=== PATIENT | female | born 1995 | race Caucasian/White ===

== ENCOUNTER → 2018-04-13 07:39 | Outpatient (CLI) | payer BC, SELFPAY ==
[2018-04-13 08:11] LABS: Basophils % 0.7 % (0.1-2.0); Eosinophils # 0.1 K/mm3 (0.0-0.4); Eosinophils % 2.1 % (0.1-12.0); Hematocrit 30.9 % (37.0-47.0); Hemoglobin 9.4 g/dL (12.2-16.2); Lymphocytes # 1.2 K/mm3 (0.7-4.5); Mean Corpuscular HGB Conc 30.6 g/dL (31.8-35.4); Mean Corpuscular Hemoglobin 21.8 pg (27.0-31.2); Mean Corpuscular Volume 71.4 fl (81-99); Mean Platelet Volume 7.3 fl (7.4-10.4); Monocytes # 0.2 K/mm3 (0.1-1.0); Monocytes % 3.6 % (1.7-9.3); Neutrophils # 5.2 K/mm3 (1.8-7.8); Neutrophils % 75.6 % (37.0-80.0); Platelet Count 441 K/mm3 (142-424); Red Blood Count 4.32 M/mm3 (4.20-5.40); Red Cell Distribution Width 15.6 % (11.5-17.5); White Blood Count 6.8 K/mm3 (4.8-10.8)
[2018-04-13 09:35] LABS: Alanine Aminotransferase 28 U/L (12-78); Albumin Level 4.1 gm/dL (3.4-5.0); Albumin/Globulin Ratio 1.2 (1.1-1.8); Alkaline Phosphatase 72 U/L (46-116); Anion Gap 12.3 mEq/L (5-15); Aspartate Amino Transferase 11 U/L (15-37); Bilirubin,Total 0.4 mg/dL (0.2-1.0); Blood Urea Nitrogen 17 mg/dL (7-18); Calcium 9.2 mg/dL (8.5-10.1); Carbon Dioxide 27 mmol/L (21.0-32.0); Chloride 106 mmol/L (98-107); Chol/HDL Ratio 3.2 (1-3.5); Cholesterol 161 mg/dL (140-200); Creatinine,Serum 0.69 mg/dL (0.55-1.02); Estimated Glomerular Filt Rate 107 ml/min (>60); GFR (African American) 130 ML/MIN (>60); Globulin 3.4 gm/dl (1.3-3.2); Glucose 79 mg/dL (74-106); HDL Cholesterol 51 mg/dL (29-89); LDL Cholesterol 97 mg/dL (0-130); Potassium 4.3 mmoL/L (3.5-5.1); Sodium 141 mmol/L (136-145); Thyroid Stimulating Hormone 3.41 uIU/ml (0.358-3.740); Total Protein,Serum 7.5 gm/dL (6.4-8.2); Triglycerides 64 mg/dL (30-200); VLDL Cholesterol 13 mg/dL (0-40)
[2018-04-13 10:02] LABS: Amphetamine/Metha Screen,Urine Negative ng/mL (<1000); Barbiturates Screen,Urine Negative ng/mL (<200); Benzodiazepines Screen,Urine Negative ng/mL (<200); Cannabinoid Screen,Urine Negative ng/mL (<50); Cocaine Screen,Urine Negative ng/mL (<300); Methadone Screen,Urine Negative ng/mL (<300); Opiate Screen,Urine Negative ng/mL (<300); Phencyclidine Screen,Urine Negative ng/mL (<25)
[2018-04-14 18:28] LABS: Lithium (Eskalith(R)) 0.5 mmol/L (0.6-1.2)
== END ==
PROVIDERS: PCP Internal Medicine; Visit Provider Nurse Practitioner Psychiatric/Mental Health
DX: F31.81 Bipolar II disorder (principal)
CPT/HCPCS: 36415; 80053; 80061; 80178; 80305; 84443; 85025

== ENCOUNTER → 2018-05-07 09:45 | Outpatient (CLI) | payer BC, SELFPAY | PROVIDERS: PCP Internal Medicine; Visit Provider Nurse Practitioner Psychiatric/Mental Health | DX: F31.81 Bipolar II disorder (principal) | CPT/HCPCS: 36415; 80178 ==

== ENCOUNTER → 2018-06-08 08:19 | Outpatient (CLI) | payer BC, SELFPAY ==
[2018-06-08 11:15] LABS: Alanine Aminotransferase 22 U/L (12-78); Albumin Level 3.9 gm/dL (3.4-5.0); Albumin/Globulin Ratio 1.1 (1.1-1.8); Alkaline Phosphatase 72 U/L (46-116); Anion Gap 15.5 mEq/L (5-15); Aspartate Amino Transferase 14 U/L (15-37); Bilirubin,Total 0.3 mg/dL (0.2-1.0); Blood Urea Nitrogen 17 mg/dL (7-18); Calcium 9.5 mg/dL (8.5-10.1); Carbon Dioxide 26 mmol/L (21.0-32.0); Chloride 104 mmol/L (98-107); Creatinine,Serum 0.68 mg/dL (0.55-1.02); Estimated Glomerular Filt Rate 109 ml/min (>60); GFR (African American) 132 ML/MIN (>60); Globulin 3.6 gm/dl (1.3-3.2); Glucose 83 mg/dL (74-106); Potassium 4.5 mmoL/L (3.5-5.1); Sodium 141 mmol/L (136-145); Total Protein,Serum 7.5 gm/dL (6.4-8.2)
[2018-06-09 18:44] LABS: Lithium (Eskalith(R)) 0.9 mmol/L (0.6-1.2)
== END ==
PROVIDERS: PCP Internal Medicine; Visit Provider Nurse Practitioner Psychiatric/Mental Health
DX: F31.81 Bipolar II disorder (principal)
CPT/HCPCS: 36415; 80053; 80178

== ENCOUNTER → 2018-08-28 09:41 | Outpatient (POV) | payer BC, MEDICAID, SELFPAY | PROVIDERS: Visit Provider Dermatology | DX: Z00.00 Encounter for general adult medical examination without abnormal findings (principal) ==

== ENCOUNTER → 2018-08-30 08:16 | Outpatient (CLI) | payer BC, MEDICAID, SELFPAY ==
[2018-08-30 09:54] LABS: Basophils # 0.1 K/mm3 (0-0.2); Basophils % 0.7 % (0.1-2.0); Eosinophils # 0.1 K/mm3 (0.0-0.4); Eosinophils % 2.2 % (0.1-12.0); Hematocrit 36.6 % (37.0-47.0); Hemoglobin 11.5 g/dL (12.2-16.2); Lymphocytes # 1.1 K/mm3 (0.7-4.5); Lymphocytes % 16.9 % (10-50); Mean Corpuscular HGB Conc 31.5 g/dL (31.8-35.4); Mean Corpuscular Hemoglobin 27.9 pg (27.0-31.2); Mean Corpuscular Volume 88.5 fl (81-99); Monocytes # 0.2 K/mm3 (0.1-1.0); Monocytes % 3.2 % (1.7-9.3); Neutrophils # 5.1 K/mm3 (1.8-7.8); Neutrophils % 76.9 % (37.0-80.0); Platelet Count 504 K/mm3 (142-424); Red Blood Count 4.13 M/mm3 (4.20-5.40); Red Cell Distribution Width 14.5 % (11.5-17.5); White Blood Count 6.6 K/mm3 (4.8-10.8)
[2018-08-30 13:37] LABS: Alanine Aminotransferase 25 U/L (12-78); Albumin Level 3.9 gm/dL (3.4-5.0); Albumin/Globulin Ratio 1.1 (1.1-1.8); Alkaline Phosphatase 69 U/L (46-116); Anion Gap 14.1 mEq/L (5-15); Aspartate Amino Transferase 15 U/L (15-37); Bilirubin,Total 0.7 mg/dL (0.2-1.0); Blood Urea Nitrogen 17 mg/dL (7-18); Calcium 9.8 mg/dL (8.5-10.1); Carbon Dioxide 26 mmol/L (21.0-32.0); Chloride 103 mmol/L (98-107); Creatinine,Serum 0.82 mg/dL (0.55-1.02); Estimated Glomerular Filt Rate 88 ml/min (>60); GFR (African American) 106 ML/MIN (>60); Globulin 3.6 gm/dl (1.3-3.2); Glucose 91 mg/dL (74-106); Potassium 4.1 mmoL/L (3.5-5.1); Sodium 139 mmol/L (136-145); Total Protein,Serum 7.5 gm/dL (6.4-8.2)
[2018-08-31 17:14] LABS: Lithium (Eskalith(R)) 1.4 mmol/L (0.6-1.2)
== END ==
PROVIDERS: Visit Provider Nurse Practitioner Psychiatric/Mental Health
DX: F31.81 Bipolar II disorder (principal)
CPT/HCPCS: 36415; 80053; 80178; 85025

== ENCOUNTER 2025-04-06 09:39 | Emergency (ER) | payer OTHER, SELFPAY ==
--- OUTSIDE RECORDS SUMMARY | 2025-02-10 12:40 | XMS_ITS | Encounter Summary ---
Author Organization Healthcare Address [address] [place] [address] Care Team Providers Care Media Reporter Name Role Phone April Piper APRN Primary Care Provider [phone] Reason for Visit * Reason Comments Cyst Encounter Details Date Type Department Care Team ([facility] Contact Info) Description 02/10/2025 12:40 PM EDT Office Visit [facility] [address] [place] [address] April Piper APRN [address] [facility] [address] [place] [address] Pilonidal cyst (Primary Dx) Social History Tobacco Use Types Packs/Day Years Used Date Smoking Tobacco: Never Passive Smoke Exposure: Never Smokeless Tobacco: Never Alcohol Use Standard Drinks/Week Comments Yes 0 (1 standard drink = 0.6 oz pur e alcohol) Social Humiliation, Afraid, Rape, and Kick questionnair e Answer Date Recorded Within the last year, have y ou been afraid of your partner or ex-partner? No 11/19/2024 Within the last year, have y ou been humiliated or emotionally abused in other ways by your partner or ex-partner? No Within the last year, have y ou been kicked, hit, slapped, or otherwise physically hurt by your partner or ex-partner? No 11/19/2024 Within the last year, have y ou been raped or forced to have any kind of sexual activity by your partner or ex-partner? No 11/19/2024 PHQ-2 Answer Date Recorded Patient Health Questionnaire-2 Score 0 02/10/2025 PHQ-9 Answer Date Recorded Patient Health Questionnaire-9 Score 0 02/10/2025 Hunger Vital Sign Answer Date Recorded Within the past 12 months, y ou worried that your food would run out before you got the money to buy more. Patient declined Within the past 12 months, t he food you bought just didn't last and you didn't have money to get more. Patient declined 02/2025 PRAPARE - Transportation Answer Date Re corded In the past 12 months, has l ack of transportation kept you from medical appointments or from getting medications? Patient declined 02/10/2025 In the past 12 months, has l ack of transportation kept you from meetings, work, or from getting things needed for daily living? Patient declined 02/10/2025 Housing Stability Vital Sign Answer William e Recorded In the last 12 months, was t here a time when you were not able to pay the mortgage or rent on time? No 02/10/2025 Number of Times Moved in the Last Year Not on fi le 02/10/2025 At any time in the past 12 m [facility], were you homeless or living in a [place] [facility] (including now)? No 02/10/2025 Utilities Answer Date Recorded In the past 12 months has th e electric, gas, oil, or water company threatened to shut off services in your home? Patient declined 02/10/2025 PHQ-2A Answer Date Recorded Patient Health Questionnaire-2 Score 2 07/03/2023 Comments No Sex and Gender Information Value Date Recorded Sex Assigned at Female 03/05/2021 1:39 PM EDT Legal Sex Female 6:12 PM EDT Gender Identity Female 03/05/2021 1:39 PM EDT Sexual Orientation Straight 03/05/2021 1: 39 PM EDT documented as of this encounter Last Filed Vital Signs Vital Sign Reading Time Taken Comments Blood Pressure 109/77 02/10/2025 12:40 PM EDT Pulse 78 02/10/2025 12:40 PM EDT Temperature 36.8 C (98.3 F) 02/10/2025 12:40 PM EDT Respiratory Rate 16 02/10/2025 12:40 PM EDT Oxygen Saturation 98% 02/10/2025 12:40 PM EDT Inhaled Oxygen Concentration - - Weight 118 kg (259 lb 0.7 oz) 02/10/2025 12:40 P M EDT Height 172.7 cm (5' 8 ) 02/10/2025 12:40 PM EDT Body Mass Index 39.39 02/10/2025 12:40 PM EDT documented in this encounter Functional Status * Over the past 2 weeks, how often have you been bothered by any of the following problems? Question Answer Date of Assessment Author Little interest or pleasure in doing things Not at all 02/10/2025 12:43 PM EDT Divya Wiseman Feeling down, depressed, or hopeless Not at all 02/10/2025 12:43 PM EDT Divya Wiseman Patient Health Questionnaire -2 Score 0 02/10/2025 12:43 PM EDT Divya Wiseman * Question Answer Date of Assessment Author Trouble falling or staying a sleep, or sleeping too much Not at all 02/10/2025 12:43 PM EDT Divya Wiseman Feeling tired or having danish le energy Not at all 02/10/2025 12:43 PM EDT Divya Wiseman Poor appetite or overeating Not at all 02/10/2025 12 :43 PM EDT Divya Wiseman Feeling bad about yourself - or that you are a failure or have let yourself or your family down Not at all 02/10/2025 12:43 PM EDT Carlos Wiseman Trouble concentrating on thi ngs, such as reading the newspaper or watching television Not at all 02/10/2025 12:43 PM EDT Divya Wiseman Moving or speaking so slowly that other people could have noticed? Or the opposite - being so fidgety or restless that you have been moving around a lot more than usual. Not at all 02/10/2025 12:43 PM EDT Divya Wiseman Thoughts that you would be b ayla off or hurting yourself in some way Not at all 02/10/2025 12:43 PM EDT Divya Wiseman Patient Health Questionnaire -9 Score 0 02/10/2025 12:43 PM EDT Divya Wiseman * Calculated C-SSRS Risk Score (Lifetime/Recent) Answer Date of Assessment Author No Risk Indicated 02/10/2025 12:43 PM EDT Divya Wiseman * If you checked off any problems on this questionnaire so far, Question Answer Date of Assessment Author How difficult have these problems made it for you to do your work, take care of things at home, or get along with other people? Not difficult at all 02/10/2025 12:43 PM EDT Divya Wiseman * Question Answer Date of Assessment Author 1. Wish to be (Past 1 Month) No 025 12:43 PM EDT Divya Wiseman 2. Non-Specific Active Suici rad Thoughts (Past 1 Month) No 02/10/2025 12:43 PM EDT Divya Wiseman 6. Suicidal Behavior (Lifetime) No 12:43 PM EDT Divya Wiseman documented as of this encounter Miscellaneous Notes * Progress Notes - April Piper APRN - 02/10/2025 12:40 PM EDT Images from the original note were not included. Subjective Patient ID: Negrita Gilman is a 29 y.o. female. Chief Complaint: Increased drainage from pilonidal cyst HPI Last seen by PCP 01/29/25 for f/u to I&D of pilonidal cyst, was repacked and referred to CRS. Had previously been referred to Gen Surgery, cut appt not until April. Seen 02/06/25 at [facility] ER; notes indicate wound is superficial w/ healthy granulation tissue. Reports she was soaking a 2x2 gauze over the weekend, so is worried. Was also sore again w/ sitting, like it was in the beginning. The following portions of the chart were reviewed this encounter and updated as appropriate: Tobacco Allergies Meds Problems Med Hx Surg Hx Fam Hx Review of Systems Constitutional: Negative. Negative for fever. Respiratory: Negative. Cardiovascular: Negative. Skin: Positive for wound (see HPI). Psychiatric/Behavioral: The patient is nervous/anxious. Objective Physical Exam Vitals and nursing note reviewed. Constitutional: General: She is not in acute distress. Appearance: Normal appearance. She is obese. She is not ill-appearing. HENT: Head: Normocephalic and atraumatic. Cardiovascular: Rate and Rhythm: Normal rate. Pulmonary: Effort: Pulmonary effort is normal. Abdominal: General: There is no distension. Musculoskeletal: Cervical back: Normal range of motion. Skin: General: Skin is warm and dry. Comments: Pilonidal cyst w/ healthy granulation tissue, scant serous drainage. Depth of 1 cm w/ gentle sterile swab probe. No induration or fluctuance. Area loosely packed w/ sterile gauze moistened w/ NS. Neurological: Mental Status: She is alert and oriented to person, place, and time. Psychiatric: Mood and Affect: Mood normal. Behavior: Behavior normal. Assessment/Plan Assessment & Plan Pilonidal cyst Reassured her cyst is healing, and this is the expected course. Can lightly pack for another coupleof days. Moist hot compresses w/ a thermal barrier suggested, and OTC NSAID or Tylenol PRN. Avoid prolonged sitting. No swimming or soaking. RTC prn. Verbalizing understanding and agreement w/ plan. documented in this encounter Plan of Treatment Upcoming Encounters Date Type Department Care Team (Late st Contact Info) Description 05/02/2025 10:00 AM EDT Office Visit [facility] [address] [place] [id number] Lenore De La Cruz PA [address] [place] [address] 06/26/2025 7:20 AM EST Office Visit [facility] [address] [place] [id number] April Piper APRN [address] [place] [address] 08/22/2025 8:00 AM EST Office Visit [facility] [address] [place] [address] Keli Harvey PA [address] [place] [address] 09/17/2025 1:00 PM EST Office Visit [facility] [address] [place] [address] Janice Kramer MD [address] [place] [address] documented as of this encounter Goals Goal Patient Goal Type Associated Problems Recent Progress Patient-Stated? Author HEP Occupational Therapy On track(2020 3:42 PM EDT) No Tanya Ghosh Note: Patient will complete HEP with appropriate form 100% of the time. Environmental Compliance Manager Goal: to be met by 06/08/21 Goal on going as exercises continue to be added. Good form with exercises thus far. Leisure Occupational Therapy On track(2020 3:42 PM EDT) No Tanya hGosh Note: Patient will complete leisure task such as baking or beading x20 minutes without pain 100% of the time. Environmental Compliance Manager Goal: to be met by 07/10/21. documented as of this encounter Visit Diagnoses Diagnosis Pilonidal cyst- Primary documented in this encounter Additional Health Concerns Assessment Noted Time PHQ-9 Depression Total Score: 0 02/11/20 25 12:43 PM EDT A fall risk assessment has been complete d for the patient 02/10/2025 12:44 PM EDT A Body Mass Index follow-up plan has been documented for the patient 02/10/2025 1:15 PM EDT documented as of this encounter Care Teams Media Reporter Relationship Specialty Start Date End Date April Piper APRN [address] [place] [address] [address] [place] [address] PCP - General Family Medicine 02/06/23 documented as of this encounter
--- OUTSIDE RECORDS SUMMARY | 2025-02-21 08:00 | XMS_ITS | Encounter Summary ---
Author Organization Healthcare Address [address] [place] [address] Care Team Providers Care Paint Line Operator Name Role Phone April Piper APRN Primary Care Provider [phone] Encounter Details Date Type Department Care Team (Late st Contact Info) Description 02/21/2025 8:00 AM EDT Office Visit [place] [facility] [address] [place] [address] Keli Harvey PA [address] [place] [address] Occipital neuralgia, unspecified laterality (Primary Dx); Myofascial pain; Idiopathic intracranial hypertension; Chronic tension-type headache, intractable; Migraine without aura and without status migrainosus, not intractable Social History Tobacco Use Types Packs/Day Years [...] any time in the past 12 m [facility], were you homeless or living in a retirement (including now)? No 02/10/2025 Utilities Answer Date Recorded In the past 12 months has e electric, gas, oil, or water company [...] PM EDT documented as of this encounter Miscellaneous Notes * Progress Notes - Keli Harvey PA - 02/21/2025 8:00 AM EDT [facility] Neurology TeleHealth Follow up Note The patient presents to this TeleCare visit. Patient identity has been confirmed using name and date of . Patient confirms they are physically located in [place]. The patient has received and understands the [place] Authorizations and Agreements form and consents to the general terms and conditions of care. The patient has received the Consent for Care Using TeleCare. The risk, benefits, and alternatives of care being provided via telecarewere discussed with the patient who understands and agrees to proceed. The patient was seen via audio and video. Negrita Kerry Gilman presents via Video for a follow up regarding MIGRAINE HEADACHES Patient was last seen by MARIE Velasquez on 11/19/2024. 11/19/2024 - MARIE Velasquez - telehealth 1) Chronic daily head pain / pressure 2) Migraine headache Continue Emgality 120mg injections every 30 days. For headache prevention - may need new prescription. Continue Nurtec 75mg (new RX) taken every other day for headache prevention. Continue Ubrelvy 50mg (new RX) taken as needed for headache rescue. No longer taking Nortriptyline- 3) Myofascial neck pain / Occipital Neuralgia Continue Methocarbamol 750 at bedtime Continue Naproxyn 500mg at bedtime and prn for pain In future - may benefit from trigger Point injection HPI Today, patient presents via video unaccompanied to contribute to the history. Current meds Emgality 120mg monthly Ubrelvy 50mg - prn Topiramate -25mg 1in am and 2 in pm (from endo) Headaches have been doing really well. I really don't have a problem unless I am really sick (like a cold) and have a really bad migraine. The last two months - about 5 days prior to next injections - gets several headaches. Has to take the ubrelvy at least 3 of 5 days (sometimes takes two doses to subside) Currently receiving Emgality 120mg monthly for prevention - the occasional headache during the month is not as severe as previous headaches. Headaches at end of month are more severe (like previous headaches before this treatment) and is accompanied with nausea. Has Zofran at home to use if needed On Topamax from [facility] (for appetite suppressant) - No sign SE. Increase to 50mg in am and 50mg at pm. ( Specialty pharmacy) - to assist with headache prevention Re: Ubrelvy 50mg - often has to take 2 doses, but Medicaid only gives 10 tablets/ month. Takes mostof them at end of month. This prescription comes from specialty pharmacy Has never had BOTOX but is interested in learning more about it. Past Medical History[1] Family History[2] Surgical History[3] Medications Ordered Prior to Encounter[4] Allergies[5] All medications have been reviewed today. Review of Systems As noted in HPI Objective There were no vitals filed for this visit. Physical Exam Exam observed via Zoom TeleHealth GEN: WDWN NAD HENT: ATNC, NECK: Supple, ROM normal RESP: Normal respiratory effort observed. NEURO: MS: Awake, alert, oriented, good fund of knowledge, good mood with appropriate affect. CN: EOMI full and conjugate. No facial droop. Speech and hearing grossly normal. MOTOR: No abnormal movements. GAIT: Not tested Discussion Summary: Very pleasant 29 yo female, presents via video to discuss headaches and current treatment. Patient continues on Emgality 120 injections once a month. Unfortunately she states that they injections seems to wear off in the last week before the next injection. During this time she will have 3 migraineheadaches over about 5 days. During that time she will have to take her Ubrelvy. She currently has 50 mg but often has to take to before headache subsides. Because of this she use a goes through her 10 tablets that are alotted by her insurance. She is currently on Topamax 50 mg tablet 1 in the morning and 2 in the evening. This was originallywritten by her slip cover seamstress in effort to help her to lose some weight. She states that it did not seem to give the intended affect however it did seem to work on decreasing her monthly headaches. We did not discuss the occipital neuralgia, use of naproxen and tizanidine at this time. Patient always has the opportunity to reach out via [facility] at which time we can address any issues that she may have in the future Past medical records, any recent homes or imaging results, in interval history is collected and reviewed. Using shared decision-making, the following treatment plan is recommended 1) migraine headache, without aura, without status migrainosus, not intractable Patient will continue on EMGALITY 120 mg injections every 30 days, for headache prevention. Is not uncommon for patients to have decreased efficacy towards the end of the month. We will monitor this before any changes were made. Patient is very satisfied with how well the EMGALITY is doing in his not want to make any changes at this time. RX: UBRELVY 100 MG WILL BE SENT TO THE SPECIALTY PHARMACY ( Rx: Ubrelvy 100 mg will be sent to the specialty pharmacy ( this is an increased from the 50 mg so patient will have enough of the medication at the end of the month to treat her headaches) Recommend increasingly propranolol 50 mg to 2 tablets in the morning and 2 tablets at night. This may help to increase the prevention of her headaches. She is asked to reach out to her slip cover seamstress and make them aware of this change since they are the original prescriber hours. We are course available to reach out to the slip cover seamstress are cells provide any information that is needed. Course again recommend staying well hydrated. Getting routine sleep. As both of these activities will keep the headache threshold level She is asked to keep a headache diary to have a specific number of how many headaches and how many migraine headache she has monthly. This is an anticipation of looking into Botox injections in the future. We approach this as it may be a way to give headache prevention through the end of the month before the next Emgality injection is due. RTC 6 months we request at this visit be in-person Assessment and Plan Diagnosis Plan 1. Occipital neuralgia, unspecified laterality 2. Myofascial pain 3. Idiopathic intracranial hypertension 4. Chronic tension-type headache, intractable 5. Migraine without aura and without status migrainosus, not intractable Telehealth Statement Patient Verification Patient identity has been confirmed using name and date of ? Yes Authorizations and Agreements/Telemedicine Consent sent and consent confirmed? Yes Patient Location: Home/Other Patient confirms they are physically located in [place]? Yes If the patient is not physically located in [place], the provider has confirmed with [facility] thatthe provider is authorized to provide services in patient's stated location? N/A Provider Location: [facility] facility Audio and video or audio only? Audio and video Total visit time: 31 minutes [1] Past Medical History: Diagnosis Date ADD (attention deficit disorder) Anemia Anxiety Arthritis Asthma as child Bipolar 1 disorder (CMS/HCC) Chronic pain disorder COVID-19 COVID-19 Depression bipolar 1 GERD (gastroesophageal reflux disease) Headache Headache, tension-type Hypertension Joint pain Migraine Obesity (BMI 35.0-39.9 without comorbidity) 12/30/2021 Otitis media PONV (postoperative nausea and vomiting) [2] Family History Problem Relation Name Age of Onset Hypertension Mother Mom Depression Mother Mom Alcohol abuse Mother Mom Heart disease Mother Mom Mental illness Mother Mom Arthritis Mother Mom Drug abuse Mother Mom Rheumatologic disease Mother Mom Hypertension Father Dad Depression Father Dad Heart disease Father Dad Mental illness Father Dad Cervical cancer Maternal Grandmother M gma Cancer Maternal Grandmother M gma Diabetes Maternal Grandfather M gpa Alcohol abuse Maternal Grandfather M gpa Hearing loss Maternal Grandfather M gpa Heart disease Maternal Grandfather M gpa Mental illness Maternal Grandfather M gpa Arthritis Maternal Grandfather M gpa Bipolar disorder Paternal Grandmother D gma Hearing loss Paternal Grandmother D gma Heart disease Paternal Grandmother D gma Mental illness Paternal Grandmother D gma Arthritis Paternal Grandmother D gma Cataracts Paternal Grandmother D gma Other (substance abuse) Other Bipolar disorder Other Hearing loss Paternal Grandfather D gpa Heart disease Paternal Grandfather D gpa Arthritis Paternal Grandfather D gpa Cataracts Paternal Grandfather D gpa Alcohol abuse Mother's Sister Mom sister Depression Mother's Sister M sist Depression Mother's Sister Mom s Mental illness Mother's Sister M sister Mental illness Father's Brother Uncle Bipolar disorder Father's Brother Uncle Intellectual Disability Brother Tiburcio Drug abuse Mother's Sister M sis Mental illness Father's Brother Uncle Bipolar disorder Father's Brother Uncle [3] Past Surgical History: Procedure Laterality Date APPENDECTOMY N/A Appendectomy from [facility] BARIATRIC SURGERY GASTRIC BYPASS N/A Gastric Surgery from [facility] TONSILLECTOMY N/A Tonsillectomy from [facility] WRIST SURGERY Bilateral x9 [4] Current Outpatient Medications on File Prior to Visit Medication Sig Dispense Refill albuterol (2.5 MG/3ML) 0.083% nebulizer solution Take 3 mL (2.5 mg) by nebulization 4 (four) times a day if needed for wheezing or shortness of breath. 360 mL 0 albuterol 108 (90 Base) MCG/ACT inhaler Inhale 2 puffs every 4 hours as needed for wheezing or shortness of breath. 18 g 3 amphetamine-dextroamphetamine (Adderall) 10 MG tablet Take 1 tablet by mouth 2 times a day. 60 tablet 0 budesonide-formoterol (Symbicort) 160-4.5 MCG/ACT inhaler Inhale 2 puffs 2 times a day. Rinse mouthwith water after use to reduce aftertaste and incidence of candidiasis. Do not swallow. 10.2 g 2 cyanocobalamin (cyancobalamin) 500 MCG tablet Take 1 tablet (500 mcg) by mouth 1 (one) time each day. 90 tablet 3 desvenlafaxine (Pristiq) 50 MG 24 hr tablet Take 1 tablet by mouth daily. Do not crush, chew, or split. 30 tablet 0 famotidine (Pepcid) 40 MG tablet Take 1 tablet (40 mg) by mouth 2 (two) times a day. 180 tablet 3 fluticasone (Flonase) 50 MCG/ACT nasal spray Administer 1 spray into each nostril daily. Shake gently. Before first use, prime pump. After use, clean tip and replace cap. 16 g 12 galcanezumab-gnlm (Emgality) 120 MG/ML injection Inject 1 Syringe (120 mg) under the skin every 30 (thirty) days. 1 each 11 lamoTRIgine (LaMICtal) 200 MG tablet Take 1 tablet by mouth daily. 30 tablet 0 lisinopril 10 MG tablet Take 1 tablet by mouth daily. 90 tablet 3 loratadine (Claritin) 10 MG tablet Take 1 tablet by mouth daily. 90 tablet 3 magnesium, as gluconate, (Magonate) 500 (27 Mg) MG tablet Take 1 tablet by mouth nightly. 90 tablet0 methocarbamol (Robaxin) 750 MG tablet Take 1 tablet by mouth at night as needed for muscle spasms (headaches). 90 tablet 3 montelukast (Singulair) 10 MG tablet Take 1 tablet (10 mg) by mouth every night. 90 tablet 3 naproxen (Naprosyn) 500 MG tablet Take 1 tablet by mouth in the morning and 1 tablet in the evening. Take with meals. 180 tablet 3 ondansetron ODT (Zofran-ODT) 8 MG disintegrating tablet Take 1 tablet (8 mg) by mouth every 8 hoursas needed for nausea or vomiting. 20 tablet 3 28-0.8 MG tablet Mruzuxtl-Qfb-Np-FA (/Iron) tablet Take 1 tablet by mouth daily. 90 tablet 1 propranolol (Inderal) 20 MG tablet Take 1 tablet by mouth 3 times a day. For headache prevention 270 tablet 3 QUEtiapine (SEROquel) 25 MG tablet Take 0.5 tablets by mouth at night as needed (Sleep). 15 tablet 0 Rexulti 2 MG tablet tablet Take 1 tablet by mouth nightly. 30 tablet 0 Spacer/Aero-Holding Chambers ([facility] Spacer Adult) [facility] 1 each0 topiramate (Topamax) 25 MG tablet Take 1 po every morning and 2 po in evening until follow up . 180tablet 0 [DISCONTINUED] Ubrelvy 50 MG tablet Take 1 tablet by mouth 1 time as needed. No current facility-administered medications on file prior to visit. [5] Allergies Allergen Reactions Abilify [Aripiprazole] Rash Sulfa Drugs Hives and Unknown - Patient states they do not know rxn details Iodinated Contrast Media Headache Naltrexone Other - please document in the comment field documented in this encounter Plan of Treatment Upcoming Encounters Date Type Department Care Team (Late st Contact Info) Description 05/02/2025 10:00 AM EDT [facility] [address] [place] [phone] Lenore De La Cruz PA [address] [place] [phone] 06/26/2025 7:20 AM EST Office Visit [facility] [address] [place] [address] Piper, April, OPERATIONS AND MAINTENANCE TECHNICIAN [address] [place] [phone] 08/22/2025 8:00 AM EST Office Visit [place] [facility] [address] [place] [address] Keli Harvey PA [address] [place] [address] 09/17/2025 1:00 PM EST Office Visit [facility] [address] [place] [address] Janice Kramer MD [address] [place] [address] documented as of this encounter Goals Goal Patient Goal Type Associated Problems Recent Progress Patient-Stated? Author HEP Occupational Therapy On track(2020 3:42 PM EDT) No Tanya Ghosh Note: Patient will complete HEP with appropriate form 100% of the time. Enrollment Specialist Goal: to be met by 06/08/21 Goal on going as exercises continue to be added. Good form with exercises thus far. Leisure Occupational Therapy On track(2020 3:42 PM EDT) No Tanya Ghosh Note: Patient will complete leisure task such as baking or beading x20 minutes without pain 100% of the time. [facility] Goal: to be met by 07/10/21. documented as of this encounter Visit Diagnoses Diagnosis Occipital neuralgia, unspecified laterality- Primary Myofascial pain Unspecified myalgia and myositis Idiopathic intracranial hypertension Benign intracranial hypertension Chronic tension-type headache, intractable Chronic tension type headache Migraine without aura and without status migrainosus, not intractable documented in this encounter Additional Health Concerns Assessment Noted Time PHQ-9 Depression Total Score: 0 02/11/20 25 12:43 PM EDT A fall risk assessment has been complete d for the patient 02/10/2025 12:44 PM EDT A Body Mass Index follow-up plan has been documented for the patient 02/21/2025 9:14 AM EDT documented as of this encounter Care Teams Paint Line Operator Relationship Specialty Start Date End Date April Piper APRN [address] [place] [phone] PCP - General Family Medicine 02/06/23 documented as of this encounter
--- OUTSIDE RECORDS SUMMARY | 2025-03-03 10:00 | XMS_ITS | Encounter Summary ---
Author Organization Healthcare Address [address] [place] [address] Care Team Providers Care Customer Greeter Name Role Phone April Piper APRN Primary Care Provider [phone] Reason for Referral * Consultation (Routine) - Authorized Specialty Diagnoses / Procedures Referred By Contac t Referred To Contact Diagnoses Class 2 severe obesity due to excess calories with serious comorbidity and body mass index (BMI) of 38.0 to 38.9 in adult ([facility]) Dietary counseling Migraine without status migrainosus, not intractable, unspecified migraine type Lenore De La Cruz PA [address] [place] [address] Phone: tel: fax: Referral ID Status Reason Start Date Expiration Date V isits Requested Visits Authorized [id number] Authorized 03/03/2025 09/02/2026 1 1 Reason for Visit * Reason Comments Obesity * Consultation (Routine) - Closed Specialty Diagnoses / Procedures Referred By Contac t Referred To Contact Diagnoses Morbid obesity ([facility]) Dietary counseling Lenore De La Cruz PA [address] [address] Phone: tel: fax: Referral ID Status Reason Start Date Expiration Date Visits Re quested Visits Authorized [id number] Closed 11/21/2024 05/23/2026 1 1 Encounter Details Date Type Department Care Team (Late st Contact Info) Description 03/03/2025 10:00 AM EDT Office Visit [facility] [address] [place] [address] Lenore De La Cruz PA [address] [address] Class 2 severe obesity due to excess calories with serious comorbidity and body mass index (BMI) of 38.0 to 38.9 in adult ([facility]) (Primary Dx); Dietary counseling; Migraine without status migrainosus, not intractable, unspecified migraine type Social History Tobacco Use Types Packs/Day Years [...] Date Recorded Patient Health Questionnaire-2 Score 0 03/03/2025 PHQ-9 Answer Date Recorded Patient Health Questionnaire-9 [...] in the past 12 m [facility], were you homeless or living in a longterm (including now)? No 02/10/2025 Utilities Answer Date [...] Sign Reading Time Taken Comments Blood Pressure 108/77 03/03/2025 9:47 AM EDT Pulse 70 03/03/2025 9:47 AM EDT Temperature - - Respiratory Rate - - Oxygen Saturation - - Inhaled Oxygen Concentration - - Weight 115 kg (252 lb 6.8 oz) 03/03/2025 9:47 AM EDT Height 172.7 cm (5' 8 ) 03/03/2025 9:47 AM EDT Body Mass Index 38.38 03/03/2025 9:47 AM EDT documented in this encounter Functional Status * Over the past 2 weeks, how often have you been bothered by any of the following problems? Question Answer Date of Assessment Author Little interest or pleasure in doing things Not at all 03/03/2025 9:50 AM EDT Latricia Jauregui Feeling down, depressed, or hopeless Not at all 03/03/2025 9:50 AM EDT Latricia Jauregui Patient Health Questionnaire -2 Score 0 03/03/2025 9:50 AM EDT Latricia Jauregui documented as of this encounter Miscellaneous Notes * Patient Instructions - Lenore De La Cruz PA - 03/03/2025 10:00 AM EDT 1306 kcal/day, Protein 100-115 grams/day, Carbs 139-175 grams/day, Fat 30-45 grams/day, fiber 30g, sugar <35 g - Will aim for about 400 calories per meal and 30-40 g of protein - Will increase water intake to 80 oz a day - Will aim for 5 cups of fruits and vegetables a day - Will concentrate on increasing protein intake - Will stop eating 3 hours prior to bedtime - Will stop sugary drinks * Progress Notes - Lenore De La Cruz PA - 03/03/2025 10:00 AM EDT Images from the original note were not included. SANDRA Negrita Gilman presents to the [facility] for follow up for weight loss. At her initial visit in November we started topiramate. She states that it has really helped with her migraines so her neurologist would like to take over prescriptions. She is currently taking 2 po BID. Initially she felt like it helped with her appetite but once her neurologist increased the dose she doesn't feel like it helps as much. She has noticed that she is not able to eat as much as usual. She states that when she was logging her foods she noticed that she became hyper fixated about her foods so she stopped logging. She plans to see a therapist soon. Currently low physical activity secondary to PMH: obesity, RLS, asthma, HTN, BPD, ADHD, migraines WEIGHT HISTORY - lowest weight as an adult- 198 Heaviest weight- 275 Rate of weight gain/any inciting factors- Weight gain with psych medications. Also increased stressgoing through a terrible divorce. Increased appetite- never feels satisfied Tried any Weight loss programs- phentermine- did not work; wellbutrin/naltrexone; Weight watchers, Gastric sleeve What worked best in your opinion in your prior weight loss journey? When she does things on her own Any Stressors Sleep- 8 hours no snoring FAMILY WEIGHT HISTORY Dad, mom, grandparents with weight issues NUTRITIONAL HISTORY Do you record your food- not currently Do you skip meals- yes- breakfast How often do you eat the following foods- -Whole grains: every day -Fruits: 2-3 times a day -Vegetables: 2-3 times a day -Meat: every day -dairy: 2-3 times a week -Fried food/snacks (chips crackers pop corn): 2-3 times a week -Sweets: 2-3 times a week -sugar sweetened beverages: once a week (improved from daily) -High sodium processed foods (canned soup pasta, frozen/packaged meal, chips) : 1-3 times a day -Alcohol: once a month 1 drink -How often do you Eat out- 1 times a week- How much Water do you drink per day - 32 oz 24 hour dietary recall BK- 2 eggs and whole wheat toast Lunch- turkey cheese sandwich with roasted vegetables, graham kiwi Dinner- 1/2 filet cod with roasted vegetables Snacks- none Nighttime eating PHYSICAL ACTIVITY Current level of physical activity- low activity related to current pilonidal cyst Any medical problems that limit physical activity- wrist and asthma No of flight of stairs/daily walking steps- not tracking Types of physical activities that you enjoy ( walking, running, swimming, hitting the gym, dancing)- walk, swim, treadmill SURGICAL- gastric sleeve 2015 SOCIAL HISTORY - h/o substance/alcohol abuse: No ? Eating disorders - late night eating; binge eating; boredom eating The following portions of the chart were reviewed this encounter and updated as appropriate: Tobacco Allergies Meds Problems Med Hx Surg Hx Fam Hx Review of Systems Constitutional: negative Respiratory: Negative. Cardiovascular: Negative. Gastrointestinal: Negative. Musculoskeletal: chronic wrist pain Neurological: Negative. Psychiatric/Behavioral: Negative. Objective []Expand by Default Physical Exam Vitals reviewed. Constitutional: Appearance: obese. Cardiovascular: Rate and Rhythm: Normal rate Pulmonary: Effort: Pulmonary effort is normal. Neurological: Mental Status: She is alert and oriented to person, place, and time. Psychiatric: Mood and Affect: Mood normal. Behavior: Behavior normal. Assessment/Plan #Obesity A reduction of 5%-10% or more of current body weight will improve health parameters. Weight today- 252 BMI- 38.38 Goal- 190 and to feel better; get appetite under control Weight change since last visit- down 22 lbs ACTION PLAN: Nutrition: 1306 kcal/day, Protein 100-115 grams/day, CHO 139-175 grams/day, Fat 30-45 grams/day, and Other fiber 30g, sugar <35 g based off of [address] Jeor BMR calculation - Will aim for about 400 calories per meal and 30-40 g of protein - Will increase water intake to 80 oz a day - Will aim for 5 cups of fruits and vegetables a day - Will concentrate on increasing protein intake - Will stop eating 3 hours prior to bedtime - Will stop sugary drinks Physical Activity: - Will track steps aiming for 10K a day Medical therapy: - Topiramate 25 mg 2 po BID Discussed medication use and potential side effects. Patient will reach out if any issues prior to follow up appointment. #Migraines - Continue topiramate as above to help with migraine prophylaxis Follow up- 6 weeks I personally spent a total of 28 minutes on this encounter. This time includes face to face with patient, counseling and discussion and/or coordination of care. Note to patient: The Century Cures Act makes medical notes like these available to patients inthe interest of transparency. However, be advised this is a medical document. It is intended as peer to peer communication. It is written in medical language and may contain abbreviations or verbiagethat are unfamiliar. It may appear blunt or direct. Medical documents are intended to carry relevant information, facts as evident, and the clinical opinion of the practitioner. RYLIE Valverde, PAEmmyC, [facility] documented in this encounter Plan of Treatment Upcoming Encounters Date Type Department Care Team (Late st Contact Info) Description 05/02/2025 10:00 AM EDT [facility] [address] [place] [address] Lenore De La Cruz PA [address] [place] [phone] 06/26/2025 7:20 AM EST Office Visit [facility] [address] [place] [address] April Piper APRN [address] [facility] [address] [place] [address] 08/22/2025 8:00 AM EST [facility] Visit [facility] [address] [place] [address] Keli Harvey PA [address] [place] [address] 09/17/2025 1:00 PM EST Office Visit [facility] [address] [place] [address] Janice Kramer MD [address] [place] [address] Scheduled Referrals Name Type Priority Associated Diagnoses Orde r Schedule Follow Up [facility] Outpatient Referral Routine Class 2 severe obesity due to excess calories with serious comorbidity and body mass index (BMI) of 38.0 to 38.9 in adult ([facility]) Dietary counseling Migraine without status migrainosus, not intractable, unspecified migraine type Expected: 05/04/2025, Expires: 09/04/2026 documented as of this encounter Goals Goal Patient Goal Type Associated Problems Recent Progress Patient-Stated? Author HEP Occupational Therapy On track(2020 3:42 PM EDT) No Tanya Ghosh Note: Patient will complete HEP with appropriate form 100% of the time. Snf Goal: to be met by 06/08/21 Goal on going as exercises continue to be added. Good form with exercises thus far. Leisure Occupational Therapy On track(2020 3:42 PM EDT) No Tanya Ghosh Note: Patient will complete leisure task such as baking or beading x20 minutes without pain 100% of the time. Snf Goal: to be met by 07/10/21. documented as of this encounter Visit Diagnoses Diagnosis Class 2 severe obesity due to excess calories with serious comorbidity and body mass index (BMI) of 38.0 to 38.9 in adult ([facility])- Primary Dietary counseling Dietary surveillance and counseling Migraine without status migrainosus, not intractable, unspecified migraine type documented in this encounter Additional Health Concerns Assessment Noted Time PHQ-9 Depression Total Score: 0 02/11/20 25 12:43 PM EDT A fall risk assessment has been complete d for the patient 02/10/2025 12:44 PM EDT A Body Mass Index follow-up plan has been documented for the patient 03/03/2025 11:26 AM EDT documented as of this encounter Care Teams Customer Greeter Relationship Specialty Start Date End Date April Piper APRN [address] [place] [phone] PCP - General Family Medicine 02/06/23 documented as of this encounter
--- OUTSIDE RECORDS SUMMARY | 2025-03-07 07:45 | XMS_ITS | Encounter Summary ---
Author Organization Healthcare Address [address] [place] [address] Care Team Providers Care Records Management Coordinator Name Role Phone April Piper APRN Primary Care Provider [phone] Encounter Details Date Type Department Care Team (Late st Contact Info) Description 03/07/2025 7:45 AM EDT Ancillary Procedure [facility] [address] [place] [address] Social History Tobacco Use Types Packs/Day Years [...] any time in the past 12 m [facility], were you homeless or living in a care home (including now)? No 02/10/2025 Utilities Answer Date Recorded In the past 12 months has th e [employer], gas, oil, or water [employer] threatened to shut off services in your [...] PM EDT documented as of this encounter Plan of Treatment Upcoming Encounters Date Type Department Care Team (Late st Contact Info) Description 05/02/2025 10:00 AM EDT [facility] [address] [place] [address] Lenore De La Cruz, PA [address] [place] [phone] 06/26/2025 7:20 AM EST Office Visit [facility] [address] [place] [phone] April Piper APRN [address] [place] [address] 08/22/2025 8:00 AM EST Office Visit [place] [facility] [address] [place] [address] Keli Harvey PA [address] [place] [address] 09/17/2025 1:00 PM EST Office Visit [facility] [address] [place] [address] Janice Kramer MD [address] [place] [address] documented as of this encounter Goals Goal Patient Goal Type Associated Problems Recent Progress Patient-Stated? Author HEP Occupational Therapy On track(2020 3:42 PM EDT) No Tanya Ghosh Note: Patient will complete HEP with appropriate form 100% of the time. Casting Wheel Operator Helper Goal: to be met by 06/08/21 Goal on going as exercises continue to be added. Good form with exercises thus far. Leisure Occupational Therapy On track(10/29/ 2021 3:42 PM EDT) No Tanya Ghosh Note: Patient will complete leisure task such as baking or beading x20 minutes without pain 100% of the time. Casting Wheel Operator Helper Goal: to be met by 07/10/21. documented as of this encounter Procedures Procedure Name Priority Date/Time Associated Diagnosis Comments AUTOMATED VISUAL FIELD, EXTENDED - OU - BOTH EYES Routine 03/07/2025 7:40 AM EDT Chronic tension-type headache, intractable documented in this encounter Results * Automated Visual Field, Extended - OU - Both Eyes (03/07/2025 7:40 AM EDT) Anatomical Region Laterality Modality Head Visual Field Narrative 03/17/2025 2:14 PM EDT Right Eye Threshold was 24-2. Strategy was JENNIFER. Reliability was good. Progression has been stable. Findings include normal observations. Left Eye Threshold was 24-2. Strategy was JENNIFER. Reliability was good. Progression has been stable. Findings include normal observations. Janice Interiano MD OPHTH VISUAL FIELD Final Result documented in this encounter Visit Diagnoses Not on filedocumented in this encounter Additional Health Concerns Assessment Noted Time PHQ-9 Depression Total Score: 0 02/11/20 25 12:43 PM EDT A fall risk assessment has been complete d for the patient 03/07/2025 12:50 PM EDT A Body Mass Index follow-up plan has been documented for the patient 03/07/2025 8:48 AM EDT documented as of this encounter Care Teams Records Management Coordinator Relationship Specialty Start Date End Date April Piper APRN [address] [place] [address] [address] [place] [address] PCP - General Family Medicine 02/06/23 documented as of this encounter
--- OUTSIDE RECORDS SUMMARY | 2025-03-07 07:45 | XMS_ITS | Encounter Summary ---
Author Organization Healthcare Address [address] [place] [address] Care Team Providers Care Setter Automatic Spinning Lathe Name Role Phone April Piper APRN Primary Care Provider [phone] Encounter Details Date Type Department Care Team (Late st Contact Info) Description 03/07/2025 7:45 AM EDT Ancillary Procedure [facility] [address] [place] [address] Social History Tobacco Use Types [...] any time in the past 12 m [facility], were you homeless or living in a fdc (including now)? No 02/10/2025 Utilities Answer Date Recorded In the past 12 months has th e [employer], gas, oil, or water [employer] threatened to shut off services in your [...] 05/02/2025 10:00 AM EDT [facility] [address] [place] [address] Lenore De La Cruz, PA [address] [place] [phone] 06/26/2025 7:20 AM EST Office [facility] [address] [place] [phone] April Piper APRN [address] [place] [address] 08/22/2025 8:00 AM EST Office Visit [place] [facility] [address] [place] [address] Keli Harvey PA [address] [place] [address] 09/17/2025 1:00 PM EST Office Visit [facility] [address] [place] [address] Janice Kramer MD [address] [place] [address] documented as of this encounter Goals Goal Patient Goal Type Associated Problems Recent Progress Patient-Stated? Author HEP Occupational Therapy On track(2020 3:42 PM EDT) No Tanya Ghosh Note: Patient will complete HEP with appropriate form 100% of the time. Loan Associate Goal: to be met by 06/08/21 Goal on going as exercises continue to be added. Good form with exercises thus far. Leisure Occupational Therapy On track(10/29/ 2021 3:42 PM EDT) No Tanya Ghosh Note: Patient will complete leisure task such as baking or beading x20 minutes without pain 100% of the time. Loan Associate Goal: to be met by 07/10/21. documented as of this encounter Procedures Procedure Name Priority Date/Time Associated Diagnosis Comments OCT, RETINA - OU - BOTH EYES Routine 03/07/2025 7:40 AM EDT Chronic tension-type headache, intractable documented in this encounter Results * OCT, Retina - OU - Both Eyes (03/07/2025 7:40 AM EDT) Anatomical Region Laterality Modality Head Optical Coherenc e Tomography Narrative 03/17/2025 2:02 PM EDT Right Eye Quality was good. Scan locations included subfoveal. Progression has been stable. Findings include normal observations, normal foveal contour. Left Eye Quality was good. Scan locations included subfoveal. Progression has been stable. Findings include normal observations, normal foveal contour. Janice Interiano MD OPHTH TOMOGRAPHY Final Result documented in this encounter Visit [...] documented as of this encounter Care Teams Setter Automatic Spinning Lathe Relationship Specialty Start Date End Date April Piper APRN [address] [place] [address] [address] [place] [address] PCP - General Family Medicine 02/06/23 documented as of this encounter
--- OUTSIDE RECORDS SUMMARY | 2025-03-07 07:50 | XMS_ITS | Encounter Summary ---
Author Organization Healthcare Address [address] [place] [address] Care Team Providers Care Electrical/Instrument Technician Name Role Phone April Piper APRN Primary Care Provider [phone] Encounter Details Date Type Department Care Team (Late st Contact Info) Description 03/07/2025 7:50 AM EDT Ancillary Procedure [facility] [address] [place] [address] Social History Tobacco Use Types [...] any time in the past 12 m [facility], were you homeless or living in a prison (including now)? No 02/10/2025 Utilities Answer Date Recorded In the past 12 months has th e [employer], gas, oil, or water [employer] threatened to shut off services in your [...] 05/02/2025 10:00 AM EDT [facility] [address] [place] [address] Lenore De La Cruz, PA [address] [place] [phone] 06/26/2025 7:20 AM EST Office Visit [facility] [address] [place] [phone] April Piper APRN [address] [place] [address] 08/22/2025 8:00 AM EST Office Visit [place] [facility] [address] [place] [address] Keli Harvey PA [address] [place] [address] 09/17/2025 1:00 PM EST Office Visit [facility] [address] [place] [address] Janice Kramer MD [address] [place] [address] documented as of this encounter Goals Goal Patient Goal Type Associated Problems Recent Progress Patient-Stated? Author HEP Occupational Therapy On track(2020 3:42 PM EDT) No Tanya Ghosh Note: Patient will complete HEP with appropriate form 100% of the time. Magazine Designer Goal: to be met by 06/08/21 Goal on going as exercises continue to be added. Good form with exercises thus far. Leisure Occupational Therapy On track(10/29/ 2021 3:42 PM EDT) No Tanya Ghosh Note: Patient will complete leisure task such as baking or beading x20 minutes without pain 100% of the time. Magazine Designer Goal: to be met by 07/10/21. documented as of this encounter Procedures Procedure Name Priority Date/Time Associated Diagnosis Comments OCT, OPTIC NERVE - OU - BOTH EYES Routine 03/07/2025 7:40 AM EDT Chronic tension-type headache, intractable documented in this encounter Results * OCT, Optic Nerve - OU - Both Eyes (03/07/2025 7:40 AM EDT) Average RNFL Today (OS) 92 OPHTHALMOLOGY Average RNFL Today (OD) 93 OPHTHALMOLOGY Anatomical Region Laterality Modality Head Optical Coherenc e Tomography Narrative 03/17/2025 2:02 PM EDT Right Eye Images reviewed and comparison made to baseline, Images reviewed. To assess optic nerve function and for use in future follow-up. Reliability: good and adequate. 93. Left Eye Images reviewed and comparison made to baseline, Images reviewed. To assess optic nerve function and for use in future follow-up. Reliability: good and adequate. 92. Notes Right eye (OD) - average RNFL measures 93 microns, stable from previous exam Left eye (OS) - average RNFL measures 92 microns, stable from previous exam Both eyes (OU) ganglion cell analysis is intact Janice Interiano MD OPHTH TOMOGRAPHY Final Result [...] documented as of this encounter Care Teams Electrical/Instrument Technician Relationship Specialty Start Date End Date April Piper APRN [address] [place] [address] [address] [place] [address] PCP - General Family Medicine 02/06/23 documented as of this encounter
--- OUTSIDE RECORDS SUMMARY | 2025-03-07 08:20 | XMS_ITS | Encounter Summary ---
Author Organization Healthcare Address [address] [place] [address] Care Team Providers Care Spinner Operator Name Role Phone Feliz April JEANIE Primary Care Provider Reason for Referral * Consultation (Routine) - Authorized Specialty Diagnoses / Procedures Referred By Contac t Referred To Contact Podiatry Diagnoses Ingrown toenail of left foot Steph Flanagan APRN [address] [place] [address] Phone: tel: fax: Referral ID Status Reason Start Date Expiration Date Visits Requested Visits Authorized [id number] Authorized Specialty Services Required 03/07/2025 09/06/2026 1 1 Reason for Visit * Reason Comments Toe Injury L big toe, for 6 day s. Painful to walk. Was an ingrown toenail, got it out and now seems infected. Pt stated she felt pressure and like it bubbled up pretty bad after removin the ingrown, removed pus from the wound and now still does not feel good. Rash Possible ring worm, on L thigh. Pt first noticed the rash last night. Pt has a hx of ringworm. Encounter Details Date Type Department Care Team (Late st Contact Info) Description 03/07/2025 8:20 AM EDT Office Visit [facility] [address] [place] [address] Steph Flanagan, SALES OFFICE ADMINISTRATOR [address] [facility] [address] [place] [address] Ingrown toenail of left foot (Primary Dx); Ringworm Social History Tobacco Use Types Packs/Day Years [...] any time in the past 12 m [facility], were you homeless or living in a chcf (including now)? No 02/10/2025 Utilities Answer Date Recorded In the past 12 months has th e [employer], gas, oil, or water company threatened to [...] Sign Reading Time Taken Comments Blood Pressure 116/82 03/07/2025 8:04 AM EDT Pulse 91 03/07/2025 8:04 AM EDT Temperature 36.4 C (97.6 F) 03/07/2025 8:04 AM EDT Respiratory Rate - - Oxygen Saturation 100% 03/07/2025 8:04 AM EDT Inhaled Oxygen Concentration - - Weight 116 kg (255 lb 1.2 oz) 03/07/2025 8:04 AM EDT Height - - Body Mass Index 38.78 03/03/2025 9:47 AM EDT documented in this encounter Miscellaneous Notes * Progress Notes - Steph Flanagan APRN - 03/07/2025 8:20 AM EDT Images from the original note were not included. Subjective Patient ID: Negrita Gilman is a 29 y.o. female. Chief Complaint Patient presents with Toe Injury L big toe, for 6 days. Painful to walk. Was an ingrown toenail, got it out and now seems infected. Pt stated she felt pressure and like it bubbled up pretty bad after removin the ingrown, removed pusfrom the wound and now still does not feel good. Rash Possible ring worm, on L thigh. Pt first noticed the rash last night. Pt has a hx of ringworm. Toe Pain The incident occurred more than 1 week ago. The incident occurred at home. The pain is present in the left toes. The pain is moderate. The pain has been Fluctuating since onset. She reports no foreign bodies present. The symptoms are aggravated by movement, palpation and weight bearing. Treatments tried: removal of ingrown toenail. The treatment provided no relief. Rash This is a new problem. The current episode started today. The problem is unchanged. The affected locations include the left upper leg. The rash is characterized by dryness and scaling. It is unknown if there was an exposure to a precipitant. Pertinent negatives include no fever. Past treatments include nothing. The following portions of the chart were reviewed this encounter and updated as appropriate: Tobacco Allergies Meds Problems Med Hx Surg Hx Fam Hx Review of Systems Constitutional: Negative for fever. Skin: Positive for rash and wound (left great toe ingrown nail). All other systems reviewed and are negative. Past Medical History[1] Surgical History[2] Visit Vitals BP 116/82 (BP Location: Right arm, Patient Position: Sitting, BP Cuff Size: Adult) Pulse 91 Temp 36.4 ??C (97.6 ??F) (Temporal) Wt 116 kg (255 lb 1.2 oz) SpO2 100% BMI 38.78 kg/m?? OB Status Having periods Smoking Status Never BSA 2.36 m?? Objective Physical Exam Vitals reviewed. Constitutional: Appearance: Normal appearance. HENT: Head: Normocephalic. Cardiovascular: Rate and Rhythm: Normal rate. Pulmonary: Effort: Pulmonary effort is normal. Musculoskeletal: General: Normal range of motion. Feet: Feet: Left foot: Skin integrity: Erythema present. Toenail Condition: Left toenails are ingrown. Skin: General: Skin is warm and dry. Findings: Rash present. Rash is crusting and scaling. Neurological: Mental Status: She is alert and oriented to person, place, and time. Psychiatric: Behavior: Behavior normal. Assessment/Plan Assessment & Plan Ingrown toenail of left foot Orders: cephalexin (Keflex) 500 MG capsule; Take 1 capsule by mouth 2 times a day for 10 days. Ambulatory referral to Podiatry; Future Ringworm Orders: clotrimazole (Lotrimin) 1 % cream; Apply topically 2 times a day for 14 days. Podiatry list given to patient. Recommend doing epsom salt soaks BID. Complete course of Keflex andfollow up with podiatry. FOLLOW UP: Patient needs to follow up with PCP (Primary Care Provider) in 48-72 hours if no improvement or worsening of your condition please go to the ED (Emergency Department). ANY CONDITION CAN CHANGE, despite proper treatment. IF YOUR SYMPTOMS WORSEN, CHANGE, or PERSIST, then get to the nearest Emergency Department (ED), call your PCP, or return to Urgent Care (UC). FOLLOW-UP CARE IS AN IMPORTANT RESPONSIBILITY. Discharge from Urgent Care today does NOT mean that nothing is wrong, but it indicates no emergencyis identified. Urgent Care is not a substitute for your primary care provider/physician (PCP) additional evaluation may be needed. ALWAYS FOLLOW-UP WITH YOUR OWN PHYSICIAN/PRIMARY CARE PROVIDER (PCP) to review this Urgent Care visit, and for review and possible repeat blood or urine tests, x-rays, or other diagnostics. COMPLETE ALL TESTS & SCHEDULE ALL REFERRALS ordered or recommended by Urgent Care. If you need help making an appointment within the recommended time frame, then please call us for assistance. CONTACT URGENT CARE for ALL TESTS, X-RAY, and other RESULTS within 3-5 days. Of note, your results will also be made available immediately in your [facility] My Chart. Please do NOT assume that no news is good news. ALL MEDICATIONS CAN HAVE SIDE EFFECTS & INTERACTIONS. Please review these, and ask your pharmacist or contact your primary care provider for questions orconcerns. Be sure that UC, your pharmacist, and your PCP have a complete list of all medications and supplements you are taking. Note to patient: The Century Cures Act [...] and the clinical opinion of the practitioner. [1] Past Medical History: Diagnosis Date ADD (attention deficit disorder) Anemia Anxiety Arthritis Asthma as child Bipolar 1 disorder (CMS/HCC) Chronic pain disorder COVID-19 COVID-19 Depression bipolar 1 GERD (gastroesophageal reflux disease) Headache Headache, tension-type Hypertension Joint pain Migraine Obesity (BMI 35.0-39.9 without comorbidity) 12/30/2021 Otitis media PONV (postoperative nausea and vomiting) [2] Past Surgical History: Procedure Laterality Date APPENDECTOMY N/A Appendectomy from [facility] BARIATRIC SURGERY GASTRIC BYPASS N/A Gastric Surgery from [facility] TONSILLECTOMY N/A Tonsillectomy from [facility] WRIST SURGERY Bilateral x9 documented in this encounter Plan of Treatment Upcoming Encounters Date Type Department Care Team (Late st Contact Info) Description 05/02/2025 10:00 AM EDT Office Visit [facility] Endocrinology [address] [place] [id number] Lenore De La Cruz PA [address] [facility] [address] [place] [phone] 06/26/2025 7:20 AM EST Office Visit [facility] [address] [place] [id number] April Piper APRN [address] [facility] [address] [place] [phone] 08/22/2025 8:00 AM EST Office Visit [facility] [address] [place] [address] Keli Harvey PA [address] [place] [phone] 09/17/2025 1:00 PM EST Office Visit [facility] [address] [place] [address] Janice Kramer MD [address] [place] [address] Scheduled Referrals Name Type Priority Associated Diagnoses Order Schedule Ambulatory referral to Podiatry Outpatient Referral Routine Ingrown toenail of left foot 1 Occurrences starting 03/07/2025 until 09/08/2026 documented as of this encounter Goals Goal [...] as of this encounter Visit Diagnoses Diagnosis Ingrown toenail of left foot- Primary Ringworm Dermatophytosis of unspecified site documented in this encounter Additional Health Concerns Assessment Noted Time PHQ-9 Depression Total Score: 0 02/11/20 25 12:43 PM EDT A fall risk assessment has been complete d for the patient 03/07/2025 12:50 PM EDT A Body Mass Index follow-up plan has been documented for the patient 03/07/2025 8:48 AM EDT documented as of this encounter Care Teams Spinner Operator Relationship Specialty Start Date End Date April Piper APRN [address] [place] [address] PCP - General Family Medicine 02/06/23 documented as of this encounter
--- OUTSIDE RECORDS SUMMARY | 2025-03-07 13:00 | XMS_ITS | Encounter Summary ---
Author Organization Healthcare Address [address] [place] [address] Care Team Providers Care Concessionist Name Role Phone April Piper APRN Primary Care Provider [phone] Encounter Details Date Type Department Care Team (Late st Contact Info) Description 03/07/2025 1:00 PM EDT Office Visit [facility] [address] [facility] [place] [address] Janice Kramer MD [address] [place] [address] Chronic tension-type headache, intractable (Primary Dx) Social History Tobacco Use Types [...] any time in the past 12 m [facility], were you homeless or living in a fpc (including now)? No 02/10/2025 Utilities Answer Date [...] encounter Miscellaneous Notes * Progress Notes - Janice Kramer MD - 03/07/2025 1:00 PM EDT Chief complaint: Headache History of present illness Patient ID: Negrita Gilman is a 29 y.o. female with PMH of chronic headache and migraine has been referred to Neuro-ophthalmology clinic for evaluation of possible IIH. In the previous visit, examination showed no optic disc edema. She was recommended Emgality for migraine which has been helping her headaches. Headaches occurring just a week before Emgality She is due on Monday. Ubrelvy is also helping On Topiramate 50mg BID - needs refills Prior visit: Patient reports headache for about 1 year. Daily headache for the past few months. Qulipta did not help. No hx of kidney stone. Mild tinnitus + She states that ears feel clogged. Weight gain: ongoing; over the past 1 year rapidly increasing Discussed about referral to weight loss clinic. No hx of snoring Denies taking doxycycline, tetracycline or vitamin A supplements Not on controls No hx of PCOS. Work up: CTV: 10/05/2024: No venous sinus thrombosis or high-grade stenosis. Hypoplastic left transverse venous sinus. 09/06/2024: Lumbar puncture: Technically successful diagnostic lumbar puncture at L4-5 with return of clear and colorless CSF. Opening pressure 23 cm H2O. Cerebrospinal fluid (CSF): Protein 20 Glu 62 cell count 3 ME panel MS panel: sub optimal ; only cerebrospinal fluid (CSF) sample Past Medical History: Diagnosis Date ADD (attention deficit disorder) Anemia Anxiety Arthritis Asthma as child Bipolar 1 disorder (CMS/HCC) Chronic pain disorder COVID-19 COVID-19 Depression bipolar 1 GERD (gastroesophageal reflux disease) Headache Headache, tension-type Hypertension Joint pain Migraine Obesity (BMI 35.0-39.9 without comorbidity) 12/30/2021 Otitis media PONV (postoperative nausea and vomiting) Family medical history family history includes Alcohol abuse in her maternal grandfather, mother, and mother's sister; Arthritis in her maternal grandfather, mother, paternal grandfather, and paternal grandmother; Bipolar disorder in her father's brother, father's brother, paternal grandmother, and another family member;Cancer in her maternal grandmother; Cataracts in her paternal grandfather and paternal grandmother;Cervical cancer in her maternal grandmother; Depression in her father, mother, mother's sister, andmother's sister; Diabetes in her maternal grandfather; Drug abuse in her mother and mother's sister; Hearing loss in her maternal grandfather, paternal grandfather, and paternal grandmother; Heart dis ease in her father, maternal grandfather, mother, paternal grandfather, and paternal grandmother; Hypertension in her father and mother; Intellectual Disability in her brother; Mental illness in her father, father's brother, father's brother, maternal grandfather, mother, mother's sister, and paternal grandmother; Rheumatologic disease in her mother; substance abuse in an other family member. Social history reports that she has never smoked. She has never been exposed to tobacco smoke. She has never used smokeless tobacco. She reports current alcohol use. She reports that she does not use drugs. Review of systems ROS Positive for: Neurological, Eyes Negative for: Constitutional, Gastrointestinal, Skin, Genitourinary, Musculoskeletal, HENT, Endocrine, Cardiovascular, Respiratory, Psychiatric, Allergic/Imm, Heme/Lymph Last edited by Vianney Camejo on 03/07/2025 12:41 PM. Review of systems: 14 point review of systems was negative except as documented above Allergies : Abilify [aripiprazole], Sulfa drugs, Iodinated contrast media, and Naltrexone Medications Current Outpatient Medications (Ophthalmic Drugs) Medication Sig Carboxymethylcellulose Sodium (Eye Drops) 0.5 % solution Administer 2 drops into both eyes 2 times a day for 7 days. No current facility-administered medications for this visit. (Ophthalmic Drugs) Current Outpatient Medications (Other) Medication Sig albuterol (2.5 MG/3ML) 0.083% nebulizer solution Take 3 mL (2.5 mg) by nebulization 4 (four) times a day if needed for wheezing or shortness of breath. albuterol 108 (90 Base) MCG/ACT inhaler Inhale 2 puffs every 4 hours as needed for wheezing or shortness of breath. amphetamine-dextroamphetamine (Adderall) 10 MG tablet Take 1 tablet by mouth 2 times a day. budesonide-formoterol (Symbicort) 160-4.5 MCG/ACT inhaler Inhale 2 puffs 2 times a day. Rinse mouthwith water after use to reduce aftertaste and incidence of candidiasis. Do not swallow. cephalexin (Keflex) 500 MG capsule Take 1 capsule by mouth 2 times a day for 10 days. clotrimazole (Lotrimin) 1 % cream Apply topically 2 times a day for 14 days. desvenlafaxine (Pristiq) 50 MG 24 hr tablet Take 1 tablet by mouth daily. Do not crush, chew, or split. famotidine (Pepcid) 40 MG tablet Take 1 tablet (40 mg) by mouth 2 (two) times a day. fluticasone (Flonase) 50 MCG/ACT nasal spray Administer 1 spray into each nostril daily. Shake gently. Before first use, prime pump. After use, clean tip and replace cap. galcanezumab-gnlm (Emgality) 120 MG/ML injection Inject 1 Syringe (120 mg) under the skin every 30 (thirty) days. lamoTRIgine (LaMICtal) 200 MG tablet Take 1 tablet by mouth daily. lisinopril 10 MG tablet Take 1 tablet by mouth daily. loratadine (Claritin) 10 MG tablet Take 1 tablet by mouth daily. magnesium, as gluconate, (Magonate) 500 (27 Mg) MG tablet Take 1 tablet by mouth nightly. methocarbamol (Robaxin) 750 MG tablet Take 1 tablet by mouth at night as needed for muscle spasms (headaches). montelukast (Singulair) 10 MG tablet Take 1 tablet (10 mg) by mouth every night. naproxen (Naprosyn) 500 MG tablet Take 1 tablet by mouth in the morning and 1 tablet in the evening. Take with meals. ondansetron ODT (Zofran-ODT) 8 MG disintegrating tablet Take 1 tablet (8 mg) by mouth every 8 hoursas needed for nausea or vomiting. 28-0.8 MG tablet Pymgnome-Bii-Ol-FA (/Iron) tablet Take 1 tablet by mouth daily. propranolol (Inderal) 20 MG tablet Take 1 tablet by mouth 3 times a day. For headache prevention QUEtiapine (SEROquel) 25 MG tablet Take 0.5 tablets by mouth at night as needed (Sleep). Rexulti 2 MG tablet tablet Take 1 tablet by mouth nightly. Spacer/Aero-Holding Chambers (BreatheRite Jackson Spacer Adult) [facility] Substitute pharmacy supply ubrogepant (Ubrelvy) 100 MG tablet Take 1 tablet by mouth 1 time as needed for migraine (for headache rescue). After 2 hours, a second dose may be taken if needed. Maximum dose: 200 mg in 24-hour period. amoxicillin-clavulanate (Augmentin) 875-125 MG tablet Take 1 tablet by mouth 2 times a day for 7 days. cyanocobalamin (cyancobalamin) 500 MCG tablet TAKE 1 TABLET BY MOUTH DAILY ergocalciferol (Vitamin D-2) 1.25 MG (06051 UT) capsule Take 1 capsule by mouth 1 time per week. HYDROcodone-acetaminophen ([place]) 5-325 MG tablet 1 tablet by Nasogastric route every 4 hours as needed for moderate pain. Probiotic, Lactobacillus, capsule Take 1 capsule by mouth daily for 7 days. topiramate (Topamax) 50 MG tablet Take 1 tablet by mouth 2 times a day for 60 doses. For headache prevention No current facility-administered medications for this visit. (Other) Alert and oriented X 3, mood and affect normal Objective Base Eye Exam Visual Acuity (Snellen - Linear) Right Left Dist cc 20/20 20/20 Near cc J1+ J1 Correction: Glasses Tonometry (Tonopen, 1:01 PM) Right Left Pressure 22 18 Pupils Pupils Right PERRL Left PERRL Extraocular Movement Right Left Full, Ortho Full, Ortho Neuro/Psych Oriented x3: Yes Mood/Affect: Normal Additional Tests Color Right Left Ishihara Stereo Fly: + Animals: 3/3 Circles: 8/9 Glare Testing Medium Right 1.65 Left 1.65 Slit Lamp and Fundus Exam External Exam Right Left External Normal Normal Slit Lamp Exam Right Left Lids/Lashes Normal Normal Conjunctiva/Sclera White and quiet White and quiet Cornea Clear Clear Anterior Chamber Deep and quiet Deep and quiet Iris Round and reactive Round and reactive Lens Clear Clear Anterior Vitreous Normal Normal Fundus Exam Right Left Disc Normal Normal C/D Ratio 0.4 0.4 Macula Normal Normal Vessels Normal Normal Periphery Normal Normal Refraction Wearing Rx Sphere Cylinder [place] Right -5.00 +0.50 095 Left -5.00 +0.50 080 Age: 3yrs Type: SVL On sensory motor exam extraocular motility was full. Ductions and versions are normal. Patient was orthophoric for distance . Saccades and smooth pursuit were within normal limits. I personally reviewed imaging: MRI Brain w and wo : 10/07/2024: Unremarkable. I personally reviewed labs: 06/22/2024 : ESR 29 CRP 8.9 Automated Visual Field, Extended - OU - Both Eyes Right Eye Threshold was 24-2. Strategy was JENNIFER. Reliability was good. Progression has been stable. Findings include normal observations. Left Eye Threshold was 24-2. Strategy was JENNIFER. Reliability was good. Progression has been stable. Findings include normal observations. OCT, Retina - OU - Both Eyes Right Eye Quality was good. Scan locations included subfoveal. Progression has been stable. Findings include normal observations, normal foveal contour. Left Eye Quality was good. Scan locations included subfoveal. Progression has been stable. Findings include normal observations, normal foveal contour. OCT, Optic Nerve - OU - Both Eyes Component Average RNFL Today (OS) 92 Average RNFL Today (OD) 93 Right Eye Images reviewed and comparison made [...] eyes (OU) ganglion cell analysis is intact === 02/26/21 === MR WRIST RIGHT WO IV CONTRAST - Narrative - Exam/Procedure: MR WRIST RIGHT WO IV CONTRAST ordered by JIMI CASTELLANOS, [id number] CLINICAL INDICATION: Aseptic necrosis TECHNIQUE: Multiplanar multisequence imaging of the right wrist was performed. No contrast was administered. COMPARISON: Radiographs 02/04/2021 FINDINGS: Bones and Joints: Postoperative changes are seen from resection of the distal ulna. Susceptibility artifact is seen about the distal radius and at the expected location of the distal radial ulnar joint which limits evaluation. There is cystic change with minimal associated edema involving the lunate. This is most pronounced involving the palmar aspect. There are some areas of low T1 and low T2 signal along the ulnar aspectof the cystic change within the midportion of the lunate seen on image 10 series 7. Dorsal tilt of the lunate is seen. Remainder of marrow signal intensity is unremarkable. Cartilage: The cartilage is smoothly congruent without focal deficits. Carpal Tunnel: There is no bowing of the flexor retinaculum. The median nerve is of normal signal and caliber. Tendons: The flexor and extensor tendons are intact without tendinopathy or tenosynovitis. Ligaments: The scapholunate and lunotriquetral ligaments are intact. Triangular Fibrocartilage: Susceptibility artifact limits evaluation of the TFCC. Soft Tissues: There is no evidence of muscle strain. There is no joint effusion. There is no ganglion. - Impression - Cystic change and marrow edema involving the radial aspect of the lunate with linear low signal along the ulnar margin. This can be seen in the setting of avascular necrosis. There is no collapse. There is retained fatty marrow signal throughout the lunate, otherwise. CRITICAL RESULT: No. COMMUNICATION: Per this written report. Signed by Antwon Priest on 02/26/2021 4:10 PM Assessment and plan Assessment/Plan Problem List Items Addressed This Visit None Visit Diagnoses Chronic tension-type headache, intractable - Primary Relevant Orders OCT, Retina - OU - Both Eyes (Completed) OCT, Optic Nerve - OU - Both Eyes (Completed) Automated Visual Field, Extended - OU - Both Eyes (Completed) Negrita Gilman is a 29 y.o. female with PMH of chronic headache and migraine has been referred to Neuro-ophthalmology clinic for evaluation of possible IIH. On neuro-ophthalmology exam her best corrected visual acuity is 20/20 in both eyes, color vision isnormal in both eyes, contrast sensitivity is normal in both eyes ,stereopsis is mildly reduced. There was no afferent pupillary defect. Extraocular movements were full. The patient was orthophoric for distance. Anterior segment exam was unremarkable in both eyes . Fundus exam showed normal optic disc in both eyes . Visual goodwin showed full peripheral vision in both eyes . Retinal nerve fiber analysis looked robust and were of normal thickness in both eyes. Ganglion cellanalysis was intact in both eyes . Macular OCT showed no abnormalities in both eyes . Impression: # Chronic daily headache Tried Qulipta and propranolol; but no benefit Hence recommend trial of Emgality which is helping. She can continue Emgality. # Both eyes: No optic disc edema Given the weight gain, discussed about IIH and risk factors. Recommend Topiramate 50 mg BID for both IIH suspect and migraine. # Ocular Hypertension both eyes (OU) No family hx of glaucoma Monitor for now. Plan: Emgality monthly injections Topiramate 50mg BID Endocrinology referral for weight loss The patient will return for a follow-up in 5 months. I spent more than 70 minutes in this patient encounter which includes reviewing both external and internal historical documentation, reviewing the examination and investigations findings with patient, discussing management plan with the patient and documenting all the findings in the note: total time excludes separately reportable procedure and imaging time. documented in this encounter Plan of Treatment Upcoming Encounters Date Type Department Care Team (Late st Contact Info) Description 05/02/2025 10:00 AM EDT Office Visit [facility] [address] [place] [phone] Lenore De La Cruz PA [address] [place] [phone] 06/26/2025 7:20 AM EST Office Visit [facility] [address] [place] [phone] April Piper APRN [address] [facility] [address] [place] [phone] 08/22/2025 8:00 AM EST Office Visit [facility] [address] [place] [phone] Keli Harvey PA [address] [place] [phone] 09/17/2025 1:00 PM EST Office Visit [facility] [address] [place] [address] Janice Kramer MD [address] [place] [address] documented as of this encounter Goals Goal Patient Goal Type Associated Problems Recent Progress Patient-Stated? Author HEP Occupational Therapy On track(2020 3:42 PM EDT) No Tanya Ghosh Note: Patient will complete HEP with appropriate form 100% of the time. Instructional Technology Facilitator Goal: to be met by 06/08/21 Goal on going as exercises continue to be added. Good form with exercises thus far. Leisure Occupational Therapy On track(2020 3:42 PM EDT) No Tanya Ghosh Note: Patient will complete leisure task such as baking or beading x20 minutes without pain 100% of the time. Instructional Technology Facilitator Goal: to be met by 07/10/21. documented as of this encounter Procedures Procedure Name Priority Date/Time Associated Diagnosis Comments OCT, RETINA - OU - BOTH EYES Routine 03/07/2025 7:40 AM EDT Chronic tension-type headache, intractable OCT, OPTIC NERVE - OU - BOTH EYES Routine 03/07/2025 7:40 AM EDT Chronic tension-type headache, intractable AUTOMATED VISUAL FIELD, EXTENDED - OU - [...] has been stable. Findings include normal observations. Result [facility] Janice Interiano MD OPHTH VISUAL FIELD Final Result * OCT, Optic Nerve - OU - Both Eyes (03/07/2025 7:40 AM EDT) Pathologist [facility] Average RNFL Today (OS) 92 OPHTHALMOLOGY Average [...] Janice Interiano MD OPHTH TOMOGRAPHY Final Result * OCT, Retina - OU - Both [...] Findings include normal observations, normal foveal contour. Result [facility] Janice Interiano MD OPHTH TOMOGRAPHY Final Result documented in this encounter Visit Diagnoses Diagnosis Chronic tension-type headache, intractable- Primary Chronic tension type headache documented in this encounter Additional Health Concerns Assessment Noted Time PHQ-9 Depression Total Score: 0 02/11/20 25 12:43 PM EDT A fall risk assessment has been complete d for the patient 03/07/2025 12:50 PM EDT A Body Mass Index follow-up plan has been documented for the patient 03/07/2025 8:48 AM EDT documented as of this encounter Care Teams Concessionist Relationship Specialty Start Date End Date April Piper APRN [address] [place] [phone] PCP - General Family Medicine 02/06/23 documented as of this encounter
--- OUTSIDE RECORDS SUMMARY | 2025-03-14 08:40 | XMS_ITS | Encounter Summary ---
Author Organization Healthcare Address [address] [place] [address] Care Team Providers Care Truck Engine Technician Name Role Phone April Piper APRN Primary Care Provider [phone] Reason for Visit * Reason Comments Headache Pt states she has al ways had aggressive allergies. Has sinus pressure and a headache. Has rescue migraine medication that isnt working. Naproxen isnt helping along with other allergy medications. Dry nose and nose bleeds. Green mucus. Started about a week and a half ago. Ear pain. Encounter Details Date Type Department Care Team (Late st Contact Info) Description 03/14/2025 8:40 AM EDT Office Visit [facility] [address] [place] [address] Susan Blackwell, RAINE [address] [place] [phone] Right maxillary sinusitis (Primary Dx); Dry eyes Social History Tobacco Use Types Packs/Day Years Used Date Smoking Tobacco: Never Passive Smoke Exposure: Never Smokeless Tobacco: Never Tobacco Cessation:Counseling Given: Not Answered Alcohol Use Standard Drinks/Week Comments Yes 0 [...] were you homeless or living in a residential (including now)? No 02/10/2025 Utilities Answer Date Recorded In the past 12 months has th e electric, gas, oil, or water [employer] threatened to shut off services in your [...] Sign Reading Time Taken Comments Blood Pressure 105/76 03/14/2025 8:53 AM EDT Pulse 78 03/14/2025 8:53 AM EDT Temperature 36.6 C (97.9 F) 03/14/2025 8:53 AM EDT Respiratory Rate - - Oxygen Saturation 100% 03/14/2025 8:53 AM EDT Inhaled Oxygen Concentration - - Weight 115 kg (254 lb 3.1 oz) 03/14/2025 8:53 AM EDT Height - - Body Mass Index 38.65 03/03/2025 9:47 AM EDT documented in this encounter Miscellaneous Notes * Progress Notes - Susan Blackwell PA - 03/14/2025 8:40 AM EDT Subjective Patient ID: Negrita Gilman is a 29 y.o. female. Chief Complaint Patient presents with Headache Pt states she has always had aggressive allergies. Has sinus pressure and a headache. Has rescue migraine medication that isnt working. Naproxen isnt helping along with other allergy medications. Drynose and nose bleeds. Green mucus. Started about a week and a half ago. Ear pain. Facial Pain This is a new problem. The current episode started in the past 7 days. The problem occurs constantly. The problem has been gradually worsening. Associated symptoms include congestion and headaches. Associated symptoms comments: Dry eyes, low grade fever, green nasal drainage, recent allergy flare. Nothing aggravates the symptoms. Treatments tried: bret pot, claritin, benadryl, nasal spray. The treatment provided no relief. Currently on day 7 of keflex for toe infection. The following portions of the chart were reviewed this encounter and updated as appropriate: Problem List[1] Past Medical History[2] Surgical History[3] Family History[4] reports that she has never smoked. She has never been exposed to tobacco smoke. She has never used smokeless tobacco. She reports current alcohol use. She reports that she does not use drugs. Medications Ordered Prior to Encounter[5] Allergies[6] Review of Systems HENT: Positive for congestion. Neurological: Positive for headaches. Objective Visit Vitals BP 105/76 (BP Location: Right arm, Patient Position: Sitting, BP Cuff Size: Adult long) Pulse 78 Temp 36.6 ??C (97.9 ??F) (Oral) Wt 115 kg (254 lb 3.1 oz) SpO2 100% BMI 38.65 kg/m?? OB Status Having periods Smoking Status Never BSA 2.35 m?? Physical Exam Constitutional: Appearance: Normal appearance. HENT: Head: Normocephalic. Right Ear: Tympanic membrane and ear canal normal. Left Ear: Tympanic membrane and ear canal normal. Nose: Rhinorrhea (green) present. Right Sinus: Maxillary sinus tenderness present. No frontal sinus tenderness. Left Sinus: No maxillary sinus tenderness or frontal sinus tenderness. Mouth/Throat: Mouth: Mucous membranes are moist. Pharynx: No oropharyngeal exudate or posterior oropharyngeal erythema. Eyes: General: Lids are normal. Vision grossly intact. Right eye: No discharge. Left eye: No discharge. Conjunctiva/sclera: Right eye: Right conjunctiva is injected. Left eye: Left conjunctiva is injected. Cardiovascular: Rate and Rhythm: Normal rate and regular rhythm. Pulmonary: Effort: Pulmonary effort is normal. Breath sounds: Normal breath sounds. Lymphadenopathy: Cervical: No cervical adenopathy. Skin: General: Skin is warm and dry. Findings: No rash. Neurological: General: No focal deficit present. Mental Status: She is alert. Psychiatric: Mood and Affect: Mood normal. Behavior: Behavior normal. Assessment/Plan Assessment & Plan Right maxillary sinusitis Dry eyes Take medications as prescribed. Return to clinic if symptoms worsen. Follow up with PCP for reevaluation. Patient in agreement with care plan. FOLLOW UP: Patient needs to follow up [...] CARE IS AN IMPORTANT RESPONSIBILITY. Discharge from Acute Care Clinic today does NOT mean that nothing is wrong, but it indicates no emergency is identified. Urgent Care is not a substitute [...] then please call us for assistance. CONTACT Acute Care Clinic for ALL TESTS, X-RAY, and other RESULTS within 3-5 days. Of note, your results will also be made available immediately in your [facility] My Chart. Please do NOT assume that no news is good news. ALL MEDICATIONS CAN HAVE SIDE EFFECTS & INTERACTIONS. Please review these, and ask your pharmacist or contact your primary care provider for questions orconcerns. Be sure that Acute Care Clinic, your pharmacist, and your PCP have a complete list of all medications and supplements you are taking. Please note: This record may have been prepared using [employer] voice recognition software. As a result, errors may occur in the text. When identified, these shop estimator errors have been corrected. While every attempt is made to correct errors during dictation, errors may still exist. 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 Hypertensive disorder Asthma Generalized anxiety disorder Borderline personality disorder in adult (CMS/HCC) Irritability Insomnia due to other mental disorder Attention deficit hyperactivity disorder DRUJ (distal radioulnar joint) instability, post-traumatic, right Right wrist pain TFC (triangular fibrocartilage complex) injury Mixed obsessional thoughts and acts At high risk for falls RLS (restless legs syndrome) Iron deficiency Migraine without aura, intractable, with status migrainosus Mild intermittent asthma, uncomplicated Occipital neuralgia [2] Past Medical History: Diagnosis Date ADD (attention deficit disorder) Anemia Anxiety Arthritis Asthma as child Bipolar 1 disorder (CMS/HCC) Chronic pain disorder COVID-19 COVID-19 Depression bipolar 1 GERD (gastroesophageal reflux disease) Headache Headache, tension-type Hypertension Joint pain Migraine Obesity (BMI 35.0-39.9 without comorbidity) 12/30/2021 Otitis media PONV (postoperative nausea and vomiting) [3] Past Surgical History: Procedure Laterality Date APPENDECTOMY N/A Appendectomy from [facility] BARIATRIC SURGERY GASTRIC BYPASS N/A Gastric Surgery from [facility] TONSILLECTOMY N/A Tonsillectomy from [facility] WRIST SURGERY Bilateral x9 [4] Family History Problem Relation Name Age of [...] Brother Uncle Bipolar disorder Father's Brother Uncle [5] Current Outpatient Medications on File Prior to [...] candidiasis. Do not swallow. 10.2 g 2 cephalexin (Keflex) 500 MG capsule Take 1 capsule by mouth 2 times a day for 10 days. 20 capsule 0 clotrimazole (Lotrimin) 1 % cream Apply topically 2 times a day for 14 days. 15 g 0 cyanocobalamin (cyancobalamin) 500 MCG tablet Take 1 tablet (500 mcg) by mouth 1 (one) time each day. 90 tablet 3 desvenlafaxine (Pristiq) 50 MG 24 hr tablet Take 1 tablet by mouth daily. Do not crush, chew, or split. 90 tablet 0 ergocalciferol (Vitamin D-2) 1.25 MG (88254 UT) capsule Take 1 capsule by mouth 1 time per week. 13capsule 3 famotidine (Pepcid) 40 MG tablet Take 1 [...] every 30 (thirty) days. 1 each 11 HYDROcodone-acetaminophen (Abingdon) 5-325 MG tablet 1 tablet by Nasogastric route every 4 hours as needed for moderate pain. lamoTRIgine (LaMICtal) 200 MG tablet Take 1 tablet by mouth daily. 90 tablet 0 lisinopril 10 MG tablet Take [...] vomiting. 20 tablet 3 28-0.8 MG tablet Dexcqezf-Opv-Dx-FA (/Iron) tablet Take 1 tablet by mouth daily. 90 tablet 1 propranolol (Inderal) 20 MG tablet Take 1 tablet by mouth 3 times a day. For headache prevention 270 tablet 3 QUEtiapine (SEROquel) 25 MG tablet Take 0.5 tablets by mouth at night as needed (Sleep). 45 tablet 0 Rexulti 2 MG tablet tablet Take 1 tablet by mouth nightly. 90 tablet 0 Spacer/Aero-Holding Chambers ([facility] Spacer Adult) [facility] 1 each0 topiramate (Topamax) 50 MG tablet Take 1 tablet by mouth 2 times a day for 60 doses. For headache prevention 60 tablet 3 ubrogepant (Ubrelvy) 100 MG tablet Take 1 tablet by mouth 1 time as needed for migraine (for headache rescue). After 2 hours, a second dose may be taken if needed. Maximum dose: 200 mg in 24-hour period. 10 each 5 No current facility-administered medications on file prior to visit. [6] Allergies Allergen Reactions Abilify [Aripiprazole] Rash Sulfa Drugs Hives and Unknown - Patient states they do not know rxn details Iodinated Contrast Media Headache Naltrexone Other - please document in the comment field documented in this encounter Plan of Treatment Upcoming Encounters Date Type Department Care Team (Late st Contact Info) Description 05/02/2025 10:00 AM EDT Office Visit [facility] [address] [place] [phone] Leonre De La Cruz PA [address] [place] [address] 06/26/2025 7:20 AM EST Office Visit [facility] [address] [place] [address] April Piper APRN [address] [place] [address] 08/22/2025 8:00 AM EST Office Visit [facility] [address] [place] [address] Keli Harvey PA [address] [place] [address] 09/17/2025 1:00 PM EST Office Visit [facility] [address] [place] [address] Janice Kramer MD [address] [place] [address] documented as of this encounter Goals Goal Patient Goal Type Associated Problems Recent Progress Patient-Stated? Author HEP Occupational Therapy On track(2020 3:42 PM EDT) No Tanya Ghosh Note: Patient will complete HEP with appropriate form 100% of the time. Residential Goal: to be met by 06/08/21 Goal on going as exercises continue to be added. Good form with exercises thus far. Leisure Occupational Therapy On track(2020 3:42 PM EDT) No Tanya Ghosh Note: Patient will complete leisure task such as baking or beading x20 minutes without pain 100% of the time. Residential Goal: to be met by 07/10/21. documented as of this encounter Visit Diagnoses Diagnosis Right maxillary sinusitis- Primary Dry eyes Unspecified tear film insufficiency documented in this encounter Additional Health Concerns Assessment Noted Time PHQ-9 Depression Total Score: 0 02/11/20 25 12:43 PM EDT A fall risk assessment has been complete d for the patient 03/07/2025 12:50 PM EDT A Body Mass Index follow-up plan has been documented for the patient 03/14/2025 9:31 AM EDT documented as of this encounter Care Teams Truck Engine Technician Relationship Specialty Start Date End Date April Piper APRN [address] [place] [phone] PCP - General Family Medicine 02/06/23 documented as of this encounter
--- OUTSIDE RECORDS SUMMARY | 2025-03-28 08:00 | XMS_ITS | Encounter Summary ---
Author Organization Healthcare Address [address] [place] [address] Care Team Providers Care Dog Track Kennel Manager Name Role Phone April Piper APRN Primary Care Provider [phone] Reason for Referral * Consultation (Routine) - Authorized Specialty Diagnoses / Procedures Referred By Contdeepika t Referred To Contact Allergy and Immunology / Allergy Diagnoses Chronic maxillary sinusitis Environmental allergies April Piper APRN [address] [facility] [address] [place] [address] Phone: tel: fax: [facility] [address], [address] [place] [address] Phone: tel: fax: Referral ID Status Reason Start Date Expiration Date Visits Requested Visits Authorized [id number] Authorized Specialty Services Required 03/28/2025 09/27/2026 1 1 Reason for Visit * Reason Comments Follow-up Encounter Details Date Type Department Care Team (Late st Contact Info) Description 03/28/2025 8:00 AM EDT Office Visit [facility] [address] [place] [phone] April Piper APRN [address] [place] [address] Bacterial sinusitis (Primary Dx); Paronychia of great toe; Moderate persistent asthma without complication; Acute intractable headache, unspecified headache type; RLS (restless legs syndrome); Chronic maxillary sinusitis; Environmental allergies; MTHFR mutation Social History Tobacco Use Types Packs/Day Years [...] Date Recorded Patient Health Questionnaire-2 Score 0 03/28/2025 PHQ-9 Answer Date Recorded Patient Health Questionnaire-9 Score 0 03/28/2025 Hunger Vital Sign Answer Date Recorded Within the past 12 months, y ou worried that your food would run out before you got the money to buy more. Never true 03/21/20 25 Within the past 12 months, t he food you bought just didn't last and you didn't have money to get more. Never true 03/21/2025 PRAPARE - Transportation Answer Date Re corded In the past 12 months, has l ack of transportation kept you from medical appointments or from getting medications? No 03/07 In the past 12 months, has l ack of transportation kept you from meetings, work, or from getting things needed for daily living? No 03/21/2025 Housing Stability Vital Sign Answer William e Recorded In the last 12 months, was t here a time when you were not able to pay the mortgage or rent on time? No 03/21/2025 Number of Times Moved in the Last Year Not on fi le 03/21/2025 At any time in the past 12 m [facility], were you homeless or living in a senior care (including now)? No 03/21/2025 Utilities Answer Date Recorded In the past 12 months has th e electric, gas, oil, or water company threatened to shut off services in your home? No 03/21/2025 PHQ-2A Answer Date Recorded Patient Health Questionnaire-2 [...] Sign Reading Time Taken Comments Blood Pressure 101/68 03/28/2025 8:03 AM EDT Pulse 83 03/28/2025 8:03 AM EDT Temperature 37.3 C (99.2 F) 03/28/2025 8:03 AM EDT Respiratory Rate 16 03/28/2025 8:03 AM EDT Oxygen Saturation 99% 03/28/2025 8:03 AM EDT Inhaled Oxygen Concentration - - Weight 115 kg (254 lb 6.6 oz) 03/28/2025 8:03 AM EDT Height 172.7 cm (5' 8 ) 03/28/2025 8:03 AM EDT Body Mass Index 38.68 03/28/2025 8:03 AM EDT documented in this encounter Functional Status * Over the past 2 weeks, how often have you been bothered by any of the following problems? Question Answer Date of Assessment Author Little interest or pleasure in doing things Not at all 03/28/2025 8:06 AM Divya Clark Feeling down, depressed, or hopeless Not at all 03/08 8:06 AM Divya Clark Patient Health Questionnaire-2 Score 0 03/08 8:06 AM Divya Clark * Question Answer Date of Assessment Author Trouble falling or staying a sleep, or sleeping too much Not at all 03/28/2025 8:06 AM Divya Clark Feeling tired or having danish le energy Not at all 03/28/2025 8:06 AM Divya Clark Poor appetite or overeating Not at all 03/28/2025 8: 06 AM Divya Clark Feeling bad about yourself - or that you are a failure or have let yourself or your family down Not at all 03/28/2025 8:06 AM Ra dionte Clark Trouble concentrating on thi ngs, such as reading the newspaper or watching television Not at all 03/28/2025 8:06 AM Divya Clark Moving or speaking so slowly that other people could have noticed? Or the opposite - being so fidgety or restless that you have been moving around a lot more than usual. Not at all 03/28/2025 8:06 AM Carlos Clark Thoughts that you would be b ayla off or hurting yourself in some way Not at all 03/28/2025 8:06 AM Divya Clark Patient Health Questionnaire-9 Score 0 03/08 8:06 AM Divya Clark * Calculated C-SSRS Risk Score (Lifetime/Recent) Answer Date of Assessment Author No Risk Indicated 03/28/2025 8:06 AM Carlos Clark * If you checked off any problems on this questionnaire so far, Question Answer Date of Assessment Author How difficult have these problems made it for you to do your work, take care of things at home, or get along with other people? Not difficult at all 03/28/2025 8:06 AM Divya Clark * Question Answer Date of Assessment Author 1. Wish to be (Past 1 Month) No 025 8:06 AM EDT Divya Wiseman 2. Non-Specific Active Suici rad Thoughts (Past 1 Month) No 03/28/2025 8:06 AM EDT Divya Wiseman 6. Suicidal Behavior (Lifetime) No 8:06 AM EDT Divya Wiseman documented as of this encounter Miscellaneous Notes * Clinician Note - Charlotte Castillo RN - 03/28/2025 8:00 AM EDT Pre-Visit Review Note The following information was reviewed with patient via phone prior to appointment with April Piper APRN on 03/26/25. Allergies Reviewed and up-to-date Immunizations Pended immunizations discussed with patient: N/a Additional immunizations discussed with patient: Prevnar 20 - eligible due to asthma - wished to discuss Varicella- lab positive 09/30/2019, had chicken pox Flu - eligible in the fall Covid - eligible to obtain at the pharmacy Medications Medications requiring provider review: Amoxicillin-clavulanate - no longer taking Carboxymethylcellulose - not taking Fluticasone - taking as needed Lamotragine - taking one tablet in the AM and 0.5 tablet in the PM Probiotic - no longer taking -medications and not on initial med list in RN encounter - metronidazole, clindamycin, keflex - all appear completed Pended medications needing to be refilled: Magnesium gluconate Clinical Intervention: Immunization recommendations Immunizations: wished to discuss Prevnar at time of clinic visit Preferred Pharmacy: specialty - short term [facility] Additional Notes: N/A Patient verbalized understanding of Pre-Visit Review. Patient to follow up with provider at upcoming clinic visit. Charlotte Castillo RN, Pharmacy Patient Support Services * Assessment & Plan Note - April Piper APRN - 03/28/2025 8:00 AM EDT Associated Problem(s): Asthma Orders: budesonide-formoterol (Symbicort) 160-4.5 MCG/ACT inhaler; Inhale 2 puffs 2 times a day. RINSE MOUTH WITH WATER AFTER USE TO REDUCE AFTERTASTE AND INCIDENCE OF CANDIDIASIS DO NOT SWALLOW * Assessment & Plan Note - April Piper APRN - 03/28/2025 8:00 AM EDT Associated Problem(s): RLS (restless legs syndrome) Orders: cyanocobalamin (cyancobalamin) 500 MCG tablet; Take 2 tablets by mouth daily. * Progress Notes - April Piper APRN - 03/28/2025 8:00 AM EDT methlySubjective Patient ID: Negrita Gilman is a 29 y.o. female. Chief Complaint: F/U iron, Asthma HPI Trial of MVI w/ iron to see if better tolerated, started in December 2024. Also noted in December to be over-relying on her RYAN for asthma management, to retry ICS/LABA, add nasal steroid and antihistamine. Repeat iron panel 3 weeks ago shows normal but trending down. H/H slowly trending down, still essentially WNL. Sleep medicine previously recommended daily B12 1000 mcg, Iron supplement, Vit D for RLS. ? Results of sleep study- PHQ-9/JEFFERSON-7 screens negative Started school this week at [employer] The following portions of the chart were reviewed this encounter and updated as appropriate: Tobacco Allergies Meds Problems Med Hx Surg Hx Fam Hx Review of Systems Constitutional: Positive for fatigue (has not slept for the past 3 days, working through a manic episode). HENT: Positive for congestion (still feels very full and ears hurt after taking the Amox/Clav. Feltgreat for a couple days, then worse again), ear pain and rhinorrhea (sometimes bloody, somethings thick green). Respiratory: Feels Symbicort helping, rare use/need of her Albuterol Cardiovascular: Negative. Gastrointestinal: Negative. Genitourinary: Negative. Skin: Left big toe still has drainage and redness despite prior antibiotics for this. Waiting for Podiatry to rebook her. Neurological: Positive for headaches (sinus pain). Psychiatric/Behavioral: Working through a manic episode. Psychiatry started an SSRI which has helped a lot w/ her anxiety, but triggered this episode. Now taking an extra dose of Lamictal at bedtime to help balance this out. Will call Psychiatry to see if she can take a higher dose of Seroquel temporarily to help her sleep. Reports DNA testing shows she does not absorb folic acid well. Objective Physical Exam Vitals and nursing note reviewed. Constitutional: General: She is not in acute distress. Appearance: Normal appearance. She is obese. She is not ill-appearing. HENT: Head: Normocephalic and atraumatic. Right Ear: Tympanic membrane, ear canal and external ear normal. Left Ear: Ear canal and external ear normal. Ears: Comments: Mild left middle ear effusion Nose: Right Sinus: Maxillary sinus tenderness (moderately severe) present. No frontal sinus tenderness. Left Sinus: Maxillary sinus tenderness (moderately severe) present. No frontal sinus tenderness. Mouth/Throat: Mouth: Mucous membranes are moist. Pharynx: No oropharyngeal exudate or posterior oropharyngeal erythema. Comments: Green tinged PND noted Eyes: General: Right eye: No discharge. Left eye: No discharge. Conjunctiva/sclera: Conjunctivae normal. Cardiovascular: Rate and Rhythm: Normal rate and regular rhythm. Heart sounds: Normal heart sounds. Pulmonary: Effort: Pulmonary effort is normal. Breath sounds: Normal breath sounds. Comments: I=E, CTA, good effort Abdominal: General: There is no distension. Musculoskeletal: Cervical back: Normal range of motion. Lymphadenopathy: Cervical: No cervical adenopathy. Skin: General: Skin is warm and dry. Comments: Left great toe w/ lateral cuticle paronychia, actively draining thick yellow. Cuticle edge and lateral toe edge w/ erythema, no sig edema. Neurological: Mental Status: She is alert and oriented to person, place, and time. Psychiatric: Mood and Affect: Mood is anxious. Speech: Speech normal. Behavior: Behavior is hyperactive (mild/moderate psychomotor agitation (persistent rt leg tapping)). Thought Content: Thought content normal. Assessment/Plan Assessment & Plan Bacterial sinusitis Orders: doxycycline (Vibramycin) 100 MG capsule; Take 1 capsule by mouth 2 times a day for 7 days. Take with at least 8 ounces (large glass) of water, do not lie down for 30 minutes after Paronychia of great toe Moderate persistent asthma without complication Orders: budesonide-formoterol (Symbicort) 160-4.5 MCG/ACT inhaler; Inhale 2 puffs 2 times a day. RINSE MOUTH WITH WATER AFTER USE TO REDUCE AFTERTASTE AND INCIDENCE OF CANDIDIASIS DO NOT SWALLOW Acute intractable headache, unspecified headache type Orders: magnesium, as gluconate, (Magonate) 500 (27 Mg) MG tablet; Take 1 tablet by mouth nightly. RLS (restless legs syndrome) Orders: cyanocobalamin (cyancobalamin) 500 MCG tablet; Take 2 tablets by mouth daily. Chronic maxillary sinusitis Orders: Ambulatory referral to Allergy; Future Environmental allergies Orders: Ambulatory referral to Allergy; Future MTHFR mutation Orders: Levomefolate Glucosamine (Methyl-Folate) 1700 MCG capsule; Take 1 capsule by mouth daily. Asthma currently well controlled w/ her ICS/LABA use, no changes to treatment at this time. Currently w/ bacterial sinusitis, treat w/ Doxy, warm moist compresses across cheeks, nasal saline.Continue with antihistamine and nasal steroid. I will look to avoid oral steroids given her manic state right now, and she is in agreement with this. She will reach out to Psychiatry regarding a temporary increase in her Seroquel to help her sleep while working through her manic state. Refer to Allergy at her request for more persistent allergy sx since she relocated. Increase B12 to 1000 mcg previously recommended by Sleep Medicine. Continue Vitamin D. Continue with iron (this is for the easier to tolerate iron component). Start a Methyl-folate supplement given her report of MTHFR mutation. See Podiatry for persistent paronychia on left gr toe; hot soaks w/ epsom salts several times day, Doxy as noted. If worsening, needs to be seen again. F/U in 3 months for recheck on asthma, anemia labs. RTC sooner PRN. Verbalizing understanding and agreement w/ plan. April Piper APRN documented in this encounter Plan of Treatment Upcoming Encounters Date Type Department Care Team (Late st Contact Info) Description 05/02/2025 10:00 AM EDT Office Visit [facility] [address] [place] [phone] Lenore De La Cruz PA [address] [place] [address] 06/26/2025 7:20 AM EST Office Visit [facility] [address] [place] [phone] April Piper APRN [address] [place] [address] 08/22/2025 8:00 AM EST Office Visit [place] [facility] [address] [place] [address] Keli Harvey PA [address] [place] [address] 09/17/2025 1:00 PM EST Office Visit [facility] [address] [place] [address] Janice Kramer MD [address] [place] [address] Scheduled Referrals Name Type Priority Associated Diagnoses Order Schedule Ambulatory referral to Allergy Outpatient Referral Routine Chronic maxillary sinusitis Environmental allergies Expected: 03/28/2025, Expires: 09/29/2026 documented as of this encounter Goals Goal Patient Goal Type Associated Problems Recent Progress Patient-Stated? Author HEP Occupational Therapy On track(2020 3:42 PM EDT) No Tanya Ghosh Note: Patient will complete HEP with appropriate form 100% of the time. 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
--- OUTSIDE RECORDS SUMMARY | 2025-04-06 09:51 | XMS_ITS | Encounter Summary ---
Author Organization Healthcare Address [address] [place] [address] Care Team Providers Care Diamond Cutter Name Role Phone April Piper APRN Primary Care Provider [phone] Encounter Details Date Type Department Care Team (Latest Contact Info) Description 03/28/2025 Travel Social History Tobacco Use Types Packs/Day Years [...] any time in the past 12 m [facility], were you homeless or living in a alf (including now)? No 03/21/2025 Utilities Answer Date [...] PM EDT documented as of this encounter Functional Status * Over the [...] (Past 1 Month) No 025 8:06 AM Divya Clark 2. Non-Specific Active Suici rad Thoughts (Past 1 Month) No 03/28/2025 8:06 AM EDT Divya Wiseman 6. Suicidal Behavior (Lifetime) No 8:06 AM EDT Divya Wiseman documented as of this encounter Plan of Treatment Upcoming Encounters Date Type Department Care Team (Late st Contact Info) Description 05/02/2025 10:00 AM EDT Office Visit [facility] [address] [place] [phone] Lenore De La Cruz PA [address] [place] [address] 06/26/2025 7:20 AM EST Office [facility] [address] [place] [phone] April Piper APRN [address] [facility] [address] [place] [address] 08/22/2025 8:00 AM EST Office Visit [place] [facility] [address] [place] [address] Keli Harvey PA [address] [place] [address] 09/17/2025 1:00 PM EST Office Visit [facility] [address] [place] [address] Janice Kramer MD [address] [place] [address] documented as of this encounter Goals Goal Patient Goal Type Associated Problems Recent Progress Patient-Stated? Author HEP Occupational Therapy On track(2020 3:42 PM EDT) No Tanya Ghosh Note: Patient will complete HEP with appropriate form 100% of the time. Field Inspector Goal: to be met by 06/08/21 Goal on going as exercises continue to be added. Good form with exercises thus far. Leisure Occupational Therapy On track(2020 3:42 PM EDT) No Tanya Ghosh Note: Patient will complete leisure task such as baking or beading x20 minutes without pain 100% of the time. Long-Term Goal: to be met by 07/10/21. documented as of this encounter Visit Diagnoses Not on filedocumented [...] documented as of this encounter Care Teams Diamond Cutter Relationship Specialty Start Date End Date April Piper APRN [address] [place] [address] PCP - General Family Medicine 02/06/23 documented as of this encounter
--- OUTSIDE RECORDS SUMMARY | 2025-04-06 09:51 | XMS_ITS | Encounter Summary ---
Author Organization Healthcare Address [address] [place] [address] Care Team Providers Care Product Safety Manager Name Role Phone April Piper APRN Primary Care Provider [phone] Encounter Details Date Type Department Care Team (Late st Contact Info) Description 03/13/2025 Results Follow-Up [facility] [address] [place] [address] April Piper APRN [address] [facility] [address] [place] [address] Social History Tobacco Use Types Packs/Day Years [...] any time in the past 12 m [facility], were you homeless or living in a jail (including now)? No 02/10/2025 Utilities Answer Date [...] 05/02/2025 10:00 AM EDT [facility] [address] [place] [phone] Lenore De La Cruz PA [address] [place] [phone] 06/26/2025 7:20 AM EST Office Visit [facility] [address] [place] [phone] April Piper APRN [address] [place] [phone] 08/22/2025 8:00 AM EST Office Visit [place] [facility] [address] [place] [address] Keli Harvey PA [address] [place] [address] 09/17/2025 1:00 PM EST Office Visit [facility] [address] [place] [phone] Janice Kramer MD [address] [place] [address] documented as of this encounter Goals Goal Patient Goal Type Associated Problems Recent Progress Patient-Stated? Author HEP Occupational Therapy On track(2020 3:42 PM EDT) No Tanya Ghosh Note: Patient will complete HEP with appropriate form 100% of the time. Shank Taper Goal: to be met by 06/08/21 Goal on going as exercises continue to be added. Good form with exercises thus far. Leisure Occupational Therapy On track(2020 3:42 PM EDT) Tanya Bacon Note: Patient will complete leisure task such as baking or beading x20 minutes without pain 100% of the time. Senior Living Goal: to be met by 07/10/21. documented [...] documented as of this encounter Care Teams Product Safety Manager Relationship Specialty Start Date End Date April Piper APRN [address] [place] [phone] PCP - General Family Medicine 02/06/23 documented as of this encounter
--- OUTSIDE RECORDS SUMMARY | 2025-04-06 09:51 | XMS_ITS | Encounter Summary ---
Author Organization Healthcare Address [address] [place] [address] Care Team Providers Care Research Associate Name Role Phone April Piper APRN Primary Care Provider [phone] Reason for Visit * Reason Onset Date Comments HCN - Patient Message 03/28/2025 Encounter Details Date Type Department Care Team (Late st Contact Info) Description 03/28/2025 Telephone [facility] [address], [address] [place] [address] Sterling Gonzales, DPM [address] [place] [address] HCN - Patient Message Social History Tobacco Use Types Packs/Day Years [...] money to buy more. Never true 03/21/20 Within the past 12 months, t he [...] time in the past 12 m [facility], were you homeless or living in a usp (including now)? No 03/21/2025 Utilities Answer Date [...] things Not at all 03/28/2025 8:06 AM EDT Divya Wiseman Feeling down, depressed, or hopeless Not at all 03/08 8:06 AM EDT Divya Wiseman Patient Health Questionnaire-2 Score 0 03/08 8:06 AM WILDERT Divya Wiseman * Question Answer Date of Assessment Author Trouble falling or staying a sleep, or sleeping too much Not at all 03/28/2025 8:06 AM WILDERT Divya Wiseman Feeling tired or having danish le energy Not at all 03/28/2025 8:06 AM Divya Clark Poor appetite or overeating Not at all 03/28/2025 8: 06 AM WILDERT Divya Wiseman Feeling bad about yourself - or that you are a failure or have let yourself or your family down Not at all 03/28/2025 8:06 AM EDT Ra dionte Wiseman Trouble concentrating on thi ngs, such as reading the newspaper or watching television Not at all 03/28/2025 8:06 AM Divya Clark Moving or speaking so slowly that other people could have noticed? Or the opposite - being so fidgety or restless that you have been moving around a lot more than usual. Not at all 03/28/2025 8:06 AM WILDERT Carlos Wiseman achekhang Velasquez Thoughts that you would be b ayla off or hurting yourself in some way Not at all 03/28/2025 8:06 AM Divya Clark Patient Health Questionnaire-9 Score 0 03/08 8:06 AM Divya Clark * Calculated C-SSRS Risk Score (Lifetime/Recent) Answer Date of Assessment Author No Risk Indicated 03/28/2025 8:06 AM EDT Carlos Wiseman * If you checked off any problems on this questionnaire so far, Question Answer Date of Assessment Author How difficult have these problems made it for you to do your work, take care of things at home, or get along with other people? Not difficult at all 03/28/2025 8:06 AM EDT Divya Wiseman * Question Answer Date of Assessment Author 1. Wish to be (Past 1 Month) No 025 8:06 AM EDT Divya Wiseman 2. Non-Specific Active Suici rad Thoughts (Past 1 Month) No 03/28/2025 8:06 AM EDT Divya Wiseman 6. Suicidal Behavior (Lifetime) No 8:06 AM EDT Divya Wiseman documented as of this encounter Miscellaneous Notes * Telephone Encounter - Can Baer - 03/31/2025 2:06 PM EDT Patient Canceled appointment Through Mychart * Telephone Encounter - Allison Jesus - 03/28/2025 11:20 AM EDT Clinical Concern/Question Reason for Call: Dr Gonzales patient is calling. She states she was at her family doctor today. She suspects patient has a staph infection in the left foot ingrown nail. Patient is wanting to rescheduleher appointment that was on 04/17/25. She is requesting a call back. Best contact number: [phone] (mobile) Optimal time of day to reach caller: ANYTIME Additional comments/information from caller: None Note: Please do not reply to this message. Follow-up communication and further actions as a result of this message need to be communicated with the patient directly, if the patient is not active onMyChart. If the patient is active on MyChart, they will receive notification of the communication/outcome via [employer]. documented in this encounter Plan of Treatment Upcoming Encounters Date Type Department Care Team (Late st Contact Info) Description 05/02/2025 10:00 AM EDT [facility] [address] [place] [address] Lenore De La Cruz, PA [address] [place] [phone] 06/26/2025 7:20 AM EST Office Visit [facility] [address] [place] [phone] April Piper APRN [address] [place] [address] 08/22/2025 8:00 AM EST Office Visit [place] [facility] [address] 1[address] [place] [address] Keli Harvey PA [address] [place] [address] 09/17/2025 1:00 PM EST Office Visit [facility] [address] [place] [address] Janice Kramer MD [address] [place] [address] documented as of this encounter Goals Goal Patient Goal Type Associated Problems Recent Progress Patient-Stated? Author HEP Occupational Therapy On track(2020 3:42 PM EDT) No Tanya Ghosh Note: Patient will complete HEP with appropriate form 100% of the time. Tailing Hand Goal: to be met by 06/08/21 Goal on going as exercises continue to be added. Good form with exercises thus far. Leisure Occupational Therapy On track(10/29/ 2021 3:42 PM EDT) No Tanya Ghosh Note: Patient will complete leisure task such as baking or beading x20 minutes without pain 100% of the time. Tailing Hand Goal: to be met by 07/10/21. documented [...] documented as of this encounter Care Teams Research Associate Relationship Specialty Start Date End Date April Piper APRN [address] [place] [phone] PCP - General Family Medicine 02/06/23 documented as of this encounter
--- OUTSIDE RECORDS SUMMARY | 2025-04-06 09:51 | XMS_ITS | Encounter Summary ---
Author Organization Healthcare Address [address] [place] [address] Care Team Providers Care Nursery Teacher Name Role Phone April Piper APRN Primary Care Provider [phone] Reason for Visit * Reason Onset Date Comments Med Refill 05/09/2024 Encounter Details Date Type Department Care Team (Late st Contact Info) Description 05/09/2024 Refill [facility] [address] [place] [address] Allan Tipton PA [address] [place] [address] Fever, unspecified; COVID; Tachycardia Social History Tobacco Use Types Packs/Day Years Used Date Smoking Tobacco: Never Passive Smoke Exposure: Never Smokeless Tobacco: Never Alcohol Use Standard Drinks/Week Comments Yes 0 (1 standard drink = 0.6 oz pur e alcohol) occasional Humiliation, Afraid, Rape, and Kick questionnair e Answer Date Recorded Within the last year, have y ou been afraid of your partner or ex-partner? No 02/08/2024 Within the last year, have y ou been humiliated or emotionally abused in other ways by your partner or ex-partner? No Within the last year, have y ou been kicked, hit, slapped, or otherwise physically hurt by your partner or ex-partner? No 02/08/2024 Within the last year, have y ou been raped or forced to have any kind of sexual activity by your partner or ex-partner? No 02/08/2024 PHQ-2 Answer Date Recorded Patient Health Questionnaire-2 Score 0 04/04/2024 Hunger Vital Sign Answer Date Recorded Within the past 12 months, y ou worried that your food would run out before you got the money to buy more. Patient declined Within the past 12 months, t he food you bought just didn't last and you didn't have money to get more. Patient declined 11/2023 PRAPARE - Transportation Answer Date Re corded In the past 12 months, has l ack of transportation kept you from medical appointments or from getting medications? No 11/2023 In the past 12 months, has l ack of transportation kept you from meetings, work, or from getting things needed for daily living? No 02/08/2024 Housing Stability Vital Sign Answer William e Recorded In the last 12 months, was t here a time when you were not able to pay the mortgage or rent on time? No 02/08/2024 Number of Places Lived in the Last Year Not on f ile 02/08/2024 In the last 12 months, was t here a time when you did not have a steady place to sleep or slept in a senior care (including now)? No 02/08/2024 PHQ-9 Answer Date Recorded Patient Health Questionnaire-9 Score 22 03/22/2024 Housing Stability Vital Sign Answer William e Recorded In the last 12 months, was t here a time when you were not able to pay the mortgage or rent on time? No 02/08/2024 In the past 12 months, how m any times have you moved where you were living? 1 02/08/2024 At any time in the past 12 m onths, were you homeless or living in a senior care (including now)? No 02/08/2024 Utilities Answer Date Recorded In the past 12 months has th e electric, gas, oil, or water company threatened to shut off services in your home? Patient declined 02/08/2024 PHQ-2A Answer Date Recorded Patient Health Questionnaire-2 [...] Description 05/02/2025 10:00 AM EDT [facility] [address] [place] [phone] Lenore De La Cruz PA [address] [facility] [address] [place] [phone] 06/26/2025 7:20 AM EST Office Visit [facility] [address] [place] [phone] April Piper APRN [address] [facility] [address] [place] [phone] 08/22/2025 8:00 AM EST Office Visit [place] [facility] [address] 1[address] [place] [address] Keli Harvey PA [address] [place] [address] 09/17/2025 1:00 PM EST Office Visit [facility] [address] [facility] [place] [phone] ThandamJanice Oh MD [address] [place] [address] documented as of this encounter Goals Goal Patient Goal Type Associated Problems Recent Progress Patient-Stated? Author HEP Occupational Therapy On track(2020 3:42 PM EDT) No Tanya Ghosh Note: Patient will complete HEP with appropriate form 100% of the time. Design Engineering Technician Goal: to be met by 06/08/21 Goal on going as exercises continue to be added. Good form with exercises thus far. Leisure Occupational Therapy On track(2020 3:42 PM EDT) No Tanya Ghosh Note: Patient will complete leisure task such as baking or beading x20 minutes without pain 100% of the time. Design Engineering Technician Goal: to be met by 07/10/21. documented as of this encounter Visit Diagnoses Diagnosis Fever, unspecified COVID Tachycardia Unspecified tachycardia documented in this encounter Additional Health Concerns Infection Onset Date Last Indicated Resolved Time Meningitis Rule-Out 09/06/2024 09/06/2024 09/06/19 25 12:35 PM EST COVID-19 Rule-Out 09/28/2024 09/28/2024 09/28/2024 10:37 AM EST COVID-19 Rule-Out 2024 2024 2024 7:30 PM EDT Assessment Noted Time PHQ-9 Depression Total Score: 22 024 9:36 AM EDT A fall risk assessment has been complete d for the patient 01/23/2024 3:06 PM EDT A Body Mass Index follow-up plan has been documented for the patient 04/09/2024 7:45 AM EDT documented as of this encounter Care Teams Nursery Teacher Relationship Specialty Start Date End Date April Piper APRN [address] [place] [address] PCP - General Family Medicine 02/06/23 documented as of this encounter
--- OUTSIDE RECORDS SUMMARY | 2025-04-06 09:51 | XMS_ITS | Encounter Summary ---
Author Organization Healthcare Address [address] [place] [address] Care Team Providers Care Saw Straightener Name Role Phone April Piper APRN Primary Care Provider [phone] Encounter Details Date Type Department Care Team (Late st Contact Info) Description 03/07/2025 Orders Only [place] [facility] [address], 1[address] [place] [address] Keli Harvey PA [address] [place] [address] Social History Tobacco Use Types Packs/Day Years [...] any time in the past 12 m [facility], were you homeless or living in [...] 05/02/2025 10:00 AM EDT [facility] [address] [place] [phone] Lenore De La Cruz PA [address] [place] [phone] 06/26/2025 7:20 AM EST Office Visit [facility] [address] [place] [phone] April Piper APRN [address] [place] [phone] 08/22/2025 8:00 AM EST Office Visit [place] [facility] [address] [place] [address] Keli Harvey PA [address] [place] [address] 09/17/2025 1:00 PM EST Office Visit [facility] [address] [facility] [place] [address] Janice Kramer MD [address] [place] [address] documented as of this encounter Goals Goal Patient Goal Type Associated Problems Recent Progress Patient-Stated? Author HEP Occupational Therapy On track(2020 3:42 PM EDT) No Tanya Ghosh Note: Patient will complete HEP with appropriate form 100% of the time. Football Coach Goal: to be met by 06/08/21 Goal on going as exercises continue to be added. Good form with exercises thus far. Leisure Occupational Therapy On track(2020 3:42 PM EDT) No Tanya Ghosh Note: Patient will complete leisure task such as baking or beading x20 minutes without pain 100% of the time. Football Coach Goal: to be met by 07/10/21. documented [...] documented as of this encounter Care Teams Saw Straightener Relationship Specialty Start Date End Date April Piper APRN [address] [place] [phone] PCP - General Family Medicine 02/06/23 documented as of this encounter
--- OUTSIDE RECORDS SUMMARY | 2025-04-06 09:51 | XMS_ITS | Encounter Summary ---
Author Organization [facility] Address [address] [place] [address] Care Team Providers Care Auxiliary Equipment Tender Name Role Phone April Piper APRN Primary Care Provider [phone] Encounter Details Date Type Department Care Team (Late st Contact Info) Description 03/07/2025 Orders Only [facility] [address] [place] [address] [place] [address] Social History Tobacco Use Types Packs/Day Years [...] any time in the past 12 m [facility], were you homeless or living in a [facility] (including now)? No 02/10/2025 Utilities Answer Date Recorded In the past 12 months has th e Mechanology, gas, oil, or water [employer] threatened to shut off services in your [...] 05/02/2025 10:00 AM EDT Office Visit [facility] [address] [place] [phone] Lenore De La Cruz PA [address] [place] [address] 06/26/2025 7:20 AM EST Office Visit [facility] [address] [place] [phone] April Piper APRN [address] [place] [phone] 08/22/2025 8:00 AM EST Office Visit [place] [facility] [address] 1[address] [place] [address] Keli Harevy PA [address] [place] [address] 09/17/2025 1:00 PM EST Office Visit [facility] [address] [place] [phone] Janice Kramer MD [address] [place] [address] documented as of this encounter Goals Goal Patient Goal Type Associated Problems Recent Progress Patient-Stated? Author HEP Occupational Therapy On track(2020 3:42 PM EDT) No Tanya Ghosh Note: Patient will complete HEP with appropriate form 100% of the time. Headliner Installer Goal: to be met by 06/08/21 Goal on going as exercises continue to be added. Good form with exercises thus far. Leisure Occupational Therapy On track(2020 3:42 PM EDT) No Tanya Ghosh Note: Patient will complete leisure task such as baking or beading x20 minutes without pain 100% of the time. Halfway Goal: to be met by 07/10/21. documented [...] documented as of this encounter Care Teams Auxiliary Equipment Tender Relationship Specialty Start Date End Date April Piper APRN [address] [place] [address] PCP - General Family Medicine 02/06/23 documented as of this encounter
--- OUTSIDE RECORDS SUMMARY | 2025-04-06 09:51 | XMS_ITS | Clinical Summary ---
Author Organization Healthcare Address [address] [place] [address] Care Team Providers Care Vegetable Harvest Worker Name Role Phone April Piper APRN Primary Care Provider [phone] Allergies Active Allergy Reactions Criticality Noted Date Comments Aripiprazole Rash Medium 08/27/2021 Iodinated Contrast Media Headache Low 2024 Naltrexone Other - please docum ent in the comment field Low 03/14/2023 Sulfa Drugs Hives,Unknown - Edyta ent states they do not know rxn details Medium 12/03/2012 Medications * This document contains information received from the source organization and may not represent a complete record from that organization. Spacer/Aero-Holdi ng Chambers ([employer] Spacer Adult) miscIndications:M ild intermittent asthma without complication Substitute pharmacy supply 1 each 022 Active albuterol (2.5 MG/3ML) 0.083% nebulizer solutionIndicatio ns:Moderate persistent asthma with (acute) exacerbation Take 3 mL (2.5 mg) by nebulization 4 (four) times a day if needed for wheezing or shortness of breath. 360 mL 023 Active montelukast (Singulair) 10 MG tabletIndications :Mild persistent asthma without complication Take 1 tablet (10 mg) by mouth every night. 90 tablet 3 025 Active famotidine (Pepcid) 40 MG tabletIndications :GERD without esophagitis Take 1 tablet (40 mg) by mouth 2 (two) times a day. 180 tablet 025 Active galcanezumab-gnlm (Emgality) 120 MG/ML injection Inject 1 Syringe (120 mg) under the skin every 30 (thirty) days. 1 each 025 2025 Active ondansetron ODT (Zofran-ODT) 8 MG disintegrating tabletIndications :Acute intractable headache, unspecified headache type,Nausea Take 1 tablet (8 mg) by mouth every 8 hours as needed for nausea or vomiting. 20 tablet 3 025 Active naproxen (Naprosyn) 500 MG tablet Take 1 tablet by mouth in the morning and 1 tablet in the evening. Take with meals. 180 tablet 025 Active methocarbamol (Robaxin) 750 MG tabletIndications :Acute intractable headache, unspecified headache type Take 1 tablet by mouth at night as needed for muscle spasms (headaches). 90 tablet 3 025 Active lisinopril 10 MG tabletIndications :Primary hypertension Take 1 tablet by mouth daily. 90 tablet 025 Active loratadine (Claritin) 10 MG tabletIndications :Mild intermittent reactive airway disease without complication,Mild persistent reactive airway disease without complication Take 1 tablet by mouth daily. 90 tablet 3 025 Active fluticasone (Flonase) 50 MCG/ACT nasal sprayIndications: Mild intermittent reactive airway disease without complication,Mild persistent reactive airway disease without complication Administer 1 spray into each nostril daily. Shake gently. Before first use, prime pump. After use, clean tip and replace cap. 16 g 12 025 Active Additional Information Patient taking differently:1 spray Each NostrilAs needed, Shake gently. Before first use, prime pump. After use, clean tip and replace cap., Reported on 03/26/2025 Hjfmxnkb-Oon-Lw-F A (/Iron) tabletIndications :Iron deficiency Take 1 tablet by mouth daily. 90 tablet 1 Active albuterol 108 (90 Base) MCG/ACT inhalerIndication s:Moderate persistent asthma without complication Inhale 2 puffs every 4 hours as needed for wheezing or shortness of breath. 18 g 3 Active propranolol (Inderal) 20 MG tablet Take 1 tablet by mouth 3 times a day. For headache prevention 270 tablet 3 Active magnesium, as gluconate, (Magonate) 500 (27 Mg) MG tabletIndications :Acute intractable headache, unspecified headache type Take 1 tablet by mouth nightly. 90 tablet 3 Active desvenlafaxine (Pristiq) 50 MG 24 hr tabletIndications :Generalized anxiety disorder,Irritabi lity,Mixed obsessional thoughts and acts Take 1 tablet by mouth daily. Do not crush, chew, or split. 90 tablet 2024 Active lamoTRIgine (LaMICtal) 200 MG tabletIndications :Severe manic bipolar 1 disorder with psychotic behavior (CMS/HCC) Take 1 tablet by mouth daily. 90 tablet 2024 Active Additional Information Patient taking differently:200 mg Oral Daily,1 tablet in the morning and 0.5 tablet in the evening, Reported on 03/26/2025 QUEtiapine (SEROquel) 25 MG tabletIndications :Severe manic bipolar 1 disorder with psychotic behavior (CMS/HCC),Insomni a due to other mental disorder Take 0.5 tablets by mouth at night as needed (Sleep). 45 tablet 2024 Active Rexulti 2 MG tablet tabletIndications :Generalized anxiety disorder,Severe manic bipolar 1 disorder with psychotic behavior (CMS/HCC),Mixed obsessional thoughts and acts Take 1 tablet by mouth nightly. 90 tablet 2024 Active ergocalciferol (Vitamin D-2) 1.25 MG (87589 UT) capsule Take 1 capsule by mouth 1 time per week. 13 capsule 3 08/05/2 025 Active topiramate (Topamax) 50 MG tablet Take 1 tablet by mouth 2 times a day for 60 doses. For headache prevention 60 tablet 3 025 Active amphetamine-dextr oamphetamine (Adderall) 10 MG tabletIndications :Attention deficit hyperactivity disorder (ADHD), unspecified ADHD type Take 1 tablet by mouth 2 times a day. 60 tablet 025 2024 Active budesonide-formot nelly (Symbicort) 160-4.5 MCG/ACT inhalerIndication s:Moderate persistent asthma without complication Inhale 2 puffs 2 times a day. RINSE MOUTH WITH WATER AFTER USE TO REDUCE AFTERTASTE AND INCIDENCE OF CANDIDIASIS DO NOT SWALLOW 30.6 g 11 025 Active cyanocobalamin (cyancobalamin) 500 MCG tabletIndications :RLS (restless legs syndrome) Take 2 tablets by mouth daily. 60 tablet 11 025 Active L-Methylfolate 7.5 MG tabletIndications :MTHFR mutation Take 1 tablet by mouth daily. 90 tablet 3 025 Active ergocalciferol 1.25 MG (77812 UT) capsuleIndication s:RLS (restless legs syndrome),Vitamin D deficiency Take 1 capsule (50,000 Units) by mouth 1 (one) time per week. 13 capsule 3 024 2024 Discontinued(P er Patient Report) cyanocobalamin (cyancobalamin) 500 MCG tabletIndications :RLS (restless legs syndrome) Take 1 tablet (500 mcg) by mouth 1 (one) time each day. 90 tablet 3 024 2024 Discontinued budesonide-formot nelly (Symbicort) 160-4.5 MCG/ACT inhalerIndication s:Moderate persistent asthma without complication Inhale 2 puffs 2 times a day. Rinse mouth with water after use to reduce aftertaste and incidence of candidiasis. Do not swallow. 10.2 g 2 025 2024 Discontinued 28-0.8 MG tablet 025 2024 Discontinued(D uplicate order) clindamycin (Cleocin) 300 MG capsuleIndication s:Pilonidal cyst Take 1 capsule by mouth 3 times a day for 7 days. Take with food three times a day. 21 capsule 025 2024 Discontinued(P er Patient Report) metroNIDAZOLE (Flagyl) 500 MG tabletIndications :Pilonidal cyst Take 1 tablet by mouth 2 times a day for 7 days. 14 tablet 025 2024 Discontinued(P er Patient Report) cephalexin (Keflex) 500 MG capsule Take 1 capsule by mouth 4 times a day. 025 2024 Discontinued(P er Patient Report) ubrogepant (Ubrelvy) 100 MG tablet Take 1 tablet by mouth 1 time as needed for migraine (for headache rescue). After 2 hours, a second dose may be taken if needed. Maximum dose: 200 mg in 24-hour period. 10 each 5 2024 amphetamine-dextr oamphetamine (Adderall) 10 MG tabletIndications :Attention deficit hyperactivity disorder (ADHD), unspecified ADHD type Take 1 tablet by mouth 2 times a day. 60 tablet 025 2024 Discontinued(R eorder) cephalexin (Keflex) 500 MG capsuleIndication s:Ingrown toenail of left foot Take 1 capsule by mouth 2 times a day for 10 days. 20 capsule 2024 clotrimazole (Lotrimin) 1 % creamIndications: Ringworm Apply topically 2 times a day for 14 days. 15 g 2024 cyanocobalamin (cyancobalamin) 500 MCG tabletIndications :RLS (restless legs syndrome) TAKE 1 TABLET BY MOUTH DAILY 30 tablet 11 2024 Discontinued(R eorder) HYDROcodone-aceta minophen ([place]) 5-325 MG tablet 1 tablet by Nasogastric route every 4 hours as needed for moderate pain. 025 2024 Discontinued(P er Patient Report) amoxicillin-clavu lanate (Augmentin) 875-125 MG tabletIndications :Right maxillary sinusitis Take 1 tablet by mouth 2 times a day for 7 days. 14 tablet 025 2024 Discontinued(P er Patient Report) Probiotic, Lactobacillus, capsuleIndication s:Right maxillary sinusitis Take 1 capsule by mouth daily for 7 days. 7 capsule 025 2024 Discontinued(P er Patient Report) Carboxymethylcell ulose Sodium (Eye Drops) 0.5 % solutionIndicatio ns:Dry eyes Administer 2 drops into both eyes 2 times a day for 7 days. 2 mL 025 2024 Discontinued(P er Patient Report) budesonide-formot nelly (Symbicort) 160-4.5 MCG/ACT inhalerIndication s:Moderate persistent asthma without complication Inhale 2 puffs 2 times a day. RINSE MOUTH WITH WATER AFTER USE TO REDUCE AFTERTASTE AND INCIDENCE OF CANDIDIASIS DO NOT SWALLOW 10.2 g 025 2024 Discontinued(R eorder) doxycycline (Vibramycin) 100 MG capsuleIndication s:Bacterial sinusitis Take 1 capsule by mouth 2 times a day for 7 days. Take with at least 8 ounces (large glass) of water, do not lie down for 30 minutes after 14 capsule 025 2024 Levomefolate Glucosamine (Methyl-Folate) 1700 MCG capsuleIndication s:MTHFR mutation Take 1 capsule by mouth daily. 90 capsule 3 025 2024 Discontinued Active Problems Problem Noted Date Diagnosed Date Iron deficiency 12/26/2024 Mild intermittent asthma, uncomplicated 12/27/19 Migraine without aura, intractable, with status migrainosus 11/19/2024 Occipital neuralgia 11/19/2024 RLS (restless legs syndrome) 02/07/2024 Assessment & Plan (03/28/2025 8:48 AM EDT): Orders: cyanocobalamin (cyancobalamin) 500 MCG tablet; Take 2 tablets by mouth daily. 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 RINSE MOUTH WITH WATER AFTER USE TO REDUCE AFTERTASTE AND INCIDENCE OF CANDIDIASIS DO NOT SWALLOW DRUJ (distal radioulnar join t) instability, post-traumatic, right 01/31/2019 05/12/2023 Overview (05/12/2023): Added automatically from request for surgery [id number] Right wrist pain 05/01/2018 05/12/2023 Overview (05/12/2023): Added automatically from request for surgery [id number] Added automatically from request for surgery [id number] TFC (triangular fibrocartilage complex) injury 0 11/14/2017 05/12/2023 Overview (05/12/2023): Added automatically from request for surgery [id number] Resolved Problems Problem Noted Date Diagnosed Date Resolved Date Viral gastroenteritis 10/22/20222023 Epigastric pain 10/22/2022 02/12/2024 Obesity (BMI 35.0-39.9 without comorbidity) 12/30/2021 11/25/2024 PONV (postoperative nausea and vomiting) 09/17/2021 10/20/2023 Myalgia 09/01/2020 05/12/2023 02/12/2024 Finger pain 04/16/2020 05/12/2023 02/12/2024 Encounters * This document contains information received from the source organization and may not represent a complete record from that organization. Date Type Department Care Team Description 04/01/2025 Orders Only [facility] [address] [place] [phone] April Piper APRN MTHFR mutation 03/31/2025 Telephone [facility] [address] [place] [phone] April Piper APRN 03/28/2025 8:00 AM EDT Office Visit [facility] [address] [place] [phone] April Piper APRN Bacterial sinusitis (Primary Dx); Paronychia of great toe; Moderate persistent asthma without complication; Acute intractable headache, unspecified headache type; RLS (restless legs syndrome); Chronic maxillary sinusitis; Environmental allergies; MTHFR mutation 03/28/2025 Telephone [facility] [address] [place] [address] Sterling Gonzales, LINDSEY HCN - Patient Message 03/28/2025 Travel 03/26/2025 Refill [facility] [address] [place] [phone] April Piper APRN Moderate persistent asthma without complication 03/21/2025 Travel 03/14/2025 8:40 AM EDT Office Visit [facility] [address] [place] [phone] Susan Blackwell PA Right maxillary sinusitis (Primary Dx); Dry eyes 03/14/2025 Travel 03/13/2025 Results Follow-Up [facility] [address] [place] [phone] April Piper APRN 03/10/2025 Refill [facility] [address] [place] [address] April Piper APRN RLS (restless legs syndrome) 03/07/2025 1:00 PM EDT Office Visit [facility] [address] [place] [address] Janice Kramer MD Chronic tension-type headache, intractable (Primary Dx) 03/07/2025 8:20 AM EDT Office Visit [facility] [address] [place] [address] Steph Flanagan, JEANIE Ingrown toenail of left foot (Primary Dx); Ringworm 03/07/2025 7:50 AM EDT Ancillary Procedure [facility] [address] [place] [address] 03/07/2025 7:45 AM EDT Ancillary Procedure [facility] [address] [place] [address] 03/07/2025 7:45 AM EDT Ancillary Procedure [facility] [address] [place] [address] 03/07/2025 Refill [facility] [address] [place] [address] April Piper APRN 03/07/2025 Orders Only [facility] [address] [place] [address] Keli Harvey PA 03/07/2025 Orders Only [facility] [address] [place] [phone] Kate Pearson, RN 03/07/2025 Orders Only [facility] [address] [place] [address] April Piper APRN Healthcare maintenance (Primary Dx); Health care maintenance; Other fatigue 03/07/2025 Travel 03/03/2025 10:00 AM EDT Office Visit [facility] [address] [place] [address] Lenore De La Cruz PA Class 2 severe obesity due to excess calories with serious comorbidity and body mass index (BMI) of 38.0 to 38.9 in adult (CMS/[facility]) (Primary Dx); Dietary counseling; Migraine without status migrainosus, not intractable, unspecified migraine type 03/03/2025 Travel 02/28/2025 Refill [facility] [address] [place] [address] April Piper APRN 02/26/2025 Travel 02/24/2025 Travel 02/21/2025 8:00 AM EDT Office Visit [facility] [address] [place] [address] Keli Harvey PA Occipital neuralgia, unspecified laterality (Primary Dx); Myofascial pain; Idiopathic intracranial hypertension; Chronic tension-type headache, intractable; Migraine without aura and without status migrainosus, not intractable 02/18/2025 Travel 02/10/2025 12:40 PM EDT Office Visit [facility] [address] [place] [address] April Piper APRN Pilonidal cyst (Primary Dx) 02/10/2025 Travel 01/30/2025 Orders Only [facility] [address] [place] [address] April Piper APRN Pilonidal cyst (Primary Dx) 01/29/2025 11:20 AM EDT Office Visit [facility] [address] [place] [address] Piper, April, MANAGER CCU Pilonidal cyst (Primary Dx) 01/29/2025 Refill [facility] [address] [place] [address] April Piper APRN Acute intractable headache, unspecified headache type 01/29/2025 Travel 01/28/2025 Travel 01/27/2025 Travel 01/21/2025 12:00 PM EDT Office Visit [facility] [address] [place] [address] Lucila Walton APRN Pilonidal cyst (Primary Dx) 01/21/2025 Travel 01/20/2025 Travel 01/09/2025 Telephone [facility] [address] [place] [address] Nancie Weber, gas plumbing inspector 01/08/2025 Orders Only [facility] [address] [place] [phone] Keli Harvey PA 01/08/2025 Orders Only [facility] [address] [place] [phone] Lenore De La Cruz PA from Last 3 Months Immunizations Immunization Administration Dates Next Due DTaP, Unspecified 02/06/2001, 8,11/21/1997,1997,1996 HPV 9-Valent 11/25/2024,08/09/2024,12/30/2021 Hep A / Hep B 11/25/2024,08/09/2024 Hep A, Unspecified 09/30/2019 Hep B, Adolescent or Pediatric 11/21/1997,1996 HiB, unspecified 05/25/1998, 8,08/15/1997,1996 IPV 02/06/2001,08/15/1997,1996 Influenza, Unspecified 04/24/2020,09/30/2019 Influenza, injectable, quadr ivalent, preservative free 05/15/2023,05/18/2022,07/15/2021,2020 Influenza, seasonal, injecta ble, preservative free 07/08/2024 MMR 02/06/2001,05/25/1998 OPV 11/21/1997 PPD Skin Test (TB Skin Test) 11/02/2022 Pfizer-BioNTech COVID-19 Vac cine (Terry Cap) 12+ years (venita-sucrose) 09/03/2021 Pfizer-BioNTech COVID-19 Vac cine (Purple Cap) 12+ 08/13/2020,07/23/2020 Tdap 09/30/2019,03/05/2008 Family History Medical History Relation Name Comments Intellectual Disability Brother Tiburcio Depression Father Dad Heart disease Father Dad Hypertension Father Dad Mental illness Father Dad Bipolar disorder Father's Brother 1 Uncle Mental illness Father's Brother 1 Uncle Bipolar disorder Father's Brother 2 Uncle Mental illness Father's Brother 2 Uncle Alcohol abuse Maternal Grandfather M gpa Arthritis Maternal Grandfather M gpa Diabetes Maternal Grandfather M gpa Hearing loss Maternal Grandfather M gpa Heart disease Maternal Grandfather M gpa Mental illness Maternal Grandfather M gpa Cancer Maternal Grandmother M gma Cervical cancer Maternal Grandmother M gma Alcohol abuse Mother Mom Arthritis Mother Mom Depression Mother Mom Drug abuse Mother Mom Heart disease Mother Mom Hypertension Mother Mom Mental illness Mother Mom Rheumatologic disease Mother Mom Alcohol abuse Mother's Sister 1 Mom sister Depression Mother's Sister 2 M sist Depression Mother's Sister 3 Mom s Mental illness Mother's Sister 4 M sister Drug abuse Mother's Sister 5 M sis Bipolar disorder Other substance abuse Other Arthritis Paternal Grandfather D gpa Cataracts Paternal Grandfather D gpa Hearing loss Paternal Grandfather D gpa Heart disease Paternal Grandfather D gpa Arthritis Paternal Grandmother D gma Bipolar disorder Paternal Grandmother D gma Cataracts Paternal Grandmother D gma Hearing loss Paternal Grandmother D gma Heart disease Paternal Grandmother D gma Mental illness Paternal Grandmother D gma Relation Name Status Comments Brother Tiburcio Father Dad Father's Brother 1 Uncle Father's Brother 2 Uncle Maternal Grandfather M gpa Maternal Grandmother M gma Mother Mom Mother's Sister 1 Mom sister Mother's Sister 2 M sist Mother's Sister 3 Mom s Mother's Sister 4 M sister Mother's Sister 5 M sis Other Paternal Grandfather D gpa Paternal Grandmother D gma Social History Tobacco Use Types Packs/Day Years [...] any time in the past 12 m [facility], were you homeless or living in a nursing home (including now)? No 03/21/2025 Utilities Answer Date Recorded In the past 12 months has th [employer] electric, gas, oil, or water company threatened [...] Orientation Straight 03/05/2021 1: 39 PM EDT Last Filed Vital Signs Vital Sign Reading [...] Mass Index 38.68 03/28/2025 8:03 AM EDT Plan of Treatment Upcoming Encounters Date Type Department Care Team (Late st Contact Info) Description 05/02/2025 10:00 AM EDT Office Visit [facility] [address] [place] [phone] Lenore De La Cruz, PA [address] [place] [phone] 06/26/2025 7:20 AM EST Office Visit [facility] [address] [place] [phone] April Piper APRN [address] [facility] [address] [place] [phone] 08/22/2025 8:00 AM EST Office Visit [facility] [address] [place] [address] Keli Harvey PA [address] [place] [address] 09/17/2025 1:00 PM EST Office Visit [facility] [address] [place] [address] Janice Kramer MD [address] [place] [address] Health Maintenance Due Date Last Done Comments [facility]-/Child/Adol SDOH Screenings 1996 [facility]-Pneumococcal Vaccine: Pediatrics (0 to 5 Years) and At-Risk Patients (6 to 49 Years) (1 of 2 - PCV) 10/16/2015 [id number] Vaccine ( - season) 2024 09/03/2021, 08/13/2020, 07/23/2020 [facility]-Pap Smear 12/30/2024 12/30/2021 [facility]-Influenza Vaccine (#1) 04/07/202507/08, 05/15/2023, 05/18/2022, Additional history exists [facility]- SDOH Screenings 05/21/2025 [facility]-Adult SDOH Screenings 05/21/2025 11/19/2024 [facility]-Depression Screening 03/28/2026 03/28/2025, 03/08 [facility]-DTaP,Tdap,and Td Vaccines (8 - Td or Tdap) 09/30/2029 09/30/2019, 03/05/2008, 02/06/2001, Additional history exists [facility]-Zoster Vaccines (1 of 2) 2046 [facility]-HIB Vaccines Completed 05/25/1998, , 08/15/1997, Additional history exists [facility]-IPV Vaccines Completed 02/06/2001, , 08/15/1997, Additional history exists [facility]-HIV Screening Completed 02/08/2023 [facility]-Hepatitis C Screening Completed 2022, 10/18/2022, 12/09/2019 HPV Vaccines Completed 11/25/2024, 10/2024, 12/30/2021 [facility]-Hepatitis A Vaccines Aged Out 025, 08/09/2024, 09/30/2019 No longer eligible based on patient's age to complete this topic [facility]-Hepatitis B Vaccines Completed 025, 08/09/2024, 11/21/1997, Additional history exists [facility]-Obesity Intervention Completed , 03/14/2025, 03/07/2025, Additional history exists [facility]-Rotavirus Vaccines Aged Out No lo nger eligible based on patient's age to complete this topic [facility]-Varicella Vaccines Discontinued Goals Goal Patient Goal Type Associated Problems Recent Progress Patient-Stated? Author HEP Occupational Therapy On track(2020 3:42 PM EDT) No Tanya Ghosh Note: Patient will complete HEP with appropriate form 100% of the time. Mcfp Goal: to be met by 06/08/21 Goal on going as exercises continue to be added. Good form with exercises thus far. Leisure Occupational Therapy On track(2020 3:42 PM EDT) No Tanya Ghosh Note: Patient will complete leisure task such as baking or beading x20 minutes without pain 100% of the time. Mcfp Goal: to be met by 07/10/21. Medical Devices Implanted Type Area Television Schedule Coordinator Device Identifier Shelf Expiration Date Model / Serial / Lot Chip Bone 10cc - [id number] - [id number] Implanted:Qty: 1 on 03/24/2021 by Joyce King MD at [facility] Right: [id number] 05/06/2025 [id number] / [id number] / [id number] Procedures Procedure Name Priority Date/Time Associated Diagnosis Comments CBC WITH AUTO DIFFERENTIAL Routine 03/07/2025 10:01 AM EDT Other fatigue IRON & TOTAL IRON BINDING CAPACITY, PLASMA (INCLUDES TRANSFERRIN) Routine 03/07/2025 10:01 AM EDT Other fatigue TSH REFLEX FT4 Routine 03/07/2025 10:01 AM EDT Other fatigue COMPREHENSIVE METABOLIC PANEL, PLASMA Routine 03/07/2025 10:01 AM EDT Other fatigue PAIN MANAGEMENT, QUANTITATIVE URINE DRUG TESTING Routine 03/07/2025 8:47 AM EDT Therapeutic drug monitoring PAIN MANAGEMENT, QUANTITATIVE URINE DRUG TESTING Routine 03/07/2025 8:47 AM EDT Therapeutic drug monitoring AUTOMATED VISUAL FIELD, EXTENDED - OU - BOTH EYES Routine 03/07/2025 7:40 AM EDT Chronic tension-type headache, intractable OCT, OPTIC NERVE - OU - BOTH EYES Routine 03/07/2025 7:40 AM EDT Chronic tension-type headache, intractable OCT, RETINA - OU - BOTH EYES Routine 03/07/2025 7:40 AM EDT Chronic tension-type headache, intractable HEPATITIS C ANTIBODY W/REFLEX TO HCV QUANT PCR Routine 02/08/2023 8:37 AM EDT Health care maintenance Obesity (BMI 30-39.9) HIV 1/2 ANTIBODY/ANTIGEN SCREEN WITH REFLEX TO HIV I/II DIFFERENTIATION Routine 02/08/2023 8:37 AM EDT Screening for human immunodeficiency virus PAP TEST - CYTOLOGY Routine 12/30/2021 1 :49 PM EDT Well woman exam from Last 3 Months or Most Recently Relevant to Health Maintenance Results * TSH Reflex FT4 (03/07/2025 10:01 AM EDT) Thyroid Stimulating Hormone, Plasma 1.96 0.40 - 4.20 uIU/mL 03/07/2025 4:32 PM EDT [facility] Blood Venous blood specimen / Unknown Venipuncture / Unknown 03/07/2025 10:01 AM EDT 03/07/2025 1:38 PM EDT Narrative [facility] - 03/07/2025 4:32 PM EDT Trimester Specific Ranges TSH ( IU/mL) 1st Trimester 0.1 - 3.0 2nd Trimester 0.19 - 4.06 3rd Trimester 0.3 - [facility] Final Re sult [facility] [address] [place] [address] * Iron & Total Iron Binding Capacity, Plasma (Includes Transferrin) (03/07/2025 10:01 AM EDT) Iron, Plasma 78 30 - 160 ug/dL 03/07/2025 4:32 PM EDT [facility] Transferrin, Plasma 315 200 - 360 mg/dL 03/07/2025 4:32 PM EDT [facility] Total Iron Binding Capacity, Plasma 394 240 - 450 ug/mL 03/07/2025 4:32 PM EDT [facility] Transferrin Saturation 20 14 - 50 % 03/07/2025 4:32 PM EDT [facility] Blood Venous blood specimen / Unknown Venipuncture / Unknown 03/07/2025 10:01 AM EDT 03/07/2025 1:[address] [facility] Final Re sult [facility] [address] [place] [address] * (ABNORMAL) CBC and Differential (03/07/2025 10:01 AM EDT) WBC Count 9.84 3.70 - 10.30 10*3/uL LAB HEMATOLOGY METHOD 03/07/2025 2:10 PM EDT [facility] RBC Count 3.90 3.90 - 5.20 10*6/uL LAB HEMATOLOGY METHOD 03/07/2025 2:10 PM EDT [facility] HGB 10.9(L) 11.2 - 15.7 g/dL LAB HEMATOLOGY METHOD 03/07/2025 2:10 PM EDT [facility] HCT 34.9 34.0 - 45.0 % LAB HEMATOLOGY METHOD 03/07/2025 2:10 PM EDT [facility] Platelet Count 567(H) 155 - 369 10*3/uL LAB HEMATOLOGY METHOD 03/07/2025 2:10 PM EDT [facility] MCV 90 79 - 98 fL LAB HEMATOLOGY METHOD 03/07/2025 2:10 PM EDT [facility] MCH 27.9 26.0 - 32.0 pg LAB HEMATOLOGY METHOD 03/07/2025 2:10 PM EDT [facility] MCHC 31.2 30.7 - 35.5 g/dL LAB HEMATOLOGY METHOD 03/07/2025 2:10 PM EDT [facility] RDW 14.8(H) 11.5 - 14.5 % LAB HEMATOLOGY METHOD 03/07/2025 2:10 PM EDT [facility] MPV 10.5 8.8 - 12.5 fL LAB HEMATOLOGY METHOD 03/07/2025 2:10 PM EDT [facility] nRBC 0.0 <=0.0 per 100 WBCs LAB HEMATOLOGY METHOD 03/07/2025 2:10 PM EDT [facility] Differential Type Automated LAB HEMATOLOGY METHOD 03/07/2025 2:10 PM EDT [facility] Neutrophils % 74 % LAB HEMATOLOGY METHOD 03/07/2025 2:10 PM EDT [facility] Lymphocytes % 18 % LAB HEMATOLOGY METHOD 03/07/2025 2:10 PM EDT [facility] Monocytes % 6 % LAB HEMATOLOGY METHOD 03/07/2025 2:10 PM EDT [facility] Eosinophils % 1 % LAB HEMATOLOGY METHOD 03/07/2025 2:10 PM EDT [facility] Basophils % 0 % LAB HEMATOLOGY METHOD 03/07/2025 2:10 PM EDT [facility] Immature Granulocytes % 1 % LAB HEMATOLOGY METHOD 03/07/2025 2:10 PM EDT [facility] Neutrophils Absolute 7.24(H) 1.60 - 6.10 10*3/uL LAB HEMATOLOGY METHOD 03/07/2025 2:10 PM EDT [facility] Lymphocytes Absolute 1.81 1.20 - 3.90 10*3/uL LAB HEMATOLOGY METHOD 03/07/2025 2:10 PM EDT [facility] Monocytes Absolute 0.55 0.30 - 0.90 10*3/uL LAB HEMATOLOGY METHOD 03/07/2025 2:10 PM EDT [facility] Eosinophils Absolute 0.13 0.00 - 0.50 10*3/uL LAB HEMATOLOGY METHOD 03/07/2025 2:10 PM EDT [facility] Basophils Absolute 0.04 0.00 - 0.10 10*3/uL LAB HEMATOLOGY METHOD 03/07/2025 2:10 PM EDT [facility] Immature Granulocytes Absolute 0.07(H) 0.00 - 0.06 10*3/uL LAB HEMATOLOGY METHOD 03/07/2025 2:10 PM EDT [facility] Blood Venous blood specimen / Unknown Venipuncture / Unknown 03/07/2025 10:01 AM EDT 03/07/2025 1:40 PM EDT Narrative [facility] - 03/07/2025 2:10 PM EDT Therapeutic decision making should be based on absolute values, rather than percentages. us April Piper MANAGER CCU LAB BLOOD ORDERABLES Final Re sult [facility] [address] [place] [address] * (ABNORMAL) Comprehensive Metabolic Panel, Plasma (03/07/2025 10:01 AM EDT) Glucose, Plasma 79 74 - 99 mg/dL 03/07/2025 4:32 PM EDT [facility] BUN, Plasma 22(H) 7 - 21 mg/dL 03/07/2025 4:32 PM EDT [facility] Creatinine, Plasma 0.84 0.60 - 1.10 mg/dL 03/07/2025 4:32 PM EDT [facility] BUN/Creatinine Ratio 26 03/07/2025 4:32 PM EDT [facility] Sodium, Plasma 134(L) 136 - 145 mmol/L 03/07/2025 4:32 PM EDT [facility] Potassium, Plasma 4.5 3.6 - 4.9 mmol/L 03/07/2025 4:32 PM EDT [facility] Chloride, Plasma 103 97 - 107 mmol/L 03/07/2025 4:32 PM EDT [facility] CO2, Plasma 19(L) 22 - 29 mmol/L 03/07/2025 4:32 PM EDT [facility] Anion Gap 12 6 - 16 mmol/L 03/07/2025 4:32 PM EDT [facility] Total Calcium, Plasma 9.4 8.9 - 10.2 mg/dL 03/07/2025 4:32 PM EDT [facility] Total Protein 6.1(L) 6.3 - 7.9 g/dL 03/07/2025 4:32 PM EDT [facility] Albumin, Plasma 4.5 3.5 - 5.2 g/dL 03/07/2025 4:32 PM EDT [facility] AST, Plasma 34 10 - 35 U/L 03/07/2025 4:32 PM EDT [facility] ALT, Plasma 29 10 - 35 U/L 03/07/2025 4:32 PM EDT [facility] Alkaline Phosphatase, Plasma 86 35 - 104 U/L 03/07/2025 4:32 PM EDT [facility] Total Bilirubin, Plasma 0.3 0.2 - 1.1 mg/dL 03/07/2025 4:32 PM EDT [facility] eGFRcr 97.2 mL/min/1.7 3m*2 03/07/2025 4:32 PM EDT [facility] Comment:Reported eGFRcr in m L/min/1.73m2 is based the CKD-EPI 2020 equation that does not use a race coefficient. Blood Venous blood specimen / Unknown Venipuncture / Unknown 03/07/2025 10:01 AM EDT 03/07/2025 1:38 PM EDT April Piper MANAGER CCU LAB BLOOD ORDERABLES Final Re sult [facility] [address] [place] [address] * (ABNORMAL) Pain Management, Quantitative Urine Drug Testing (03/07/2025 8:47 AM EDT) Alpha [place] Alprazolam <20 <20 ng/mL 03/10 4:13 AM EDT [facility] [place] Midazolam <20 <20 ng/mL 2024 4:13 AM EDT [facility] [place] Triazolam <20 <20 ng/mL 2024 4:13 AM EDT [facility] Alprazolam <10 <10 ng/mL 03/10/2025 4:13 AM EDT [facility] Aminoclonazepam <20 <20 ng/mL 4:13 AM EDT [facility] Amphetamine >1,000(H) <50 ng/mL 03/10/2025 4:13 AM EDT [facility] Benzoylecgonine <50 <50 ng/mL 4:13 AM EDT [facility] Buprenorphine <10 <10 ng/mL 03/10/2025 4:13 AM EDT [facility] Buprenorphine Glucuronide <50 <50 ng/mL 03/10/2025 4:13 AM EDT [facility] Butalbital <50 <50 ng/mL 03/10/2025 4:13 AM EDT [facility] 9 Carboxy THC <10 <10 ng/mL 03/10/2025 4:13 AM EDT [facility] 9 Carboxy THC Glucuronide <25 <25 ng/mL 03/10/2025 4:13 AM EDT [facility] Clonazepam <10 <10 ng/mL 03/10/2025 4:13 AM EDT [facility] Codeine <50 <50 ng/mL 03/10/2025 4:13 AM EDT [facility] Codeine Glucuronide <50 <50 ng/mL 03/10 4:13 AM EDT [facility] Cyclobenzaprine <50 <50 ng/mL 4:13 AM EDT [facility] Desmethyl Tramadol <50 <50 ng/mL 2024 4:13 AM EDT [facility] Diazepam <10 <10 ng/mL 03/10/2025 4:13 AM EDT [facility] EDDP - Methadone Metabolite <50 <50 ng/mL 03/10/2025 4:13 AM EDT [facility] Fentanyl <1 <1 ng/mL 03/10/2025 4:13 AM EDT [facility] Hydrocodone <50 <50 ng/mL 03/10/2025 4:13 AM EDT [facility] Hydromorphone <50 <50 ng/mL 03/10/2025 4:13 AM EDT [facility] Hydromorphone Glucuronide <50 <50 ng/mL 03/10/2025 4:13 AM EDT [facility] Lorazepam <20 <20 ng/mL 03/10/2025 4:13 AM EDT [facility] Lorazepam Glucuronide <50 <50 ng/mL 03/10/2025 4:13 AM EDT [facility] MDA <50 <50 ng/mL 03/10/2025 4:13 AM EDT [facility] MDMA <50 <50 ng/mL 03/10/2025 4:13 AM EDT [facility] Meperidine <50 <50 ng/mL 03/10/2025 4:13 AM EDT [facility] Methadone <50 <50 ng/mL 03/10/2025 4:13 AM EDT [facility] Methamphetamine <50 <50 ng/mL 4:13 AM EDT [facility] Methylphenidate <50 <50 ng/mL 4:13 AM EDT [facility] 6 Monoacetyl morphine <10 <10 ng/mL 03/10/2025 4:13 AM EDT [facility] Morphine <50 <50 ng/mL 03/10/2025 4:13 AM EDT [facility] Morphine Glucuronide <50 <50 ng/mL 11/2024 4:13 AM EDT [facility] Naloxone <50 <50 ng/mL 03/10/2025 4:13 AM EDT [facility] Naloxone Glucuronide <50 <50 ng/mL 11/2024 4:13 AM EDT [facility] Norbuprenorphine <10 <10 ng/mL 03/10/20 4:13 AM EDT [facility] Norbuprenorphine Glucuronide <50 <50 ng/mL 03/10/2025 4:13 AM EDT [facility] Nordiazepam <20 <20 ng/mL 03/10/2025 4:13 AM EDT [facility] Norfentanyl <2 <2 ng/mL 03/10/2025 4:13 AM EDT [facility] Normeperidine <50 <50 ng/mL 03/10/2025 4:13 AM EDT [facility] PCP Quant, Ur <50 <50 ng/mL 03/10/2025 4:13 AM EDT [facility] Phenobarbital <50 <50 ng/mL 03/10/2025 4:13 AM EDT [facility] Oxazepam <20 <20 ng/mL 03/10/2025 4:13 AM EDT [facility] Oxazepam Glucuronide <50 <50 ng/mL 11/2024 4:13 AM EDT [facility] Oxycodone <50 <50 ng/mL 03/10/2025 4:13 AM EDT [facility] Oxymorphone <50 <50 ng/mL 03/10/2025 4:13 AM EDT [facility] Oxymorphone Glucuronide <50 <50 ng/mL 03/10/2025 4:13 AM EDT [facility] Secobarbital <50 <50 ng/mL 03/10/2025 4:13 AM EDT [facility] Tramadol <50 <50 ng/mL 03/10/2025 4:13 AM EDT [facility] Temazepam <20 <20 ng/mL 03/10/2025 4:13 AM EDT [facility] Temazepam Glucuronide <50 <50 ng/mL 03/10/2025 4:13 AM EDT [facility] Urine Urine specimen obtained by clean catch procedure / Unknown Non-blood Collection / Unknown 03/07/2025 8:47 AM EDT 03/07/2025 6:54 PM EDT Narrative [facility] - 03/10/2025 4:13 AM EDT This report is intended for use in clinical monitoring or management of patients. It is NOT intended for use in employment-related drug testing. For pain management, the absence of expected drug(s) and/or drug metabolite(s) may indicate non-compliance, inappropriate timing of specimen collection relative to drug administration, poor drug absorption, or limitations of testing. Interpretive questions should be directed to the laboratory. Test performed by LC-MS/MS at the [facility]. This test was developed and its performance characteristics determined by [facility]. It has not been cleared or approved by the FDA. The laboratory is regulated under CLIA as qualified to perform high-complexity testing. This test is used for clinical purposes. Sunday Lin APRN LAB URINE ORDERABLES Final R esult [facility] [address] [place] [address] * OCT, Retina - OU - Both [...] Findings include normal observations, normal foveal contour. us Janice Interiano MD OPHTH TOMOGRAPHY Final Result * OCT, Optic Nerve - [...] cell analysis is intact Janice Interiano MD OPH TOMOGRAPHY Final Result * Automated Visual Field, Extended - OU [...] Findings include normal observations. Janice Interiano MD OPH VISUAL FIELD Final Result * HIV 1 & 2 Antibody/Antigen Screen (02/08/2023 8:37 AM EDT) Pathologist [facility] HIV 1 & 2 Antibody/Antigen Screen Non Reactive Non Reactive 02/08/2023 7:03 PM EDT [facility] Comment:Screening for HIV 1 & 2 antibodies, and P24 antigen is NONREACTIVE. No confirmatory testing is required. Blood Venous blood specimen / Unknown Venipuncture / Unknown 02/08/2023 8:37 AM EDT 02/08/2023 6:32 PM EDT April Piper MANAGER CCU LAB BLOOD ORDERABLES Final Re sult [facility] [address] [place] [address] * Hepatitis C Antibody (02/08/2023 8:37 AM EDT) Hepatitis C Antibody Negative Negative 02/08/2023 7:03 PM EDT [facility] Blood Venous blood specimen / Unknown Venipuncture / Unknown 02/08/2023 8:37 AM EDT 02/08/2023 6:32 PM EDT April Piper MANAGER CCU LAB BLOOD ORDERABLES Final Re sult [facility] [address] [place] [id number] * Pap Smear (12/30/2021 1:49 PM EDT) Case Report Cytology Case: [id number] Authorizing Provider: Fallon Buchanan APRN Collected: 12/30/2021 1349 Ordering Location: Medical Office Building Received: 12/30/2021 1608 Obstetrics and Gynecology First Screen: Kristine [place], [place] Specimen: ThinPrep Pap Test, Liquid-Based Cervical/Vaginal, CERVICAL/VAGINAL 01/07/2022 3:05 PM EDT [facility] Interpretation NEGATIVE FOR INTRAEPITHELIAL LESION OR MALIGNANCY 01/07/2022 3:05 PM EDT [facility] at 1505 EDT Specimen Adequacy Satisfactory for evaluation; endocervical/rod sformation zone component absent/insufficie nt. Slide scanned and imaged by ThinPrep Imaging System with manual review of all selected goodwin. 01/07/2022 3:05 PM EDT [facility] Cervical cytology is a screening test primarily for squamous cancers and precursors and has associated false negative and positive results. New technologies such as liquid based sampling may decrease but will not eliminate all false negative results. Regular screening and follow-up of unexplained clinical signs and symptoms are recommended to minimize false negative results. Please see the ASCCP website (www.asccp.org)fo r followup recommendations. If HPV testing was requested, correlation with the results is suggested (please call Microbiology at [phone] for results). 01/07/2022 3:05 PM EDT [facility] Menstrual Status Not Applicable 10/2021 3:05 PM EDT [facility] History of Hysterectomy Not Applicable 01/07/2022 3:05 PM EDT [facility] Contraceptive History Not Applicable 01/07/2022 3:05 PM EDT [facility] Screening Type Routine Screen 2021 3:05 PM EDT [facility] High Risk? No 01/07/2022 3:05 PM EDT [facility] HPV Testing Requested? Request HPV Testing if ASCUS (Women 25 Years or Older) 01/07/2022 3:05 PM EDT [facility] Previous Cancer History No 01/07/2022 3:05 PM EDT [facility] Clinical Information Z01.419 - Well woman exam [ICD-10-CM] 01/07/2022 3:05 PM EDT [facility] Last Menstrual Period 12/08/2021 01/07/2022 3:05 PM EDT [facility] Swab Vaginal and cervical cytologic material / Unknown Non-blood Collection / Unknown 12/30/2021 1:49 PM EDT 12/30/2021 4:08 PM EDT Fallon Buchanan MANAGER CCU LAB CYTOLOGY ORDERABLES Fi nal Result [facility] [address] [place] [address] from Last 3 Months or Most Recently Relevant to Health Maintenance Insurance [facility] MEDICAID Care Teams Vegetable Harvest Worker Relationship Specialty Start Date End Date April Piper APRN [address] [place] [address] PCP - General Family Medicine 02/06/23
--- OUTSIDE RECORDS SUMMARY | 2025-04-06 09:51 | XMS_ITS | Encounter Summary ---
Author Organization Healthcare Address [address] [place] [address] Care Team Providers Care Oxygen Plant Operator Name Role Phone April Piper APRN Primary Care Provider [phone] Encounter Details Date Type Department Care Team (Late st Contact Info) Description 04/01/[address] [facility] [address] [place] [address] April Piper APRN [address] [facility] [address] [place] [address] MTHFR mutation Social History Tobacco Use Types [...] any time in the past 12 m [facility], were you homeless or living in a custodial (including now)? No 03/21/2025 Utilities Answer Date [...] 10:00 AM EDT Office Visit [facility] Endocrinology [address] [place] [phone] Lenore De La Cruz PA [address] [place] [phone] 06/26/2025 7:20 AM EST Office Visit [facility] [address] [place] [address] April Piper APRN [address] [place] [phone] 08/22/2025 8:00 AM EST Office Visit [place] [facility] [address] [place] [address] Keli Harvey PA [address] [place] [address] 09/17/2025 1:00 PM EST Office Visit [facility] [address] [place] [address] Janice Kramer MD [address] [place] [address] documented as of this encounter Goals Goal Patient Goal Type Associated Problems Recent Progress Patient-Stated? Author HEP Occupational Therapy On track(2020 3:42 PM EDT) No Tanya Ghosh Note: Patient will complete HEP with appropriate form 100% of the time. Half-Way Goal: to be met by 06/08/21 Goal on going as exercises continue to be added. Good form with exercises thus far. Leisure Occupational Therapy On track(2020 3:42 PM EDT) Tanya Bacon Note: Patient will complete leisure task such as baking or beading x20 minutes without pain 100% of the time. Half-Way Goal: to be met by 07/10/21. 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
--- OUTSIDE RECORDS SUMMARY | 2025-04-06 09:51 | XMS_ITS | Encounter Summary ---
Author Organization Healthcare Address [address] [place] [address] Care Team Providers Care Taxi Proprietor Name Role Phone April Piper APRN Primary Care Provider [phone] Encounter Details Date Type Department Care Team (Latest Contact Info) Description 02/24/2025 Travel Social History Tobacco Use Types Packs/Day [...] any time in the past 12 m [facility], were you homeless or living in a half-way (including now)? No 02/10/2025 Utilities Answer Date [...] Description 05/02/2025 10:00 AM EDT Office Visit [facility] Endocrinology [facility] [place] [phone] Lenore De La Cruz, RAINE [address] [place] [address] 06/26/2025 7:20 AM EST Office [facility] [address] [place] [address] April Piper APRN [address] [place] [address] 08/22/2025 8:00 AM EST Office Visit [place] [facility] [address] [place] [address] Keli Harvey PA [address] [place] [address] 09/17/2025 1:00 PM EST Office Visit [facility] [address] [place] [address] Janice Kramer MD [address] [place] [address] documented as of this encounter Goals Goal Patient Goal Type Associated Problems Recent Progress Patient-Stated? Author HEP Occupational Therapy On track(2020 3:42 PM EDT) No Tanya Ghosh Note: Patient will complete HEP with appropriate form 100% of the time. Retirement Goal: to be met by 06/08/21 Goal on going as exercises continue to be added. Good form with exercises thus far. Leisure Occupational Therapy On track(2020 3:42 PM EDT) No Tanya Ghosh Note: Patient will complete leisure task such as baking or beading x20 minutes without pain 100% of the time. Crop Insurance Claims Adjuster Goal: to be met by 07/10/21. documented [...] documented as of this encounter Care Teams Taxi Proprietor Relationship Specialty Start Date End Date April Piper APRN [address] [place] [phone] PCP - General Family Medicine 02/06/23 documented as of this encounter
--- OUTSIDE RECORDS SUMMARY | 2025-04-06 09:51 | XMS_ITS | Encounter Summary ---
Author Organization Healthcare Address [address] [place] [address] Care Team Providers Care Bar Host Name Role Phone April Piper APRN Primary Care Provider [phone] Reason for Visit * Reason Comments Med Refill Encounter Details Date Type Department Care Team (Late st Contact Info) Description 03/26/2025 Refill [place] [facility] [address] [place] [address] April Piper APRN [address] [facility] [address] [place] [address] Moderate persistent asthma without complication Social History Tobacco Use Types Packs/Day Years [...] were you homeless or living in a long-term (including now)? No 03/21/2025 Utilities Answer Date [...] encounter Miscellaneous Notes * Telephone Encounter - Dinorah Vazquez, DerekD - 03/27/2025 4:15 PM EDT 1 medication(s) has been approved per protocol. Please keep upcoming appointment for additional refills. Medications have been pended for refill atupcoming appointment. documented in this encounter Plan of Treatment Upcoming Encounters Date Type Department Care Team (Late st Contact Info) Description 05/02/2025 10:00 AM EDT Office Visit [facility] Endocrinology [address] [place] [address] Lenore De La Cruz PA [address] [facility] [address] [place] [address] 06/26/2025 7:20 AM EST Office Visit [facility] Primary [facility] Urgent Care [address] [place] [phone] April Piper APRN [address] [facility] [address] [place] [phone] 08/22/2025 8:00 AM EST Office Visit [place] [facility] [address] [place] [phone] Keli Harvey PA [address] [place] [phone] 09/17/2025 1:00 PM EST Office Visit [facility] [address] [place] [phone] Janice Kramer MD [address] [place] [address] documented as of this encounter Goals Goal Patient Goal Type Associated Problems Recent Progress Patient-Stated? Author HEP Occupational Therapy On track(2020 3:42 PM EDT) No Tanya Ghosh Note: Patient will complete HEP with appropriate form 100% of the time. High School Sports Coach Goal: to be met by 06/08/21 Goal on going as exercises continue to be added. Good form with exercises thus far. Leisure Occupational Therapy On track(2020 3:42 PM EDT) No Tanya Ghosh Note: Patient will complete leisure task such as baking or beading x20 minutes without pain 100% of the time. High School Sports Coach Goal: to be met by 07/10/21. documented as of this encounter Visit Diagnoses Diagnosis Moderate persistent asthma without complication documented in this encounter Additional Health Concerns Assessment Noted Time PHQ-9 Depression Total Score: 0 02/11/20 25 12:43 PM EDT A fall risk assessment has been complete d for the patient 03/07/2025 12:50 PM EDT A Body Mass Index follow-up plan has been documented for the patient 03/14/2025 9:31 AM EDT documented as of this encounter Care Teams Bar Host Relationship Specialty Start Date End Date April Piper APRN [address] [place] [address] [address] [place] [phone] PCP - General Family Medicine 02/06/23 documented as of this encounter
--- OUTSIDE RECORDS SUMMARY | 2025-04-06 09:51 | XMS_ITS | Encounter Summary ---
Author Organization Healthcare Address [address] [place] [address] Care Team Providers Care Carton Machine Operator Name Role Phone April Piper APRN Primary Care Provider [phone] Encounter Details Date Type Department Care Team (Latest Contact Info) Description 02/26/2025 Travel Social History Tobacco Use Types Packs/Day [...] Date Recorded Patient Health Questionnaire-2 Score 0 02/26/2025 PHQ-9 Answer Date Recorded Patient Health Questionnaire-9 [...] any time in the past 12 m [facility], were you homeless or living in a usp (including now)? No 02/10/2025 Utilities Answer Date [...] pleasure in doing things Not at all 02/26/2025 12:53 PM EDT Sunday Lin APRN Feeling down, depressed, or hopeless Not at all 02/26/2025 12:53 PM EDT Sunday Lin APRN Patient Health Questionnaire-2 Score 0 02/26/2025 12:53 PM EDT Sunday Lin APRN documented as of this encounter Plan of Treatment Upcoming Encounters Date Type Department Care Team (Late st Contact Info) Description 05/02/2025 10:00 AM EDT Office Visit [facility] Endocrinology [address] [place] [phone] Lenore De La Cruz PA [address] [place] [address] 06/26/2025 7:20 AM EST Office Visit [facility] Care [address] [place] [phone] April Piper APRN [address] [place] [address] 08/22/2025 8:00 AM EST Office Visit [place] [facility] [address], [address] [place] [address] Keli Harvey PA [address] [facility] [address] [place] [address] 09/17/2025 1:00 PM EST Office Visit [facility] [address] [place] [address] Janice Kramer MD [address] [place] [address] documented as of this encounter Goals Goal Patient Goal Type Associated Problems Recent Progress Patient-Stated? Author HEP Occupational Therapy On track(2020 3:42 PM EDT) No Tanya Ghosh Note: Patient will complete HEP with appropriate form 100% of the time. Prison Goal: to be met by 06/08/21 Goal on going as exercises continue to be added. Good form with exercises thus far. Leisure Occupational Therapy On track(2020 3:42 PM EDT) No Tanya Ghosh Note: Patient will complete leisure task such as baking or beading x20 minutes without pain 100% of the time. Prison Goal: to be met by 07/10/21. documented as of this encounter Visit Diagnoses Not on filedocumented in this encounter Additional Health Concerns Assessment Noted Time PHQ-9 Depression Total Score: 0 02/11/20 25 12:43 PM EDT A fall risk assessment has been complete d for the patient 02/10/2025 12:44 PM EDT A Body Mass Index follow-up plan has been documented for the patient 02/26/2025 12:59 PM EDT documented as of this encounter Care Teams Carton Machine Operator Relationship Specialty Start Date End Date April Piper APRN [address] [place] [phone] PCP - General Family Medicine 02/06/23 documented as of this encounter
--- OUTSIDE RECORDS SUMMARY | 2025-04-06 09:51 | XMS_ITS | Encounter Summary ---
Author Organization Healthcare Address [address] [place] [address] Care Team Providers Care Manager Social Services Name Role Phone April Piper APRN Primary Care Provider [phone] Encounter Details Date Type Department Care Team (Latest Contact Info) Description 03/07/2025 Travel Social History Tobacco Use Types Packs/Day [...] any time in the past [address] [facility], were you homeless or living in [...] Description 05/02/2025 10:00 AM EDT Office Visit [facility] Endocrinology [facility] [place] [phone] Lenore De La Cruz, RAINE [address] [place] [address] 06/26/2025 7:20 AM EST Office Visit [facility] [address] [place] [address] April Piper APRN [address] [place] [address] 08/22/2025 8:00 AM EST Office Visit [place] [facility] [address] 1st [place] [address] Keli Harvey PA [address] [place] [address] 09/17/2025 1:00 PM EST Office Visit [facility] [address] [place] [address] Janice Kramer MD [address] [place] [address] documented as of this encounter Goals Goal Patient Goal Type Associated Problems Recent Progress Patient-Stated? Author HEP Occupational Therapy On track(2020 3:42 PM EDT) No Tanya Ghosh Note: Patient will complete HEP with appropriate form 100% of the time. Detention Goal: to be met by 06/08/21 Goal on going as exercises continue to be added. Good form with exercises thus far. Leisure Occupational Therapy On track(2020 3:42 PM EDT) No Tanya Ghosh Note: Patient will complete leisure task such as baking or beading x20 minutes without pain 100% of the time. Gear Lapping Machine Operator Goal: to be met by 07/10/21. documented [...] documented as of this encounter Care Teams Manager Social Services Relationship Specialty Start Date End Date April Piper APRN [address] [place] [phone] PCP - General Family Medicine 02/06/23 documented as of this encounter
--- OUTSIDE RECORDS SUMMARY | 2025-04-06 09:51 | XMS_ITS | Encounter Summary ---
Author Organization Healthcare Address [address] [place] [address] Care Team Providers Care Car Varnisher Name Role Phone April Piper APRN Primary Care Provider [phone] Encounter Details Date Type Department Care Team (Late st Contact Info) Description 03/31/[address] [facility] Primary and Urgent Care [address] [place] [address] April Piper APRN [address] [facility] [address] [place] [address] Social History Tobacco Use Types [...] any time in the past 12 m [facility], were you homeless or living in a long term (including now)? No 03/21/2025 Utilities Answer Date [...] EDT Office Visit [facility] [address] [place] [phone] Lenore De La Cruz PA [address] [place] [address] 06/26/2025 7:20 AM EST Office Visit [facility] Primary [facility] Urgent Care [address] [place] [address] April Piper APRN [address] [place] [address] 08/22/2025 8:00 AM EST Office Visit [place] [facility] [address] 1[address] [place] [address] Keli Harvey PA [address] [place] [address] 09/17/2025 1:00 PM EST Office Visit [facility] [address] [place] [address] Janice Kramer MD [address] [place] [address] documented as of this encounter Goals Goal Patient Goal Type Associated Problems Recent Progress Patient-Stated? Author HEP Occupational Therapy On track(2020 3:42 PM EDT) No Tanya Ghosh Note: Patient will complete HEP with appropriate form 100% of the time. Senior Care Goal: to be met by 06/08/21 Goal on going as exercises continue to be added. Good form with exercises thus far. Leisure Occupational Therapy On track(2020 3:42 PM EDT) No Tanya Ghosh Note: Patient will complete leisure task such as baking or beading x20 minutes without pain 100% of the time. Senior Care Goal: to be met by 07/10/21. documented [...] documented as of this encounter Care Teams Car Varnisher Relationship Specialty Start Date End Date April Piper APRN [address] [place] [phone] PCP - General Family Medicine 02/06/23 documented as of this encounter
--- OUTSIDE RECORDS SUMMARY | 2025-04-06 09:51 | XMS_ITS | Encounter Summary ---
Author Organization Healthcare Address [address] [place] [address] Care Team Providers Care Fluid Dynamicist Name Role Phone April Piper APRN Primary Care Provider [phone] Reason for Visit * Reason Comments Med Refill Encounter Details Date Type Department Care Team (Late st Contact Info) Description 03/10/[address] [facility] [address] [place] [address] April Piper APRN [address] [facility] [address] [place] [address] RLS (restless legs syndrome) Social History Tobacco Use Types Packs/Day Years [...] any time in the past 12 m [facility], were you homeless or living in a residential (including now)? No 02/10/2025 Utilities Answer Date Recorded In the past 12 months has e [employer], gas, oil, or water company threatened to [...] Description 05/02/2025 10:00 AM EDT [facility] [address] [place] [phone] Lenore De La Cruz PA [address] [place] [address] 06/26/2025 7:20 AM EST Office Visit [facility] Primary and Urgent Care [address] [place] [address] April Piper APRN [address] [facility] [address] [place] [address] 08/22/2025 8:00 AM EST Office Visit [place] [facility] [address] 1[address] [place] [address] Keli Harvey PA [address] [place] [address] 09/17/2025 1:00 PM EST Office Visit [facility] [address] [place] [address] Janice Kramer MD [address] [place] [address] documented as of this encounter Goals Goal Patient Goal Type Associated Problems Recent Progress Patient-Stated? Author HEP Occupational Therapy On track(2020 3:42 PM EDT) No Tanya Ghosh Note: Patient will complete HEP with appropriate form 100% of the time. Disk Operator Goal: to be met by 06/08/21 Goal on going as exercises continue to be added. Good form with exercises thus far. Leisure Occupational Therapy On track(2020 3:42 PM EDT) Tanya Bacon Note: Patient will complete leisure task such as baking or beading x20 minutes without pain 100% of the time. Disk Operator Goal: to be met by 07/10/21. documented as of this encounter Visit Diagnoses Diagnosis RLS (restless legs syndrome) Restless legs syndrome (RLS) documented in this encounter Additional Health Concerns Assessment Noted Time PHQ-9 Depression Total Score: 0 02/11/20 25 12:43 PM EDT A fall risk assessment has been complete d for the patient 03/07/2025 12:50 PM EDT A Body Mass Index follow-up plan has been documented for the patient 03/07/2025 8:48 AM EDT documented as of this encounter Care Teams Fluid Dynamicist Relationship Specialty Start Date End Date April Piper APRN [address] [place] [phone] PCP - General Family Medicine 02/06/23 documented as of this encounter
--- OUTSIDE RECORDS SUMMARY | 2025-04-06 09:51 | XMS_ITS | Encounter Summary ---
Author Organization Healthcare Address [address] [place] [address] Care Team Providers Care Stock Patch Sawyer Name Role Phone April Piper APRN Primary Care Provider [phone] Encounter Details Date Type Department Care Team (Latest Contact Info) Description 02/18/2025 Travel Social History Tobacco Use Types Packs/Day [...] any time in the past 12 m [facility], were you homeless or living in a senior living (including now)? No 02/10/2025 Utilities Answer Date [...] Description 05/02/2025 10:00 AM EDT Office Visit [facility] Endocrinology [facility] [place] [phone] Lenore De La Cruz, RAINE [address] [place] [address] 06/26/2025 7:20 AM EST Office Visit [facility] [address] [place] [address] April Piper APRN [address] [place] [address] 08/22/2025 8:00 AM EST Office Visit [place] [facility] [address] 1st [place] [address] Keli Harvey PA [address] [place] [address] 09/17/2025 1:00 PM EST Office Visit [facility] [address] [place] [address] Janice Kramer MD [address] [place] [address] documented as of this encounter Goals Goal Patient Goal Type Associated Problems Recent Progress Patient-Stated? Author HEP Occupational Therapy On track(2020 3:42 PM EDT) No Tanya Ghosh Note: Patient will complete HEP with appropriate form 100% of the time. Long-Term Goal: to be met by 06/08/21 Goal on going as exercises continue to be added. Good form with exercises thus far. Leisure Occupational Therapy On track(2020 3:42 PM EDT) No Tanya Ghosh Note: Patient will complete leisure task such as baking or beading x20 minutes without pain 100% of the time. Student Financial Aid Manager Goal: to be met by 07/10/21. [...] documented as of this encounter Care Teams Stock Patch Sawyer Relationship Specialty Start Date End Date April Piper APRN [address] [place] [phone] PCP - General Family Medicine 02/06/23 documented as of this encounter
--- OUTSIDE RECORDS SUMMARY | 2025-04-06 09:51 | XMS_ITS | Encounter Summary ---
Author Organization Healthcare Address [address] [place] [address] Care Team Providers Care Truck Washer Name Role Phone April Piper APRN Primary Care Provider [phone] Encounter Details Date Type Department Care Team (Late st Contact Info) Description 03/07/[address] [facility] [address] [place] [address] April Piper APRN [address] [place] [address] Healthcare maintenance (Primary Dx); Health care maintenance; Other fatigue Social History Tobacco Use Types Packs/Day Years [...] any time in the past 12 m [facility], were you homeless or living [...] 10:00 AM EDT Office Visit [facility] Endocrinology [address] [place] [address] Lenore De La Cruz PA [address] [place] [address] 06/26/2025 7:20 AM EST Office Visit [facility] Primary and Ur[facility] Care [address] [place] [address] April Piper APRN [address] [facility] [address] [place] [address] 08/22/2025 8:00 AM EST Office Visit [place] [facility] [address] 1[address] [place] [address] Keli Harvey PA [address] [place] [address] 09/17/2025 1:00 PM EST Office Visit [facility] [address] [place] [address] Janice Kramer MD [address] [place] [address] documented as of this encounter Goals Goal Patient Goal Type Associated Problems Recent Progress Patient-Stated? Author HEP Occupational Therapy On track(2020 3:42 PM EDT) No Tanya Ghosh Note: Patient will complete HEP with appropriate form 100% of the time. Direct Sales Consultant Goal: to be met by 06/08/21 Goal on going as exercises continue to be added. Good form with exercises thus far. Leisure Occupational Therapy On track(2020 3:42 PM EDT) Tanya Bacon Note: Patient will complete leisure task such as baking or beading x20 minutes without pain 100% of the time. Assisted Goal: to be met by 07/10/21. documented as of this encounter Results * (ABNORMAL) Comprehensive Metabolic Panel, Plasma (03/07/2025 10:01 AM EDT) Glucose, Plasma 79 74 - 99 mg/dL 03/07/2025 4:32 PM EDT [facility] BUN, Plasma 22(H) 7 - 21 mg/dL 03/07/2025 4:32 PM EDT [facility] Creatinine, Plasma 0.84 0.60 - 1.10 mg/dL 03/07/2025 4:32 PM EDT [facility] BUN/Creatinine Ratio 26 03/07/2025 4:32 PM EDT [facility] Sodium, Plasma 134(L) 136 - 145 mmol/L 03/07/2025 4:32 PM EDT [facility] Potassium, Plasma 4.5 3.6 - 4.9 mmol/L 03/07/2025 4:32 PM EDT [facility] Chloride, Plasma 103 97 - 107 mmol/L 03/07/2025 4:32 PM EDT [facility] CO2, Plasma 19(L) 22 - 29 mmol/L 03/07/2025 4:32 PM EDT [facility] Anion Gap 12 6 - 16 mmol/L 03/07/2025 4:32 PM EDT [facility] Total Calcium, Plasma 9.4 8.9 - 10.2 mg/dL 03/07/2025 4:32 PM EDT [facility] Total Protein 6.1(L) 6.3 - 7.9 g/dL 03/07/2025 4:32 PM EDT [facility] Albumin, Plasma 4.5 3.5 - 5.2 g/dL 03/07/2025 4:32 PM EDT [facility] AST, Plasma 34 10 - 35 U/L 03/07/2025 4:32 PM EDT [facility] ALT, Plasma 29 10 - 35 U/L 03/07/2025 4:32 PM EDT [facility] Alkaline Phosphatase, Plasma 86 35 - 104 U/L 03/07/2025 4:32 PM EDT [facility] Total Bilirubin, Plasma 0.3 0.2 - 1.1 mg/dL 03/07/2025 4:32 PM EDT [facility] eGFRcr 97.2 mL/min/1.7 3m*2 03/07/2025 4:32 PM EDT [facility] Comment:Reported eGFRcr in m L/min/1.73m2 is based the CKD-EPI 2020 equation that does not use a race coefficient. Blood Venous blood specimen / Unknown Venipuncture / Unknown 03/07/2025 10:01 AM EDT 03/07/2025 1:38 PM EDT [facility] BLOOD ORDERABLES Final Re sult [facility] [address] [place] [address] * TSH Reflex FT4 (03/07/2025 10:01 AM EDT) Thyroid Stimulating Hormone, Plasma 1.96 0.40 - 4.20 uIU/mL 03/07/2025 4:32 PM EDT [facility] Blood Venous blood specimen / Unknown Venipuncture / Unknown 03/07/2025 10:01 AM EDT 03/07/2025 1:38 PM EDT Narrative [facility] - 03/07/2025 4:32 PM EDT Trimester Specific Ranges TSH ( IU/mL) 1st Trimester 0.1 - 3.0 2nd Trimester 0.19 - 4.06 3rd Trimester 0.3 - 3.7 April Hall URGENT CARE PHYSICIAN LAB BLOOD ORDERABLES Final Re sult [facility] [address] [place] [address] * Iron & Total Iron Binding Capacity, Plasma (Includes Transferrin) (03/07/2025 10:01 AM EDT) [facility] Iron, Plasma 78 30 - 160 ug/dL 03/07/2025 4:32 PM EDT [facility] Transferrin, Plasma 315 200 - 360 mg/dL 03/07/2025 4:32 PM EDT [facility] Total Iron Binding Capacity, Plasma 394 240 - 450 ug/mL 03/07/2025 4:32 PM EDT [facility] Transferrin Saturation 20 14 - 50 % 03/07/2025 4:32 PM EDT [facility] Blood Venous blood specimen / Unknown Venipuncture / Unknown 03/07/2025 10:01 AM EDT 03/07/2025 1:38 PM EDT April Piper URGENT CARE PHYSICIAN LAB BLOOD ORDERABLES Final Re sult Performing Organization Address [facility]/ZIP Co de Phone Number [facility] [address] [place] [address] * (ABNORMAL) CBC and Differential (03/07/2025 10:01 AM EDT) [facility] WBC Count 9.84 3.70 - 10.30 10*3/uL LAB HEMATOLOGY METHOD 03/07/2025 2:10 PM EDT [facility] RBC Count 3.90 3.90 - 5.20 10*6/uL LAB HEMATOLOGY METHOD 03/07/2025 2:10 PM EDT [facility] HGB 10.9(L) 11.2 - 15.7 g/dL LAB HEMATOLOGY METHOD 03/07/2025 2:10 PM EDT [facility] HCT 34.9 34.0 - 45.0 % LAB HEMATOLOGY METHOD 03/07/2025 2:10 PM EDT [facility] Platelet Count 567(H) 155 - 369 10*3/uL LAB HEMATOLOGY METHOD 03/07/2025 2:10 PM EDT [facility] MCV 90 79 - 98 fL LAB HEMATOLOGY METHOD 03/07/2025 2:10 PM EDT [facility] MCH 27.9 26.0 - 32.0 pg LAB HEMATOLOGY METHOD 03/07/2025 2:10 PM EDT [facility] MCHC 31.2 30.7 - 35.5 g/dL LAB HEMATOLOGY METHOD 03/07/2025 2:10 PM EDT [facility] RDW 14.8(H) 11.5 - 14.5 % LAB HEMATOLOGY METHOD 03/07/2025 2:10 PM EDT [facility] MPV 10.5 8.8 - 12.5 fL LAB HEMATOLOGY METHOD 03/07/2025 2:10 PM EDT [facility] nRBC 0.0 <=0.0 per 100 WBCs LAB HEMATOLOGY METHOD 03/07/2025 2:10 PM EDT [facility] Differential Type Automated LAB HEMATOLOGY METHOD 03/07/2025 2:10 PM EDT [facility] Neutrophils % 74 % LAB HEMATOLOGY METHOD 03/07/2025 2:10 PM EDT [facility] Lymphocytes % 18 % LAB HEMATOLOGY METHOD 03/07/2025 2:10 PM EDT [facility] Monocytes % 6 % LAB HEMATOLOGY METHOD 03/07/2025 2:10 PM EDT [facility] Eosinophils % 1 % LAB HEMATOLOGY METHOD 03/07/2025 2:10 PM EDT [facility] Basophils % 0 % LAB HEMATOLOGY METHOD 03/07/2025 2:10 PM EDT [facility] Immature Granulocytes % 1 % LAB HEMATOLOGY METHOD 03/07/2025 2:10 PM EDT [facility] Neutrophils Absolute 7.24(H) 1.60 - 6.10 10*3/uL LAB HEMATOLOGY METHOD 03/07/2025 2:10 PM EDT [facility] Lymphocytes Absolute 1.81 1.20 - 3.90 10*3/uL LAB HEMATOLOGY METHOD 03/07/2025 2:10 PM EDT [facility] Monocytes Absolute 0.55 0.30 - 0.90 10*3/uL LAB HEMATOLOGY METHOD 03/07/2025 2:10 PM EDT [facility] Eosinophils Absolute 0.13 0.00 - 0.50 10*3/uL LAB HEMATOLOGY METHOD 03/07/2025 2:10 PM EDT [facility] Basophils Absolute 0.04 0.00 - 0.10 10*3/uL LAB HEMATOLOGY METHOD 03/07/2025 2:10 PM EDT [facility] Immature Granulocytes Absolute 0.07(H) 0.00 - 0.06 10*3/uL LAB HEMATOLOGY METHOD 03/07/2025 2:10 PM EDT [facility] Blood Venous blood specimen / Unknown Venipuncture / Unknown 03/07/2025 10:01 AM EDT 03/07/2025 1:40 PM EDT Narrative [facility] - 03/07/2025 2:10 PM EDT Therapeutic decision making should be based on absolute values, rather than percentages. April Piper APRN LAB BLOOD ORDERABLES Final Re sult [facility] [address] [place] [address] documented in this encounter Visit Diagnoses Diagnosis Healthcare maintenance- Primary Health care maintenance Other fatigue documented in this encounter Additional Health Concerns Assessment Noted Time PHQ-9 Depression Total Score: 0 02/11/20 25 12:43 PM EDT A fall risk assessment has been complete d for the patient 03/07/2025 12:50 PM EDT A Body Mass Index follow-up plan has been documented for the patient 03/07/2025 8:48 AM EDT documented as of this encounter Care Teams Truck Washer Relationship Specialty Start Date End Date April Piper APRN [address] [place] [address] [address] [place] [phone] PCP - General Family Medicine 02/06/23 documented as of this encounter
--- OUTSIDE RECORDS SUMMARY | 2025-04-06 09:51 | XMS_ITS | Clinical Summary ---
Author Organization [facility] Address [address] [place] [address] Care Team Providers Care Retirement Manager Name Role Phone Provider, No Known Primary Care Provider [phone] Allergies Active Allergy Reactions Criticality Noted Date Comments Amoxicillin Hives 04/05/2019 Erythromycin Hives 04/05/2019 Sulfa Antibiotics Hives 04/05/2019 Medications lithium 300 MG tablet Take 300 mg by mouth 2 (Two) Times a Day. Active lisdexamfetamin e (VYVANSE) 50 MG capsule Take 50 mg by mouth Every Morning Active lamoTRIgine (LaMICtal) 100 MG tablet Take 100 mg by mouth Daily. Active HYDROcodone-aria taminophen (NORCO) 5-325 MG per tabletIndicatio ns:Pilonidal abscess Take 1 tablet by mouth Every 6 (Six) Hours As Needed for Moderate Pain. 6 tablet 01/21/2025 Active Encounters Date Type Department Care Team Description 01/21/2025 3:24 PM EDT - 01/21/2025 5:28 PM EDT Emergency [facility] [address] [address] Salvador Hendrix MD Pilonidal abscess (Primary Dx) Discharge Disposition: Home or Self Care 01/21/2025 Travel from Last 3 Months Social History Tobacco Use Types Packs/Day Years Used Date Smoking Tobacco: Never Assessed Abuse Screen Answer Date Recorded Feels Unsafe at Home or Work/School no 01/21/2025 Feels Threatened by Someone no 01/05 Does Anyone Try to Keep You From Having Contact with Others or Doing Things Outside Your Home? no 01/21/2025 Physical Signs of Abuse Present no 01/21/2025 Housing Stability Answer Date Recorded Current Living Arrangements Not on file 04/2023 Potentially Unsafe Housing Conditions Not on kaitlyn e 05/15/2023 Family and Community Support Answer William e Recorded Help with Day-to-Day Activities Not on file 05/15/2023 Lonely or Isolated Not on file 05/15/2023 Employment Answer Date Recorded Do you want help finding or keeping work or a kerry b? Not on file 05/15/2023 Disabilities Answer Date Recorded Concentrating, Remembering, or Making Decisions Difficulty Not on file 05/15/2023 Doing Errands Independently Difficulty Not on fi le 05/15/2023 Education Answer Date Recorded Help with school or training? Not on file Preferred Language Not on file 05/15/2023 Comments No Sex and Gender Information Value Date Recorded Sex Assigned at Not on file Legal Sex Female 7:03 PM EDT Gender Identity Not on file Sexual Orientation Not on file Last Filed Vital Signs Vital Sign Reading Time Taken Comments Blood Pressure 126/89 01/21/2025 5:00 PM EDT Pulse 77 01/21/2025 5:00 PM EDT Temperature 36.7 C (98.1 F) 01/21/2025 2:40 PM EDT Respiratory Rate 18 01/21/2025 2:41 PM EDT Oxygen Saturation 97% 01/21/2025 5:00 PM EDT Inhaled Oxygen Concentration - - Weight 119 kg (261 lb 9.6 oz) 01/21/2025 2:39 PM EDT Height 172.7 cm (5' 8 ) 01/21/2025 2:39 PM EDT Body Mass Index 39.78 01/21/2025 2:39 PM EDT Plan of Treatment Health Maintenance Due Date Last Done Comments ANNUAL PHYSICAL 1996 Annual Gynecologic Pelvic an d Breast Exam 1996 Pneumococcal Vaccine 0-49 (1 of 2 - PCV) 10/16/2015 COVID-19 Vaccine (2023-2 5 season) 2024 09/03/2021, 08/13/2020, 07/23/2020 INFLUENZA VACCINE 05/07/2025 07/08/2024, , 05/18/2022, Additional history exists TDAP/TD VACCINES (3 - Td or Tdap) 09/30/2029 020, 03/05/2008 HEPATITIS C SCREENING Completed 02/08/2023 , 02/08/2023, 10/18/2022 CHLAMYDIA SCREENING Discontinued 07/03/2023 Procedures Procedure Name Priority Date/Time Associated Diagnosis Comments AZ INCISION & DRAINAGE PILONIDAL CYST SIMPLE Routine 01/21/2025 5:18 PM EDT LIGHT BLUE TOP STAT 01/21/2025 3:55 PM EDT LOCKETT TOP STAT 01/21/2025 3:55 PM EDT GOLD TOP - SST STAT 01/21/2025 3:55 PM EDT CBC AND DIFFERENTIAL STAT 01/21/2025 3:55 PM EDT RAINBOW DRAW STAT 01/21/2025 3:55 PM EDT CBC WITH AUTO DIFFERENTIAL STAT 01/21/2025 3:55 PM EDT COMPREHENSIVE METABOLIC PANEL STAT 01/21/2025 3:55 PM EDT from Last 3 Months Results * AZ INCISION & DRAINAGE PILONIDAL CYST SIMPLE (01/21/2025 5:18 PM EDT) Narrative Salvador Hendrix MD - 01/21/2025 5:18 PM EDT Salvador Hendrix MD 01/21/2025 5:34 PM Incision & Drainage Date/Time: 01/21/2025 5:18 PM Performed by: Kimmy Carney PA-C Authorized by: Salvador Hendrix MD Consent: Consent obtained: Verbal Consent given by: Patient Risks discussed: Bleeding, incomplete drainage, pain, damage to other organs and infection Alternatives discussed: No treatment, delayed treatment, alternative treatment, observation and referral [place] protocol: Procedure explained and questions answered to patient or proxy's satisfaction: yes Test results available : yes Patient identity confirmed: Verbally with patient and arm band Location: Type: Pilonidal cyst Size: Moderate Pre-procedure details: Skin preparation: Chlorhexidine Sedation: Sedation type: None Anesthesia: Anesthesia method: Local infiltration Local anesthetic: Lidocaine 1% WITH epi (10mL) Procedure type: Complexity: Simple Procedure details: Incision types: Elliptical Incision depth: Dermal Wound management: Probed and deloculated, irrigated with saline and extensive cleaning Drainage: Bloody and purulent Drainage amount: Moderate Wound treatment: Wound left open Packing materials: 1/2 in iodoform gauze Post-procedure details: Procedure completion: Tolerated well, no immediate complications us Salvador Hendrix MD PROCEDURE/MINOR SURGICAL OR DERABLES Final Result * [place] Top (01/21/2025 3:55 PM EDT) Extra Tube Hold for add-ons. 01/21/2025 4:15 PM EDT [facility] Comment:Auto resulted. Blood Line / Unknown 01/21/2025 3: 55 PM EDT 01/21/2025 4:02 PM EDT Salvador Hendrix MD LAB BLOOD ORDER ONLY Final Result [facility]
[address] [place] [address], [place] * [facility] (01/21/2025 3:55 PM EDT) Extra Tube Hold for add-ons. 01/21/2025 4:15 PM EDT [facility] Comment:Auto resulted. Blood Line / Unknown 01/21/2025 3: 55 PM EDT 01/21/2025 4:02 PM EDT us Salvador Hendrix MD LAB BLOOD ORDER ONLY Final Result [facility]
[address] [facility] [address] [place] [address], [place] * (ABNORMAL) CBC Auto Differential (01/21/2025 3:55 PM EDT) WBC 9.68 3.40 - 10.80 10*3/mm3 01/21/2025 4:06 PM EDT [facility] RBC 4.35 3.77 - 5.28 10*6/mm3 01/21/2025 4:06 PM EDT [facility] Hemoglobin 11.9(L) 12.0 - 15.9 g/dL 01/21/2025 4:06 PM EDT [facility] Hematocrit 36.3 34.0 - 46.6 % 01/21/2025 4:06 PM EDT [facility] MCV 83.4 79.0 - 97.0 fL 01/21/2025 4:06 PM EDT [facility] MCH 27.4 26.6 - 33.0 pg 01/21/2025 4:06 PM EDT [facility] MCHC 32.8 31.5 - 35.7 g/dL 01/21/2025 4:06 PM EDT [facility] RDW 15.3 12.3 - 15.4 % 01/21/2025 4:06 PM EDT [facility] RDW-SD 47.4 37.0 - 54.0 fl 01/21/2025 4:06 PM EDT [facility] MPV 10.9 6.0 - 12.0 fL 01/21/2025 4:06 PM EDT [facility] Platelets 464(H) 140 - 450 10*3/mm3 01/21/2025 4:06 PM EDT [facility] Neutrophil % 74.3 42.7 - 76.0 % 01/21/2025 4:06 PM EDT [facility] Lymphocyte % 17.7(L) 19.6 - 45.3 % 01/21/2025 4:06 PM EDT [facility] Monocyte % 6.3 5.0 - 12.0 % 01/21/2025 4:06 PM EDT [facility] Eosinophil % 1.2 0.3 - 6.2 % 01/21/2025 4:06 PM EDT [facility] Basophil % 0.4 0.0 - 1.5 % 01/21/2025 4:06 PM EDT [facility] Immature Grans % 0.1 0.0 - 0.5 % 01/21/2025 4:06 PM EDT [facility] Neutrophils, Absolute 7.19(H) 1.70 - 7.00 10*3/mm3 01/21/2025 4:06 PM EDT [facility] Lymphocytes, Absolute 1.71 0.70 - 3.10 10*3/mm3 01/21/2025 4:06 PM EDT [facility] Monocytes, Absolute 0.61 0.10 - 0.90 10*3/mm3 01/21/2025 4:06 PM EDT [facility] Eosinophils, Absolute 0.12 0.00 - 0.40 10*3/mm3 01/21/2025 4:06 PM EDT [facility] Basophils, Absolute 0.04 0.00 - 0.20 10*3/mm3 01/21/2025 4:06 PM EDT [facility] Immature Grans, Absolute 0.01 0.00 - 0.05 10*3/mm3 01/21/2025 4:06 PM EDT [facility] Blood Line / Unknown 01/21/2025 3: 55 PM EDT 01/21/2025 4:02 PM EDT us Kimmy Y Breeding PA-C LAB BLOOD ORDERABLES Fin al Result [facility]
[address] [facility] [address] [place] [address], [place] * Light Blue Top (01/21/2025 3:55 PM EDT) Extra Tube Hold for add-ons. 01/21/2025 4:15 PM EDT [facility] Comment:Auto resulted Blood Line / Unknown 01/21/2025 3: 55 PM EDT 01/21/2025 4:02 PM EDT us Salvador Hendrix MD LAB BLOOD ORDER ONLY Final Result [facility]
[address] [place] [address], [place] * (ABNORMAL) Comprehensive Metabolic Panel (01/21/2025 3:55 PM EDT) Glucose 94 65 - 99 mg/dL 01/21/2025 4:22 PM EDT [facility] BUN 22.5(H) 6.0 - 20.0 mg/dL 01/21/2025 4:22 PM EDT [facility] Creatinine 0.84 0.57 - 1.00 mg/dL 01/21/2025 4:22 PM EDT [facility] Sodium 141 136 - 145 mmol/L 01/21/2025 4:22 PM EDT [facility] Potassium 3.9 3.5 - 5.2 mmol/L 01/21/2025 4:22 PM EDT [facility] Chloride 107 98 - 107 mmol/L 01/21/2025 4:22 PM EDT [facility] CO2 21.1(L) 22.0 - 29.0 mmol/L 01/21/2025 4:22 PM EDT [facility] Calcium 9.9 8.6 - 10.5 mg/dL 01/21/2025 4:22 PM EDT [facility] Total Protein 7.4 6.0 - 8.5 g/dL 01/21/2025 4:22 PM EDT [facility] Albumin 4.8 3.5 - 5.2 g/dL 01/21/2025 4:22 PM EDT [facility] ALT (SGPT) 37(H) 1 - 33 U/L 01/21/2025 4:22 PM EDT [facility] AST (SGOT) 24 1 - 32 U/L 01/21/2025 4:22 PM EDT [facility] Alkaline Phosphatase 90 39 - 117 U/L 01/21/2025 4:22 PM EDT [facility] Total Bilirubin 0.2 0.0 - 1.2 mg/dL 01/21/2025 4:22 PM EDT [facility] Globulin 2.6 gm/dL 01/21/2025 4:22 PM EDT [facility] A/G Ratio 1.8 g/dL 01/21/2025 4:22 PM EDT [facility] BUN/Creatinine Ratio 26.8(H) 7.0 - 25.0 01/21/2025 4:22 PM EDT [facility] Anion Gap 12.9 5.0 - 15.0 mmol/L 01/21/2025 4:22 PM EDT [facility] eGFR 97.2 >60.0 mL/min/1.7 3 01/21/2025 4:22 PM EDT [facility] Blood Line / Unknown 01/21/2025 3: 55 PM EDT 01/21/2025 4:02 PM EDT [facility] - 01/21/2025 4:22 PM EDT GFR Categories in Chronic Kidney Disease (CKD) GFR Category GFR (mL/min/1.73) Interpretation G1 90 or greater Normal or high (1) G2 60-89 Mild decrease (1) G3a 45-59 Mild to moderate decrease G3b 30-44 Moderate to severe decrease G4 15-29 Severe decrease G5 14 or less Kidney failure (1)In the absence of evidence of kidney disease, neither GFR category G1 or G2 fulfill the criteria for CKD. eGFR calculation 2020 CKD-EPI creatinine equation, which does not include race as a factor us Kimmy Carney PA-C LAB BLOOD ORDERABLES Fin al Result [facility]
[address] [facility] [address] [place] [address], from Last 3 Months Insurance [facility] Care Teams Retirement Manager Relationship Specialty Start Date End Date Provider, [place] [address] PCP - General 04/05/19
--- OUTSIDE RECORDS SUMMARY | 2025-04-06 09:51 | XMS_ITS | Encounter Summary ---
Author Organization Healthcare Address [address] [place] [address] Care Team Providers Care Purchasing Coordinator Name Role Phone April Piper APRN Primary Care Provider [phone] Encounter Details Date Type Department Care Team (Latest Contact Info) Description 02/10/2025 Travel Social History Tobacco Use Types Packs/Day [...] time in the past [address] [facility], were you homeless or living [...] hopeless Not at all 02/10/2025 12:43 PM WILDERT Divya Wiseman Patient Health Questionnaire -2 Score 0 02/10/2025 12:43 PM Divya Clark * Question Answer Date of Assessment Author Trouble falling or staying a sleep, or sleeping too much Not at all 02/10/2025 12:43 PM WILDERT Divya Wiseman Feeling tired or having danish le energy Not at all 02/10/2025 12:43 PM EDT Divya Wiseman Poor appetite or overeating Not at all 02/10/2025 12 :43 PM WILDERT Divya Wiseman Feeling bad about yourself - or that you are a failure or have let yourself or your family down Not at all 02/10/2025 12:43 PM WILDERT Carlos Wiseman Trouble concentrating on thi ngs, such as reading the newspaper or watching television Not at all 02/10/2025 12:43 PM Divya Clark Moving or speaking so slowly that other people could have noticed? Or the opposite - being so fidgety or restless that you have been moving around a lot more than usual. Not at all 02/10/2025 12:43 PM Divya Clark Thoughts that you would be b ayla off or hurting yourself in some way Not at all 02/10/2025 12:43 PM Divya Clark Patient Health Questionnaire -9 Score 0 02/10/2025 12:43 PM Divya Clark * Calculated C-SSRS Risk Score (Lifetime/Recent) Answer Date of Assessment Author No Risk Indicated 02/10/2025 12:43 PM Divya Clark * If you checked off any problems on this questionnaire so far, Question Answer Date of Assessment Author How difficult have these problems made it for you to do your work, take care of things at home, or get along with other people? Not difficult at all 02/10/2025 12:43 PM Divya Clark * Question Answer Date of Assessment Author 1. Wish to be (Past 1 Month) No 025 12:43 PM Divya Clark 2. Non-Specific Active Suici rad Thoughts (Past 1 Month) No 02/10/2025 12:43 PM EDT Divya Wiseman 6. Suicidal Behavior (Lifetime) No 12:43 PM EDT Divya Wiseman documented as of this encounter Plan of Treatment Upcoming Encounters Date Type Department Care Team (Late st Contact Info) Description 05/02/2025 10:00 AM EDT Office Visit [facility] Endocrinology [address] [place] [phone] Lenore De La Cruz PA [address] [place] [address] 06/26/2025 7:20 AM EST Office Visit [facility] Primary [facility] Urgent Care [address] [place] [phone] April Piper APRN [address] [facility] [address] [place] [address] 08/22/2025 8:00 AM EST Office Visit [place] [facility] [address] [place] [address] Keli Harvey PA [address] [place] [address] 09/17/2025 1:00 PM EST Office Visit [facility] [address] [place] [address] Janice Kramer MD [address] [place] [address] documented as of this encounter Goals Goal Patient Goal Type Associated Problems Recent Progress Patient-Stated? Author HEP Occupational Therapy On track(2020 3:42 PM EDT) No Tanya Ghosh Note: Patient will complete HEP with appropriate form 100% of the time. Residential Insurance Inspector Goal: to be met by 06/08/21 Goal on going as exercises continue to be added. Good form with exercises thus far. Leisure Occupational Therapy On track(2020 3:42 PM EDT) No Tanya Ghosh Note: Patient will complete leisure task such as baking or beading x20 minutes without pain 100% of the time. Residential Insurance Inspector Goal: to be met by 07/10/21. documented [...] documented as of this encounter Care Teams Purchasing Coordinator Relationship Specialty Start Date End Date April Piper APRN [address] [place] [phone] PCP - General Family Medicine 02/06/23 documented as of this encounter
--- OUTSIDE RECORDS SUMMARY | 2025-04-06 09:51 | XMS_ITS | Encounter Summary ---
Author Organization Healthcare Address [address] [place] [address] Care Team Providers Care Stoker Erector Name Role Phone April Piper APRN Primary Care Provider [phone] Encounter Details Date Type Department Care Team (Latest Contact Info) Description 03/21/2025 Travel Social History Tobacco Use Types Packs/Day [...] were you homeless or living in a group home (including now)? No 03/21/2025 Utilities Answer [...] Description 05/02/2025 10:00 AM EDT Office Visit [facility] Endocrinology Pending sale to [facility] [place] [phone] Lenore De La Cruz, PA [address] [place] [address] 06/26/2025 7:20 AM EST Office [facility] [address] [place] [address] April Piper APRN [address] [place] [phone] 08/22/2025 8:00 AM EST Office Visit [place] [facility] [address] [place] [address] Keli Harvey PA [address] [place] [address] 09/17/2025 1:00 PM EST Office Visit [facility] [address] [place] [address] Janice Kramer MD [address] [place] [address] documented as of this encounter [...] minutes without pain 100% of the time. Project Surveyor Goal: to be met by 07/10/21. documented [...] documented as of this encounter Care Teams Stoker Erector Relationship Specialty Start Date End Date April Piper APRN [address] [place] [phone] PCP - General Family Medicine 02/06/23 documented as of this encounter
--- OUTSIDE RECORDS SUMMARY | 2025-04-06 09:51 | XMS_ITS | Encounter Summary ---
Author Organization Healthcare Address [address] [place] [address] Care Team Providers Care Press Room Supervisor Name Role Phone April Piper APRN Primary Care Provider [phone] Encounter Details Date Type Department Care Team (Latest Contact Info) Description 03/14/2025 Travel Social History Tobacco Use Types Packs/Day [...] any time in the past 12 m [facility], were you homeless or living in a nursing home (including now)? No 02/10/2025 Utilities Answer [...] Description 05/02/2025 10:00 AM EDT Office Visit [facility] Endocrinology [facility] [place] [phone] Lenore De La Cruz, RAINE [address] [place] [address] 06/26/2025 7:20 AM EST Office Visit [facility] [address] [place] [address] April Piper APRN [address] [place] [address] 08/22/2025 8:00 AM EST Office Visit [facility] [address] [place] [address] Keli Harvey PA [address] [place] [address] 09/17/2025 1:00 PM EST Office Visit [facility] [address] [place] [address] Janice Kramer MD [address] [place] [address] documented as of this encounter Goals Goal Patient Goal Type Associated Problems Recent Progress Patient-Stated? Author HEP Occupational Therapy On track(2020 3:42 PM EDT) No Tanya Ghosh Note: Patient will complete HEP with appropriate form 100% of the time. Penitentiary Goal: to be met by 06/08/21 Goal on going as exercises continue to be added. Good form with exercises thus far. Leisure Occupational Therapy On track(2020 3:42 PM EDT) No Tanya Ghosh Note: Patient will complete leisure task such as baking or beading x20 minutes without pain 100% of the time. Rim Turning Finisher Goal: to be met by 07/10/21. documented [...] documented as of this encounter Care Teams Press Room Supervisor Relationship Specialty Start Date End Date April Piper APRN [address] [place] [phone] PCP - General Family Medicine 02/06/23 documented as of this encounter
--- OUTSIDE RECORDS SUMMARY | 2025-04-06 09:51 | XMS_ITS | Encounter Summary ---
Author Organization Healthcare Address [address] [place] [address] Care Team Providers Care It Desktop Support Specialist Name Role Phone April Piper APRN Primary Care Provider [phone] Reason for Visit * Reason Onset Date Comments Med Refill 03/14/2024 Encounter Details Date Type Department Care Team (Late st Contact Info) Description 03/14/2024 Refill [facility] [address] [place] [address] Allan Tipton PA [address] [place] [address] Fever, unspecified; COVID; Tachycardia Social [...] Answer Date Recorded Patient Health Questionnaire-2 Score 6 02/16/2024 Hunger Vital Sign Answer Date Recorded Within [...] place to sleep or slept in a detention (including now)? No 02/08/2024 PHQ-9 Answer Date Recorded Patient Health Questionnaire-9 Score 17 02/16/2024 Housing Stability Vital Sign Answer William e [...] were you homeless or living in a detention (including now)? No 02/08/2024 Utilities Answer Date [...] encounter Miscellaneous Notes * Telephone Encounter - Kalina Torrez MD - 03/14/2024 7:56 AM EDT This was a one time Rx provided by urgent care. We do not have labs in the last year to meet NSAIDsprotocol and pt is on lisinopril concurrently. Recommend standard OTC dosing. * Telephone Encounter - Bridgett Greenfield - 03/14/2024 7:41 AM EDT Requested Prescriptions Pending Prescriptions Disp Refills ibuprofen 600 MG tablet 90 tablet 0 Sig: Take 1 tablet (600 mg) by mouth 4 (four) times a day if needed for mild pain (pain). TREY: 02/09/2024 NOV: 05/31/2024 documented in this encounter Plan of Treatment Upcoming Encounters Date Type Department Care Team (Late st Contact Info) Description 05/02/2025 10:00 AM EDT [facility] Endocrinology [address] [place] [address] Lenore De La Cruz PA [address] [place] [address] 06/26/2025 7:20 AM EST Office Visit [facility] [address] [place] [address] April Piper APRN [address] [place] [address] 08/22/2025 8:00 AM EST Office Visit [place] [facility] [address] [place] [address] Keli Harvey PA [address] [place] [address] 09/17/2025 1:00 PM EST Office Visit [facility] [address] [place] [address] Janice Kramer MD [address] [place] [address] documented as of this encounter Goals Goal Patient Goal Type Associated Problems Recent Progress Patient-Stated? Author HEP Occupational Therapy On track(2020 3:42 PM EDT) No Tanya Ghosh Note: Patient will complete HEP with appropriate form 100% of the time. Routeman Goal: to be met by 06/08/21 Goal on going as exercises continue to be added. Good form with exercises thus far. Leisure Occupational Therapy On track(2020 3:42 PM EDT) No Tanya Ghosh Note: Patient will complete leisure task such as baking or beading x20 minutes without pain 100% of the time. Routeman Goal: to be met by 07/10/21. documented [...] Assessment Noted Time PHQ-9 Depression Total Score: 17 024 2:41 PM EDT A fall risk assessment has been complete d for the patient 01/23/2024 3:06 PM EDT A Body Mass Index follow-up plan has been documented for the patient 02/16/2024 2:56 PM EDT documented as of this encounter Care Teams It Desktop Support Specialist Relationship Specialty Start Date End Date April Piper APRN [address] [place] [phone] PCP - General Family Medicine 02/06/23 documented as of this encounter
--- OUTSIDE RECORDS SUMMARY | 2025-04-06 09:51 | XMS_ITS | Encounter Summary ---
Author Organization Healthcare Address [address] [place] [address] Care Team Providers Care Tire Regrooving Machine Operator Name Role Phone April Piper APRN Primary Care Provider [phone] Reason for Visit * Reason Onset Date Comments Med Refill 03/07/2025 Encounter Details Date Type Department Care Team (Late st Contact Info) Description 03/07/2025 [facility] [address] [place] [address] April Piper APRN 245 [facility] [address] [place] [address] Social History Tobacco Use Types [...] any time in the past [address] [facility], were you homeless or living in a jail (including now)? No 02/10/2025 Utilities Answer Date Recorded In the past 12 months has e [facility], gas, oil, or water company threatened to [...] encounter Miscellaneous Notes * Telephone Encounter - April Piper APRN - 03/11/2025 5:26 PM EDT duplicate documented in this encounter Plan of Treatment Upcoming Encounters Date Type Department Care Team (Late st Contact Info) Description 05/02/2025 10:00 AM EDT Office Visit [facility] [address] [place] [address] Lenore De La Cruz PA [address] [place] [address] 06/26/2025 7:20 AM EST Office Visit [facility] Care [address] [place] [phone] April Piper APRN [address] [place] [address] 08/22/2025 8:00 AM EST Office Visit [place] [facility] [address], [address] [place] [address] Keli Harvey PA [address] [place] [address] 09/17/2025 1:00 PM EST Office Visit [facility] [address] [facility] [place] [phone] Janice Kramer MD [address] [place] [address] documented as of this encounter Goals Goal Patient Goal Type Associated Problems Recent Progress Patient-Stated? Author HEP Occupational Therapy On track(2020 3:42 PM EDT) No Tanya Ghosh Note: Patient will complete HEP with appropriate form 100% of the time. Heavy Equipment Operator/Paver Goal: to be met by 06/08/21 Goal [...] documented as of this encounter Care Teams Tire Regrooving Machine Operator Relationship Specialty Start Date End Date April Piper APRN [address] [place] [phone] PCP - General Family Medicine 02/06/23 documented as of this encounter
--- OUTSIDE RECORDS SUMMARY | 2025-04-06 09:52 | XMS_ITS | Encounter Summary ---
Author Organization Healthcare Address [address] [place] [address] Care Team Providers Care Wrap Knitting Machine Operator Name Role Phone April Piper APRN Primary Care Provider [phone] Encounter Details Date Type Department Care Team (Late st Contact Info) Description 02/28/20[facility] [address] [place] [address] April Piper APRN 245 [facility] [address] [place] [address] Social History Tobacco Use Types [...] time in the past 12 m [facility], were you homeless or living in a [...] Latricia Jauregui documented as of this encounter Plan of Treatment Upcoming Encounters Date Type Department Care Team (Late st Contact Info) Description 05/02/2025 10:00 AM EDT [facility] [address] [place] [address] Lenore De La Cruz PA [address] [facility] [address] [place] [address] 06/26/2025 7:20 AM EST Office Visit [facility] Care [address] [place] [address] April Piper APRN 245 [facility] [address] [place] [address] 08/22/2025 8:00 AM EST Office Visit [facility] [address] [place] [address] Keli Harvey PA [address] [place] [address] 09/17/2025 1:00 PM EST Office Visit [facility] [address] [place] [phone] Janice Kramer MD [address] [place] [address] documented as of this encounter Goals Goal Patient Goal Type Associated Problems Recent Progress Patient-Stated? Author HEP Occupational Therapy On track(2020 3:42 PM EDT) No Tanya Ghosh Note: Patient will complete HEP with appropriate form 100% of the time. Slip Filler Goal: to be met by 06/08/21 Goal on going as exercises continue to be added. Good form with exercises thus far. Leisure Occupational Therapy On track(2020 3:42 PM EDT) No Tanya hGosh Note: Patient will complete leisure task such as baking or beading x20 minutes without pain 100% of the time. Slip Filler Goal: to be met by 07/10/21. documented [...] documented as of this encounter Care Teams Wrap Knitting Machine Operator Relationship Specialty Start Date End Date April Piper APRN [address] [place] [phone] PCP - General Family Medicine 02/06/23 documented as of this encounter
--- OUTSIDE RECORDS SUMMARY | 2025-04-06 09:52 | XMS_ITS | Encounter Summary ---
Author Organization Healthcare Address [address] [place] [address] Care Team Providers Care Publication Director Name Role Phone April Piper APRN Primary Care Provider [phone] Encounter Details Date Type Department Care Team (Latest Contact Info) Description 03/03/2025 Travel Social History Tobacco Use Types Packs/Day [...] any time in the past 12 m [facility], were you homeless or living in a [...] 05/02/2025 10:00 AM EDT [facility] [address] [place] [phone] Lenore De La Cruz PA [address] [place] [address] 06/26/2025 7:20 AM EST Office Visit [facility] Primary and Urgent Care [address] [place] [address] April Piper APRN 245 [facility] [address] [place] [address] 08/22/2025 8:00 AM EST Office Visit [place] [facility] [address] [place] [address] Keli Harvey PA [address] [place] [address] 09/17/2025 1:00 PM EST Office Visit [facility] [address] [place] [address] Janice Kramer MD [address] [place] [address] documented as of this encounter Goals Goal Patient Goal Type Associated Problems Recent Progress Patient-Stated? Author HEP Occupational Therapy On track(2020 3:42 PM EDT) No Tanya Ghosh Note: Patient will complete HEP with appropriate form 100% of the time. Sandfill Operator Surface Goal: to be met by 06/08/21 Goal on going as exercises continue to be added. Good form with exercises thus far. Leisure Occupational Therapy On track(2020 3:42 PM EDT) No Tanya Ghosh Note: Patient will complete leisure task such as baking or beading x20 minutes without pain 100% of the time. Sandfill Operator Surface Goal: to be met by 07/10/21. documented [...] documented as of this encounter Care Teams Publication Director Relationship Specialty Start Date End Date April Piper APRN [address] [place] [phone] PCP - General Family Medicine 02/06/23 documented as of this encounter
--- OUTSIDE RECORDS SUMMARY | 2025-04-06 09:52 | XMS_ITS | Encounter Summary ---
Author Organization [facility] Address [address] [place] [address] Care Team Providers Care Senior Enlisted Advisor Name Role Phone April Piper APRN Primary Care Provider [phone] Reason for Visit * Reason Onset Date Comments Med Refill 02/20/2023 Encounter Details Date Type Department Care Team (Late st Contact Info) Description 02/20/2023 Refill [facility] Primary [facility] Ur[facility] Care [address] [place] [address] April Piper APRN 245 [facility] [address] [place] [address] Social History Tobacco Use Types Packs/Day Years Used Date Smoking Tobacco: Never Smokeless Tobacco: Never Alcohol Use Standard Drinks/Week Comments Yes 0 (1 standard drink = 0.6 oz pur e alcohol) Ocasionally PHQ-2 Answer Date Recorded Patient Health Questionnaire-2 Score 2 02/06/2023 Comments No Sex and Gender Information Value [...] Description 05/02/2025 10:00 AM EDT Office Visit [facility] Endocrinology [address] [place] [address] Lenore De La Cruz PA [address] [place] [address] 06/26/2025 7:20 AM EST Office Visit [facility] [address] [place] [phone] April Piper APRN [address] [place] [address] 08/22/2025 8:00 AM EST Office Visit [place] [facility] [address] [place] [address] Keli Harvey PA [address] [place] [address] 09/17/2025 1:00 PM EST Office Visit [facility] [address] [place] [address] Janice Kramer MD [address] [place] [address] documented as of this encounter Goals Goal Patient Goal Type Associated Problems Recent Progress Patient-Stated? Author HEP Occupational Therapy On track(2020 3:42 PM EDT) No Tanya Ghosh Note: Patient will complete HEP with appropriate form 100% of the time. Vp Informatics Goal: to be met by 06/08/21 Goal on going as exercises continue to be added. Good form with exercises thus far. Leisure Occupational Therapy On track(2020 3:42 PM EDT) No Tanya Ghosh Note: Patient will complete leisure task such as baking or beading x20 minutes without pain 100% of the time. Skilled Nursing Goal: to be met by 07/10/21. documented as of this encounter Visit Diagnoses Not on filedocumented in this encounter Additional Health Concerns Infection Onset Date Last Indicated Resolved Time COVID-19 Rule-Out 05/30/2023 05/30/2023 05/30/2023 8:04 PM EDT COVID 19 (Confirmed) 07/03/2023 07/03/2023 023 5:23 AM EST Meningitis Rule-Out 09/06/2024 09/06/2024 09/06/19 25 12:35 PM EST COVID-19 Rule-Out 09/28/2024 09/28/2024 09/28/2024 10:37 AM EST COVID-19 Rule-Out 2024 2024 2024 7:30 PM EDT Assessment Noted Time PHQ-9 Depression Total Score: 9 12/09/19 23 10:24 AM EDT A fall risk assessment has been complete d for the patient 08/17/2022 8:54 AM EST A Body Mass Index follow-up plan has been documented for the patient 02/06/2023 9:13 AM EDT documented as of this encounter Care Teams Senior Enlisted Advisor Relationship Specialty Start Date End Date April Piper APRN [address] [place] [phone] PCP - General Family Medicine 02/06/23 documented as of this encounter
--- OUTSIDE RECORDS SUMMARY | 2025-04-06 09:52 | XMS_ITS | Encounter Summary ---
Author Organization Healthcare Address [address] [place] [address] Care Team Providers Care County Judge Name Role Phone April Piper APRN Primary Care Provider [phone] Reason for Visit * Reason Comments Med Refill Encounter Details Date Type Department Care Team (Late st Contact Info) Description 09/21/2024 Refill [place] [facility] [address] [place] [address] Keli Harvey PA [address] [place] [address] Social History Tobacco Use Types Packs/Day Years Used Date Smoking Tobacco: Never Passive Smoke Exposure: Never Smokeless Tobacco: Never Alcohol Use Standard Drinks/Week Comments Not Currently 0 (1 standard drink = 0.6 oz [...] Date Recorded Patient Health Questionnaire-2 Score 2 08/09/2024 Hunger Vital Sign Answer Date Recorded Within [...] place to sleep or slept in a [facility] (including now)? No 02/08/2024 PHQ-9 Answer Date Recorded Patient Health Questionnaire-9 Score 14 08/09/2024 Housing Stability Vital Sign Answer William e Recorded In the last 12 months, was t here a time when you were not able to pay the mortgage or rent on time? No 02/08/2024 In the past 12 months, how m any times have you moved where you were living? 1 02/08/2024 At any time in the past 12 m [facility], were you homeless or living in a [facility] (including now)? No 02/08/2024 Utilities Answer Date [...] encounter Miscellaneous Notes * Telephone Encounter - Yulisa Palencia PharmD - 09/23/2024 7:55 PM EST 1 medication(s) has been denied per protocol due to: Refill requested too soon documented in this encounter Plan of Treatment Upcoming Encounters Date Type Department Care Team (Late st Contact Info) Description 05/02/2025 10:00 AM EDT Office Visit [facility] [address] [place] [address] Lenore De La Cruz PA [address] [facility] [address] [place] [address] 06/26/2025 7:20 AM EST Office Visit [facility] [address] [place] [phone] April Piper APRN 245 [facility] [address] [place] [address] 08/22/2025 8:00 AM EST Office Visit [place] [facility] [address] [place] [phone] Keli Harvey PA [address] [place] [address] 09/17/2025 1:00 PM EST Office Visit [facility] [address] [place] [address] Janice Kramer MD [address] [place] [address] documented as of this encounter Goals Goal Patient Goal Type Associated Problems Recent Progress Patient-Stated? Author HEP Occupational Therapy On track(2020 3:42 PM EDT) No Tanya Ghosh Note: Patient will complete HEP with appropriate form 100% of the time. Staying Machine Operator Goal: to be met by 06/08/21 Goal on going as exercises continue to be added. Good form with exercises thus far. Leisure Occupational Therapy On track(2020 3:42 PM EDT) No Tanya Ghosh Note: Patient will complete leisure task such as baking or beading x20 minutes without pain 100% of the time. Staying Machine Operator Goal: to be met by 07/10/21. documented as of this encounter Visit Diagnoses Not on filedocumented in this encounter Additional Health Concerns Infection Onset Date Last Indicated Resolved Time COVID-19 Rule-Out 09/28/2024 09/28/2024 09/28/2024 10:37 AM EST COVID-19 Rule-Out 2024 2024 2024 7:30 PM EDT Assessment Noted Time PHQ-9 Depression Total Score: 14 025 7:15 AM EST A fall risk assessment has been complete d for the patient 08/08/2024 1:10 PM EST A Body Mass Index follow-up plan has been documented for the patient 09/06/2024 12:00 PM EST documented as of this encounter Care Teams County Judge Relationship Specialty Start Date End Date April Piper APRN [address] [place] [phone] PCP - General Family Medicine 02/06/23 documented as of this encounter
--- NOTE | 2025-04-06 09:56 | [facility].EDGENADL ---
Discharge Plan Disposition Patient Disposition: Home, Self-Care Condition: Good Prescriptions Prescriptions: New pseudoephedrine HCl [Sudafed] 30 mg tablet 60 mg PO Q6H PRN (Reason: nasal congestion) Qty: 30 0RF Rx Instructions: Be cautious that this medication can increase your blood pressure, avoid with concurrent use of your Adderall olopatadine [Pataday Twice Daily Relief] 0.1 % drops 1 drp ophthalmic (eye) BID Qty: 5 0RF Rx Instructions: separate doses by at least 6-8 hours artificial tears(hypromellose) 0.3 % drops 1 drp ophthalmic (eye) BID PRN (Reason: dry eyes) Qty: 15 0RF fluticasone propionate [Flonase Allergy Relief] 50 mcg/actuation spray,suspension 1 spray intranasal BID Qty: 16 0RF Rx Instructions: administer into each nostril Afrin (oxymetazoline) 0.05 % mist 2 spray intranasal BID 3 Days Qty: 15 0RF Allergy Relief (loratadine) 10 mg capsule 10 mg PO DAILY Qty: 30 0RF No Action methocarbamol 750 mg tablet 750 mg PO cyanocobalamin (vitamin B-12) 500 mcg tablet 500 mcg PO magnesium gluconate 27 mg magnesium (500 mg) tablet 27 mg PO Ubrelvy 50 mg tablet 50 mg PO famotidine 40 mg tablet 40 mg PO propranolol 20 mg tablet 20 mg PO PNV no.95-ferrous fumarate-FA [] 28 mg iron- 800 mcg tablet 1 tab PO lamotrigine 200 mg tablet 200 mg PO loratadine 10 mg tablet 10 mg PO budesonide-formoterol [Symbicort] 160-4.5 mcg/actuation HFA aerosol inhaler inhalation desvenlafaxine succinate 50 mg tablet extended release 24 hr 50 mg PO Rexulti 2 mg tablet 2 mg PO Emgality Pen 120 mg/mL pen injector SQ quetiapine 25 mg tablet 25 mg PO DAILY famotidine 40 mg tablet 40 mg PO DAILY dextroamphetamine-amphetamine 10 mg tablet 10 mg PO DAILY Patient Comments: TAKE 1 TABLET BY MOUTH TWICE DAILY ondansetron 8 mg tablet,disintegrating 8 mg PO DAILY lisinopril 10 mg tablet 10 mg PO DAILY montelukast 10 mg tablet 10 mg PO DAILY ergocalciferol (vitamin D2) [Vitamin D2] 1,250 mcg (50,000 unit) capsule 1,250 mcg PO DAILY albuterol sulfate [Ventolin HFA] 90 mcg/actuation HFA aerosol inhaler inhalation naproxen 500 mg tablet 500 mg PO DAILY topiramate [Topamax] 50 mg tablet 50 mg PO BID Referrals Follow up/Referrals: April Piper APRN [Primary Care Provider, Medical] - See instructions Activity Restrictions/Add. Instructions Additional Instructions/Restrictions: Your symptoms are most consistent with either allergic or viral sinusitis. Follow-up with your primary care physician about your nasopharyngeal respiratory swab. You can also seek out a referral for allergy and immunology to evaluate for allergen triggers likely causing your sinusitis. Be cautious using Sudafed as it can make your blood pressure higher. Nasal irrigation can also be beneficial for your sinusitis. Return to the emergency department for new or worsening symptoms Clinical Impressions Clinical Impression: Sinusitis Print Language Print Language: Yoruba Discharge ED Provider: Aliyah Miner General Adult HPI General Chief complaint: Upper Respiratory Infection Stated complaint: sinus galina., red eyes. discomfort rt side of neck Time Seen by Provider: 04/06/25 09:56 History of Present Illness HPI narrative: Patient is a 29-year-old with past medical history significant for bipolar disorder presents to the emergency department with nasal congestion red eyes sore throat and right face and right neck pain. 1 month ago patient was diagnosed with bilateral otitis media and bacterial sinusitis after she developed nasal congestion and sinus pain ear pain was given a 7-day prescription of doxycycline without improvement of symptoms. Patient also reports that she trialed 2 weeks of taking a fluconazole nasal spray daily and loratadine that did not improve her symptoms. Patient was then prescribed reportedly a 7-day course of Augmentin without improvement of symptoms. Patient then was prescribed a 7-day course of doxycycline additionally for symptoms without improvement of congestion and bilateral ear pain. Patient woke up this morning with a sore throat right lateral neck pain with worsening congestion and bilateral red eyes so went to urgent care. Due to concern that patient has been on multiple antibiotics and patient had neck pain she was referred to the emergency department for further treatment. Patient is tolerating p.o. denies cough or fever. Denies nausea vomiting or diarrhea. Related Data Home Medications ?Medication ?Instructions ?Recorded ?Confirmed brexpiprazole 2 mg tablet (Rexulti) 2 mg PO 02/06/25 04/06/25 budesonide-formoterol HFA 160 inhalation 02/06/25 04/06/25 mcg-4.5 mcg/actuation aerosol inhaler (Symbicort) desvenlafaxine succinate 50 mg 50 mg PO 02/06/25 04/06/25 tablet,extended release 24 hr galcanezumab-gnlm 120 mg/mL mg SQ 02/06/25 04/06/25 subcutaneous pen injector (Emgality Pen) lamotrigine 200 mg tablet 200 mg PO 02/06/25 04/06/25 loratadine 10 mg tablet 10 mg PO 02/06/25 04/06/25 cyanocobalamin (vitamin B-12) 500 500 mcg PO 02/27/25 04/06/25 mcg tablet magnesium gluconate 27 mg 27 mg PO 02/27/25 04/06/25 magnesium (500 mg) tablet methocarbamol 750 mg tablet 750 mg PO 02/27/25 04/06/25 ubrogepant 50 mg tablet (Ubrelvy) 50 mg PO 02/27/25 04/06/25 famotidine 40 mg tablet 40 mg PO 04/03/25 04/06/25 vit no.95-ferrous 1 tab PO 04/03/25 04/06/25 fumarate 28 mg-folic acid 800 mcg tablet () propranolol 20 mg tablet 20 mg PO 04/03/25 04/06/25 albuterol sulfate 90 mcg/actuation inhalation 04/06/25 04/06/25 aerosol inhaler (Ventolin HFA) dextroamphetamine-amphetamine 10 10 mg PO DAILY 04/06/25 04/06/25 mg tablet ergocalciferol (vitamin D2) 1,250 1,250 mcg PO DAILY 04/06/25 04/06/25 mcg (50,000 unit) capsule (Vitamin D2) famotidine 40 mg tablet 40 mg PO DAILY 04/06/25 04/06/25 lisinopril 10 mg tablet 10 mg PO DAILY 04/06/25 04/06/25 montelukast 10 mg tablet 10 mg PO DAILY 04/06/25 04/06/25 naproxen 500 mg tablet 500 mg PO DAILY 04/06/25 04/06/25 ondansetron 8 mg disintegrating 8 mg PO DAILY 04/06/25 04/06/25 tablet quetiapine 25 mg tablet 25 mg PO DAILY 04/06/25 04/06/25 topiramate 50 mg tablet (Topamax) 50 mg PO BID 04/06/25 04/06/25 Previous Rx's ?Medication ?Instructions ?Recorded artificial tears(hypromellose) 0.3 1 drp ophthalmic (eye) BID PRN dry 04/06/25 % eye drops eyes #15 mL fluticasone propionate 50 1 spray intranasal BID nasal 04/06/25 mcg/actuation nasal congestion #16 grams spray,suspension (Flonase Allergy Relief) loratadine 10 mg capsule (Allergy 10 mg PO DAILY #30 caps 04/06/25 Relief (loratadine)) olopatadine 0.1 % eye drops 1 drp ophthalmic (eye) BID #5 mL 04/06/25 (Pataday Twice Daily Relief) oxymetazoline 0.05 % nasal mist 2 spray intranasal BID 3 days #15 04/06/25 (Afrin (oxymetazoline)) mL pseudoephedrine HCl 30 mg tablet 60 mg (2 x 30 mg) PO Q6H PRN nasal 04/06/25 (Sudafed) congestion #30 tabs Allergies Allergy/AdvReac Type Severity Reaction Status Date / Time hydromorphone (From DILAUDID) Allergy Intermediate Verified 04/06/25 09:15 amoxicillin (AMOXICILLIN) Allergy Mild I-RASH Verified 04/06/25 09:15 azithromycin (AZITHROMYCIN) Allergy Mild I-RASH Verified 04/06/25 09:15 Sulfa (Sulfonamide Allergy Unknown Verified 04/06/25 09:15 Antibiotics) (SULFA (SULFONAMIDE ANTIBIOTICS)) [facility] Disclaimer: The information contained in this section may have been updated after the patient was seen, as this information can be updated by other users. Medical History (Updated 04/06/25 @ 12:17 by Aliyah Miner MD) Stiff neck Social History Smoking Status: Never smoker alcohol intake: never substance use type: denies use current occupational status: unemployed Travel in the last 8 weeks?: None household members: family housing: house caffeine: Yes Have you lived/traveled outside [place] in past 30 days?: No Contact w/someone who lives/traveled outside [place] past 30 days?: No Exposure to someone with infectious disease in past 14 days?: No Do you have a fever (greater than 100.4 F or 38 C)?: No Have you tested positive for COVID-19?: No Exposed to someone with COVID-19 in past 14 days?: No Do you have a sore throat?: Yes Do you have a cough?: Yes Do you have any weakness?: No Do you have any diarrhea?: No Are you experiencing any unusual bleeding?: No Do you have any muscle aches/pain?: No Do you have any abdominal pain?: No Are you experiencing loss of taste or smell?: No Other Medical History Have you received the Flu Vaccine for this season: Yes Have you received the Pneumonia Vaccine: No ROS Obtained: Yes All systems reviewed & no additional complaints except as documented Physical Exam General General appearance: alert and in no apparent distress Eye Eye exam: Present PERRL, EOMI and conjunctival injection; Absent discharge ENT ENT exam: Present normal oropharynx, mucous membranes moist, TM's normal bilaterally (effusion bilaterally without erythema) and other (cobblestoning bilateral nares, congestion, tenderness to maxillary and frontal sinus, uvula midline, no tonsilar swelling or exudate) Neck Neck exam: Present full ROM, trachea midline and lymphadenopathy (tenderness to anterior cervical lymph nodes, no submental swelling ); Absent meningismus Respiratory Respiratory exam: Absent respiratory distress Cardiovascular Cardiovascular exam: Present tachycardia Abdominal Exam Abdominal exam: Present soft; Absent tenderness Neurological Exam Neurological exam: Present alert and oriented X3; Absent normal gait or motor sensory deficit Medical Decision Making Medical Records Screening: Per USPSTF and CDC recommendations, given the prevalence of disease in our region, it is our hospital?s policy to screen for HIV and viral Hepatitis for all patients aged 18 and over and those with ongoing risk factors. Chucky Inquiry Pt receiving controlled substance: No Vital Signs: 04/06/25 10:00 04/06/25 10:03 04/06/25 10:30 Temperature 98.3 F Temperature Source Oral Pulse Rate 92 H 82 Pulse Rate [Right Radial] 116 H Respiratory Rate 15 Blood Pressure 118/84 124/80 Blood Pressure [Right Arm] 136/94 H Blood Pressure Mean [Right Arm] 108 Blood Pressure Source [Right Arm] Automatic Cuff Blood Pressure Position [Right Arm] Supine 02 Sat by Pulse Oximetry 98 98 96 Oxygen Delivery Method Room Air 04/06/25 11:30 Temperature Temperature Source Pulse Rate 69 Pulse Rate [Right Radial] Respiratory Rate Blood Pressure 129/84 Blood Pressure [Right Arm] Blood Pressure Mean [Right Arm] Blood Pressure Source [Right Arm] Blood Pressure Position [Right Arm] 02 Sat by Pulse Oximetry 99 Oxygen Delivery Method Lab Data Lab Results 04/06/25 10:00: WBC 5.7, RBC 4.07 L, Hgb 11.7 L, Hct 35.4 L, MCV 87.0, MCH 28.7, MCHC 33.1, RDW 14.1, Plt Count 500 H, MPV 10.1, Neut % (Auto) 66.2, Lymph % (Auto) 23.9, [place] % (Auto) 6.8, Eos % (Auto) 1.9, Baso % (Auto) 0.3, Neut # (Auto) 3.8, Lymph # (Auto) 1.4, [place] # (Auto) 0.4, Eos # (Auto) 0.1, Baso # (Auto) 0.0, Serum HCG, Qual Negative, HCV Ab ROCKY w/Rflx PCR Qn Negative, HIV Ag/Ab Combo Qual Negative 04/06/25 10:24: Chlamy pneumoniae PCR Not detected, Adenovirus (PCR) Not detected, B. pertussis DNA (PCR) Not detected, Coronavirus OC43 (PCR) Not detected, Coronavirus HKU1 (PCR) Not detected, Coronavirus 229E (PCR) Not detected, SARS-CoV-2 (PCR) Not detected, Coronavirus NL63 (PCR) Not detected, Human Metapneumovir PCR Not detected, Influenza A (H1) PCR Not detected, Influ A (H1N1/09) PCR Not detected, Influenza A (H3) PCR Not detected, Influenza Type A (PCR) Not detected, Influenza Type B (PCR) Not detected, M. pneumoniae (PCR) Not detected, Parainfluenza 1 (PCR) Not detected, Parainfluenza 2 (PCR) Not detected, Parainfluenza 3 (PCR) Not detected, Parainfluenza 4 (PCR) Not detected, RSV (PCR) Not detected, Entero/Rhino (PCR) Not detected 04/06/25 10:00 Orders (Tests/Meds): ED MEDICATIONS Generic Name Dose Route Start Last Admin Trade Name Freq PRN Reason Stop Dose Admin Ondansetron HCl 8 mg 04/06/25 12:05 04/06/25 12:08 Ondansetron 4mg/2ml Vial IV 04/06/25 12:06 8 mg ONCE ONE Administration Discontinued Medications Generic Name Dose Route Start Last Admin Trade Name Shauna PRN Reason Stop Dose Admin Lactated Ringer's 1,000 mls @ 999 mls/hr 04/06/25 10:14 04/06/25 12:08 Lactated Ringer's 1000 Ml Bag IV 04/06/25 11:14 Infused .Q1H1M ONE Infusion Iopamidol 200 ml 04/06/25 11:05 04/06/25 11:06 Iopamidol-370 (76%);100ml Bottle IV 04/06/25 11:06 200 ml ONCE ONE Administration Ketorolac Tromethamine 15 mg 04/06/25 10:14 04/06/25 10:25 Ketorolac 15mg/Ml Vial IV 04/06/25 10:15 15 mg ONCE ONE Administration Oxymetazoline HCl 2 ml 04/06/25 10:07 04/06/25 10:24 Oxymetazoline Nasal [place] 0.05% 15ml NS 04/06/25 10:08 2 ml ONCE ONE Administration Pseudoephedrine HCl 60 mg 04/06/25 10:12 04/06/25 10:26 Pseudoephedrine 30mg Tablet PO 04/06/25 10:13 60 mg ONCE ONE Administration Sodium Chloride 10 ml 04/06/25 11:05 04/06/25 11:06 Sodium Chloride 0.9% 10ml Syr (Rad Only) IV 04/06/25 11:06 10 ml ONCE ONE Administration ORDERS Category Date Time Status CT Venogram head Stat Cat Scan 04/06/25 10:[address] head/brain wo con Stat Cat Scan 04/06/25 10:[address] sinus w con Stat Cat Scan 04/06/25 10:[address] soft tissue neck w con Stat Cat Scan 04/06/25 10:07 Completed C-Reactive Protein Stat Lab 04/06/25 10:00 Received CMP [Comprehensive Metabolic Panel] Stat Lab 04/06/25 10:00 Received Complete Blood Count Auto Diff Stat Lab 04/06/25 10:00 Completed Full Resp Panel w/COVID ([facility]) Routine Lab 08/31/25 10:24 Completed HCG Qualitative, Serum Stat Lab 04/06/25 10:00 Completed HIV Combo Stat Lab 04/06/25 10:00 Completed Hepatitis C Ab Qual. W/ RFX Stat Lab 04/06/25 10:00 Completed Medical Decision Narrative: In summary, this 29-year-old female presents to the emergency department today with sinus congestion conjunctival injection. On initial evaluation patient is tachycardic normotensive afebrile saturating appropriately on room air. Differential diagnosis includes but is not limited to allergic rhinitis, allergic sinusitis, serous otitis media, acute otitis media, viral sinusitis, bacterial sinusitis, cavernous sinus thrombosis, mucormycosis, retropharyngeal abscess or deep space soft tissue infection. Low concern of meningitis based off of history and physical exam with full range of motion of neck, no headache, no meningismus. Highest concern for allergic or viral rhinitis based off of history and physical exam. Based on these concerns, I ordered CBC CRP CMP beta hCG, nasopharyngeal respiratory panel, CT sinuses soft tissue neck and CT head venogram Patient received Sudafed, Toradol, Afrin nasal spray, 1 L of lactated Ringer's for treatment. Labs personally reviewed demonstrate no leukocytosis, anemia hb 11.7, increased platelet count, negative nasopharyngeal respiratory swab. CT imaging personally interpreted demonstrate no cerebral venous sinus thrombosis, no air-fluid levels within the sinus cavities concerning for an abscess. On reevaluation patient has improvement of symptoms with Afrin and Sudafed. Based off of patient's history and physical exam and overall benign workup patient symptoms are most likely consistent with allergic sinusitis. Recommended multi modal treatment regimen including antihistamine daily, Sudafed as needed, Flonase daily, artificial tears and antihistamine eyedrops. Patient agreeable with discharge with outpatient follow-up with primary care provider. Critical Care Critical Care Time Critical Care Time: No
[2025-04-06 10:00] VITALS: BP 118/84; PULSE 92; O2SAT 98
[2025-04-06 10:03] VITALS: BP 136/94; PULSE 116; RESP 15; TEMP 36.8; O2SAT 98; BMI 37.8
--- NOTE | 2025-04-06 10:07 | CT_ITS ---
PROCEDURE INFORMATION: Exam: CT Neck With Contrast Exam date and time: 04/06/2025 11:13 AM Age: 29 years old Clinical indication: Pain; Other: Headache & sinus infection; Additional info: Acute headache in setting of chronic sinusitis TECHNIQUE: Imaging protocol: Computed tomography of the neck with contrast. Total images: 216 Radiation optimization: All CT scans at this facility use at least one of these dose optimization techniques: automated exposure control; mA and/or kV adjustment per patient size (includes targeted exams where dose is matched to clinical indication); or iterative reconstruction. Contrast material: ISOVUE; Contrast volume: 50 ml; Contrast route: IV; COMPARISON: CT SINUS W CON 04/06/2025 11:09 AM FINDINGS: Mastoid air cells: Visualized portions within normal limits Auditory system: Visualized portions within normal limits Nasal cavity: Normal Salivary glands: Normal. Glands are normal in size. Oral cavity: Visualized portions within normal limits Pharynx: Unremarkable. No significant tonsillar enlargement. Larynx: Unremarkable. Epiglottis is normal. Thyroid: Normal. No enlarged or calcified nodules. Trachea: Visualized trachea is unremarkable. Lungs: Unremarkable as visualized. Esophagus: Normal Lymph nodes: Unremarkable. No lymphadenopathy. Vasculature: No acute findings. Bones/joints: Unremarkable. No acute fracture. Soft tissues: Unremarkable. No significant soft tissue swelling. IMPRESSION: No acute findings.
--- NOTE | 2025-04-06 10:07 | CT_ITS ---
PROCEDURE INFORMATION: Exam: CTA Head With Contrast, Venography Exam date and time: 04/06/2025 11:04 AM Age: 29 years old Clinical indication: Pain; Headache; Additional info: Acute headache in setting of chronic sinusitis TECHNIQUE: Imaging protocol: Computed tomography angiography of the head with contrast. Exam focused on the veins. 3D rendering (Not supervised by radiologist): MIP and/or 3D reconstructed images were created by the technologist. Radiation optimization: All CT scans at this facility use at least one of these dose optimization techniques: automated exposure control; mA and/or kV adjustment per patient size (includes targeted exams where dose is matched to clinical indication); or iterative reconstruction. Contrast material: ISOVUE 370; Contrast volume: 80 ml; Contrast route: INTRAVENOUS (IV); COMPARISON: CT HEAD/BRAIN WO CON 04/06/2025 10:59 AM FINDINGS: Superior sagittal sinus: Patent. Straight sinus: Patent. Transverse sinuses: Patent, with the right larger than left. Sigmoid sinuses: Patent. Internal jugular veins: Limited visualized internal jugular veins are patent. Brain: No definite mass, mass effect, or midline shift. Cerebral ventricles: No ventriculomegaly. Soft tissues: Unremarkable. IMPRESSION: No acute central venous thrombosis.
--- NOTE | 2025-04-06 10:07 | CT_ITS ---
PROCEDURE INFORMATION: Exam: CT Maxillofacial With Contrast, Sinus Exam date and time: 04/06/2025 11:09 AM Age: 29 years old Clinical indication: Pain; Headache; Additional info: Acute headache in setting of chronic sinusitis TECHNIQUE: Imaging protocol: CT Maxillofacial with intravenous contrast. Focus on the sinuses. Total images: 395 Radiation optimization: All CT scans at this facility use at least one of these dose optimization techniques: automated exposure control; mA and/or kV adjustment per patient size (includes targeted exams where dose is matched to clinical indication); or iterative reconstruction. Contrast material: ISOVUE; Contrast volume: 70 ml; Contrast route: IV; COMPARISON: CT VENOGRAM HEAD 04/06/2025 11:04 AM FINDINGS: Frontal sinuses: No air-fluid levels. Ethmoid sinuses: No air-fluid levels. Sphenoid sinuses: No air-fluid levels. Maxillary sinuses: No air-fluid levels. Ostiomeatal units are patent. Nasal cavity: Unremarkable. Orbital cavities: Orbits are normal. Globes are unremarkable. Bones: Unremarkable. Soft tissues: Unremarkable. IMPRESSION: No acute changes.
--- NOTE | 2025-04-06 10:07 | CT_ITS ---
PROCEDURE INFORMATION: Exam: CT Head Without Contrast Exam date and time: 04/06/2025 10:59 AM Age: 29 years old Clinical indication: Pain; Headache; Additional info: Acute headache in setting of chronic sinusitis TECHNIQUE: Imaging protocol: Computed tomography of the head without contrast. Total images: 610 Radiation optimization: All CT scans at this facility use at least one of these dose optimization techniques: automated exposure control; mA and/or kV adjustment per patient size (includes targeted exams where dose is matched to clinical indication); or iterative reconstruction. COMPARISON: No relevant prior studies available. FINDINGS: Brain: No hemorrhage, mass effect or midline shift. Cerebral ventricles: No ventriculomegaly. Paranasal sinuses: Visualized sinuses are unremarkable. No fluid levels. Mastoid air cells: Visualized mastoid air cells are well aerated. Bones: Unremarkable. No acute fracture. Soft tissues: No acute changes Other findings: Images degraded by motion artifact. IMPRESSION: No hemorrhage, mass effect or midline shift.
[2025-04-06] MEDS: OXYMETAZOLINE NASAL SPRAY 0.05% 15ML 2 ML NS (10:24)
[2025-04-06] MEDS: KETOROLAC 15MG/ML VIAL 15 MG IV (10:25)
[2025-04-06] MEDS: LACTATED RINGERS 1000ML 1,000 ML 999 ML IV (10:26)
[2025-04-06 10:28] LABS: Adenovirus,PCR Not Detected (NotDetected); Chlamydophila Pneumoniae, PCR Not Detected (NotDetected); Coronavirus 19, PCR Not Detected (NotDetected); Coronovirus HKU1,PCR Not Detected (NotDetected); Influenza A, PCR Not Detected (NotDetected); Influenza AH1, 2009 Not Detected (NotDetected); Influenza AH1, PCR Not Detected (NotDetected); Influenza AH3,PCR Not Detected (NotDetected); Influenza B, PCR Not Detected (NotDetected); Mycoplasma Pneumoniae, PCR Not Detected (NotDetected); Parainfluenza 1, PCR Not Detected (NotDetected); Parainfluenza 2, PCR Not Detected (NotDetected); Parainfluenza 3, PCR Not Detected (NotDetected); Parainfluenza 4, PCR Not Detected (NotDetected)
[2025-04-06 10:30] VITALS: BP 124/80; PULSE 82; O2SAT 96
[2025-04-06 10:39] LABS: Hematocrit 35.4 % (37.0-47.0); Hemoglobin 11.7 g/dL (12.2-16.2); Immature Granulocytes % 0.9 %; Mean Corpuscular HGB Conc 33.1 g/dL (31.8-35.4); Mean Corpuscular Hemoglobin 28.7 pg (27.0-31.2); Mean Corpuscular Volume 87.0 fl (81-99); Nucleated Red Blood Cells % 0 %; Platelet Count 500 K/mm3 (142-424); Red Blood Count 4.07 M/mm3 (4.20-5.40); Red Cell Distribution Width-SD 45.0 fL; White Blood Count 5.7 K/mm3 (4.8-10.8)
[2025-04-06 10:48] LABS: HCG Qualitative, Serum Negative (Negative)
[2025-04-06] MEDS: SODIUM CHLORIDE 0.9% 10ML SYR (RAD ONLY) 10 ML IV (11:06)
[2025-04-06] MEDS: IOPAMIDOL-370 (76%);100ML BOTTLE 200 ML IV (11:06)
[2025-04-06 11:30] VITALS: BP 129/84; PULSE 69; O2SAT 99
[2025-04-06 11:37] LABS: Hepatitis C Ab Qual. W/ RFX NEGATIVE (Negative)
[2025-04-06 12:00] VITALS: BP 139/96; PULSE 61; O2SAT 99
[2025-04-06] MEDS: ONDANSETRON 4MG/2ML VIAL 8 MG IV (12:08)
[2025-04-06 12:30] VITALS: BP 139/96; PULSE 61; RESP 16; TEMP 36.8; O2SAT 99
[2025-04-06 12:40] LABS: Alanine Aminotransferase 30 U/L (12-78); Albumin Level 4.6 g/dl (3.5-5.0); Albumin/Globulin Ratio 1.6 (1.1-1.8); Alkaline Phosphatase 88 U/L (38-126); Anion Gap 15.2 mEq/L (5-15); Aspartate Amino Transferase 27 U/L (14-36); Bilirubin,Total 0.4 mg/dl (0.2-1.3); Blood Urea Nitrogen 16 mg/dl (7-17); Calcium 9.3 mg/dl (8.4-10.2); Carbon Dioxide 22 mmol/L (22.0-30.0); Chloride 107 mmol/L (98-107); Creatinine Clearance Estimated 187 mL/min (50-200); Creatinine,Serum 0.80 mg/dl (0.52-1.04); Estimated Glomerular Filt Rate 85 ml/min (>60); GFR (African American) 103 ML/MIN (>60); Globulin 2.8 g/dL (1.3-3.2); Glucose 86 mg/dl (74-100); Potassium 4.2 mmoL/L (3.5-5.1); Sodium 140 mmol/L (136-145); Total Protein,Serum 7.4 g/dl (6.3-8.2)
[2025-04-06 15:41] LABS: C-Reactive Protein 6.0 mg/L (0-4)
== END 2025-04-06 12:32 | disposition home or self-care (01) ==
PROVIDERS: Emergency Provider Student in an Organized Health Care Education/Training Program; PCP Nurse Practitioner Family
DX: J01.90 Acute sinusitis, unspecified (principal); M54.2 Cervicalgia; R07.0 Pain in throat
CPT/HCPCS: 0223U; 70450; 70487; 70491; 70496; 80053; 84703; 85025; 86140; 86803; 87389; 96361; 96374; 96375; 99284; 99285; J1885; J2405; J7120; Q9967

== ENCOUNTER 2025-07-10 11:32 | Outpatient (CLI) | payer OTHER, SELFPAY ==
--- OUTSIDE RECORDS SUMMARY | 2025-05-29 05:53 | XMS_ITS | Encounter Summary ---
Author Organization Healthcare Address [address] [place] [address] Care Team Providers Care Plumber'S Assistant Name Role Phone April Piper APRN Primary Care Provider [phone] Reason for Visit * Imaging - Closed Specialty Diagnoses / Procedures Referred By Contdeepika t Referred To Contact Radiology Diagnoses Oral mucosal lesion Procedures US Head Neck Soft Tissue April Piper APRN [address] [place] [address] Phone: tel: fax: Referral ID Status Reason Start Date Expiration Date Visits Re quested Visits Authorized [id number] Closed 05/29/2025 11/28/2026 1 1 Encounter Details Date Type Department Care Team (Latest Contact Info) Description 05/29/2025 6:53 AM EDT - 05/29/2025 11:59 PM EDT Hospital Encounter [facility] [address] [place] [address] Oral mucosal lesion Discharge Disposition: Home or Self Care Social History Tobacco Use Types Packs/Day Years [...] Date Recorded Patient Health Questionnaire-2 Score 0 05/30/2025 PHQ-9 Answer Date Recorded Patient Health Questionnaire-9 Score 0 04/22/2025 Hunger Vital Sign Answer Date Recorded Within the past 12 months, y ou worried that your food would run out before you got the money to buy more. Patient declined Within the past 12 months, t he food you bought just didn't last and you didn't have money to get more. Patient declined PRAPARE - Transportation Answer Date Re corded In the past 12 months, has l ack of transportation kept you from medical appointments or from getting medications? Patient declined 04/22/2025 In the past 12 months, has l ack of transportation kept you from meetings, work, or from getting things needed for daily living? Patient declined 04/22/2025 Housing Stability Vital Sign Answer William e Recorded In the last 12 months, was t here a time when you were not able to pay the mortgage or rent on time? No 04/22/2025 Number of Times Moved in the Last Year Not on fi le 04/22/2025 At any time in the past [address] [facility], were you homeless or living in a half-way (including now)? No 04/22/2025 [facility] Utilities Answer Date Recorded In the past 12 months has th e electric, gas, oil, or water [employer] threatened to shut off services in your home? Patient declined 04/22/2025 PHQ-2A Answer Date Recorded Patient Health Questionnaire-2 [...] pleasure in doing things Not at all 05/30/2025 11:05 AM EDT Sunday Lin APRN Feeling down, depressed, or hopeless Not at all 05/30/2025 11:05 AM EDT Sunday Lin APRN Patient Health Questionnaire-2 Score 0 05/30/2025 11:05 AM EDT Sunday Lin APRN documented as of this encounter Medications at Time of Discharge Afrin Original 0.05 % nasal spray USE 2 SPRAY(S) IN EACH NOSTRIL TWICE DAILY FOR 3 DAYS 5 albuterol (2.5 MG/3ML) 0.083% nebulizer solutionIndications :Moderate persistent asthma with (acute) exacerbation Take 3 mL (2.5 mg) by nebulization 4 (four) times a day if needed for wheezing or shortness of breath. 360 mL 3 albuterol 108 (90 Base) MCG/ACT inhalerIndications: Moderate persistent asthma without complication Inhale 2 puffs every 4 hours as needed for wheezing or shortness of breath. 18 g 3 5 cyanocobalamin (cyancobalamin) 500 MCG tabletIndications:R LS (restless legs syndrome) Take 2 tablets by mouth daily. 60 tablet 11 5 ergocalciferol (Vitamin D-2) 1.25 MG (45749 UT) capsule Take 1 capsule by mouth 1 time per week. 13 capsule 3 5 famotidine (Pepcid) 40 MG tabletIndications:G ERD without esophagitis Take 1 tablet (40 mg) by mouth 2 (two) times a day. 180 tablet 3 5 fluticasone (Flonase) 50 MCG/ACT nasal sprayIndications:Mi ld intermittent reactive airway disease without complication,Mild persistent reactive airway disease without complication Administer 1 spray into each nostril daily. Shake gently. Before first use, prime pump. After use, clean tip and replace cap. 16 g 12 5 galcanezumab-gnlm (Emgality) 120 MG/ML injection Inject 1 Syringe (120 mg) under the skin every 30 (thirty) days. 1 each 11 5 10/15/19 26 L-Methylfolate 7.5 MG tabletIndications:M THFR mutation Take 1 tablet by mouth daily. 90 tablet 3 5 lidocaine (Xylocaine) 2 % solutionIndications :Oral mucosal lesion,Pharyngitis, unspecified etiology Take 5 mL by mouth every 2 hours as needed for mild pain. 120 mL 1 5 lisinopril 10 MG tabletIndications:P rimary hypertension Take 1 tablet by mouth daily. 90 tablet 3 5 loratadine (Claritin) 10 MG tabletIndications:M ild intermittent reactive airway disease without complication,Mild persistent reactive airway disease without complication Take 1 tablet by mouth daily. 90 tablet 3 5 magnesium gluconate (Magonate) 500 MG tablet 5 magnesium, as gluconate, (Magonate) 500 (27 Mg) MG tabletIndications:A cute intractable headache, unspecified headache type Take 1 tablet by mouth nightly. 90 tablet 3 5 montelukast (Singulair) 10 MG tabletIndications:M ild persistent asthma without complication Take 1 tablet (10 mg) by mouth every night. 90 tablet 3 5 naproxen (Naprosyn) 500 MG tablet Take 1 tablet by mouth in the morning and 1 tablet in the evening. Take with meals. 180 tablet 3 5 ondansetron ODT (Zofran-ODT) 8 MG disintegrating tabletIndications:A cute intractable headache, unspecified headache type,Nausea DISSOLVE 1 TABLET IN MOUTH EVERY 8 HOURS NEEDED FOR NAUSEA AND VOMITING 20 tablet 3 5 28-0.8 MG tablet 5 Koyreiha-Hui-Gc-FA (/Iron) tabletIndications:I main deficiency Take 1 tablet by mouth daily. 90 tablet 1 5 propranolol (Inderal) 20 MG tablet Take 1 tablet by mouth 3 times a day. For headache prevention 270 tablet 3 5 Spacer/Aero-Holding Chambers (BreatheRite Jackson Spacer Adult) miscIndications:Mil d intermittent asthma without complication Substitute pharmacy supply 1 each 2 SudoGest 30 MG tablet TAKE 2 TABLETS BY MOUTH EVERY 6 HOURS NEEDED FOR NASAL CONGESTION, BE CAUTIOUS THAT THIS MEDICATION CAN INCREASE YOUR BLOOD PRESSURE, AVOID WITH CONCURRENT USE OF YOUR ADDERALL 5 Ubrelvy 100 MG tablet 5 amphetamine-dextroa mphetamine (Adderall) 20 MG tabletIndications:A ttention deficit hyperactivity disorder (ADHD), unspecified ADHD type Take 1 tablet by mouth 2 times a day as needed (ADHD symptoms.). 60 tablet 5 05/30/20 25 desvenlafaxine (Pristiq) 50 MG 24 hr tabletIndications:G eneralized anxiety disorder,Irritabili ty,Mixed obsessional thoughts and acts Take 1 tablet by mouth daily. Do not crush, chew, or split. 90 tablet 5 05/30/20 25 fluticasone (Flovent) 220 MCG/ACT inhalerIndications: Oral mucosal lesion Inhale 2 puffs 2 times a day. Rinse mouth with water after use to reduce aftertaste and incidence of candidiasis. Do not swallow. 12 g 5 07/01/20 25 lamoTRIgine (LaMICtal) 200 MG tabletIndications:S evere manic bipolar 1 disorder with psychotic behavior (CMS/HCC) Take 1 tablet by mouth daily. 10 tablet 5 05/30/20 25 methocarbamol (Robaxin) 750 MG tabletIndications:A cute intractable headache, unspecified headache type Take 1 tablet by mouth at night as needed for muscle spasms (headaches). 90 tablet 3 5 10/29/20 25 QUEtiapine (SEROquel) 25 MG tabletIndications:S evere manic bipolar 1 disorder with psychotic behavior (CMS/HCC),Insomnia due to other mental disorder Take 1 tablet by mouth at night as needed (insomnia). 10 tablet 5 05/30/20 25 Rexulti 2 MG tablet tabletIndications:G eneralized anxiety disorder,Severe manic bipolar 1 disorder with psychotic behavior (CMS/HCC),Mixed obsessional thoughts and acts Take 1 tablet by mouth nightly. 10 tablet 5 05/30/20 25 topiramate (Topamax) 50 MG tablet Take 1 tablet by mouth 2 times a day for 60 doses. For headache prevention 60 tablet 3 5 06/04/20 25 topiramate (Topamax) 50 MG tablet Take 2 tablets by mouth 2 times a day. Start with 1 tablet in am and 2 tablets at HS for 14 days. Then increase to 2 tablets bid if tolerated 360 tablet 3 5 06/04/20 25 documented as of this encounter Plan of Treatment Upcoming Encounters Date Type Department Care Team (Late st Contact Info) Description 07/17/2025 10:30 AM EST Consult [facility] [address], [address] [place] [address] Gill Maloney MD [address] [place] [address] 08/22/2025 8:00 AM EST Office Visit [place] [facility] [address] [place] [address] Keli Harvey PA [address] [place] [address] 10/01/2025 1:00 PM EST Office Visit [facility] [address] [place] [address] Janice Kramer MD [address] [facility] [address] [place] [phone] 11/28/2025 7:20 AM EDT Office Visit [facility] [address] [place] [address] April Piper APRN [address] [place] [address] documented as of this encounter Goals Goal Patient Goal Type Associated Problems Recent Progress Patient-Stated? Author HEP Occupational Therapy On track(2020 3:42 PM EDT) No Tanya Ghosh Note: Patient will complete HEP with appropriate form 100% of the time. Group Home Goal: to be met by 06/08/21 Goal on going as exercises continue to be added. Good form with exercises thus far. Leisure Occupational Therapy On track(2020 3:42 PM EDT) No Tanya Ghosh Note: Patient will complete leisure task such as baking or beading x20 minutes without pain 100% of the time. Group Home Goal: to be met by 07/10/21. documented as of this encounter Procedures Procedure Name Priority Date/Time Associated Diagnosis Comments US HEAD NECK SOFT TISSUE Routine 05/29/2025 8:27 AM EDT Oral mucosal lesion documented in this encounter Results * US Head Neck Soft Tissue (05/29/2025 8:27 AM EDT) Anatomical Region Laterality Modality Head, Neck Ultrasound Impressions 05/30/2025 6:01 PM EDT No suspicious adenopathy. CRITICAL RESULT: No. COMMUNICATION: Per this written report. Drafted by Rowena Bailey MD on 05/30/2025 5:58 PM Final report signed by Rowena Bailey MD on 05/30/2025 6:01 PM Narrative 05/30/2025 6:01 PM EDT CLINICAL INDICATION: oral mucosal lesion and neck adenopathy TECHNIQUE: Ultrasound of the neck with ultrasound.. COMPARISON: 04/24/2025 CT neck FINDINGS: A thorough evaluation of neck lymph node levels I through was also undertaken bilaterally. This revealed no suspicious lymphadenopathy. These findings were discussed with the patient and a biopsy was not performed. Oral mucosal lesion evaluation and biopsy was not performed. The reason was also discussed with the patient. She understood and was agreeable with the plan. Procedure Note Rowena Bailey MD - 05/30/2025 CLINICAL INDICATION: oral mucosal lesion and neck adenopathy TECHNIQUE: Ultrasound of the neck with ultrasound.. COMPARISON: 04/24/2025 CT neck FINDINGS: A thorough evaluation of neck lymph node levels I through wasalso undertaken bilaterally. This revealed no suspiciouslymphadenopathy. These findings were discussed with the patient and a biopsy was notperformed. Oral mucosal lesion evaluation and biopsy was not performed. The reasonwas also discussed with the patient. She understood and was agreeable withthe plan. IMPRESSION: No suspicious adenopathy. CRITICAL RESULT: No. COMMUNICATION: Per this written report. Drafted by Rowena Bailey MD on 05/30/2025 5:58 PM Final report signed by Rowena Bailey MD on 05/30/2025 6:01 PM April Piper APRN IM US PROCEDURES Final Resul t documented in this encounter Visit Diagnoses Diagnosis Oral mucosal lesion documented in this encounter Additional Health Concerns Assessment Noted Time PHQ-9 Depression Total Score: 0 04/22/20 25 11:22 AM EDT A fall risk assessment has been complete d for the patient 04/22/2025 11:23 AM EDT A Body Mass Index follow-up plan has been documented for the patient 04/22/2025 12:56 PM EDT documented as of this encounter Care Teams Plumber'S Assistant Relationship Specialty Start Date End Date April Piper APRN [address] [place] [phone] PCP - General Family Medicine 02/06/23 documented as of this encounter
--- OUTSIDE RECORDS SUMMARY | 2025-06-26 07:20 | XMS_ITS | Encounter Summary ---
Author Organization Healthcare Address [address] [place] [address] Care Team Providers Care Youth Agent Name Role Phone April Piper APRN Primary Care Provider [phone] Reason for Visit * Reason Comments Anemia Follow-up Encounter Details Date Type Department Care Team (Late st Contact Info) Description 06/26/2025 7:20 AM EST Office Visit [facility] [address] [place] [address] April Piper APRN [address] [facility] [address] [place] [address] Pharyngitis, unspecified etiology (Primary Dx); Jaw pain; Mild intermittent reactive airway disease without complication; Iron deficiency; Healthcare maintenance; Health care maintenance; Flu vaccine need Social History Tobacco Use Types Packs/Day Years Used Date Smoking Tobacco: Never Passive Smoke Exposure: Never Smokeless Tobacco: Never Tobacco Cessation:Counseling Given: Yes Alcohol Use Standard Drinks/Week Comments Not Currently [...] Date Recorded Patient Health Questionnaire-2 Score 0 06/10/2025 PHQ-9 Answer Date Recorded Patient Health Questionnaire-9 Score 6 06/10/2025 Hunger Vital Sign Answer Date Recorded Within the past 12 months, y ou worried that your food would run out before you got the money to buy more. Never true 06/26/20 Within the past 12 months, t he food you bought just didn't last and you didn't have money to get more. Never true 06/26/2025 PRAPARE - Transportation Answer Date Re corded In the past 12 months, has l ack of transportation kept you from medical appointments or from getting medications? No 06/08 In the past 12 months, has l ack of transportation kept you from meetings, work, or from getting things needed for daily living? No 06/26/2025 Housing Stability Vital Sign Answer William e Recorded In the last 12 months, was t here a time when you were not able to pay the mortgage or rent on time? No 06/26/2025 Number of Times Moved in the Last Year Not on fi le 06/26/2025 At any time in the past 12 m [facility], were you homeless or living in a alf (including now)? No 06/26/2025 [facility] Utilities Answer Date Recorded In the past 12 months has th e electric, gas, oil, or water company threatened to shut off services in your home? No 06/26/2025 PHQ-2A Answer Date Recorded Patient Health Questionnaire-2 [...] Sign Reading Time Taken Comments Blood Pressure 106/75 06/26/2025 7:27 AM EST Pulse 77 06/26/2025 7:27 AM EST Temperature 36.7 C (98 F) 06/26/2025 7:27 AM EST Respiratory Rate - - Oxygen Saturation 97% 06/26/2025 7:27 AM EST Inhaled Oxygen Concentration - - Weight 112 kg (246 lb 14.6 oz) 06/26/2025 7:27 A M EST Height 172.7 cm (5' 7.99 ) 06/26/2025 7:27 AM ES T Body Mass Index 37.55 06/26/2025 7:27 AM EST documented in this encounter Functional Status * Calculated C-SSRS Risk Score (Lifetime/Recent) Answer Date of Assessment Author No Risk Indicated 06/26/2025 7:30 AM EST Kristin Naranjo * Question Answer Date of Assessment Author 1. Wish to be (Past 1 Month) No 025 7:30 AM EST Kristin Naranjo 2. Non-Specific Active Suici rad Thoughts (Past 1 Month) No 06/26/2025 7:30 AM EST Krsitin Naranjo 6. Suicidal Behavior (Lifetime) No 7:30 AM EST Kristin Naranjo documented as of this encounter Miscellaneous Notes * Progress Notes - April Piper APRN - 06/26/2025 7:20 AM EST Images from the original note were not included. Subjective Negrita Payne Kalina 29 y.o. female Preferred pronouns she/her Arrives alone to appt today History of Present Illness Negrita is here today for f/u to her asthma, anemia, labs. Last seen by PCP 04/22/25 for sore throat,plan note: 1. Sore throat: - The sore throat has been present for about a month, with pain extending from the lump down to thecollarbone and ear on the right side. - Physical examination revealed a soft tissue mass anterior to rt tonsillar area w/ a small ulceration on the top surface. The lump is firm, does not move, and has bled slightly upon squeezing per the patient; this mass was not manipulated in office due to lack of resources to manage her airway should the need arise w/ significant bleeding or drainage. - A CT scan of the neck will be ordered to investigate the cause of the symptoms. A referral to an Ear, Nose, and Throat specialist will be made for additional evaluation. Interventional radiology will be consulted tfor a needle aspiration. - An inhaled steroid will be prescribed to help reduce inflammation. Oral steroids typically avoided for Negrita due to this will trigger a manic episode. Viscous lidocaine can be used for gargling every couple of hours to numb the area, but it should not be swallowed. If the condition worsens or ifthere is significant bleeding, immediate medical attention should be sought at an emergency room. Avoid manipulating the lesion. She has been experiencing right temporomandibular joint (TMJ) pain, particularly at night. She was contacted by the orofacial pain clinic, but due to insurance coverage issues, she was unable to proceed with the appointment. Her mother is currently attempting to secure an appointment with a former provider from her previous place of employment, a pain clinic. This provider had previously administered Botox injections for her condition, but it is uncertain whether they accept Medicaid. She has been using a mouth guard, but it frequently dislodges during use. She also reports difficulty biting down due to missing teeth in the back of her mouth. Despite these challenges, she found the mouth guard beneficial and noticed an increase in issues when she discontinued its use. She was prescribed baclofen, which she inadvertently combined with Robaxin for a week, resulting in significant relief. However, when she attempted to take baclofen alone the following week, she did not experience the same level of improvement. She then resumed the combination of baclofen and Robaxin, which provided relief without causing excessive sedation. She also reports increased clenching. Her asthma is currently well-managed, with only minor changes noted. She is considering discontinuing Pristiq due to perceived side effects outweighing the benefits. She has initiated therapy sessions twice a week and has an upcoming appointment today. Her migraines are well-controlled with [employer], but she expresses concern about potential insurance coverage issues next year. She reports fatigue and is unsure if her current iron supplementation is sufficient. She is attempting to increase her fluid intake due to decreased urination frequency, which she attributes to a reduced eating schedule of 2 to 3 times per week. She also reports dark urine. She has been busy recently and her sleep schedule is disrupted. Education Level: Full-time student Diet: Reduced eating schedule of 2 to 3 times per week Sleep: Disrupted sleep schedule Extensive look at her tonsillar lesion since last seen, determined to be regrowth of tonsillar tissue, sent to ENT who felt this was more TMJ pain w/o connection to the regrowth. Referred to PM. Message in chart 06/23 indicates Negrita declined to schedule for financial reasons. Previous labs with sl trend down in H/H and iron levels, daily oral iron supplement suggested. Asthma-no new issues Flu-today The following portions of the chart were reviewed this encounter and updated as appropriate: Tobacco Allergies Meds Problems Med Hx Surg Hx Fam Hx Review of Systems Constitutional: Negative. HENT: Positive for dental problem. Negative for sore throat and trouble swallowing. Respiratory: Negative. Cardiovascular: Negative. Psychiatric/Behavioral: Stable, in weekly counseling and follows routinely with Psych Objective Physical Exam Vitals and nursing note reviewed. Constitutional: General: She is not in acute distress. Appearance: Normal appearance. She is obese. She is not ill-appearing. HENT: Head: Normocephalic and atraumatic. Mouth/Throat: Mouth: Mucous membranes are moist. Pharynx: Oropharynx is clear. Comments: Rt tonsillar soft tissue growth, appears smaller than on previous visualization. No erythema/edema/exudate. No airway interference. Mildly TTP rt TMJ w/ opening and left lateral movement of jaw. Cardiovascular: Rate and Rhythm: Normal rate and regular rhythm. Heart sounds: Normal heart sounds. Pulmonary: Effort: Pulmonary effort is normal. Breath sounds: Normal breath sounds. Abdominal: General: There is no distension. Musculoskeletal: Cervical back: Normal range of motion. Skin: General: Skin is warm and dry. Neurological: Mental Status: She is alert and oriented to person, place, and time. Psychiatric: Mood and Affect: Mood normal. Behavior: Behavior normal. Thought Content: Thought content normal. Assessment & Plan 1. Temporomandibular joint (TMJ) disorder: - Pain persists, especially at night, and worsens when not using a neck guard. - Baclofen and methocarbamol combination is effective. - Will seek PM provider who accepts her insurance. 2. Asthma: - Asthma is currently stable. -Counseled to be seen if any sx of exacerbation arise. 3. Anxiety: - Pristiq is causing more problems than benefits per her report. - She will discuss discontinuing Pristiq with her therapist and provider. 4. Migraines: - Migraines are well-controlled with Emg[employer]. - Concerns about insurance coverage for next year. - She will continue with [employer] and monitor her insurance situation. 5. Fatigue: - Iron levels will be reassessed today. - Increase water intake; iron infusions will be considered if necessary. 6. Health Maintenance: - Influenza vaccine will be administered today; application for [employer] financial assistance will be provided. Follow-up: Next annual exam scheduled for 11/2025. RTC sooner PRN. Verbalizing understanding and agreement w/ plan. Verbal consent was obtained to use ambient listening technology to assist in the documentation of the encounter: yes April Piper APRN documented in this encounter Plan of Treatment Upcoming Encounters Date Type Department Care Team (Late st Contact Info) Description 07/17/2025 10:30 AM EST Consult [facility] [address], [address] [place] [address] Gill Maloney MD [address] [place] [address] 08/22/2025 8:00 AM EST Office Visit [place] [facility] [address] [place] [address] Keli Harvey PA [address] [place] [address] 10/01/2025 1:00 PM EST Office Visit [facility] [address] [place] [address] Janice Kramer MD [address] [place] [address] 11/28/2025 7:20 AM EDT Office Visit [facility] [address] [place] [address] April Piper APRN [address] [place] [address] documented as of this encounter Goals Goal Patient Goal Type Associated Problems Recent Progress Patient-Stated? Author HEP Occupational Therapy On track(2020 3:42 PM EDT) No Tanya Ghosh Note: Patient will complete HEP with appropriate form 100% of the time. It Technical Support Specialist Goal: to be met by 06/08/21 Goal on going as exercises continue to be added. Good form with exercises thus far. Leisure Occupational Therapy On track(2020 3:42 PM EDT) No Tanya Ghosh Note: Patient will complete leisure task such as baking or beading x20 minutes without pain 100% of the time. [facility] Goal: to be met by 07/10/21. documented as of this encounter Procedures Procedure Name Priority Date/Time Associated Diagnosis Comments MORPHOLOGY Routine 06/26/2025 8:24 AM EST Healthcare maintenance IRON & TOTAL IRON BINDING CAPACITY, PLASMA (INCLUDES TRANSFERRIN) Routine 06/26/2025 8:24 AM EST Health care maintenance CBC WITH AUTO DIFFERENTIAL Routine 06/26/2025 8:24 AM EST Healthcare maintenance documented in this encounter Results * Morphology (06/26/2025 8:24 AM EST) RBC Morphology Slide Reviewed LAB HEMATOLOGY METHOD 06/26/2025 6:19 PM EST [facility] Clumped Platelets Present LAB HEMATOLOGY METHOD 06/26/2025 6:19 PM EST [facility] Blood Venous blood specimen / Unknown Venipuncture / Unknown 06/26/2025 8:24 AM EST 06/26/2025 2:10 PM EST [facility] LAB BLOOD ORDERABLES Final Re sult Performing Organization Address City/[facility]/ZIP Co de Phone Number [facility] [address] [place] [address] * Iron & Total Iron Binding Capacity, Plasma (Includes Transferrin) (06/26/2025 8:24 AM EST) Pathologist [facility] Iron, Plasma 67 30 - 160 ug/dL 06/26/2025 2:40 PM EST [facility] Transferrin, Plasma 304 200 - 360 mg/dL 06/26/2025 2:40 PM EST [facility] Total Iron Binding Capacity, Plasma 380 240 - 450 ug/mL 06/26/2025 2:40 PM EST [facility] Transferrin Saturation 18 14 - 50 % 06/26/2025 2:40 PM EST [facility] Blood Venous blood specimen / Unknown Venipuncture / Unknown 06/26/2025 8:24 AM EST 06/26/2025 2:10 PM EST [facility] LAB BLOOD ORDERABLES Final Re sult [facility] [address] [place] [address] * (ABNORMAL) CBC and Differential (06/26/2025 8:24 AM EST) WBC Count 8.50 3.70 - 10.30 10*3/uL LAB HEMATOLOGY METHOD 06/26/2025 6:19 PM EST [facility] RBC Count 4.40 3.90 - 5.20 10*6/uL LAB HEMATOLOGY METHOD 06/26/2025 6:19 PM EST [facility] HGB 12.2 11.2 - 15.7 g/dL LAB HEMATOLOGY METHOD 06/26/2025 6:19 PM EST [facility] HCT 38.4 34.0 - 45.0 % LAB HEMATOLOGY METHOD 06/26/2025 6:19 PM [facility] Platelet Count 530(H) 155 - 369 10*3/uL LAB HEMATOLOGY METHOD 06/26/2025 6:19 PM [facility] MCV 87 79 - 98 fL LAB HEMATOLOGY METHOD 06/26/2025 6:19 PM [facility] MCH 27.7 26.0 - 32.0 pg LAB HEMATOLOGY METHOD 06/26/2025 6:19 PM [facility] MCHC 31.8 30.7 - 35.5 g/dL LAB HEMATOLOGY METHOD 06/26/2025 6:19 PM [facility] RDW 14.2 11.5 - 14.5 % LAB HEMATOLOGY METHOD 06/26/2025 6:19 PM [facility] MPV LAB HEMATOLOGY METHOD 06/26/2025 6:19 PM [facility] Comment:Not Measured nRBC 0.0 <=0.0 per 100 WBCs LAB HEMATOLOGY METHOD 06/26/2025 6:19 PM [facility] Differential Type Automated LAB HEMATOLOGY METHOD 06/26/2025 6:19 PM [facility] Neutrophils % 71 % LAB HEMATOLOGY METHOD 06/26/2025 6:19 PM [facility] Lymphocytes % 19 % LAB HEMATOLOGY METHOD 06/26/2025 6:19 PM [facility] Monocytes % 8 % LAB HEMATOLOGY METHOD 06/26/2025 6:19 PM [facility] Eosinophils % 1 % LAB HEMATOLOGY METHOD 06/26/2025 6:19 PM [facility] Basophils % 1 % LAB HEMATOLOGY METHOD 06/26/2025 6:19 PM [facility] Immature Granulocytes % 0 % LAB HEMATOLOGY METHOD 06/26/2025 6:19 PM [facility] Neutrophils Absolute 6.05 1.60 - 6.10 10*3/uL LAB HEMATOLOGY METHOD 06/26/2025 6:19 PM [facility] Lymphocytes Absolute 1.60 1.20 - 3.90 10*3/uL LAB HEMATOLOGY METHOD 06/26/2025 6:19 PM EST [facility] Monocytes Absolute 0.68 0.30 - 0.90 10*3/uL LAB HEMATOLOGY METHOD 06/26/2025 6:19 PM EST [facility] Eosinophils Absolute 0.11 0.00 - 0.50 10*3/uL LAB HEMATOLOGY METHOD 06/26/2025 6:19 PM EST [facility] Basophils Absolute 0.04 0.00 - 0.10 10*3/uL LAB HEMATOLOGY METHOD 06/26/2025 6:19 PM EST [facility] Immature Granulocytes Absolute 0.02 0.00 - 0.06 10*3/uL LAB HEMATOLOGY METHOD 06/26/2025 6:19 PM EST [facility] Blood Venous blood specimen / Unknown Venipuncture / Unknown 06/26/2025 8:24 AM EST 06/26/2025 2:10 PM EST Narrative [facility] - 06/26/2025 6:19 PM EST Therapeutic decision making should be based on absolute values, rather than percentages. April Piper APRN LAB BLOOD ORDERABLES Final Re sult [facility] [address] [place] [address] documented in this encounter Visit Diagnoses Diagnosis Pharyngitis, unspecified etiology- Primary Jaw pain Mild intermittent reactive airway disease without complication Iron deficiency Disorders of iron metabolism Healthcare maintenance Health care maintenance Flu vaccine need documented in this encounter Additional Health Concerns Assessment Noted Time PHQ-9 Depression Total Score: 6 06/10/20 11:18 AM EST A fall risk assessment has been complete d for the patient 04/22/2025 11:23 AM EDT A Body Mass Index follow-up plan has been documented for the patient 06/26/2025 11:55 AM EST documented as of this encounter Care Teams Youth Agent Relationship Specialty Start Date End Date April Piper APRN [address] [place] [address] [address] [place] [address] PCP - General Family Medicine 02/06/23 documented as of this encounter
--- OUTSIDE RECORDS SUMMARY | 2025-07-10 11:55 | XMS_ITS | Encounter Summary ---
Author Organization Healthcare Address [address] [place] [address] Care Team Providers Care Physician Assistant Certified Name Role Phone April Piper APRN Primary Care Provider [phone] Reason for Visit * Reason Comments Med Refill Encounter Details Date Type Department Care Team (Late st Contact Info) Description 06/04/2025 Refill [place] [facility] [address], [address] [place] [address] Keli Harvey PA [address] [place] [address] Social History Tobacco Use Types [...] any time in the past 12 m [facility], were you homeless or living in a longterm (including now)? No 04/22/2025 [facility] Utilities Answer Date Recorded In the past 12 months has e [employer], gas, oil, or water company threatened to [...] encounter Miscellaneous Notes * Telephone Encounter - Enma Alvarez, DerekD - 06/04/2025 8:53 AM EDT Refill request does not meet protocol. Sending to clinic for review. Additional info: Clarification required: Dose clarification. Per patient message, I am taking 100 mg twice daily. Per addendum to 02/21/25 OV note, Topiramate should be 50mg 2 tablets bid for prevention of headache. However, rx is written for 1 tab BID . Please review and approve or deny as appropriate. Thank you! documented in this encounter Plan of Treatment Upcoming Encounters Date Type Department Care Team (Late st Contact Info) Description 07/17/2025 10:30 AM EST Consult [facility] [address], [address] [place] [address] Gill Maloney MD [address] [place] [address] 08/22/2025 8:00 AM EST Office Visit [place] [facility] [address] [place] [address] Keli Harvey PA [address] [place] [address] 10/01/2025 1:00 PM EST Office Visit [facility] [address] [place] [phone] Janice Kramer MD [address] [place] [address] 11/28/2025 7:20 AM EDT Office Visit [facility] [address] [place] [address] April Piper APRN [address] [place] [address] documented as of this encounter Goals Goal Patient Goal Type Associated Problems Recent Progress Patient-Stated? Author HEP Occupational Therapy On track(2020 3:42 PM EDT) No Tanya Ghosh Note: Patient will complete HEP with appropriate form 100% of the time. Shelter Goal: to be met by 06/08/21 Goal on going as exercises continue to be added. Good form with exercises thus far. Leisure Occupational Therapy On track(2020 3:42 PM EDT) No Tanya Ghosh Note: Patient will complete leisure task such as baking or beading x20 minutes without pain 100% of the time. Shelter Goal: to be met by 07/10/21. documented as of this encounter Visit Diagnoses Not on filedocumented in this encounter Additional Health Concerns Assessment Noted Time PHQ-9 Depression Total Score: 0 04/22/20 25 11:22 AM EDT A fall risk assessment has been complete d for the patient 04/22/2025 11:23 AM EDT A Body Mass Index follow-up plan has been documented for the patient 05/30/2025 11:11 AM EDT documented as of this encounter Care Teams Physician Assistant Certified Relationship Specialty Start Date End Date April Piper APRN [address] [place] [address] PCP - General Family Medicine 02/06/23 documented as of this encounter
--- OUTSIDE RECORDS SUMMARY | 2025-07-10 11:55 | XMS_ITS | Encounter Summary ---
Author Organization Healthcare Address [address] [place] [address] Care Team Providers Care J2Ee Consultant Name Role Phone April Piper APRN Primary Care Provider [phone] Encounter Details Date Type Department Care Team (Latest Contact Info) Description 07/10/2025 Travel Social History Tobacco Use Types Packs/Day [...] money to buy more. Never true 06/26/20 25 Within the past 12 months, t [...] in the past 12 m [facility], were you homeless or living in a senior living (including now)? No 06/26/2025 [facility] Utilities Answer Date Recorded In the past [...] as of this encounter Functional Status * Calculated C-SSRS Risk Score (Lifetime/Recent) Answer Date of Assessment Author No Risk Indicated 07/10/2025 8:06 AM Beverly Savage * Question Answer Date of Assessment Author 1. Wish to be (Past 1 Month) No 025 8:06 AM EST Beverly Sanford 2. Non-Specific Active Suici rad Thoughts (Past 1 Month) No 07/10/2025 8:06 AM EST Brenda Sanford 6. Suicidal Behavior (Lifetime) No 8:06 AM EST Beverly Sanford documented as of this encounter Plan of Treatment Upcoming Encounters Date Type Department Care Team ([facility] st Contact Info) Description 07/17/2025 10:30 AM EST Consult [facility] [address], [address] [place] [address] Gill Maloney MD [address] [place] [address] 08/22/2025 8:00 AM EST Office Visit [place] [facility] [address], [address] [place] [address] Keli Harvey PA [address] [place] [address] 10/01/2025 1:00 PM EST Office Visit [facility] [address] [place] [address] Janice Kramer MD [address] [place] [address] 11/28/2025 7:20 AM EDT Office Visit [facility] [address] [place] [address] April Piper APRN [address] [place] [address] documented as of this encounter Goals Goal [...] plan has been documented for the patient 07/10/2025 9:03 AM EST documented as of this encounter Care Teams J2Ee Consultant Relationship Specialty Start Date End Date April Piper APRN [address] [place] [phone] PCP - General Family Medicine 02/06/23 documented as of this encounter
--- OUTSIDE RECORDS SUMMARY | 2025-07-10 11:55 | XMS_ITS | Encounter Summary ---
Author Organization Healthcare Address [address] [place] [address] Care Team Providers Care Tibco Developer Name Role Phone April Piper APRN Primary Care Provider [phone] Reason for Visit * Reason Comments Med Refill Encounter Details Date Type Department Care Team (Late st Contact Info) Description 06/27/2025 Refill [facility] [address] [place] [address] April Piper APRN [address] [place] [address] Arthralgia of right temporomandibular joint; Moderate persistent asthma without complication Social History [...] time in the past [address] [facility], were you homeless or living in a nursing home (including now)? No 06/26/2025 [facility] Utilities Answer Date Recorded In the [...] [facility] [address], [address] [place] [address] Gill Maloney MD [address] [place] [address] 08/22/2025 8:00 AM EST Office Visit [place] [facility] [address], 1[address] [place] [address] Keli Harvey PA [address] [place] [address] 10/01/2025 1:00 PM EST Office [facility] [address] [facility] [place] [address] Janice Kramer MD [address] [place] [address] 11/28/2025 7:20 AM EDT Office Visit [facility] Ur[facility] Care [address] [place] [id number] April Piper APRN [address] [place] [address] documented as of this encounter Goals Goal Patient Goal Type Associated Problems Recent Progress Patient-Stated? Author HEP Occupational Therapy On track(2020 3:42 PM EDT) No Tanya Ghosh Note: Patient will complete HEP with appropriate form 100% of the time. Ice Skater Goal: to be met by 06/08/21 Goal on going as exercises continue to be added. Good form with exercises thus far. Leisure Occupational Therapy On track(2020 3:42 PM EDT) Tanya Bacon Note: Patient will complete leisure task such as baking or beading x20 minutes without pain 100% of the time. Longterm Goal: to be met by 07/10/21. documented as of this encounter Visit Diagnoses Diagnosis Arthralgia of right temporomandibular joint Moderate persistent asthma without complication documented in this encounter Additional Health Concerns Assessment Noted Time PHQ-9 Depression Total Score: 6 06/10/20 25 11:18 AM EST A fall risk assessment has been complete d for the patient 04/22/2025 11:23 AM EDT A Body Mass Index follow-up plan has been documented for the patient 06/26/2025 11:55 AM EST documented as of this encounter Care Teams Tibco Developer Relationship Specialty Start Date End Date April Piper APRN [address] [place] [address] PCP - General Family Medicine 02/06/23 documented as of this encounter
--- OUTSIDE RECORDS SUMMARY | 2025-07-10 11:55 | XMS_ITS | Encounter Summary ---
Author Organization Healthcare Address [address] [place] [address] Care Team Providers Care Supervisor Self Service Store Name Role Phone April Piper APRN Primary Care Provider [phone] Encounter Details Date Type Department Care Team (Late Contact Info) Description 06/11/2025 Telephone [place] [facility] Room E214 [address] [place] [address] Keily Fofana [id number] Social History Tobacco Use Types Packs/Day Years [...] any time in the past 12 m [facility], were you homeless or living in a chcf (including now)? No 04/22/2025 [facility] Utilities Answer Date Recorded In the past 12 months has th e [employer], gas, oil, or water [employer] threatened to shut off services in your [...] encounter Miscellaneous Notes * Telephone Encounter - Keily Fofana - 06/11/2025 8:54 AM EST Phone call complete documented in this encounter Plan of Treatment Upcoming Encounters Date Type Department Care Team (Late st Contact Info) Description 07/17/2025 10:30 AM EST Consult [facility] [address], [address] [place] [address] Gill Maloney MD [address] [place] [address] 08/22/2025 8:00 AM EST Office Visit [place] [facility] [address], 1st [place] [address] Keli Harvey PA [address] [place] [address] 10/01/2025 1:00 PM EST Office Visit [facility] [address] [place] [address] Janice Kramer MD [address] [place] [address] 11/28/2025 7:20 AM EDT Office Visit [facility] Primary and Urgent Care [address] [place] [address] April Piper APRN [address] [place] [address] documented as of this encounter Goals Goal Patient Goal Type Associated Problems Recent Progress Patient-Stated? Author HEP Occupational Therapy On track(2020 3:42 PM EDT) No Tanya Ghosh Note: Patient will complete HEP with appropriate form 100% of the time. Vehicle Washer Goal: to be met by 06/08/21 Goal [...] plan has been documented for the patient 06/10/2025 11:58 AM EST documented as of this encounter Care Teams Supervisor Self Service Store Relationship Specialty Start Date End Date April Piper APRN [address] [place] [address] PCP - General Family Medicine 02/06/23 documented as of this encounter
--- OUTSIDE RECORDS SUMMARY | 2025-07-10 11:55 | XMS_ITS | Encounter Summary ---
Author Organization Healthcare Address [address] [place] [address] Care Team Providers Care Police Radio Dispatcher Name Role Phone April Piper APRN Primary Care Provider [phone] Reason for Referral * Consultation (Routine) - Authorized Specialty Diagnoses / Procedures Referred By Contdeepika t Referred To Contact Pain Medicine Diagnoses Facial pain April Piper APRN [address] [place] [address] Phone: tel: fax: [place] [facility] Room E214 [address] [place] [address] Phone: tel: fax: Referral ID Status Reason Start Date Expiration Date V isits Requested Visits Authorized [id number] Authorized 06/05/2025 12/05/2026 1 1 Encounter Details Date Type Department Care Team (Late st Contact Info) Description 06/05/[address] Primary [facility] [address] [place] [address] FelizMarianaAprilJEANIE [address] [place] [address] Facial pain (Primary Dx) Social History Tobacco Use Types [...] were you homeless or living in a correction (including now)? No 04/22/2025 [facility] Utilities Answer Date Recorded In the [...] Description 07/17/2025 10:30 AM EST Consult [facility] [address] [facility], [address] [place] [address] Gill Maloney MD [address] [place] [address] 08/22/2025 8:00 AM EST Office Visit [place] [facility] [address], 1st [place] [address] Keli Harvey PA [address] [place] [address] 10/01/2025 1:00 PM EST Office Visit [facility] [address] [place] [address] Janice Kramer MD [address] [place] [address] 11/28/2025 7:20 AM EDT Office Visit [facility] Primary [facility] Urgent Care [address] [place] [address] April Piper APRN [address] [place] [address] Scheduled Referrals Name Type Priority Associated Diagnoses Order Schedule Ambulatory Referral to Orofacial Pain Outpatient Referral Routine Facial pain Expected: 06/05/2025, Expires: 12/07/2026 documented as of this encounter Goals Goal [...] minutes without pain 100% of the time. Digital Solution Architect Goal: to be met by 07/10/21. documented as of this encounter Visit Diagnoses Diagnosis Facial pain- Primary Headache documented in this encounter Additional Health Concerns Assessment Noted Time PHQ-9 Depression Total Score: 0 04/22/20 25 11:22 AM EDT A fall risk assessment has been complete d for the patient 04/22/2025 11:23 AM EDT A Body Mass Index follow-up plan has been documented for the patient 05/30/2025 11:11 AM EDT documented as of this encounter Care Teams Police Radio Dispatcher Relationship Specialty Start Date End Date April Piper APRN [address] [place] [address] PCP - General Family Medicine 02/06/23 documented as of this encounter
--- OUTSIDE RECORDS SUMMARY | 2025-07-10 11:55 | XMS_ITS | Encounter Summary ---
Author Organization Healthcare Address [address] [place] [address] Care Team Providers Care Outside Event Sales Specialist Name Role Phone April Piper APRN Primary Care Provider [phone] Encounter Details Date Type Department Care Team (Latest Contact Info) Description 06/09/2025 Travel Social History Tobacco Use Types Packs/Day [...] any time in the past 12 m [facility], were you homeless or living in a nursing home (including now)? No 04/22/2025 [facility] Utilities Answer Date Recorded In the [...] Asthma, Allergy & [facility]us Clinic [address] [facility], [address] [place] [address] Gill Maloney MD [address] [facility] [address] [place] [address] 08/22/2025 8:00 AM EST Office Visit [place] [facility] [address], 1st [place] [address] Keli Harvey PA [address] [place] [address] 10/01/2025 1:00 PM EST Office Visit [facility] [address] [place] [address] Janice Kramer MD [address] [place] [address] 11/28/2025 7:20 AM EDT Office Visit [facility] Primary [facility] Urgent Care [address] [place] [address] April Piper APRN [address] [place] [address] documented as of this encounter Goals Goal Patient Goal Type Associated Problems Recent Progress Patient-Stated? Author HEP Occupational Therapy On track(2020 3:42 PM EDT) No Tanya Ghosh Note: Patient will complete HEP with appropriate form 100% of the time. Custodial Goal: to be met by 06/08/21 Goal on going as exercises continue to be added. Good form with exercises thus far. Leisure Occupational Therapy On track(2020 3:42 PM EDT) No Tanya Ghosh Note: Patient will complete leisure task such as baking or beading x20 minutes without pain 100% of the time. Dancer Or Choreographer Goal: to be met by 07/10/21. documented [...] documented as of this encounter Care Teams Outside Event Sales Specialist Relationship Specialty Start Date End Date April Piper APRN [address] [place] [address] PCP - General Family Medicine 02/06/23 documented as of this encounter
--- OUTSIDE RECORDS SUMMARY | 2025-07-10 11:55 | XMS_ITS | Encounter Summary ---
Author Organization Healthcare Address [address] [place] [address] Care Team Providers Care Therapeutic Dietitian Name Role Phone April Piper APRN Primary Care Provider [phone] Encounter Details Date Type Department Care Team (Latest Contact Info) Description 06/13/2025 Travel Social History Tobacco Use Types Packs/Day [...] any time in the past 12 m [facility], were you homeless or living in a usp (including now)? No 04/22/2025 [facility] Utilities Answer Date Recorded In the past [...] Ast[facility], Allergy & Sinus Clinic [address] [facility], [address] [place] [address] Gill Maloney MD [address] [facility] [address] [place] [address] 08/22/2025 8:00 AM EST Office Visit [place] [facility] [address], 1st [place] [address] Keli Harvey PA [address] [place] [address] 10/01/2025 1:00 PM EST Office Visit [facility] Eye Care [address] [place] [address] Janice Kramer MD [address] [place] [address] 11/28/2025 7:20 AM EDT Office Visit [facility] Primary and Urgent Care [address] [place] [address] April Piper APRN [address] [place] [address] documented as of this encounter [...] minutes without pain 100% of the time. Weed Burner Goal: to be met by 07/10/21. documented [...] documented as of this encounter Care Teams Therapeutic Dietitian Relationship Specialty Start Date End Date April Piper APRN [address] [place] [address] PCP - General Family Medicine 02/06/23 documented as of this encounter
--- OUTSIDE RECORDS SUMMARY | 2025-07-10 11:55 | XMS_ITS | Encounter Summary ---
Author Organization Healthcare Address [address] [place] [address] Care Team Providers Care Telegraph Office Telephone Clerk Name Role Phone April Piper APRN Primary Care Provider Encounter Details Date Type Department Care Team (Latest Contact Info) Description 06/26/2025 Travel Social History Tobacco Use Types Packs/Day [...] any time in the past 12 m [facility], were you homeless or living in a retirement (including now)? No 06/26/2025 [facility] Utilities Answer Date Recorded In the [...] of Assessment Author No Risk Indicated 06/26/2025 11:53 AM Beverly Goncalves * Question Answer Date of Assessment Author 1. Wish to be (Past 1 Month) No 025 11:53 AM EST Beverly Sanford 2. Non-Specific Active Suici rad Thoughts (Past 1 Month) No 06/26/2025 11:53 AM EST Von Sanford 6. Suicidal Behavior (Lifetime) No 11:53 AM EST Beverly Sanford documented as of this encounter Plan of Treatment Upcoming Encounters Date Type Department Care Team ([facility] st Contact Info) Description 07/17/2025 10:30 AM EST Consult [facility] Ast[facility]us Clinic [address] [facility], [address] [place] [address] Gill Maloney MD [address] [facility] [address] [place] [address] 08/22/2025 8:00 AM EST Office Visit [place] [facility] [address], 1st [place] [address] Keli Harvey PA [address] [place] [address] 10/01/2025 1:00 PM EST Office Visit [facility] Advanced Eye Care [address] [place] [address] Janice Kramer MD [address] [place] [address] 11/28/2025 7:20 AM EDT Office Visit [facility] [facility] Primary [facility]gent Care [address] [place] [address] April Piper APRN [address] [place] [phone] documented as of this encounter Goals Goal Patient Goal Type Associated Problems Recent Progress Patient-Stated? Author HEP Occupational Therapy On track(2020 3:42 PM EDT) No Tanya Ghosh Note: Patient will complete HEP with appropriate form 100% of the time. Chief Mechanical Engineer Goal: to be met by 06/08/21 Goal [...] documented as of this encounter Care Teams Telegraph Office Telephone Clerk Relationship Specialty Start Date End Date April Piper APRN [address] [place] [phone] PCP - General Family Medicine 02/06/23 documented as of this encounter
--- OUTSIDE RECORDS SUMMARY | 2025-07-10 11:55 | XMS_ITS | Encounter Summary ---
Author Organization Healthcare Address [address] [place] [address] Care Team Providers Care Manufacturing Supervisor Name Role Phone April Piper APRN Primary Care Provider [phone] Encounter Details Date Type Department Care Team (Late Contact Info) Description 06/23/2025 Telephone [place] [facility] Room E214 [address] [place] [address] Keily Fofana [id number] Social History Tobacco Use Types Packs/Day Years [...] any time in the past 12 m [facility], were you homeless or living in a penitentiary (including now)? No 04/22/2025 [facility] Utilities Answer Date Recorded In the past 12 months has th e [employer], gas, oil, or water [employer] threatened to shut off services in your [...] * Telephone Encounter - Keily Fofana - 06/23/2025 11:18 AM EST Phone call complete documented in this encounter Plan of Treatment Upcoming Encounters Date Type Department Care Team (Late st Contact Info) Description 07/17/2025 10:30 AM EST Consult [facility] All[facility] Clinic [address], [address] [place] [address] Gill Maloney MD [address] [place] [address] 08/22/2025 8:00 AM EST Office Visit [place] [facility] [address] 1[address] [place] [address] Keli Harvey PA [address] [place] [address] 10/01/2025 1:00 PM EST Office Visit [facility] [address] [place] [address] Janice Kramer MD [address] [place] [address] 11/28/2025 7:20 AM EDT Office Visit [facility] Primary [facility] Urgent Care [address] [place] [address] April Piper APRN [address] [place] [address] documented as of this encounter Goals Goal Patient Goal Type Associated Problems Recent Progress Patient-Stated? Author HEP Occupational Therapy On track(2020 3:42 PM EDT) No Tanya Ghosh Note: Patient will complete HEP with appropriate form 100% of the time. Web Feeder Goal: to be met by 06/08/21 Goal on going as exercises continue to be added. Good form with exercises thus far. Leisure Occupational Therapy On track(2020 3:42 PM EDT) No Tanya Ghosh Note: Patient will complete leisure task such as baking or beading x20 minutes without pain 100% of the time. Web Feeder Goal: to be met by 07/10/21. documented as of this encounter Visit Diagnoses Not on filedocumented in this encounter Additional Health Concerns Assessment Noted Time PHQ-9 Depression Total Score: 6 06/10/20 25 11:18 AM EST A fall risk assessment has been complete d for the patient 04/22/2025 11:23 AM EDT A Body Mass Index follow-up plan has been documented for the patient 06/17/2025 10:01 AM EST documented as of this encounter Care Teams Manufacturing Supervisor Relationship Specialty Start Date End Date April Piper APRN [address] [place] [address] PCP - General Family Medicine 02/06/23 documented as of this encounter
--- OUTSIDE RECORDS SUMMARY | 2025-07-10 11:55 | XMS_ITS | Encounter Summary ---
Author Organization Healthcare Address [address] [place] [address] Care Team Providers Care Plumber And Tinner Name Role Phone April Piper APRN Primary Care Provider [phone] Encounter Details Date Type Department Care Team (Late st Contact Info) Description 06/04/[address] Primary [facility] Urgent Care [address] [place] [address] April Piper APRN [address] [place] [address] Arthralgia of right temporomandibular joint (Primary Dx) Social History Tobacco Use Types [...] in a longterm (including now)? No 04/22/2025 [facility] Utilities Answer Date Recorded In the past 12 months has e [employer], gas, oil, or water company threatened to [...] Info) Description 07/17/2025 10:30 AM EST Consult [facility] Asthma, Allergy & [facility]us Clinic [address] [facility], [address] [place] [address] Gill Maloney MD [address] [place] [address] 08/22/2025 8:00 AM EST Office Visit [place] [facility] [address], 1st [place] [address] Keli Harvey PA [address] [place] [address] 10/01/2025 1:00 PM EST Office Visit [facility] Care [address] [place] [address] Janice Kramer MD [address] [place] [address] 11/28/2025 7:20 AM EDT Office Visit [facility] Primary and Urgent Care [address] [place] [address] April Piper APRN [address] [facility] [address] [place] [address] documented as of this encounter Goals Goal Patient Goal Type Associated Problems Recent Progress Patient-Stated? Author HEP Occupational Therapy On track(2020 3:42 PM EDT) No Tanya Ghosh Note: Patient will complete HEP with appropriate form 100% of the time. Industrial Relations Specialist Goal: to be met by 06/08/21 [...] Visit Diagnoses Diagnosis Arthralgia of right temporomandibular joint- Primary documented in this encounter Additional Health Concerns Assessment Noted Time PHQ-9 Depression Total Score: 0 04/22/20 25 11:22 AM EDT A fall risk assessment has been complete d for the patient 04/22/2025 11:23 AM EDT A Body Mass Index follow-up plan has been documented for the patient 05/30/2025 11:11 AM EDT documented as of this encounter Care Teams Plumber And Tinner Relationship Specialty Start Date End Date April Piper APRN [address] [place] [phone] PCP - General Family Medicine 02/06/23 documented as of this encounter
--- OUTSIDE RECORDS SUMMARY | 2025-07-10 11:55 | XMS_ITS | Encounter Summary ---
Author Organization Healthcare Address [address] [place] [address] Care Team Providers Care Ekg Technician Name Role Phone April Piper APRN Primary Care Provider [phone] Reason for Visit * Reason Comments Med Refill Encounter Details Date Type Department Care Team (Late st Contact Info) Description 06/27/2025 Refill [place] [facility] [address], 1st [place] [address] Keli Harvey PA [address] [place] [address] Social History Tobacco Use Types [...] in the past 12 m [facility], were you homeless or living in a group home (including now)? No 06/26/2025 [facility] Utilities Answer Date Recorded In the past [...] Notes * Telephone Encounter - Enma Alvarez, PharmD - 06/27/2025 12:37 PM EST Refill request does not meet protocol. Sending to clinic for review. Additional info: Clarification required: Prescription discontinued on 06/04/25 by PCP and patient was instructed to hold Robaxin as baclofen was prescribed for TMJ. documented in this encounter Plan of Treatment Upcoming Encounters Date Type Department Care Team (Late st Contact Info) Description 07/17/2025 10:30 AM EST Consult [facility] Asthma, Allergy & Sinus Clinic [address] [facility], [address] [place] [address] Gill Maloney MD [address] [place] [address] 08/22/2025 8:00 AM EST Office Visit [place] [facility] [address], 1[address] [place] [address] Keli Harvey, RAINE [id number] [place] [address] 10/01/2025 1:00 PM EST Office Visit [facility] Care [address] [place] [address] Janice Kramer MD [address] [facility] [address] [place] [address] 11/28/2025 7:20 AM EDT Office Visit [facility] Primary and Urgent Care [address] [place] [address] April Piper APRN [address] [place] [address] documented as of this encounter [...] minutes without pain 100% of the time. Clerk Cashier Goal: to be met by 07/10/21. documented [...] documented as of this encounter Care Teams Ekg Technician Relationship Specialty Start Date End Date April Piper APRN [address] [place] [address] PCP - General Family Medicine 02/06/23 documented as of this encounter
--- OUTSIDE RECORDS SUMMARY | 2025-07-10 11:55 | XMS_ITS | Encounter Summary ---
Author Organization Healthcare Address [address] [place] [address] Care Team Providers Care Improvement Intern Name Role Phone April Piper APRN Primary Care Provider [phone] Encounter Details Date Type Department Care Team (Late st Contact Info) Description 06/27/[address] [facility] [facility] [address] [place] [address] April Piper APRN [address] [facility] [address] [place] [address] Thrombocytosis (Primary Dx) Social History Tobacco Use Types [...] any time in the past 12 m [facility], were you homeless or living in a chcf (including now)? No 06/26/2025 [facility] Utilities Answer Date Recorded In the [...] Description 07/17/2025 10:30 AM EST Consult Professional [facility] [address] [facility], [address] [place] [address] Gill Maloney MD [address] [place] [address] 08/22/2025 8:00 AM EST Office Visit [place] [facility] [address], 1st [place] [address] Keli Harvey PA [address] [facility] [address] [place] [address] 10/01/2025 1:00 PM EST Office Visit [facility] [address] [place] [address] Janice Kramer MD [address] [place] [address] 11/28/2025 7:20 AM EDT Office Visit [facility] Care [address] [place] [phone] April Piper APRN 245 [facility] [address] [place] [address] Scheduled Orders Name Type Priority Associated Diagnoses Orde r Schedule CBC and Differential Lab Routine Thrombocytosis Expected: 09/27/2025 (Approximate), Expires: 12/29/2026 Ferritin Lab Routine Thrombocytosis Expected: 09/27/2025 (Approximate), Expires: 12/29/2026 documented as of this encounter Goals Goal Patient Goal Type Associated Problems Recent Progress Patient-Stated? Author HEP Occupational Therapy On track(2020 3:42 PM EDT) No Tanya Ghosh Note: Patient will complete HEP with appropriate form 100% of the time. Strategic Sourcing Consultant Goal: to be met by 06/08/21 Goal on going as exercises continue to be added. Good form with exercises thus far. Leisure Occupational Therapy On track(2020 3:42 PM EDT) No Tanya Ghosh Note: Patient will complete leisure task such as baking or beading x20 minutes without pain 100% of the time. Strategic Sourcing Consultant Goal: to be met by 07/10/21. documented as of this encounter Visit Diagnoses Diagnosis Thrombocytosis- Primary Essential thrombocythemia documented in this encounter Additional Health Concerns Assessment Noted Time PHQ-9 Depression Total Score: 6 06/10/20 25 11:18 AM EST A fall risk assessment has been complete d for the patient 04/22/2025 11:23 AM EDT A Body Mass Index follow-up plan has been documented for the patient 06/26/2025 11:55 AM EST documented as of this encounter Care Teams Improvement Intern Relationship Specialty Start Date End Date April Piper APRN [address] [place] [phone] PCP - General Family Medicine 02/06/23 documented as of this encounter
--- OUTSIDE RECORDS SUMMARY | 2025-07-10 11:55 | XMS_ITS | Encounter Summary ---
Author Organization Healthcare Address [address] [place] [address] Care Team Providers Care Pecan Cleaner Name Role Phone April Piper APRN Primary Care Provider [phone] Encounter Details Date Type Department Care Team (Latest Contact Info) Description 06/28/2025 Travel Social History Tobacco Use Types Packs/Day [...] time in the past 12 m [facility], were you homeless or living in a fci (including now)? No 06/26/2025 [facility] Utilities Answer Date Recorded In the [...] [facility] [address] [facility], [address] [place] [address] Gill Maloney MD [address] [facility] [address] [place] [address] 08/22/2025 8:00 AM EST Office Visit [place] [facility] [address], 1st [place] [address] Keli Harvey PA [address] [place] [address] 10/01/2025 1:00 PM EST Office Visit [facility] [address] [place] [address] Janice Kramer MD [address] [facility] [address] [place] [address] 11/28/2025 7:20 AM EDT Office Visit [facility] [address] [place] [address] April Piper APRN [address] [place] [address] documented as of this encounter Goals Goal Patient Goal Type Associated Problems Recent Progress Patient-Stated? Author HEP Occupational Therapy On track(2020 3:42 PM EDT) No Tanya Gohsh Note: Patient will complete HEP with appropriate form 100% of the time. Usp Goal: to be met by 06/08/21 Goal on going as exercises continue to be added. Good form with exercises thus far. Leisure Occupational Therapy On track(2020 3:42 PM EDT) No Tanya Ghosh Note: Patient will complete leisure task such as baking or beading x20 minutes without pain 100% of the time. Textile Cutting Machine Operator Goal: to be met by [...] documented as of this encounter Care Teams Pecan Cleaner Relationship Specialty Start Date End Date April Piper APRN [address] [place] [address] PCP - General Family Medicine 02/06/23 documented as of this encounter
--- OUTSIDE RECORDS SUMMARY | 2025-07-10 11:55 | XMS_ITS | Encounter Summary ---
Author Organization Healthcare Address [address] [place] [address] Care Team Providers Care Manager Servicing Name Role Phone April Piper APRN Primary Care Provider [phone] Encounter Details Date Type Department Care Team (Late st Contact Info) Description 06/27/2025 Results Follow-Up [facility] [address] [place] [address] April Piper APRN 245 [facility] [address] [place] [address] Social History Tobacco Use Types [...] time in the past 12 m [facility], were you homeless or living in a senior living (including now)? No 06/26/2025 [facility] Utilities Answer Date Recorded In the [...] Ast[facility] [address] [facility], [address] [place] [address] Gill Maloney MD [address] [place] [address] 08/22/2025 8:00 AM EST Office Visit [place] [facility] [address], 1st [place] [address] Keli Harvey PA [address] [place] [address] 10/01/2025 1:00 PM EST Office Visit [facility] [address] [place] [address] Janice Kramer MD [address] [place] [address] 11/28/2025 7:20 AM EDT Office Visit [facility] [address] [place] [address] April Piper APRN 245 [facility] [address] [place] [address] documented as of this encounter Goals Goal Patient Goal Type Associated Problems Recent Progress Patient-Stated? Author HEP Occupational Therapy On track(2020 3:42 PM EDT) No Tanya Ghosh Note: Patient will complete HEP with appropriate form 100% of the time. Senior Living Goal: to be met by 06/08/21 Goal on going as exercises continue to be added. Good form with exercises thus far. Leisure Occupational Therapy On track(2020 3:42 PM EDT) Tanya Bacon Note: Patient will complete leisure task such as baking or beading x20 minutes without pain 100% of the time. Policy Change Clerks Supervisor Goal: to be met by 07/10/21. documented [...] as of this encounter Care Teams Manager Servicing Relationship Specialty Start Date End Date April Piper APRN [address] [place] [phone] PCP - General Family Medicine 02/06/23 documented as of this encounter
--- OUTSIDE RECORDS SUMMARY | 2025-07-10 11:55 | XMS_ITS | Encounter Summary ---
Author Organization Healthcare Address [address] [place] [address] Care Team Providers Care Spool Hauler Name Role Phone April Piper APRN Primary Care Provider [phone] Encounter Details Date Type Department Care Team (Late st Contact Info) Description 06/04/2025 Orders Only [place] [facility] [address], 1st [place] [address] Keli Harvey PA [address] [place] [address] Social History Tobacco Use Types [...] in the past [address] [facility], were you homeless or living in a custodial (including now)? No 04/22/2025 [facility] Utilities Answer Date Recorded In [...] 07/17/2025 10:30 AM EST Consult Professional [facility] [address] [facility], [address] [place] [address] Gill Maloney MD [address] [place] [address] 08/22/2025 8:00 AM EST Office Visit [place] [facility] [address], 1[address] [place] [address] Keli Harvey PA [address] [place] [address] 10/01/2025 1:00 PM EST Office Visit [facility] [address] [place] [address] Janice Kramer MD [address] [place] [address] 11/28/2025 7:20 AM EDT Office Visit [facility] Care [address] [place] [address] April Piper APRN 245 [facility] [address] [place] [phone] documented as of this encounter Goals Goal Patient Goal Type Associated Problems Recent Progress Patient-Stated? Author HEP Occupational Therapy On track(2020 3:42 PM EDT) No Tanya Ghosh Note: Patient will complete HEP with appropriate form 100% of the time. Client Development Manager Goal: to be met by 06/08/21 Goal on going as exercises continue to be added. Good form with exercises thus far. Leisure Occupational Therapy On track(2020 3:42 PM EDT) Tanya Bacon Note: Patient will complete leisure task such as baking or beading x20 minutes without pain 100% of the time. Client Development Manager Goal: to be met by 07/10/21. [...] documented as of this encounter Care Teams Spool Hauler Relationship Specialty Start Date End Date April Piper APRN [address] [place] [phone] PCP - General Family Medicine 02/06/23 documented as of this encounter
--- OUTSIDE RECORDS SUMMARY | 2025-07-10 11:56 | XMS_ITS | Encounter Summary ---
Author Organization Healthcare Address [address] [place] [address] Care Team Providers Care Screen Printing Inspector Name Role Phone April Piper APRN Primary Care Provider [phone] Encounter Details Date Type Department Care Team (Latest Contact Info) Description 05/24/2025 Travel Social History Tobacco Use Types Packs/Day [...] Date Recorded Patient Health Questionnaire-2 Score 0 04/22/2025 PHQ-9 Answer Date Recorded Patient Health Questionnaire-9 [...] any time in the past 12 m [facility], were you homeless or living in a detention (including now)? No 04/22/2025 [facility] Utilities Answer Date Recorded In [...] & Sinus Clinic [address] [facility], [address] [place] [address] Gill Maloney MD [address] [facility] [address] [place] [address] 08/22/2025 8:00 AM EST Office Visit [place] [facility] [address], 1st [place] [address] Keli Harvey PA [address] [place] [address] 10/01/2025 1:00 PM EST Office Visit [facility] [address] [place] [address] Janice Kramer MD [address] [place] [address] 11/28/2025 7:20 AM EDT Office Visit [facility] Care [address] [place] [address] April Piper APRN [address] [place] [address] documented as of this encounter [...] minutes without pain 100% of the time. Mail Processor Goal: to be met by 07/10/21. documented [...] documented as of this encounter Care Teams Screen Printing Inspector Relationship Specialty Start Date End Date April Piper APRN [address] [place] [phone] PCP - General Family Medicine 02/06/23 documented as of this encounter
--- OUTSIDE RECORDS SUMMARY | 2025-07-10 11:56 | XMS_ITS | Encounter Summary ---
Author Organization Healthcare Address [address] [place] [address] Care Team Providers Care Feeder Worker Power Unit Operator Name Role Phone April Piper APRN Primary Care Provider [phone] Reason for Visit * Reason Onset Date Comments HCN Clinical Concern/Question 05/07/2025 Ul trasound order and PA Encounter Details Date Type Department Care Team (Late st Contact Info) Description 05/07/2025 Telephone [facility] Care [address] [place] [address] April Piper APRN 245 [facility] [address] [place] [address] HCN Clinical Concern/Question (Ultrasound order and PA) Social History Tobacco Use Types Packs/Day Years [...] time in the past 12 m [facility], were you homeless or living in a penitentiary (including now)? No 04/22/2025 [facility] Utilities Answer Date Recorded In the [...] Lin APRN documented as of this encounter Miscellaneous Notes * Telephone Encounter - Ibis Mustafa - 05/07/2025 4:06 PM EDT Spoke to patient and she request we fax order for us guided needle biopsy to [facility] where she can be seen sooner than what is scheduled w/ . I advised her to * Telephone Encounter - Rolan Figueroa - 05/07/2025 3:03 PM EDT Patient Phone Message Reason for Call:request order for ultrasound fine needle biopsy be faxed to [facility] at [phone] and include prior authorization. Please call when sent She's able to have done locally Best contact number and optimal time of day to reach caller:[phone] Note: Please do not reply to this message. Follow-up communication and further actions as a result of this message need to be communicated with the patient directly, if the patient is not active onMyChart. If the patient is active on MyChart, they will receive notification of the communication/outcome via [employer]. documented in this encounter Plan of Treatment Upcoming Encounters Date Type Department Care Team (Late st Contact Info) Description 07/17/2025 10:30 AM EST Consult Professional [facility] [address] [facility], [address] [place] [address] Gill Maloney MD [address] [facility] [address] [place] [address] 08/22/2025 8:00 AM EST Office Visit [place] [facility] [address], 1st [place] [address] Keli Harvey PA [address] [place] [address] 10/01/2025 1:00 PM EST Office Visit [facility] [address] [place] [address] Janice Kramer MD [address] [place] [address] 11/28/2025 7:20 AM EDT Office Visit [facility] [address] [place] [address] April Piper APRN 245 [facility] [address] [place] [address] documented as of this encounter Goals Goal Patient Goal Type Associated Problems Recent Progress Patient-Stated? Author HEP Occupational Therapy On track(2020 3:42 PM EDT) No Tanya Ghosh Note: Patient will complete HEP with appropriate form 100% of the time. Lime Hide Inspector Goal: to be met by 06/08/21 [...] documented as of this encounter Care Teams Feeder Worker Power Unit Operator Relationship Specialty Start Date End Date April Piper APRN [address] [place] [phone] PCP - General Family Medicine 02/06/23 documented as of this encounter
--- OUTSIDE RECORDS SUMMARY | 2025-07-10 11:56 | XMS_ITS | Encounter Summary ---
Author Organization Healthcare Address [address] [place] [address] Care Team Providers Care Letter Of Credit Clerk Name Role Phone April Piper APRN Primary Care Provider [phone] Encounter Details Date Type Department Care Team (Latest Contact Info) Description 05/29/2025 Travel Social History Tobacco Use Types Packs/Day [...] any time in the past 12 m [facility], were you homeless or living in a m[facility] (including now)? No 04/22/2025 [facility] Utilities Answer Date Recorded In the [...] Ast[facility] [address] [facility], [address] [place] [address] Gill Maloney MD [address] [facility] [address] [place] [address] 08/22/2025 8:00 AM EST Office Visit [place] [facility] [address], 1st [place] [address] Keli Harvey PA [address] [place] [address] 10/01/2025 1:00 PM EST Office Visit [facility] [address] [place] [address] Janice Kramer MD [address] [place] [address] 11/28/2025 7:20 AM EDT Office Visit [facility] Primary [facility] Care [address] [place] [address] April Piper APRN [address] [place] [address] documented as of this encounter Goals Goal Patient Goal Type Associated Problems Recent Progress Patient-Stated? Author HEP Occupational Therapy On track(2020 3:42 PM EDT) No Tanya Ghosh Note: Patient will complete HEP with appropriate form 100% of the time. Care Home Goal: to be met by 06/08/21 Goal on going as exercises continue to be added. Good form with exercises thus far. Leisure Occupational Therapy On track(2020 3:42 PM EDT) No Tanya Ghosh Note: Patient will complete leisure task such as baking or beading x20 minutes without pain 100% of the time. Site Safety Representative Goal: to be met by 07/10/21. documented [...] documented as of this encounter Care Teams Letter Of Credit Clerk Relationship Specialty Start Date End Date April Piper APRN [address] [place] [phone] PCP - General Family Medicine 02/06/23 documented as of this encounter
--- OUTSIDE RECORDS SUMMARY | 2025-07-10 11:56 | XMS_ITS | Encounter Summary ---
Author Organization Healthcare Address [address] [place] [address] Care Team Providers Care Batch Plant Operator Name Role Phone April Piper APRN Primary Care Provider [phone] Reason for Visit * Reason Onset Date Comments Med Refill 03/07/2025 Encounter Details Date Type Department Care Team (Late st Contact Info) Description 03/07/20[facility] [address] [place] [address] April Piper APRN [address] [facility] [address] [place] [address] Social History Tobacco Use Types [...] time in the past 12 m [facility], were you homeless or living in a chcf (including now)? No 02/10/2025 Utilities Answer Date Recorded In the past 12 months has e Rounds, gas, oil, or water company threatened to [...] AM EST Consult Professional [facility] [address] [facility], [address] [place] [address] Gill Maloney MD [address] [facility] [address] [place] [address] 08/22/2025 8:00 AM EST Office Visit [place] [facility] [address], 1[address] [place] [phone] Keli Harvey PA [address] [place] [address] 10/01/2025 1:00 PM EST Office Visit [facility] [address] [place] [phone] Janice Kramer MD [address] [place] [address] 11/28/2025 7:20 AM EDT Office Visit [facility] Primary [facility] Urgent Care [address] [place] [phone] April Piper APRN [address] [place] [phone] documented as of this encounter Goals Goal Patient Goal Type Associated Problems Recent Progress Patient-Stated? Author HEP Occupational Therapy On track(2020 3:42 PM EDT) No Tanya Ghosh Note: Patient will complete HEP with appropriate form 100% of the time. Alf Goal: to be met by 06/08/21 Goal on going as exercises continue to be added. Good form with exercises thus far. Leisure Occupational Therapy On track(2020 3:42 PM EDT) No Tanya Ghosh Note: Patient will complete leisure task such as baking or beading x20 minutes without pain 100% of the time. Alf Goal: to be met by 07/10/21. documented [...] documented as of this encounter Care Teams Batch Plant Operator Relationship Specialty Start Date End Date April Piper APRN [address] [place] [phone] PCP - General Family Medicine 02/06/23 documented as of this encounter
--- OUTSIDE RECORDS SUMMARY | 2025-07-10 11:56 | XMS_ITS | Encounter Summary ---
Author Organization Healthcare Address [address] [place] [address] Care Team Providers Care Enrollment Representative Name Role Phone April Piper APRN Primary Care Provider Reason for Visit * Reason Onset Date Comments Med Refill 03/14/2024 Encounter Details Date Type Department Care Team (Late st Contact Info) Description 03/14/2024 [facility] [address] [place] [address] Allan Tipton PA [address] [place] [address] Fever, unspecified; COVID; Tachycardia Social [...] Description 07/17/2025 10:30 AM EST Consult Professional [facility] [address] [facility], [address] [place] [address] Gill Maloney MD [address] [place] [address] 08/22/2025 8:00 AM EST Office Visit [place] [facility] [address], 1[address] [place] [address] Keli Harvey PA [address] [place] [address] 10/01/2025 1:00 PM EST Office Visit [facility] [address] [place] [address] Janice Kramer MD [address] [place] [address] 11/28/2025 7:20 AM EDT Office Visit [facility] Primary and Urgent Care [address] [place] [address] April Piper APRN [address] [place] [address] documented as of this encounter [...] minutes without pain 100% of the time. Supervisor Cap And Hat Production Goal: to be met by 07/10/21. documented as of this encounter Visit Diagnoses Diagnosis Fever, unspecified COVID Tachycardia Unspecified tachycardia documented in this encounter Additional Health Concerns Infection Onset Date Last Indicated Resolved Time Meningitis Rule-Out 09/06/2024 09/06/2024 09/06/19 12:35 PM EST COVID-19 Rule-Out 09/28/2024 09/28/2024 [...] documented as of this encounter Care Teams Enrollment Representative Relationship Specialty Start Date End Date April Piper APRN [address] [place] [phone] PCP - General Family Medicine 02/06/23 documented as of this encounter
--- OUTSIDE RECORDS SUMMARY | 2025-07-10 11:56 | XMS_ITS | Encounter Summary ---
Author Organization [facility] Address [address] [place] [address] Care Team Providers Care Celery Tier Name Role Phone April Piper APRN Primary Care Provider [phone] Reason for Visit * Reason Onset Date Comments Med Refill 02/20/2023 Encounter Details Date Type Department Care Team (Late st Contact Info) Description 02/20/2023 Refill [facility] [address] [place] [address] April Piper APRN [address] [facility] [address] [place] [address] Social History Tobacco Use Types [...] Description 07/17/2025 10:30 AM EST Consult [facility] [address], [address] [place] [address] Gill Maloney MD [address] [place] [address] 08/22/2025 8:00 AM EST Office Visit [place] [facility] [address] [place] [address] Keli Harvey PA [address] [place] [address] 10/01/2025 1:00 PM EST Office Visit [facility] [address] [place] [address] Janice Kramer MD [address] [place] [address] 11/28/2025 7:20 AM EDT Office Visit [facility] [address] [place] [address] April Piper APRN [address] [place] [address] documented as of this encounter Goals Goal Patient Goal Type Associated Problems Recent Progress Patient-Stated? Author HEP Occupational Therapy On track(2020 3:42 PM EDT) No Tanya Ghosh Note: Patient will complete HEP with appropriate form 100% of the time. Assisted Goal: to be met by 06/08/21 Goal on going as exercises continue to be added. Good form with exercises thus far. Leisure Occupational Therapy On track(2020 3:42 PM EDT) No Tanya Ghosh Note: Patient will complete leisure task such as baking or beading x20 minutes without pain 100% of the time. Compensation Agent Goal: to be met by 07/10/21. documented [...] documented as of this encounter Care Teams Celery Tier Relationship Specialty Start Date End Date April Piper APRN [address] [place] [phone] PCP - General Family Medicine 02/06/23 documented as of this encounter
--- OUTSIDE RECORDS SUMMARY | 2025-07-10 11:56 | XMS_ITS | Encounter Summary ---
Author Organization [facility] Address [address] [place] [address] Care Team Providers Care Circuit Manager Name Role Phone April Piper APRN Primary Care Provider Reason for Visit * Reason Onset Date Comments [facility] Clinical Concern/Question 05/19/2025 Encounter Details Date Type Department Care Team (Late st Contact Info) Description 05/19/2025 Telephone [facility] [address] [place] [address] April Piper APRN [address] [facility] [address] [place] [address] [facility] Clinical Concern/Question Social History Tobacco Use Types Packs/Day Years [...] in a correction (including now)? No 04/22/2025 [facility] Utilities Answer Date Recorded In the [...] pleasure in doing things Not at all 06/10/2025 11:18 AM Breonna Grande Feeling down, depressed, or hopeless Not at all 06/10/2025 11:18 AM Breonna Grande Patient Health Questionnaire -2 Score 0 06/10/2025 11:18 AM Breonna Grande * Question Answer Date of Assessment Author Trouble falling or staying asleep, or sleeping too much Not at all 06/10/2025 11:18 AM Beverly Grande Feeling tired or having little energy Not at all 06/10/2025 11:18 AM Beverly Grande Poor appetite or overeating Nearly every day 06/10/2025 11:18 AM Beverly Grande Feeling bad about yourself - or that you are a failure or have let yourself or your family down Several days 06/10/2025 11:18 AM Beverly Grande Trouble concentrating on things, such as reading the newspaper or watching television More than half the days 06/10/2025 11:18 AM Beverly Grande Moving or speaking so slowly that other people could have noticed? Or the opposite - being so fidgety or restless that you have been moving around a lot more than usual. Not at all 06/10/2025 11:18 AM Beverly Grande Thoughts that you would be better off or hurting yourself in some way Not at all 06/10/2025 11:18 AM Beverly Grande Patient Health Questionnaire-9 Score 6 06/10/2025 11:18 AM Beverly Grande * Calculated C-SSRS Risk Score (Lifetime/Recent) Answer Date of Assessment Author No Risk Indicated 06/17/2025 9:03 AM EST Beverly Robison * How difficult have these problems made it for you to do your work, take care of things at home, or get along with other people? Answer Date of Assessment Author Not difficult at all 06/10/2025 11:18 AM EST Beverly Fernandez * Question Answer Date of Assessment Author 1. Wish to be (Past 1 Month) No 025 9:03 AM Beverly Grande 2. Non-Specific Active Suici rad Thoughts (Past 1 Month) No 06/17/2025 9:03 AM Brenda Garnde 6. Suicidal Behavior (Lifetime) No 9:03 AM Beverly Grande documented as of this encounter Miscellaneous Notes * Telephone Encounter - Eulalio Pulliam - 05/19/2025 3:02 PM EDT Clinical Concern/Question Reason for Call: Pt returning missed call from clinic. Best contact number: [phone] (mobile) Optimal time of day to reach caller: ANYTIME Additional comments/information from caller: None Note: Please do not reply to this message. Follow-up communication and further actions as a result of this message need to be communicated with the patient directly, if the patient is not active onMyChart. If the patient is active on MyChart, they will receive notification of the communication/outcome via MyChart. documented in this encounter Plan of Treatment Upcoming Encounters Date Type Department Care Team (Late st Contact Info) Description 07/17/2025 10:30 AM EST Consult [facility] [address], [address] [place] [address] Gill Maloney MD [address] [facility] [address] [place] [address] 08/22/2025 8:00 AM EST Office Visit [place] [facility] [address] [place] [address] Keli Harvey PA [address] [place] [address] 10/01/2025 1:00 PM EST Office Visit [facility] [address] [place] [address] Janice Kramer MD [address] [place] [address] 11/28/2025 7:20 AM EDT Office Visit [facility] [address] [place] [address] April Piper APRN [address] [place] [address] documented as of this encounter Goals Goal Patient Goal Type Associated Problems Recent Progress Patient-Stated? Author HEP Occupational Therapy On track(2020 3:42 PM EDT) No Tanya Ghosh Note: Patient will complete HEP with appropriate form 100% of the time. Motion Picture Narrator Goal: to be met by 06/08/21 Goal on going as exercises continue to be added. Good form with exercises thus far. Leisure Occupational Therapy On track(2020 3:42 PM EDT) No Tanya Ghosh Note: Patient will complete leisure task such as baking or beading x20 minutes without pain 100% of the time. Motion Picture Narrator Goal: to be met by 07/10/21. documented [...] documented as of this encounter Care Teams Circuit Manager Relationship Specialty Start Date End Date April Piper APRN [address] [place] [phone] PCP - General Family Medicine 02/06/23 documented as of this encounter
--- OUTSIDE RECORDS SUMMARY | 2025-07-10 11:56 | XMS_ITS | Clinical Summary ---
Author Organization [facility] Address [address] [place] [address] Care Team Providers Care Strategic Planner Name Role Phone Provider, No Known Primary Care Provider [phone] Allergies Active Allergy Reactions Criticality Noted Date [...] for Moderate Pain. 6 tablet 01/21/2025 Active Social History Tobacco Use Types Packs/Day Years [...] 0-49 (1 of 2 - PCV) 10/16/2015 INFLUENZA VACCINE 03/07/2025 07/08/2024, , 05/18/2022, Additional history exists TDAP/TD VACCINES (3 - Td or Tdap) 09/30/2029 020, 03/05/2008 HEPATITIS C SCREENING Completed 02/08/2023 , 02/08/2023, 10/18/2022 CHLAMYDIA SCREENING Discontinued 07/03/2023 Insurance [employer] [id number] [facility] Care Teams Strategic Planner Relationship Specialty Start Date End Date Provider, No Known [facility] [place] [address] PCP - General 04/05/19
--- OUTSIDE RECORDS SUMMARY | 2025-07-10 11:56 | XMS_ITS | Clinical Summary ---
Author Organization Healthcare Address [address] [place] [address] Care Team Providers Care Security And Compliance Analyst Name Role Phone April Piper APRN Primary Care Provider [phone] Allergies Active Allergy Reactions Criticality Noted Date Comments Aripiprazole Rash Medium 08/27/2021 Hydromorphone Unknown - Patient st ates they do not know rxn details Medium 04/12/2019 Iodinated Contrast Media Headache Low 2024 Naltrexone Other - please docum ent in the comment field Low 03/14/2023 Sulfa Drugs Hives,Unknown - Edyta ent states they do not know rxn details Medium 12/03/2012 Medications * This document contains information received from the source organization and may not represent a complete record from that organization. Spacer/Aero-Holding Chambers (Breathe[employer] Spacer Adult) miscIndications:Mil d intermittent asthma without complication Substitute pharmacy supply 1 each 022 Active albuterol (2.5 MG/3ML) 0.083% nebulizer solutionIndications :Moderate persistent asthma with (acute) exacerbation Take 3 mL (2.5 mg) by nebulization 4 (four) times a day if needed for wheezing or shortness of breath. 360 mL 023 Active montelukast (Singulair) 10 MG tabletIndications:M ild persistent asthma without complication Take 1 tablet (10 mg) by mouth every night. 90 tablet 3 025 Active famotidine (Pepcid) 40 MG tabletIndications:G ERD without esophagitis Take 1 tablet (40 mg) by mouth 2 (two) times a day. 180 tablet 3 025 Active galcanezumab-gnlm (Emgality) 120 MG/ML injection Inject 1 Syringe (120 mg) under the skin every 30 (thirty) days. 1 each 025 2025 Active naproxen (Naprosyn) 500 MG tablet Take 1 tablet by mouth in the morning and 1 tablet in the evening. Take with meals. 180 tablet 3 025 Active lisinopril 10 MG tabletIndications:P rimary hypertension Take 1 tablet by mouth daily. 90 tablet 3 025 Active loratadine (Claritin) 10 MG tabletIndications:M ild intermittent reactive airway disease without complication,Mild persistent reactive airway disease without complication Take 1 tablet by mouth daily. 90 tablet 3 025 Active fluticasone (Flonase) 50 MCG/ACT nasal sprayIndications:Mi ld [...] clean tip and replace cap., Reported on 06/26/2025 Dsyhjeox-Loe-Hq-FA (/Iron) tabletIndications:I main deficiency Take 1 tablet by mouth daily. 90 tablet 1 025 Active albuterol 108 (90 Base) MCG/ACT inhalerIndications: Moderate persistent asthma without complication Inhale 2 puffs every 4 hours as needed for wheezing or shortness of breath. 18 g 3 025 Active propranolol (Inderal) 20 MG tablet Take 1 tablet by mouth 3 times a day. For headache prevention 270 tablet 3 025 Active magnesium, as gluconate, (Magonate) 500 (27 Mg) MG tabletIndications:A cute intractable headache, unspecified headache type Take 1 tablet by mouth nightly. 90 tablet 3 025 Active ergocalciferol (Vitamin D-2) 1.25 MG (95293 UT) capsule Take 1 capsule by mouth 1 time per week. 13 capsule 3 025 Active cyanocobalamin (cyancobalamin) 500 MCG tabletIndications:R LS (restless legs syndrome) Take 2 tablets by mouth daily. 60 tablet 11 Active L-Methylfolate 7.5 MG tabletIndications:M THFR mutation Take 1 tablet by mouth daily. 90 tablet 3 025 Active lidocaine (Xylocaine) 2 % solutionIndications :Oral mucosal lesion,Pharyngitis, unspecified etiology Take 5 mL by mouth every 2 hours as needed for mild pain. 120 mL 1 025 Active ondansetron ODT (Zofran-ODT) 8 MG disintegrating tabletIndications:A cute intractable headache, unspecified headache type,Nausea DISSOLVE 1 TABLET IN MOUTH EVERY 8 HOURS NEEDED FOR NAUSEA AND VOMITING 20 tablet 3 025 Active desvenlafaxine (Pristiq) 50 MG 24 hr tabletIndications:M ixed obsessional thoughts and acts,Generalized anxiety disorder,Irritabili ty Take 1 tablet by mouth daily. Do not crush, chew, or split. 90 tablet 025 2025 Active lamoTRIgine (LaMICtal) 200 MG tabletIndications:S evere manic bipolar 1 disorder with psychotic behavior (CMS/HCC) Take 1 tablet by mouth daily AND 0.5 tablets nightly. 135 tablet 025 2025 Active QUEtiapine (SEROquel) 25 MG tabletIndications:S evere manic bipolar 1 disorder with psychotic behavior (CMS/HCC),Insomnia due to other mental disorder Take 1 tablet by mouth at night as needed (insomnia). 90 tablet 025 2025 Active Rexulti 2 MG tablet tabletIndications:S evere manic bipolar 1 disorder with psychotic behavior (CMS/HCC),Mixed obsessional thoughts and acts,Generalized anxiety disorder Take 1 tablet by mouth nightly. 90 tablet 025 2025 Active topiramate (Topamax) 100 MG tablet Take 1 tablet by mouth 2 times a day. For headache prevention 60 tablet 3 Active magnesium gluconate (Magonate) 500 MG tablet Active Ubrelvy 100 MG tablet Active SudoGest 30 MG tablet TAKE 2 TABLETS BY MOUTH EVERY 6 HOURS NEEDED FOR NASAL CONGESTION, BE CAUTIOUS THAT THIS MEDICATION CAN INCREASE YOUR BLOOD PRESSURE, AVOID WITH CONCURRENT USE OF YOUR ADDERALL Active 28-0.8 MG tablet Active Afrin Original 0.05 % nasal spray USE 2 SPRAY(S) IN EACH NOSTRIL TWICE DAILY FOR 3 DAYS Active mupirocin (Bactroban) 2 % ointment Active methocarbamol (Robaxin) 750 MG tablet TAKE 1 TABLET BY MOUTH EVERY NIGHT NEEDED FOR MUSCLE SPASMS (HEADACHES) 30 tablet 1 Active baclofen (Lioresal) 10 MG tabletIndications:A rthralgia of right temporomandibular joint Take 1 tablet by mouth at night as needed for muscle spasms. 30 tablet Active Symbicort 160-4.5 MCG/ACT inhalerIndications: Moderate persistent asthma without complication INHALE 2 PUFFS 2 TIMES A DAY. RINSE MOUTH WITH WATER AFTER USE TO REDUCE AFTERTASTE AND INCIDENCE OF CANDIDIASIS DO NOT SWALLOW 10.2 g Active amphetamine-dextroa mphetamine (Adderall) 20 MG tabletIndications:A ttention deficit hyperactivity disorder (ADHD), unspecified ADHD type Take 1 tablet by mouth 3 times a day as needed (ADHD symptoms.). 90 tablet 025 2025 Active fluticasone (Flovent) 220 MCG/ACT inhalerIndications: Oral mucosal lesion Inhale 2 puffs 2 times a day. Rinse mouth with water after use to reduce aftertaste and incidence of candidiasis. Do not swallow. 12 g 025 2024 Discontinued amphetamine-dextroa mphetamine (Adderall) 20 MG tabletIndications:A ttention deficit hyperactivity disorder (ADHD), unspecified ADHD type Take 1 tablet by mouth 3 times a day as needed (ADHD symptoms.). 90 tablet 025 2024 Discontinued( Reorder) baclofen (Lioresal) 10 MG tabletIndications:A rthralgia of right temporomandibular joint Take 1 tablet by mouth at night as needed for muscle spasms. 30 tablet 025 2024 Discontinued methocarbamol (Robaxin) 750 MG tablet Take 1 tablet by mouth 4 times a day. 2024 Discontinued Active Problems Problem Noted Date [...] (05/12/2023): Added automatically from request for surgery [id number] Severe manic bipolar 1 disorder with psychotic b ehavior 07/23/2021 Kienbock's dislocation, right, subsequent encoun ter 04/08/2021 Osteochondrosis of lunate of right wrist 021 Overview (03/18/2021): Added automatically from request for surgery [id number] Attention deficit hyperactivity disorder 021 Hypertensive disorder [...] (05/12/2023): Added automatically from request for surgery [id number] Right wrist pain 05/01/2018 05/12/2023 Overview (05/12/2023): Added automatically from request for surgery [id number] Added automatically from request for surgery [id number] TFC (triangular fibrocartilage complex) injury 0 11/14/2017 05/12/2023 Overview (05/12/2023): Added automatically from request for surgery [id number] Resolved Problems Problem Noted Date Diagnosed Date [...] organization. Date Type Department Care Team Description 07/10/2025 Travel 06/28/2025 Travel 06/27/[address] [facility] [address] [place] [address] April Piper APRN Thrombocytosis (Primary Dx) 06/27/2025 Results Follow-Up [facility] [address] [place] [phone] April Piper APRN 06/27/2025 Refill [facility] [address] [place] [address] April Piper APRN Arthralgia of right temporomandibular joint; Moderate persistent asthma without complication 06/27/2025 Refill [facility] [address] [place] [address] Keli Harvey PA 06/26/2025 7:20 AM EST Office Visit [facility] [address] [place] [phone] April Piper APRN Pharyngitis, unspecified etiology (Primary Dx); Jaw pain; Mild intermittent reactive airway disease without complication; Iron deficiency; Healthcare maintenance; Health care maintenance; Flu vaccine need 06/26/2025 Travel 06/23/2025 Telephone [facility] [address] [place] [address] Brigido Keily 06/13/2025 Travel 06/11/2025 Telephone [facility] [address] [place] [address] Brigido, Keily 06/09/2025 Travel 06/05/2025 Orders Only [facility] [address] [place] [address] April Piper APRN Facial pain (Primary Dx) 06/04/2025 Orders Only [facility] [address] [place] [address] April Piper APRN Arthralgia of right temporomandibular joint (Primary Dx) 06/04/2025 Orders Only [facility] [address] [place] [address] Keli Harvey PA 06/04/2025 Refill [facility] [address] [place] [address] Keli Harvey PA 06/02/2025 Results Follow-Up [facility] [address] [place] [address] April Piper APRN 05/29/2025 6:53 AM EDT - 05/29/2025 11:59 PM EDT Hospital Encounter [facility] [address] [place] [address] Oral mucosal lesion Discharge Disposition: Home or Self Care 05/29/2025 Travel 05/24/2025 Travel 05/23/2025 Refill [facility] [address] [place] [address] April Piper APRN Acute intractable headache, unspecified headache type; Nausea 05/19/2025 Telephone [facility] [address] [place] [phone] April Piper APRN HCVon Clinical Concern/Question 05/16/2025 Orders Only [facility] [address] [place] [address] April Piper APRN Lesion of tonsil (Primary Dx); Right ear pain 05/08/2025 Telephone [facility] [address] [place] [address] April Piper APRN HCVon Paperwork/Documentation Request 05/07/2025 Telephone [facility] [address] [place] [address] April Piper APRN HCN Clinical Concern/Question (Ultrasound order and PA) 05/02/2025 Results Follow-Up [facility] [address] [place] [address] April Piper APRN 05/01/2025 Orders Only [facility] [address] [place] [address] April Piper APRN Oral mucosal lesion (Primary Dx); Throat mass 04/24/2025 7:35 AM EDT - 04/24/2025 11:59 PM EDT Hospital Encounter [facility] [address] [place] [address] Oral mucosal lesion Discharge Disposition: Home or Self Care 04/24/2025 Travel 04/22/2025 11:20 AM EDT Office Visit [facility] [address] [place] [address] April Piper APRN Oral mucosal lesion (Primary Dx); Pharyngitis, unspecified etiology 04/22/2025 Travel from Last 3 Months Immunizations Immunization Administration Dates Next Due DTaP, Unspecified 02/06/2001, 8,11/21/1997,1997,1996 HPV 9-Valent 11/25/2024,08/09/2024,12/30/2021 Hep A / Hep B 11/25/2024,08/09/2024 Hep A, Unspecified 09/30/2019 Hep B, Adolescent or Pediatric 11/21/1997,1996 HiB, unspecified 05/25/1998, 8,08/15/1997,1996 IPV 02/06/2001,08/15/1997,1996 Influenza, Unspecified 04/24/2020,09/30/2019 Influenza, injectable, quadr ivalent, preservative free 05/15/2023,05/18/2022,07/15/2021,2020 Influenza, seasonal, injecta ble, preservative free 06/26/2025,07/08/2024 MMR 02/06/2001,05/25/1998 OPV 11/21/1997 PPD Skin Test [...] a nursing home (including now)? No 06/26/2025 [facility] Utilities Answer Date Recorded In the [...] F) 06/26/2025 7:27 AM EST Respiratory Rate 14 04/22/2025 11:17 AM EDT Oxygen Saturation 97% 06/26/2025 7:27 AM EST Inhaled Oxygen Concentration - - Weight 112 kg (246 lb 14.6 oz) 06/26/2025 7:27 A M EST Height 172.7 cm (5' 7.99 ) 06/26/2025 7:27 AM ES T Body Mass Index 37.55 06/26/2025 7:27 AM EST Plan of Treatment Upcoming Encounters Date Type Department Care Team (Late st Contact Info) Description 07/17/2025 10:30 AM EST Consult [facility] [address], [address] [place] [address] Gill Maloney MD [address] [place] [address] 08/22/2025 8:00 AM EST Office Visit [facility] [address] [place] [address] Keli Harvey, RAINE [address] [place] [address] 10/01/2025 1:00 PM EST Office Visit [facility] [address] [place] [address] ThandampallaJanice Romo MD [address] [place] [address] 11/28/2025 7:20 AM EDT Office Visit [facility] [address] [place] [address] April Piper APRN [address] [place] [address] Health Maintenance Due Date Last Done Comments [facility]-/Child/Adol SDOH Screenings 1996 [facility]-Pneumococcal Vaccine: Pediatrics (0 to 5 Years) and At-Risk Patients (6 to 49 Years) (1 of 2 - PCV) 10/16/2015 [facility]-Pap Smear 12/30/2024 12/30/2021 IFS-GWCWI-30 Vaccine ( season) 2025 09/03/2021, 08/13/2020, 07/23/2020 [facility]- SDOH Screenings 05/21/2025 [facility]-Adult SDOH Screenings 05/21/2025 11/19/2024 [facility]-Depression Screening 06/10/2026 06/10/2025, 11/2024 [facility]-DTaP,Tdap,and Td Vaccines (8 - Td or Tdap) 09/30/2029 09/30/2019, 03/05/2008, 02/06/2001, Additional history exists [facility]-Zoster Vaccines (1 of 2) 2046 [facility]-HIB Vaccines Completed 05/25/1998, , 08/15/1997, Additional history exists [facility]-IPV Vaccines Completed 02/06/2001, , 08/15/1997, Additional history exists [facility]-HIV Screening Completed 02/08/2023 [facility]-Hepatitis C Screening Completed 2022, 10/18/2022, 12/09/2019 HPV Vaccines Completed 11/25/2024, 10/2024, 12/30/2021 [facility]-Hepatitis A Vaccines Aged Out , 08/09/2024, 09/30/2019 No longer eligible based on patient's age to complete this topic [facility]-Hepatitis B Vaccines Completed , 08/09/2024, 11/21/1997, Additional history exists [facility]-Influenza Vaccine Completed 06/26/2025 , 07/08/2024, 05/15/2023, Additional history exists [facility]-Obesity Intervention Completed , 06/26/2025, 06/26/2025, Additional history exists [facility]-Rotavirus Vaccines Aged Out [...] minutes without pain 100% of the time. Marketing Automation Manager Goal: to be met by 07/10/21. Medical Devices Implanted Type Area Drill Operator Automatic Device Identifier Shelf Expiration Date Model / Serial / Lot Chip [facility] - [id number] - [id number] Implanted:Qty: 1 on 03/24/2021 by Joyce King MD at [facility] Right: Wrist [facility]-[id number] 05/06/2025 PCAN10 / [id number] / [id number] Procedures Procedure Name Priority Date/Time Associated Diagnosis Comments PAIN MANAGEMENT, QUANTITATIVE URINE DRUG TESTING Routine 06/26/2025 11:10 AM EST Attention deficit hyperactivity disorder (ADHD), unspecified ADHD type PAIN MANAGEMENT, QUANTITATIVE URINE DRUG TESTING Routine 06/26/2025 11:10 AM EST Attention deficit hyperactivity disorder (ADHD), unspecified ADHD type MORPHOLOGY Routine 06/26/2025 8:24 AM EST Healthcare maintenance IRON & TOTAL IRON BINDING CAPACITY, PLASMA (INCLUDES TRANSFERRIN) Routine 06/26/2025 8:24 AM EST Health care maintenance CBC WITH AUTO DIFFERENTIAL Routine 06/26/2025 8:24 AM EST Healthcare maintenance US HEAD NECK SOFT TISSUE Routine 05/29/2025 8:27 AM EDT Oral mucosal lesion CT SOFT TISSUE NECK W IV CONTRAST STAT 04/24/2025 7:56 AM EDT Oral mucosal lesion HEPATITIS C ANTIBODY W/REFLEX TO HCV QUANT [...] Recently Relevant to Health Maintenance Results * (ABNORMAL) Pain Management, Quantitative Urine Drug Testing (06/26/2025 11:10 AM EST) [facility] Alprazolam <20 <20 ng/mL 06/29 9:33 PM EST [facility] [place] Midazolam <20 <20 ng/mL 2024 9:33 PM EST [facility] [place] Triazolam <20 <20 ng/mL 2024 9:33 PM EST [facility] Alprazolam <10 <10 ng/mL 06/29/2025 9:33 PM EST [facility] Aminoclonazepam <20 <20 ng/mL 9:33 PM EST [facility] Amphetamine >1,000(H) <50 ng/mL 06/29/2025 9:33 PM EST [facility] Benzoylecgonine <50 <50 ng/mL 9:33 PM EST [facility] Buprenorphine <10 <10 ng/mL 06/29/2025 9:33 PM EST [facility] Buprenorphine Glucuronide <50 <50 ng/mL 06/29/2025 9:33 PM EST [facility] Butalbital <50 <50 ng/mL 06/29/2025 9:33 PM EST [facility] 9 Carboxy THC <10 <10 ng/mL 06/29/2025 9:33 PM EST [facility] 9 Carboxy THC Glucuronide <25 <25 ng/mL 06/29/2025 9:33 PM EST [facility] Clonazepam <10 <10 ng/mL 06/29/2025 9:33 PM EST [facility] Codeine <50 <50 ng/mL 06/29/2025 9:33 PM EST [facility] Codeine Glucuronide <50 <50 ng/mL 06/29 9:33 PM EST [facility] Cyclobenzaprine <50 <50 ng/mL 9:33 PM EST [facility] Desmethyl Tramadol <50 <50 ng/mL 2024 9:33 PM EST [facility] Diazepam <10 <10 ng/mL 06/29/2025 9:33 PM EST [facility] EDDP - Methadone Metabolite <50 <50 ng/mL 06/29/2025 9:33 PM EST [facility] Fentanyl <1 <1 ng/mL 06/29/2025 9:33 PM EST [facility] Hydrocodone <50 <50 ng/mL 06/29/2025 9:33 PM EST [facility] Hydromorphone <50 <50 ng/mL 06/29/2025 9:33 PM EST [facility] Hydromorphone Glucuronide <50 <50 ng/mL 06/29/2025 9:33 PM EST [facility] Lorazepam <20 <20 ng/mL 06/29/2025 9:33 PM EST [facility] Lorazepam Glucuronide <50 <50 ng/mL 06/29/2025 9:33 PM EST [facility] MDA <50 <50 ng/mL 06/29/2025 9:33 PM EST [facility] MDMA <50 <50 ng/mL 06/29/2025 9:33 PM EST [facility] Meperidine <50 <50 ng/mL 06/29/2025 9:33 PM EST [facility] Methadone <50 <50 ng/mL 06/29/2025 9:33 PM EST [facility] Methamphetamine <50 <50 ng/mL 9:33 PM EST [facility] Methylphenidate <50 <50 ng/mL 9:33 PM EST [facility] 6 Monoacetyl morphine <10 <10 ng/mL 06/29/2025 9:33 PM EST [facility] Morphine <50 <50 ng/mL 06/29/2025 9:33 PM EST [facility] Morphine Glucuronide <50 <50 ng/mL 06/08 9:33 PM EST [facility] Naloxone <50 <50 ng/mL 06/29/2025 9:33 PM EST [facility] Naloxone Glucuronide <50 <50 ng/mL 06/08 9:33 PM EST [facility] Norbuprenorphine <10 <10 ng/mL 06/29/20 9:33 PM EST [facility] Norbuprenorphine Glucuronide <50 <50 ng/mL 06/29/2025 9:33 PM EST [facility] Nordiazepam <20 <20 ng/mL 06/29/2025 9:33 PM EST [facility] Norfentanyl <2 <2 ng/mL 06/29/2025 9:33 PM EST [facility] Normeperidine <50 <50 ng/mL 06/29/2025 9:33 PM EST [facility] PCP Quant, Ur <50 <50 ng/mL 06/29/2025 9:33 PM EST [facility] Phenobarbital <50 <50 ng/mL 06/29/2025 9:33 PM EST [facility] Oxazepam <20 <20 ng/mL 06/29/2025 9:33 PM EST [facility] Oxazepam Glucuronide <50 <50 ng/mL 06/08 9:33 PM EST [facility] Oxycodone <50 <50 ng/mL 06/29/2025 9:33 PM EST [facility] Oxymorphone <50 <50 ng/mL 06/29/2025 9:33 PM EST [facility] Oxymorphone Glucuronide <50 <50 ng/mL 06/29/2025 9:33 PM EST [facility] Secobarbital <50 <50 ng/mL 06/29/2025 9:33 PM EST [facility] Tramadol <50 <50 ng/mL 06/29/2025 9:33 PM EST [facility] Temazepam <20 <20 ng/mL 06/29/2025 9:33 PM EST [facility] Temazepam Glucuronide <50 <50 ng/mL 06/29/2025 9:33 PM EST [facility] Urine Urine specimen obtained by clean catch procedure / Unknown Non-blood Collection / Unknown 06/26/2025 11:10 AM EST 06/26/2025 9:15 PM EST Narrative [facility] - 06/29/2025 9:33 PM EST This report is intended for use in [...] laboratory. Test performed by LC-MS/MS at the [facility]. This test was developed and its performance characteristics determined by [facility]. It has not been cleared or approved by the FDA. The laboratory is regulated under CLIA as qualified to perform high-complexity testing. This test is used for clinical purposes. Sunday Lin APRN LAB URINE ORDERABLES Final R esult [facility] [address] [place] [address] * Morphology (06/26/2025 8:24 AM EST) RBC Morphology Slide Reviewed LAB HEMATOLOGY METHOD 06/26/2025 6:19 PM EST [facility] Clumped Platelets Present LAB HEMATOLOGY METHOD 06/26/2025 6:19 PM EST [facility] Blood Venous blood specimen / Unknown Venipuncture / Unknown 06/26/2025 8:24 AM EST 06/26/2025 2:10 PM EST [facility] BLOOD ORDERABLES Final Re sult [facility] [address] [place] [address] * Iron & Total Iron Binding Capacity, Plasma (Includes Transferrin) (06/26/2025 8:24 AM EST) Iron, Plasma 67 30 - 160 ug/dL 06/26/2025 2:40 PM EST [facility] Transferrin, Plasma 304 200 - 360 mg/dL 06/26/2025 2:40 PM EST [facility] Total Iron Binding Capacity, Plasma 380 240 - 450 ug/mL 06/26/2025 2:40 PM EST [facility] Transferrin Saturation 18 14 - 50 % 06/26/2025 2:40 PM EST [facility] Blood Venous blood specimen / Unknown Venipuncture / Unknown 06/26/2025 8:24 AM EST 06/26/2025 2:10 PM EST [facility] Final Re sult [facility] [address] [place] [address] * (ABNORMAL) CBC and Differential (06/26/2025 8:24 AM EST) WBC Count 8.50 3.70 - 10.30 10*3/uL LAB HEMATOLOGY METHOD 06/26/2025 6:19 PM EST [facility] RBC Count 4.40 3.90 - 5.20 10*6/uL LAB HEMATOLOGY METHOD 06/26/2025 6:19 PM [facility] HGB 12.2 11.2 - 15.7 g/dL LAB HEMATOLOGY METHOD 06/26/2025 6:19 PM EST [facility] HCT 38.4 34.0 - 45.0 % LAB HEMATOLOGY METHOD 06/26/2025 6:19 PM [facility] Platelet Count 530(H) 155 - 369 10*3/uL LAB HEMATOLOGY METHOD 06/26/2025 6:19 PM [facility] MCV 87 79 - 98 fL LAB HEMATOLOGY METHOD 06/26/2025 6:19 PM [facility] MCH 27.7 26.0 - 32.0 pg LAB HEMATOLOGY METHOD 06/26/2025 6:19 PM [facility] MCHC 31.8 30.7 - 35.5 g/dL LAB HEMATOLOGY METHOD 06/26/2025 6:19 PM [facility] RDW 14.2 11.5 - 14.5 % LAB HEMATOLOGY METHOD 06/26/2025 6:19 PM [facility] MPV LAB HEMATOLOGY METHOD 06/26/2025 6:19 PM [facility] Comment:Not Measured nRBC 0.0 <=0.0 per 100 WBCs LAB HEMATOLOGY METHOD 06/26/2025 6:19 PM [facility] Differential Type Automated LAB HEMATOLOGY METHOD 06/26/2025 6:19 PM [facility] Neutrophils % 71 % LAB HEMATOLOGY METHOD 06/26/2025 6:19 PM [facility] Lymphocytes % 19 % LAB HEMATOLOGY METHOD 06/26/2025 6:19 PM [facility] Monocytes % 8 % LAB HEMATOLOGY METHOD 06/26/2025 6:19 PM [facility] Eosinophils % 1 % LAB HEMATOLOGY METHOD 06/26/2025 6:19 PM [facility] Basophils % 1 % LAB HEMATOLOGY METHOD 06/26/2025 6:19 PM [facility] Immature Granulocytes % 0 % LAB HEMATOLOGY METHOD 06/26/2025 6:19 PM [facility] Neutrophils Absolute 6.05 1.60 - 6.10 10*3/uL LAB HEMATOLOGY METHOD 06/26/2025 6:19 PM [facility] Lymphocytes Absolute 1.60 1.20 - 3.90 10*3/uL LAB HEMATOLOGY METHOD 06/26/2025 6:19 PM EST [facility] Monocytes Absolute 0.68 0.30 - 0.90 10*3/uL LAB HEMATOLOGY METHOD 06/26/2025 6:19 PM EST [facility] Eosinophils Absolute 0.11 0.00 - 0.50 10*3/uL LAB HEMATOLOGY METHOD 06/26/2025 6:19 PM EST [facility] Basophils Absolute 0.04 0.00 - 0.10 10*3/uL LAB HEMATOLOGY METHOD 06/26/2025 6:19 PM EST [facility] Immature Granulocytes Absolute 0.02 0.00 - 0.06 10*3/uL LAB HEMATOLOGY METHOD 06/26/2025 6:19 PM EST [facility] Blood Venous blood specimen / Unknown Venipuncture / Unknown 06/26/2025 8:24 AM EST 06/26/2025 2:10 PM EST Narrative [facility] - 06/26/2025 6:19 PM EST Therapeutic decision making should be based on absolute values, rather than percentages. us April Hall STRIPPER APPRENTICE LAB BLOOD ORDERABLES Final Re sult [facility] [address] [place] [address] * US Head Neck Soft Tissue (05/29/2025 [...] on 05/30/2025 6:01 PM us April Piper STRIPPER APPRENTICE IMG US PROCEDURES Final Resul t * CT Soft Tissue Neck w IV Contrast (04/24/2025 7:56 AM EDT) Anatomical Region Laterality Modality Neck Computed Tomogra phy Impressions 04/28/2025 4:45 PM EDT Asymmetric prominence of soft tissue in the right tonsillar region on comparison to the left side. Left tonsillar tissue appears somewhat atrophic, nonspecific, but may be correlated with clinical history for possible tonsillectomy. Asymmetric right tonsillar region soft tissue prominence with doubtful mild heterogeneity, also nonspecific and may be artifactual secondary to potential postsurgical changes, although possibility of pathology such as age-indeterminate inflammation, reactive change or other etiology cannot be excluded. No definite fluid density focus or enhancing suspicious mass appreciable in the right tonsillar region. These may be further assessed with ENT correlation and if necessary with MRI study (if not contraindicated)/follow-up CT. Interval mild increase in size of to asymmetric cervical lymph nodes, mostly on the right side, however noted definitely enlarged by size criteria. These are nonspecific but may be further assessed in case of follow-up imaging. CRITICAL RESULT: No. COMMUNICATION: Per this written report. By electronically signing this report, I, the attending physician, attest that I have personally reviewed the images/data for the above examination(s) and agree with the final edited report. Drafted by Hermes Camara M.D. on 04/28/2025 11:02 AM Final report signed by Jairo Uriarte MD on 04/28/2025 4:45 PM Narrative 04/28/2025 4:45 PM EDT CLINICAL INDICATION: tonsillar lesion TECHNIQUE: Helical images were obtained through the neck, and reconstructed in the axial plane on bone and soft tissue algorithm at multiple slice thicknesses. Coronal and sagittal reformatted images were created. 100 mL of Omnipaque 300 were administered intravenously. Total DLP (Dose-Length Product): 551.34 mGy.cm. Please note: The reported value represents the total of one or more individual components during the CT acquisition on this date and at this time, and as such, the same value may appear in more than one CT report depending on the interpreting/reporting physicians. COMPARISON: CTA neck 06/22/2024 FINDINGS: Diagnostic Quality: Somewhat suboptimal due to artifacts from dental amalgam/hardware. Soft Tissues: No masses are present within the soft tissues of the neck. Lymph Nodes: There are a few asymmetric cervical lymph nodes, not enlarged by size criteria, with apparent mild interval increase in size from the prior CTA neck: * 12 x 7.5 mm node (series 2, image 47), increased in size from prior where it measured 10 x 6.5 * 12 x 8 mm node (series 2, image 41), increased in size from prior where it measured 9 x 5.5. * 8mm left level 1A lymph node (series 2, image 40) increased in size from the prior where it measured 7 mm * 8.5 x 6.5 mm right level 3 lymph node (series 2, images 76) increased from prior study in which it measured 6 x 3.5 mm These are nonspecific. Otherwise no definite significant cervical lymphadenopathy by size criteria. Nonenlarged bilateral retropharyngeal lymph nodes are noted measuring 4.5 mm in short axis (series 2, images 57, 59). Pharynx/Larynx: There is asymmetric soft tissue prominence in the right side of the oropharynx the tonsillar region on comparison to the left side (series 2, image 56; series 6, image 17). There is suggestion of subtle heterogeneity in this area on series 2 but not appreciable on series 6, which is nonspecific (series 2, image 56). No definite fluid signal focus within this area. Other than the soft tissue asymmetry no definite convincing masslike lesion is appreciable within the limitations. Small amount of similar tonsillar soft tissue asymmetry was also noted in the prior June 2024 CTA. The left tonsillar tissue appears somewhat atrophic which is nonspecific; can be correlated for possible left tonsillectomy, given the history of tonsillectomy mentioned in clinic notes. Otherwise no definite pharyngeal or laryngeal masses are present. Oral Cavity: No large masses are present within the oral cavity within the limitations of the study. Parapharyngeal Space: No lesions are present within the parapharyngeal space. Salivary Glands: The parotid and submandibular glands are normal in size without definite focal lesions. Thyroid: No focal thyroid lesions are present, within the limitations of the study. Orbits/Paranasal Sinuses/Skull Base/Posterior Fossa: No orbital masses are present within the visualized portions of the orbits. The visualized paranasal sinuses are grossly clear. Within the skull base, there is no focal lesion or destructive process. No significant abnormality in the visualized intracranial portions. Bones/Spine: No bony destructive lesion is present. Thoracic Inlet and Lung Apices: Partially visualized calcific right paratracheal lymph node. No definite suspicious pulmonary lesions in the visualized portions. Other Findings: None. Procedure Note Jairo Uriarte MD - 04/28/2025 CLINICAL INDICATION: tonsillar lesion TECHNIQUE: Helical images were obtained through the neck, and reconstructed in theaxial plane on bone and soft tissue algorithm at multiple slicethicknesses. Coronal and sagittal reformatted images were created. 100 mLof Omnipaque 300 were administered intravenously. Total DLP (Dose-Length Product): 551.34 mGy.cm. Please note: The reportedvalue represents the total of one or more individual components during theCT acquisition on this date and at this time, and as such, the same valuemay appear in more than one CT report depending on theinterpreting/reporting physicians. COMPARISON: CTA neck 06/22/2024 FINDINGS: Diagnostic Quality: Somewhat suboptimal due to artifacts from dentalamalgam/hardware. Soft Tissues: No masses are present within the soft tissues of the neck. Lymph Nodes: There are a few asymmetric cervical lymph nodes, not enlargedby size criteria, with apparent mild interval increase in size from theprior CTA neck: *12 x 7.5 mm node (series 2, image 47), increased in size from priorwhere it measured 10 x 6.5 *12 x 8 mm node (series 2, image 41), increased in size from prior whereit measured 9 x 5.5. *8mm left level 1A lymph node (series 2, image 40) increased in size fromthe prior where it measured 7 mm *8.5 x 6.5 mm right level 3 lymph node (series 2, images 76) increasedfrom prior study in which it measured 6 x 3.5 mm These are nonspecific. Otherwise no definite significant cervical lymphadenopathy by sizecriteria. Nonenlarged bilateral retropharyngeal lymph nodes are notedmeasuring 4.5 mm in short axis (series 2, images 57, 59). Pharynx/Larynx: There is asymmetric soft tissue prominence in the rightside of the oropharynx the tonsillar region on comparison to the left side(series 2, image 56; series 6, image 17). There is suggestion of subtleheterogeneity in this area on series 2 but not appreciable on series 6,which is nonspecific (series 2, image 56). No definite fluid signal focuswithin this area. Other than the soft tissue asymmetry no definiteconvincing masslike lesion is appreciable within the limitations. Smallamount of similar tonsillar soft tissue asymmetry was also noted in theprior June 2024 CTA. The left tonsillar tissue appears somewhatatrophic which is nonspecific; can be correlated for possible lefttonsillectomy, given the history of tonsillectomy mentioned in clinicnotes. Otherwise no definite pharyngeal or laryngeal masses are present. Oral Cavity: No large masses are present within the oral cavity within thelimitations of the study. Parapharyngeal Space: No lesions are present within the parapharyngealspace. Salivary Glands: The parotid and submandibular glands are normal in sizewithout definite focal lesions. Thyroid: No focal thyroid lesions are present, within the limitations ofthe study. Orbits/Paranasal Sinuses/Skull Base/Posterior Fossa: No orbital masses arepresent within the visualized portions of the orbits. The visualizedparanasal sinuses are grossly clear. Within the skull base, there is nofocal lesion or destructive process. No significant abnormality in thevisualized intracranial portions. Bones/Spine: No bony destructive lesion is present. Thoracic Inlet and Lung Apices: Partially visualized calcific rightparatracheal lymph node. No definite suspicious pulmonary lesions in thevisualized portions. Other Findings: None. IMPRESSION: Asymmetric prominence of soft tissue in the right tonsillar region oncomparison to the left side. Left tonsillar tissue appears somewhatatrophic, nonspecific, but may be correlated with clinical history forpossible tonsillectomy. Asymmetric right tonsillar region soft tissueprominence with doubtful mild heterogeneity, also nonspecific and may beartifactual secondary to potential postsurgical changes, althoughpossibility of pathology such as age-indeterminate inflammation, reactivechange or other etiology cannot be excluded. No definite fluid densityfocus or enhancing suspicious mass appreciable in the right tonsillarregion. These may be further assessed with ENT correlation and ifnecessary with MRI study (if not contraindicated)/follow-up CT. Interval mild increase in size of to asymmetric cervical lymph nodes,mostly on the right side, however noted definitely enlarged by sizecriteria. These are nonspecific but may be further assessed in case offollow-up imaging. CRITICAL RESULT: No. COMMUNICATION: Per this written report. By electronically signing this report, I, the attending physician, atthayleythat I have personally reviewed the images/data for the aboveexamination(s) and agree with the final edited report. Drafted by Hermes Camara M.D. on 04/28/2025 11:02 AM Final report signed by Jairo Uriarte MD on 04/28/2025 4:45 PM April Piper APRN IMG CT PROCEDURES Final Resul t * HIV 1 & 2 Antibody/Antigen Screen (02/08/2023 8:37 AM EDT) HIV 1 & 2 Antibody/Antigen Screen Non Reactive Non Reactive 02/08/2023 7:03 PM EDT [facility] Comment:Screening for HIV 1 & 2 antibodies, and P24 antigen is NONREACTIVE. No confirmatory testing is required. Blood Venous blood specimen / Unknown Venipuncture / Unknown 02/08/2023 8:37 AM EDT 02/08/2023 6:32 PM EDT [facility] STRIPPER APPRENTICE LAB BLOOD ORDERABLES Final Re sult Performing Organization Address City/[facility]/ZIP Co de Phone Number [facility] [address] [place] [address] * Hepatitis C Antibody (02/08/2023 8:37 AM EDT) Hepatitis C Antibody Negative Negative 02/08/2023 7:03 PM EDT [facility] Blood Venous blood specimen / Unknown Venipuncture / Unknown 02/08/2023 8:37 AM EDT 02/08/2023 6:32 PM EDT [facility] B[facility] Final Re sult Performing Organization Address [facility] Co de Phone Number HEALTHCARE [facility] [address] [place] [address] * Pap Smear (12/30/2021 1:49 PM EDT) Case Report Cytology Case: [id number] Authorizing Provider: Fallon Buchanan APRN Collected: 12/30/2021 1349 Ordering Location: Medical Office Building Received: 12/30/2021 1608 Obstetrics and Gynecology First Screen: SHAKIRA Zarate Specimen: ThinPrep Pap Test, Liquid-Based Cervical/Vaginal, CERVICAL/VAGINAL 01/07/2022 3:05 PM EDT [facility] Interpretation NEGATIVE FOR INTRAEPITHELIAL LESION OR MALIGNANCY 01/07/2022 3:05 PM EDT [facility] at 1505 EDT Specimen Adequacy Satisfactory for evaluation; endocervical/rod sformation zone component absent/insufficie nt. Slide scanned and imaged by ThinPrep Imaging System with manual review of all selected goodwin. 01/07/2022 3:05 PM EDT [facility] Cervical cytology is a screening [...] results is suggested (please call Microbiology at [phone] for results). 01/07/2022 3:05 PM EDT [facility] Menstrual Status Not Applicable 10/2021 3:05 PM EDT [facility] History of Hysterectomy Not Applicable 01/07/2022 3:05 PM EDT [facility] Contraceptive History Not Applicable 01/07/2022 3:05 PM EDT [facility] Screening Type Routine Screen 2021 3:05 PM EDT [facility] High Risk? No 01/07/2022 3:05 PM EDT [facility] HPV Testing Requested? Request HPV Testing if ASCUS (Women 25 Years or Older) 01/07/2022 3:05 PM EDT [facility] Previous Cancer History No 01/07/2022 3:05 PM EDT [facility] Clinical Information Z01.419 - Well woman exam [ICD-10-CM] 01/07/2022 3:05 PM EDT [facility] Last Menstrual Period 12/08/2021 01/07/2022 3:05 PM EDT [facility] Swab Vaginal and cervical cytologic material / Unknown Non-blood Collection / Unknown 12/30/2021 1:49 PM EDT 12/30/2021 4:08 PM EDT Fallon Buchanan APRN LAB CYTOLOGY ORDERABLES Fi nal Result Performing Organization Address City/State/[facility] Co de Phone Number [facility] [address] [place] [phone] from Last 3 Months or Most Recently Relevant to Health Maintenance Insurance [facility] [id number] [facility] MEDICAID Care Teams Security And Compliance Analyst Relationship Specialty Start Date End Date Mariana PiperriciaJEANIE [address] [place] [phone] PCP - General Family Medicine 02/06/23
--- OUTSIDE RECORDS SUMMARY | 2025-07-10 11:56 | XMS_ITS | Encounter Summary ---
Author Organization Healthcare Address [address] [place] [address] Care Team Providers Care Bin Cleaner Name Role Phone April Piper APRN Primary Care Provider [phone] Reason for Visit * Reason Comments Med Refill Encounter Details Date Type Department Care Team (Late st Contact Info) Description 09/21/2024 Refill [place] [facility] [address], [address] [place] [address] Keli Harvey PA [address] [place] [address] Social History Tobacco Use Types [...] any time in the past 12 m [facility], were you homeless or living in [...] Miscellaneous Notes * Telephone Encounter - Yulisa Palencia, PharmD - 09/23/2024 7:55 PM EST 1 medication(s) has been denied per protocol due to: Refill requested too soon documented in this encounter Plan of Treatment Upcoming Encounters Date Type Department Care Team (Late st Contact Info) Description 07/17/2025 10:30 AM EST Consult [facility] [address], [address] [place] [address] Gill Maloney MD [address] [place] [address] 08/22/2025 8:00 AM EST Office Visit [place] [facility] [address] [place] [address] Keli Harvey PA [address] [place] [address] 10/01/2025 1:00 PM EST Office Visit [facility] [address] [place] [address] Janice Kramer MD [address] [place] [phone] 11/28/2025 7:20 AM EDT Office Visit [facility] [address] [place] [address] April Piper APRN [address] [place] [address] documented as of this encounter [...] minutes without pain 100% of the time. Panel Lay Up Worker Goal: to be met by 07/10/21. documented [...] documented as of this encounter Care Teams Bin Cleaner Relationship Specialty Start Date End Date April Piper APRN [address] [place] [phone] PCP - General Family Medicine 02/06/23 documented as of this encounter
--- OUTSIDE RECORDS SUMMARY | 2025-07-10 11:56 | XMS_ITS | Encounter Summary ---
Author Organization Healthcare Address [address] [place] [address] Care Team Providers Care Ed Manager Name Role Phone April Piper APRN Primary Care Provider [phone] Encounter Details Date Type Department Care Team (Late st Contact Info) Description 06/02/2025 Results Follow-Up [facility] [address] [place] [address] April Piper APRN [address] [facility] [address] [place] [address] Social History Tobacco Use Types [...] in a senior living (including now)? No 04/22/2025 [facility] [...] [facility] [address] [place] [address] Gill Maloney MD [address] [place] [address] 08/22/2025 8:00 AM EST Office Visit [place] [facility] [address] [place] [address] Keli Harvey PA [address] [place] [address] 10/01/2025 1:00 PM EST Office Visit [facility] [address] [place] [address] Janice Kramer MD [address] [place] [address] 11/28/2025 7:20 AM EDT Office Visit [facility] [address] [place] [phone] April Pipre APRN [address] [facility] [address] [place] [phone] documented as of this encounter Goals Goal Patient Goal Type Associated Problems Recent Progress Patient-Stated? Author HEP Occupational Therapy On track(2020 3:42 PM EDT) No Tanya Ghosh Note: Patient will complete HEP with appropriate form 100% of the time. Disassembler Goal: to be met by 06/08/21 Goal on going as exercises continue to be added. Good form with exercises thus far. Leisure Occupational Therapy On track(2020 3:42 PM EDT) Tanya Bacon Note: Patient will complete leisure task such as baking or beading x20 minutes without pain 100% of the time. Retirement Goal: to be met by 07/10/21. documented [...] documented as of this encounter Care Teams Ed Manager Relationship Specialty Start Date End Date April Piper APRN [address] [place] [phone] PCP - General Family Medicine 02/06/23 documented as of this encounter
--- OUTSIDE RECORDS SUMMARY | 2025-07-10 11:56 | XMS_ITS | Encounter Summary ---
Author Organization Healthcare Address [address] [place] [address] Care Team Providers Care Economic Forecaster Name Role Phone April Piper APRN Primary Care Provider [phone] Reason for Visit * Reason Onset Date Comments HCN Paperwork/Documentation Request 05/08/2025 Encounter Details Date Type Department Care Team (Late st Contact Info) Description 05/08/2025 Telephone [facility] [address] [place] [address] April Piper APRN [address] [facility] [address] [place] [address] HCN Paperwork/Documentatio n Request Social History Tobacco Use Types Packs/Day Years [...] living in a fdc (including now)? No 04/22/2025 [facility] Utilities Answer Date Recorded In the [...] encounter Miscellaneous Notes * Telephone Encounter - Dana Aguilar - 05/12/2025 9:09 AM EDT Clinical Concern/Question Reason for Call: Cass is needing the imaging test that were done in the thyroid. If we can power share that is the best option. Please call Cass to discuss. Thank you Best contact number: Other: [phone] Optimal time of day to reach caller: ANYTIME Additional comments/information from caller: None Note: Please do not reply to this message. Follow-up communication and further actions as a result of this message need to be communicated with the patient directly, if the patient is not active onMyChart. If the patient is active on MyChart, they will receive notification of the communication/outcome via [employer]. * Telephone Encounter - Latricia Irvin - 05/08/2025 8:14 AM EDT Clinical Concern/Question Reason for Call: Cass with [facility] calling to see if PCP has authorization for fine needaspiration order they received yesterday. Need that information before they can schedule patient. Please call and ask for Cass. Best contact number: Other: Cass - [facility] - [phone] Optimal time of day to reach caller: [...] Upcoming Encounters Date Type Department Care Team ([facility] st Contact Info) Description 07/17/2025 10:30 AM EST Consult [facility] [address] [facility] [facility] [place] [address] Gill Maloney MD [address] [facility] [address] [place] [address] 08/22/2025 8:00 AM EST Office Visit [place] [facility] [address], [address] [place] [address] Keli Harvey PA [address] [place] [address] 10/01/2025 1:00 PM EST Office Visit [facility] [address] [place] [phone] Janice Kramer MD [address] [place] [address] 11/28/2025 7:20 AM EDT Office Visit [facility] [address] [place] [phone] April Piper APRN [address] [facility] [address] [place] [phone] documented as of this encounter Goals Goal [...] documented as of this encounter Care Teams Economic Forecaster Relationship Specialty Start Date End Date April Piper APRN [address] [place] [phone] PCP - General Family Medicine 02/06/23 documented as of this encounter
--- OUTSIDE RECORDS SUMMARY | 2025-07-10 11:56 | XMS_ITS | Encounter Summary ---
Author Organization Healthcare Address [address] [place] [address] Care Team Providers Care Induction Brazer Name Role Phone April Piper APRN Primary Care Provider [phone] Reason for Visit * Reason Comments Med Refill Encounter Details Date Type Department Care Team (Late st Contact Info) Description 05/23/[address] [facility] [address] [place] [address] April Piper APRN [address] [place] [address] Acute intractable headache, unspecified headache type; Nausea Social History Tobacco Use Types Packs/Day Years [...] any time in the past 12 m [facility], were you homeless or living in a prison (including now)? No 04/22/2025 [facility] Utilities Answer Date Recorded In [...] Description 07/17/2025 10:30 AM EST Consult Professional [facility] [address], [address] [place] [address] Gill Maloney MD [address] [place] [address] 08/22/2025 8:00 AM EST Office Visit [place] [facility] [address] [place] [address] Keli Harvey PA [address] [place] [address] 10/01/2025 1:00 PM EST Office Visit [facility] [address] [place] [address] Janice Kramer MD [address] [place] [address] 11/28/2025 7:20 AM EDT Office Visit [facility] [address] [place] [address] April Piper APRN [address] [facility] [address] [place] [address] documented as [...] as of this encounter Visit Diagnoses Diagnosis Acute intractable headache, unspecified headache type Nausea Nausea alone documented in this encounter Additional Health Concerns Assessment Noted Time PHQ-9 Depression Total Score: 0 04/22/20 25 11:22 AM EDT A fall risk assessment has been complete d for the patient 04/22/2025 11:23 AM EDT A Body Mass Index follow-up plan has been documented for the patient 04/22/2025 12:56 PM EDT documented as of this encounter Care Teams Induction Brazer Relationship Specialty Start Date End Date April Piper APRN [address] [place] [id number] PCP - General Family Medicine 02/06/23 documented as of this encounter
--- OUTSIDE RECORDS SUMMARY | 2025-07-10 11:56 | XMS_ITS | Encounter Summary ---
Author Organization Healthcare Address [address] [place] [address] Care Team Providers Care Engagement Executive Name Role Phone April Piper APRN Primary Care Provider [phone] Reason for Referral * Imaging (Routine) - Authorized Specialty Diagnoses / Procedures Referred By Contac t Referred To Contact Diagnoses Lesion of tonsil Right ear pain Procedures Consult to Interventional Radiology - US Head/Neck FNA April Piper APRN [address] [place] [address] Phone: tel: fax: Referral ID Status Reason Start Date Expiration Date V isits Requested Visits Authorized [id number] Authorized 05/16/2025 11/15/2026 1 1 Encounter Details Date Type Department Care Team (Late st Contact Info) Description 05/16/2025 [facility] [address] [place] [address] April Piper, JEANIE [address] [place] [address] Lesion of tonsil (Primary Dx); Right ear pain Social History Tobacco Use Types Packs/Day Years [...] in a correction (including now)? No 04/22/2025 [facility] Utilities Answer Date Recorded In [...] & Sin[facility] Clinic [address], [address] [place] [address] Gill Maloney MD [address] [place] [address] 08/22/2025 8:00 AM EST Office Visit [place] [facility] [address] [place] [address] Keli Harvey PA [address] [facility] [address] [place] [address] 10/01/2025 1:00 PM EST Office Visit [facility] [address] [place] [address] Janice Kramer MD [address] [place] [address] 11/28/2025 7:20 AM EDT Office Visit [facility] [address] [place] [address] April Piper APRN [address] [place] [address] Scheduled Orders Name Type Priority Associated Diagnoses Orde r Schedule Consult to Interventional Radiology - US Head/Neck FNA Imaging Routine Lesion of tonsil Right ear pain Expected: 05/16/2025 (Approximate), Expires: 11/14/2026 documented as of this encounter Goals Goal [...] minutes without pain 100% of the time. Cloth Bleaching Range Tender Goal: to be met by 07/10/21. documented as of this encounter Visit Diagnoses Diagnosis Lesion of tonsil- Primary Right ear pain Unspecified otalgia documented in this encounter Additional Health Concerns Assessment Noted Time PHQ-9 Depression Total Score: 0 04/22/20 25 11:22 AM EDT A fall risk assessment has been complete d for the patient 04/22/2025 11:23 AM EDT A Body Mass Index follow-up plan has been documented for the patient 04/22/2025 12:56 PM EDT documented as of this encounter Care Teams Engagement Executive Relationship Specialty Start Date End Date April Piper APRN [address] [place] [address] PCP - General Family Medicine 02/06/23 documented as of this encounter
--- OUTSIDE RECORDS SUMMARY | 2025-07-10 11:57 | XMS_ITS | Encounter Summary ---
Author Organization Healthcare Address [address] [place] [address] Care Team Providers Care Roto Rooter Operator Name Role Phone April Piper APRN Primary Care Provider [phone] Reason for Visit * Reason Onset Date Comments Med Refill 05/09/2024 Encounter Details Date Type Department Care Team (Late st Contact Info) Description 05/09/2024 Refill [facility] [address] [place] [address] Allan Tipton PA [address] [place] [address] Fever, unspecified; COVID; Tachycardia Social [...] place to sleep or slept in a [place] (including now)? No 02/08/2024 PHQ-9 Answer Date [...] [place] No 02/08/2024 Utilities Answer Date [...] [facility], [address] [place] [address] Gill Maloney MD [address] [place] [address] 08/22/2025 8:00 AM EST Office Visit [place] [facility] [address] [place] [address] Keli Harvey, RAINE [address] [facility] [address] [place] [address] 10/01/2025 1:00 PM EST Office Visit [facility] [address] [place] [address] Janice Kramer MD [address] [place] [address] 11/28/2025 7:20 AM EDT Office Visit [facility] [address] [place] [address] April Piper APRN [address] [place] [address] documented as of this encounter Goals Goal Patient Goal Type Associated Problems Recent Progress Patient-Stated? Author HEP Occupational Therapy On track(2020 3:42 PM EDT) No Tanya Ghosh Note: Patient will complete HEP with appropriate form 100% of the time. Bull Rider Goal: to be met by 06/08/21 Goal on going as exercises continue to be added. Good form with exercises thus far. Leisure Occupational Therapy On track(2020 3:42 PM EDT) No Tanya Ghosh Note: Patient will complete leisure task such as baking or beading x20 minutes without pain 100% of the time. Bull Rider Goal: to be met by 07/10/21. documented [...] Noted Time PHQ-9 Depression Total Score: 22 08/ 024 9:36 AM EDT A fall risk assessment has been complete d for the patient 01/23/2024 3:06 PM EDT A Body Mass Index follow-up plan has been documented for the patient 04/09/2024 7:45 AM EDT documented as of this encounter Care Teams Roto Rooter Operator Relationship Specialty Start Date End Date April Piper APRN [address] [place] [address] PCP - General Family Medicine 02/06/23 documented as of this encounter
[2025-07-10 12:10] LABS: Hematocrit 40.5 % (37.0-47.0); Hemoglobin 13.0 g/dL (12.2-16.2); Immature Granulocytes % 0.4 %; Mean Corpuscular HGB Conc 32.1 g/dL (31.8-35.4); Mean Corpuscular Hemoglobin 27.6 pg (27.0-31.2); Mean Corpuscular Volume 86.0 fl (81-99); Nucleated Red Blood Cells % 0 %; Platelet Count 517 K/mm3 (142-424); Red Blood Count 4.71 M/mm3 (4.20-5.40); Red Cell Distribution Width-SD 45.1 fL; Urine Pregnancy, HCG Qual. Negative (Negative); White Blood Count 9.4 K/mm3 (4.8-10.8)
[2025-07-10 13:02] LABS: Chloride 106 mmol/L (98-107); Sodium 144 mmol/L (136-145)
[2025-07-10 13:03] LABS: Potassium 4.5 mmoL/L (3.5-5.1)
[2025-07-10 13:05] LABS: Blood Urea Nitrogen 22 mg/dl (7-17); Creatinine,Serum 0.90 mg/dl (0.52-1.04); Estimated Glomerular Filt Rate 75 ml/min (>60); GFR (African American) 90 ML/MIN (>60)
[2025-07-10 13:06] LABS: Anion Gap 21.5 mEq/L (5-15); Calcium 10.2 mg/dl (8.4-10.2); Carbon Dioxide 21 mmol/L (22.0-30.0); Glucose 88 mg/dl (74-100)
== END 2025-07-10 23:59 | disposition home or self-care (01) ==
LOC: LAB 11:33
PROVIDERS: PCP Nurse Practitioner Family; Visit Provider Surgery
DX: L05.91 Pilonidal cyst without abscess (principal)
CPT/HCPCS: 36415; 80048; 81025; 85025

== ENCOUNTER 2025-07-11 10:34 | Day surgery (SDC) | payer OTHER, SELFPAY ==
[2025-07-11] VITALS (10 sets, daily range): BP systolic 118–146; BP diastolic 75–99; PULSE 82–96; RESP 16–18; TEMP 35.5–36.3; O2SAT 92–98; BMI 38.0
[2025-07-11] MEDS: LACTATED RINGERS 1000ML 1,000 ML 25 ML IV (11:08)
--- NOTE | 2025-07-11 11:56 | P.PNANES_ITS ---
[facility] Disclaimer: The information contained in this section may have been updated after the patient was seen, as this information can be updated by other users. Medical History (Updated 07/11/25 @ 10:58 by Mo Reid RN) Asthma HTN (hypertension) TMJ (dislocation of temporomandibular joint) Stiff neck Surgical History (Updated 07/11/25 @ 11:00 by Mo Reid RN) History of gastric surgery History of surgery on wrist History of appendectomy History of tonsillectomy and adenoidectomy Family History (Updated 07/11/25 @ 11:00 by Mo Reid RN) Other Family history of hypertension Social History (Updated 07/11/25 @ 11:01 by Mo Reid RN) Smoking Status: Never smoker alcohol intake: never substance use type: denies use current occupational status: unemployed Travel in the last 8 weeks?: None household members: family housing: house caffeine: Yes Have you lived/traveled outside US in past 30 days?: No Contact w/someone who lives/traveled outside US past 30 days?: No Exposure to someone with infectious disease in past 14 days?: No Do you have a fever (greater than 100.4 F or 38 C)?: No Have you tested positive for COVID-19?: Yes Exposed to someone with COVID-19 in past 14 days?: No Do you have a sore throat?: No Do you have a cough?: No Do you have any weakness?: No Are you experiencing any nausea/vomitting?: No Do you have any diarrhea?: No Are you experiencing any unusual bleeding?: No Do you have any muscle aches/pain?: No Do you have any abdominal pain?: No Are you experiencing loss of taste or smell?: No [facility] Anesthesia Checklist Patient Identification Patient Identification: Arm Band and Verbal (Name & ) Structural Data Admitted From: Home Planned Operative Procedure/s: I&D Pilonidal cyst Verified Documents: Surgical Consent NPO Status Verified Time NPO: 00:00 Chart Verification Results Verified: HCG Additional verifications Patient : No Anesthesia Reactions: Yes (nausea) Hx Blood Transfusions: No Blood Transfusion Reaction: No Airway Assessment Mallampati Score:: Class II C-Spine Mobility Assessed: Yes TMJ Mobility Assessed: Yes Dentition: Good Dentition Neurological Assessment Level of Consciousness: Awake, Alert and Appropriate Hx Seizures: No Numbness or tingling in extremities: No Anesthesia Plan Anesthesia Risk discussed: Yes Anesthesia Plan: Verified ASA Class: II Anesthesia Type: General
[2025-07-11] MEDS: LIDOCAINE 1% 20ML MDV 20 ML (12:00)
--- NOTE | 2025-07-11 12:01 | EXP.OP.NOTE ---
Date of procedure: 07/11/25 Pre-op Diagnosis:: Pilonidal cyst/abscess Post-op Diagnosis:: Inflamed pilonidal cyst Procedure performed:: Incision and drainage debridement of skin and subcutaneous tissue of pilonidal disease Surgeon:: Koffi Andrade MD Anesthesia: GETA Estimated blood loss (mL): 3 Clinical Note:: Patient presents for incision and drainage debridement of pilonidal cyst/abscess. She is a 29-year-old female who presented to the office yesterday for recurrent pilonidal cyst/abscess. She has allergies to Dilaudid, amoxicillin, azithromycin, sulfa. I saw her in the office in early February as she stated that she had had a lump over her tailbone for about a year. She had occasional swelling and tenderness and then it would resolve. There was consideration of referral from her primary care provider to [facility] but this was many months down the road. She had persistent progressive tenderness and redness and actually was seen in the emergency department at [facility] where she had an incision and drainage done. This was in January. Her mother is a nurse and had been packing the area. I followed her in the office for some time and had last seen her in March at which point the area appeared to be healed. It was felt that this may not require any additional surgical intervention and plan was for a couple months follow-up. Patient states that she has had ongoing discomfort when sitting on the area. Over the past week it has become significantly tender. When she was seen in the office there was evidence of some erythema and induration. The area was markedly tender. There was some excoriation of the epidermis. Patient strongly desired proceeding with surgical intervention. Arrangements were made for incision and drainage with debridement. Operative findings:: Inflamed pilonidal tissue without definite abscess. Operative note:: Consent was obtained patient taken the operating room. She was positioned in supine position. General anesthesia was induced. She was repositioned in prone position. The area was prepped and draped in the standard surgical fashion. Skin was marked with a skin marker for excision of previous scar and excoriated epidermis in the mid gluteal cleft. Using electrocautery elliptical incision was made. Dissection was carried down through the skin. There was no evidence of any definite abscess unless it was contained in the subdermal excised tissue. Dissection was carried down to normal subcutaneous tissues. The skin ellipse with pilonidal tissue was sent off as a specimen. There was not a significant amount of debris or granulation tissue in the cavity but curette was used to curette the tissues. Wound was irrigated. Hemostasis was achieved electrocautery. Local anesthetic was infiltrated. Wound was packed with dry gauze and covered with clean dry sterile dressing. Condition: stable Disposition: PACU Complications:: None immediately apparent
--- NOTE | 2025-07-11 12:16 | EXP.ANES.I ---
[facility] Anesthesia Record Part I Anesthesia Record I Intake, IV Amount: 600 Hydration: Adequate Estimated blood loss (mL): 0 Urine output (mL): 0 Blood Products used (#): none Blood Pressure: 124/75 SaO2: 92 Pulse Rate: 96 Airway Patency: Patent Respiratory Rate: 16 Temperature: 97.2 F Patient is:: Drowsy and Stable Stable to PACU at:: 12:14
--- NOTE | 2025-07-11 14:22 | P.PNANES_ITS ---
[facility] Anesthesia Record Part II Anesthesia Record Part II Discharge Time: 13:14 Destination: Surgical Day Care (OP Surgery) PACU nurse assessment reviewed?: Yes Patient Condition:: Good Anesthesia Complications:: None Swallowing reflex intact?: Yes Airway Patency: Patent Cyanosis?: No Blood Pressure: 146/78 SaO2: 97 Respiratory Rate: 18 Pulse Rate: 82 Temperature: 97.2 F Mental Status: Alert & Oriented Pain level:: 0 Nausea and/or vomitting:: None Intake, IV Amount: 0 Hydration: Adequate
== END 2025-07-11 13:14 | disposition home or self-care (01) ==
PROVIDERS: PCP Nurse Practitioner Family; Visit Provider Surgery
PROC: (CPT 11770; principal; 2025-07-11 12:30)
DX: L05.91 Pilonidal cyst without abscess (principal); J45.909 Unspecified asthma, uncomplicated; I10 Essential (primary) hypertension; Z56.0 Unemployment, unspecified; Z88.2 Allergy status to sulfonamides; Z91.041 Radiographic dye allergy status; Z88.8 Allergy status to other drugs, medicaments and biological substances; Z79.899 Other long term (current) drug therapy
CPT/HCPCS: 11770; 96374; J1100; J2003; J2250; J2405; J2704; J2795; J3010; J7120

== ENCOUNTER 2025-07-28 14:08 | Emergency (ER) | payer OTHER, SELFPAY ==
--- OUTSIDE RECORDS SUMMARY | 2025-05-29 05:53 | XMS_ITS | Encounter Summary ---
Author Organization Healthcare Address [address] [place] [address] Care Team Providers Care Vice President Consulting Services Name Role Phone April Piper APRN Primary Care Provider [phone] Reason for Visit * Imaging - Closed Specialty Diagnoses / Procedures Referred By Contdeepika t Referred To Contact Radiology Diagnoses Oral mucosal lesion Procedures US Head Neck Soft Tissue April Piper APRN [address] [place] [address] Phone: tel: fax: Referral ID Status Reason Start Date Expiration Date Visits Re quested Visits Authorized [id number] Closed 05/29/2025 11/28/2026 1 1 Encounter Details Date Type Department Care Team (Latest Contact Info) Description 05/29/2025 6:53 AM EDT - 05/29/2025 11:59 PM EDT Hospital Encounter [facility]iology [address] [place] [address] Oral mucosal lesion Discharge Disposition: Home or [...] any time in the past 12 m [facility], were you homeless or living in a nursing home (including now)? No 04/22/2025 [facility] Utilities Answer Date Recorded In the past 12 months has th e electric, gas, oil, or water [employer] threatened to shut off services in your [...] 11 5 ergocalciferol (Vitamin D-2) 1.25 MG (09453 UT) capsule Take 1 capsule by mouth [...] tablet 3 5 28-0.8 MG tablet 5 Deshyysv-Bws-Ck-FA (/Iron) tabletIndications:I main deficiency Take 1 tablet [...] muscle spasms (headaches). 90 tablet 3 5 06/04/20 25 QUEtiapine (SEROquel) 25 MG tabletIndications:S evere [...] Care Team (Late st Contact Info) Description 08/22/2025 8:00 AM EST Office Visit [place] [facility] [address] [place] [address] Keli Harvey PA [address] [place] [address] 10/01/2025 1:00 PM EST Office Visit [facility] [address] [place] [phone] Janice Kramer MD [address] [place] [address] 11/28/2025 7:20 AM EDT Office Visit [facility] [address] [place] [address] April Piper APRN [address] [place] [phone] documented as of this encounter Goals Goal [...] Rowena Bailey MD on 05/30/2025 6:01 PM us April Piper APRN IMG US PROCEDURES Final Resul t documented in [...] documented as of this encounter Care Teams Vice President Consulting Services Relationship Specialty Start Date End Date April Piper APRN [address] [place] [phone] PCP - General Family Medicine 02/06/23 documented as of this encounter
--- OUTSIDE RECORDS SUMMARY | 2025-06-26 07:20 | XMS_ITS | Encounter Summary ---
Author Organization Healthcare Address [address] [place] [address] Care Team Providers Care Wall Covering Installer Name Role Phone April Piper APRN Primary Care Provider [phone] Reason for Visit * Reason Comments Anemia Follow-up Encounter Details Date Type Department Care Team (Late st Contact Info) Description 06/26/2025 7:20 AM EST Office Visit [facility] [address] [place] [address] April Piper APRN [address] [facility] [address] [place] [address] Pharyngitis, unspecified etiology (Primary Dx); [...] any time in the past 12 m [facility], were you homeless or living in a jail (including now)? No 06/26/2025 [facility] Utilities Answer Date Recorded In [...] 1 Month) No 06/26/2025 7:30 AM EST Kristin Naranjo 6. Suicidal Behavior (Lifetime) No 7:30 [...] vaccine will be administered today; application for financial assistance will be provided. Follow-up: Next [...] Description 08/22/2025 8:00 AM EST Office Visit [facility] [address] [place] [address] Keli Harvey PA [address] [place] [address] 10/01/2025 1:00 PM EST Office Visit [facility] [address] [place] [address] Janice Kramer MD [address] [place] [address] 11/28/2025 7:20 AM EDT Office Visit [facility] [address] [place] [address] April Piper APRN [address] [place] [address] documented as of this encounter Goals Goal Patient Goal Type Associated Problems Recent Progress Patient-Stated? Author HEP Occupational Therapy On track(2020 3:42 PM EDT) No Tanya Ghosh Note: Patient will complete HEP with appropriate form 100% of the time. Sample Mounter Goal: to be met by 06/08/21 Goal on going as exercises continue to be added. Good form with exercises thus far. Leisure Occupational Therapy On track(2020 3:42 PM EDT) No Tanya Ghosh Note: Patient will complete leisure task such as baking or beading x20 minutes without pain 100% of the time. Intermediate Goal: to be met by 07/10/21. documented [...] LAB HEMATOLOGY METHOD 06/26/2025 6:19 PM EST [facility] Clumped Platelets Present LAB HEMATOLOGY METHOD 06/26/2025 6:19 PM EST [facility] Blood Venous blood specimen / Unknown Venipuncture / Unknown 06/26/2025 8:24 AM EST 06/26/2025 2:[address] SHELLFISH MEAT SEPARATOR OPERATOR LAB BLOOD ORDERABLES Final Re sult Performing Organization Address City/[facility]/ZIP Co de Phone Number [facility] [address] [place] [address] * Iron & Total Iron Binding Capacity, Plasma (Includes Transferrin) (06/26/2025 8:24 AM EST) Iron, Plasma 67 30 - 160 ug/dL 06/26/2025 2:40 PM EST [facility] Transferrin, Plasma 304 200 - 360 mg/dL 06/26/2025 2:40 PM EST [facility] Total Iron Binding Capacity, Plasma 380 240 - 450 ug/mL 06/26/2025 2:40 PM EST [facility] Transferrin Saturation 18 14 - 50 % 06/26/2025 2:40 PM EST [facility] Blood Venous blood specimen / Unknown Venipuncture / Unknown 06/26/2025 8:24 AM EST 06/26/2025 2:[address] SHELLFISH MEAT SEPARATOR OPERATOR LAB BLOOD ORDERABLES Final Re sult Performing Organization Address [place]/[facility] Co de Phone Number [facility] [address] [place] [address] * (ABNORMAL) CBC and Differential (06/26/2025 8:24 AM EST) WBC Count 8.50 3.70 - 10.30 10*3/uL LAB HEMATOLOGY METHOD 06/26/2025 6:19 PM EST [facility] RBC Count 4.40 3.90 - 5.20 10*6/uL LAB HEMATOLOGY METHOD 06/26/2025 6:19 PM EST [facility] HGB 12.2 11.2 - 15.7 g/dL LAB HEMATOLOGY METHOD 06/26/2025 6:19 PM EST [facility] HCT 38.4 34.0 - 45.0 % LAB HEMATOLOGY METHOD 06/26/2025 6:19 PM EST [facility] Platelet Count 530(H) 155 - 369 10*3/uL LAB HEMATOLOGY METHOD 06/26/2025 6:19 PM [facility] MCV 87 79 - 98 fL LAB HEMATOLOGY METHOD 06/26/2025 6:19 PM [facility] MCH 27.7 26.0 - 32.0 pg LAB HEMATOLOGY METHOD 06/26/2025 6:19 PM [facility] MCHC 31.8 30.7 - 35.5 g/dL LAB HEMATOLOGY METHOD 06/26/2025 6:19 PM [facility] RDW 14.2 11.5 - 14.5 % LAB HEMATOLOGY METHOD 06/26/2025 6:19 PM [facility] MPV LAB HEMATOLOGY METHOD 06/26/2025 6:19 PM [facility] Comment:Not Measured nRBC 0.0 <=0.0 per 100 WBCs LAB HEMATOLOGY METHOD 06/26/2025 6:19 PM [facility] Differential Type Automated LAB HEMATOLOGY METHOD 06/26/2025 6:19 PM [facility] Neutrophils % 71 % LAB HEMATOLOGY METHOD 06/26/2025 6:19 PM [facility] Lymphocytes % 19 % LAB HEMATOLOGY METHOD 06/26/2025 6:19 PM [facility] Monocytes % 8 % LAB HEMATOLOGY METHOD 06/26/2025 6:19 PM [facility] Eosinophils % 1 % LAB HEMATOLOGY METHOD 06/26/2025 6:19 PM [facility] Basophils % 1 % LAB HEMATOLOGY METHOD 06/26/2025 6:19 PM [facility] Immature Granulocytes % 0 % LAB HEMATOLOGY METHOD 06/26/2025 6:19 PM [facility] Neutrophils Absolute 6.05 1.60 - 6.10 10*3/uL LAB HEMATOLOGY METHOD 06/26/2025 6:19 PM [facility] Lymphocytes Absolute 1.60 1.20 - 3.90 10*3/uL LAB HEMATOLOGY METHOD 06/26/2025 6:19 PM [facility] Monocytes Absolute 0.68 0.30 - 0.90 10*3/uL LAB HEMATOLOGY METHOD 06/26/2025 6:19 PM [facility] Eosinophils Absolute 0.11 0.00 - 0.50 10*3/uL LAB HEMATOLOGY METHOD 06/26/2025 6:19 PM [facility] Basophils Absolute 0.04 0.00 - 0.10 10*3/uL LAB HEMATOLOGY METHOD 06/26/2025 6:19 PM EST [facility] Immature Granulocytes Absolute 0.02 0.00 - 0.06 10*3/uL LAB HEMATOLOGY METHOD 06/26/2025 6:19 PM EST [facility] Blood Venous blood specimen / Unknown Venipuncture / Unknown 06/26/2025 8:24 AM EST 06/26/2025 2:10 PM EST Narrative [facility] - 06/26/2025 6:19 PM EST Therapeutic decision making should be based on absolute values, rather than percentages. April Piper APRN LAB BLOOD ORDERABLES Final Re sult [facility] [address] [place] [address] documented in this encounter Visit Diagnoses Diagnosis Pharyngitis, unspecified etiology- Primary Jaw pain Mild intermittent reactive airway disease without complication Iron deficiency Disorders of iron metabolism Healthcare maintenance Health care maintenance Flu vaccine need documented in this encounter Additional Health Concerns Assessment Noted Time PHQ-9 Depression Total Score: 6 06/10/20 25 11:18 AM EST A fall risk assessment has been complete d for the patient 04/22/2025 11:23 AM EDT A Body Mass Index follow-up plan has been documented for the patient 06/26/2025 11:55 AM EST documented as of this encounter Care Teams Wall Covering Installer Relationship Specialty Start Date End Date April Piper APRN [address] [place] [address] [address] [place] [address] PCP - General Family Medicine 02/06/23 documented as of this encounter
[2025-07-28 14:17] VITALS: BP 127/82; PULSE 93; RESP 16; TEMP 36.6; O2SAT 100; BMI 37.2
--- NOTE | 2025-07-28 14:33 | ED_ITS ---
<Statement entered by Mar Sarabia DO - 07/29/25 00:53> I was consulted by the TAWANA, and we discussed the complexity of problems being addressed. I approve the treatment and management plan for this patient's care in the emergency department, thus performing a substantial portion of the medical decision making. Mar Sarabia DO Discharge Plan Disposition Patient Disposition: Home, Self-Care Condition: Good Prescriptions Prescriptions: New ondansetron 4 mg tablet,disintegrating 4 mg PO Q8H PRN (Reason: nausea and vomiting) Qty: 30 0RF ketorolac 10 mg tablet 10 mg PO Q6H PRN (Reason: pain) Qty: 15 0RF No Action methocarbamol 750 mg tablet 750 mg PO DAILY cyanocobalamin (vitamin B-12) 500 mcg tablet 500 mcg PO DAILY magnesium gluconate 27 mg magnesium (500 mg) tablet 27 mg PO DAILY Ubrelvy 50 mg tablet 50 mg PO DAILY famotidine 40 mg tablet 40 mg PO DAILY propranolol 20 mg tablet 20 mg PO DAILY PNV no.95-ferrous fumarate-FA [] 28 mg iron- 800 mcg tablet 1 tab PO DAILY clindamycin HCl [Cleocin HCl] 300 mg capsule 300 mg PO BID 7 Days Qty: 14 0RF lamotrigine 200 mg tablet 200 mg PO DAILY loratadine 10 mg tablet 10 mg PO DAILY budesonide-formoterol [Symbicort] 160-4.5 mcg/actuation HFA aerosol inhaler 160 inh inhalation DAILY Emgality Pen 120 mg/mL pen injector 120 mg SQ DAILY quetiapine 25 mg tablet 25 mg PO DAILY dextroamphetamine-amphetamine 10 mg tablet 10 mg PO DAILY Patient Comments: TAKE 1 TABLET BY MOUTH TWICE DAILY ondansetron 8 mg tablet,disintegrating 8 mg PO DAILY lisinopril 10 mg tablet 10 mg PO DAILY montelukast 10 mg tablet 10 mg PO DAILY ergocalciferol (vitamin D2) [Vitamin D2] 1,250 mcg (50,000 unit) capsule 1,250 mcg PO DAILY albuterol sulfate [Ventolin HFA] 90 mcg/actuation HFA aerosol inhaler 90 mcg inhalation DAILY naproxen 500 mg tablet 500 mg PO DAILY topiramate [Topamax] 50 mg tablet 50 mg PO BID baclofen 10 mg tablet 10 mg PO DAILY hydrocodone-acetaminophen 5-325 mg Tablet 1 - 2 tab PO Q6H PRN (Reason: Pain) Qty: 21 0RF artificial tears(hypromellose) 0.3 % drops 1 drp ophthalmic (eye) BID PRN (Reason: dry eyes) Qty: 15 0RF Allergy Relief (loratadine) 10 mg capsule 10 mg PO DAILY Qty: 30 0RF Referrals Follow up/Referrals: Lux Quinn II, MD [Staff Physician, Gastroenterology] - See instructions April Piper APRN [Primary Care Provider, Medical] - See instructions Activity Restrictions/Add. Instructions Additional Instructions/Restrictions: You were seen today in the emergency department for right-sided abdominal pain that began last night. A thorough workup, including EKG, chest x-ray, labs, and a gallbladder ultrasound, was performed. You were found to have gallstones with no evidence for infection or inflammation of the gallbladder itself. Given this, you will be discharged home to follow-up with your primary care provider and GI provider. Dr. Lux Quinn is a GI provider we recommend. His information is included in this paperwork. Also included, please find information about abdominal pain and the gallbladder diet to try and prevent further episodes of pain. Please return to the emergency department with any worsening symptoms such as increasing pain with uncontrollable nausea and vomiting, abdominal pain with high fever, or any other emergent medical complaint or concern. Clinical Impressions Clinical Impression: Right upper quadrant abdominal pain Cholelithiasis Qualifiers: Cholelithiasis location: gallbladder Cholecystitis presence: without cholecystitis Biliary obstruction: without biliary obstruction Qualified Code(s): K80.20 - Calculus of gallbladder without cholecystitis without obstruction Instructions Patient Instructions: DI for Gallstones, DI for Acute Abdominal Pain, Gallbladder Diet Print Language Print Language: Guinean Discharge ED Provider: Yoandy Yee General Adult HPI <RAINE Viramontes - Last Filed: 07/28/25 17:31> General Chief complaint: Abdominal Pain Stated complaint: Right side rib/abd pain Time Seen by Provider: 07/28/25 14:33 Mode of Arrival: Ambulatory Source of Information: Patient Description of Symptoms (Recalled from ER Triage Doc. by RN): Patient states that she started having pain in her upper epigastric area about midnight this morning, states she ate some pizza for dinner. States she took a muscle relaxer but it did not help. Patient states pain moved into her right ribs this morning and has not gone away. History of Present Illness HPI narrative: Patient is anxious appearing 29-year-old female who presents to the emergency department with complaints of right chest pain. Patient bega to have pain in the right side of her chest last night at approximately midnight. She states that the pain has been going on all night long into the morning. Patient denies any radiation of pain into arm, shoulders, back, or neck. Patient complains of pain with normal or deep inspiration; states she feels as if she is short of breath when walking and has said that she thought she was going to pass out more than once. Endorses nausea and states that she is homeless, states but denies any active vomiting. Denies fever or diarrhea, denies any new illness or diagnosis, denies other complaints not addressed above. Description of symptoms recorded at patient triage states epigastric pain. Patient explicitly stated right-sided chest pain during his HPI; denied any acute abdominal pain. Related Data Home Medications ?Medication ?Instructions ?Recorded ?Confirmed budesonide-formoterol HFA 160 160 inh inhalation DAILY 02/06/25 07/17/25 mcg-4.5 mcg/actuation aerosol inhaler (Symbicort) galcanezumab-gnlm 120 mg/mL 120 mg SQ DAILY 02/06/2509/17/24 subcutaneous pen injector (Emgality Pen) lamotrigine 200 mg tablet 200 mg PO DAILY 02/06/2507/01 loratadine 10 mg tablet 10 mg PO DAILY 02/06/2507/07 cyanocobalamin (vitamin B-12) 500 500 mcg PO DAILY 07/17/25 mcg tablet magnesium gluconate 27 mg 27 mg PO DAILY 02/27/2507/07 magnesium (500 mg) tablet methocarbamol 750 mg tablet 750 mg PO DAILY 02/27/2509/17/24 ubrogepant 50 mg tablet (Ubrelvy) 50 mg PO DAILY 02/2707/17/25 famotidine 40 mg tablet 40 mg PO DAILY 04/03/2507/07 vit no.95-ferrous 1 tab PO DAILY 04/03/2507/01 fumarate 28 mg-folic acid 800 mcg tablet () propranolol 20 mg tablet 20 mg PO DAILY 04/03/2507/07 albuterol sulfate 90 mcg/actuation 90 mcg inhalation D AILY 04/06/25 07/17/25 aerosol inhaler (Ventolin HFA) dextroamphetamine-amphetamine 10 10 mg PO DAILY 07/17/25 mg tablet ergocalciferol (vitamin D2) 1,250 1,250 mcg PO DAILY 0 04/06/25 07/17/25 mcg (50,000 unit) capsule (Vitamin D2) lisinopril 10 mg tablet 10 mg PO DAILY 04/06/2507/07 montelukast 10 mg tablet 10 mg PO DAILY 04/06/2507/07 naproxen 500 mg tablet 500 mg PO DAILY 04/06/2507/01 ondansetron 8 mg disintegrating 8 mg PO DAILY 04/06/25 07/17/25 tablet quetiapine 25 mg tablet 25 mg PO DAILY 04/06/2507/07 topiramate 50 mg tablet (Topamax) 50 mg PO BID 5 07/17/25 baclofen 10 mg tablet 10 mg PO DAILY 07/11/2507/07 Previous Rx's ?Medication ?Instructions ?Recorded artificial tears(hypromellose) 0.3 1 drp ophthalmic (e ye) BID PRN dry 04/06/25 % eye drops eyes #15 mL loratadine 10 mg capsule (Allergy 10 mg PO DAILY #30 c aps 04/06/25 Relief (loratadine)) clindamycin HCl 300 mg capsule 300 mg PO BID 7 days #1 4 caps 07/10/25 (Cleocin HCl) hydrocodone 5 mg-acetaminophen 325 1 - 2 tab PO Q6H TN N Pain #21 tabs 07/11/25 mg tablet ketorolac 10 mg tablet 10 mg PO Q6H PRN pain #15 ta bs 07/28/25 ondansetron 4 mg disintegrating 4 mg PO Q8H PRN nausea and 07/28/25 tablet vomiting #30 tabs Allergies Allergy/AdvReac Type Severity Reaction Status Date / Time Sulfa (Sulfonamide Allergy Unknown Unknown Verified 07/17/25 09:36 Antibiotics) (SULFA allergy (SULFONAMIDE ANTIBIOTICS)) reaction aripiprazole (From Abilify) AdvReac Fatigued Verified 07/17/25 09:36 Iodinated Contrast Media AdvReac Dizziness Verified 07/17/25 09:36 (Contrast) naltrexone AdvReac Other Verified 07/17/25 09:36 PFSH <RAINE Viramontes - Last Filed: 07/28/25 17:31> [facility] Disclaimer: The information contained in this section may have been updated after the patient was seen, as this information can be updated by other users. Medical History (Updated 07/28/25 @ 17:14 by RAINE Viramontes) Asthma HTN (hypertension) TMJ (dislocation of temporomandibular joint) Stiff neck Surgical History (Updated 07/17/25 @ 09:37 by KUNAL Reyna) History of excision of pilonidal cyst History of gastric surgery History of surgery on wrist History of appendectomy History of tonsillectomy and adenoidectomy Family History Other Family history of hypertension Social History Smoking Status: Never smoker alcohol intake: never substance use type: denies use current occupational status: unemployed Travel in the last 8 weeks?: None household members: family housing: house caffeine: Yes Have you lived/traveled outside [place] in past 30 days?: No Contact w/someone who lives/traveled outside US past 30 days?: No Exposure to someone with infectious disease in past 14 days?: No Do you have a fever (greater than 100.4 F or 38 C)?: No Have you tested positive for COVID-19?: No Exposed to someone with COVID-19 in past 14 days?: No Do you have a sore throat?: No Do you have a cough?: No Do you have any weakness?: No Do you have any diarrhea?: No Are you experiencing any unusual bleeding?: No Do you have any muscle aches/pain?: No Do you have any abdominal pain?: No Are you experiencing loss of taste or smell?: No Other Medical History Have you received the Flu Vaccine for this season: Yes Have you received the Pneumonia Vaccine: No <RAINE Viramontes - Last Filed: 07/28/25 17:31> ROS Obtained: Yes Systems reviewed as appropriate & no additional complaints except as documented Physical Exam <RAINE Viramontes - Last Filed: 07/28/25 17:31> General General appearance: alert and in distress Head Head exam: atraumatic and normocephalic Eye Eye exam: Present normal appearance and PERRL Neck Neck exam: Present normal inspection, full ROM and trachea midline Chest Chest inspection: Present normal inspection, symmetric chest wall rise, tenderness (on right) and other (Pain and upper right epigastric area and right chest is not reproducible upon exam) Respiratory Respiratory exam: Present normal lung sounds bilaterally and other (pain with insp); Absent respiratory distress or wheezes Cardiovascular Cardiovascular exam: Present normal rhythm, tachycardia and normal heart sounds Abdominal Exam Abdominal exam: Present soft, normal bowel sounds and Malik's sign; Absent distention, tenderness or guarding Extremities Exam Extremities exam: Present normal inspection Neurological Exam Neurological exam: Present alert and oriented X3 Psychiatric Psychiatric exam: Present normal affect and normal mood Skin Skin exam: Present warm, dry and normal color Medical Decision Making <RAINE Viramontes - Last Filed: 07/28/25 17:31> Medical Records Screening: Per USPSTF and CDC recommendations, given the prevalence of disease in our region, it is our hospital?s policy to screen for HIV and viral Hepatitis for all patients aged 18 and over and those with ongoing risk factors. Vital Signs: 07/28/25 14:17 07/28/25 17:23 07/28/25 17:52 Temperature 98 F 98 F Temperature Source Oral Oral Pulse Rate 75 70 Pulse Rate [Right Brachial] 93 H Respiratory Rate 16 15 Blood Pressure 106/70 L 117/84 Blood Pressure [Right Arm] 127/82 Blood Pressure Mean [Right Arm] 97 Blood Pressure Source Automatic Cuff Blood Pressure Source [Right Arm] Automatic Cuff Blood Pressure Position Sitting Blood Pressure Position [Right Arm] Sitting 02 Sat by Pulse Oximetry 100 97 Oxygen Delivery Method Room Air Room Air Lab Data Lab results reviewed: Yes I reviewed the patient's lab results. Lab Results 07/28/25 14:15: Urine Color Yellow, Urine Appearance Clear, Urine pH 7.5, Ur Specific [place] 1.020, Urine Protein Negative, Urine Glucose (UA) Negative, Urine Ketones Negative, Urine Blood 2+ A, Urine Nitrate Negative, Urine Bilirubin Negative, Urine Urobilinogen 0.2, Ur Leukocyte Esterase Negative, Urine RBC None, Urine WBC 3-5, Ur Squamous Epith Cells 10-20, Urine Bacteria 1+, Urine HCG, Qual Negative 07/28/25 15:00: WBC 11.7 H, RBC 4.26, Hgb 11.7 L, Hct 36.5 L, MCV 85.7, MCH 27.5, MCHC 32.1, RDW 14.1, Plt Count 531 H, MPV 10.2, Neut % (Auto) 79.1, Lymph % (Auto) 15.3, [place] % (Auto) 3.9, Eos % (Auto) 0.9, Baso % (Auto) 0.5, Neut # (Auto) 9.3 H, Lymph # (Auto) 1.8, [place] # (Auto) 0.5, Eos # (Auto) 0.1, Baso # (Auto) 0.1, D-Dimer 0.51 H, Sodium 139, Potassium 3.8, Chloride 107, Carbon Dioxide 24, Anion Gap 11.8, BUN 16, Creatinine 1.00, Estimated Creat Clear 147, Estimated GFR 66, Est GFR ( Amer) 80, Glucose 93, Calcium 9.7, Phosphorus 3.5, Magnesium 1.7, Total Bilirubin 0.5 07/28/25 15:00: Total Bilirubin 0.3, Direct Bilirubin 0.0, Conjugated Bilirubin 0.0, Indirect Bilirubin 0.3, Unconjugated Bilirubin 0.3, AST 26, ALT 27, Alkaline Phosphatase 88, Troponin I < 0.01, NT-Pro-B Natriuret Pep 350 H, Total Protein 8.4 H, Albumin 4.9, Globulin 3.5 H, Albumin/Globulin Ratio 1.4, Lipase 38, TSH 1.64 07/28/25 15:00 07/28/25 15:00 Orders (Tests/Meds): ED MEDICATIONS Discontinued Medications Generic Name Dose Route Start Last Admin Trade Name Shauna PRN Reason Stop Dose Admin Aspirin 325 mg 07/28/25 14:49 07/28/25 15:07 Aspirin 325mg Tablet PO 07/28/25 14:50 325 mg ONCE ONE Administration Ketorolac Tromethamine 30 mg 07/28/25 16:55 07/28/25 17:04 Ketorolac 30mg/Ml Vial IV 07/28/25 16:56 30 mg ONCE ONE Administration Morphine Sulfate 4 mg 07/28/25 14:42 07/28/25 15:07 Morphine 4mg/Ml Syringe IV 07/28/25 14:43 4 mg ONCE ONE Administration Ondansetron HCl 4 mg 07/28/25 14:42 07/28/25 15:07 Ondansetron 4mg/2ml Vial IV 07/28/25 14:43 4 mg ONCE ONE Administration ORDERS Category Date Time Status CXR --portable [XR chest portable] Stat Exams 07/28/25 14:42 Completed US gallbladder Stat Exams 07/28/25 15:24 Completed BNP [NT Pro Brain Natriuretic Pep.] Stat Lab 07/28/25 15:00 Completed Bilirubin Group (Ind,Dir,Tot) Stat Lab 07/28/25 15:00 Completed CBC w/Auto Diff [Complete Blood Count Auto Diff] Stat Lab 07/28/25 15:00 Completed CMP [Comprehensive Metabolic Panel] Stat Lab 07/28/25 15:00 Completed D-Dimer Stat Lab 07/28/25 15:00 Completed Lipase Stat Lab 07/28/25 15:00 Completed Magnesium Stat Lab 07/28/25 15:00 Completed Phosphorous Stat Lab 07/28/25 15:00 Completed TSH [Thyroid Stimulating Hormone] Stat Lab 07/28/25 15:00 Completed Troponin I Stat Lab 07/28/25 15:00 Completed UA [Urinalysis and Microscopic] Stat Lab 07/28/25 14:15 Completed Urine , HCG Qual. Stat Lab 07/28/25 14:15 Completed Medical Decision Narrative: In summary patient is a 29-year-old female who presents to the emergency department for evaluation of right upper abdominal and right chest pain. Patient is hemodynamically stable upon arrival, afebrile throughout ED course. Physical exam is remarkable for positive Malik's, with tenderness in right anterolateral intercostal area; otherwise physical exam is unremarkable. Differential diagnosis includes PE, ACS, cholecystitis. Initial workup will be conducted with EKG, x-ray, ultrasound, and lab. Initial interventions include pain and nausea control. Initial workup reviewed by me were without signs of ACS or pulmonary embolism. Upon repeat evaluation patient states that her pain was mostly controlled so additional pain management was performed with IV Toradol. After review with ED attending, plan of care is for patient to be discharged home to follow-up with primary care and GI. GI provider information given in discharge instructions. Patient verbalized understanding of and is amenable to this plan of care. Medication for pain control and nausea sent to patient's pharmacy of choice. Repeat exam shows patient is alert and oriented, nontoxic and afebrile, GCS 15; given this, she is stable and appropriate for discharge to home. YEARS Algorithm for PE completed. PE excluded. YEARS rules out PE (0.43% with symptomatic VTE during 3 month follow-up) I informally interpreted the patient's EKG as being sinus rhythm, the patient's chest x-ray is being unremarkable with no concerning findings, and the patient's right upper quadrant ultrasound as cholelithiasis. Yoandy Yee MD: I was consulted by the TAWANA, and we discussed the complexity of the problems being addressed. I approved the treatment and management plan for this patient's care in the emergency department, thus performing a substantive portion of the medical decision making. I agree with initial workup which was pending at time of transition of care to the oncoming physician, Dr. Sarabia. <Yoandy Yee MD - Last Filed: 07/28/25 15:19> [place]ucky Inquiry Pt receiving controlled substance: No Vital Signs: 07/28/25 14:17 07/28/25 17:23 07/28/25 17:52 Temperature 98 F 98 F Temperature Source Oral Oral Pulse Rate 75 70 Pulse Rate [Right Brachial] 93 H Respiratory Rate 16 15 Blood Pressure 106/70 L 117/84 Blood Pressure [Right Arm] 127/82 Blood Pressure Mean [Right Arm] 97 Blood Pressure Source Automatic Cuff Blood Pressure Source [Right Arm] Automatic Cuff Blood Pressure Position Sitting Blood Pressure Position [Right Arm] Sitting 02 Sat by Pulse Oximetry 100 97 Oxygen Delivery Method Room Air Room Air Lab Data Lab Results 07/28/25 14:15: Urine Color Yellow, Urine Appearance Clear, Urine pH 7.5, Ur Specific [place] 1.020, Urine Protein Negative, Urine Glucose (UA) Negative, Urine Ketones Negative, Urine Blood 2+ A, Urine Nitrate Negative, Urine Bilirubin Negative, Urine Urobilinogen 0.2, Ur Leukocyte Esterase Negative, Urine RBC None, Urine WBC 3-5, Ur Squamous Epith Cells 10-20, Urine Bacteria 1+, Urine HCG, Qual Negative 07/28/25 15:00: WBC 11.7 H, RBC 4.26, Hgb 11.7 L, Hct 36.5 L, MCV 85.7, MCH 27.5, MCHC 32.1, RDW 14.1, Plt Count 531 H, MPV 10.2, Neut % (Auto) 79.1, Lymph % (Auto) 15.3, Otoe % (Auto) 3.9, Eos % (Auto) 0.9, Baso % (Auto) 0.5, Neut # (Auto) 9.3 H, Lymph # (Auto) 1.8, Otoe # (Auto) 0.5, Eos # (Auto) 0.1, Baso # (Auto) 0.1, D-Dimer 0.51 H, Sodium 139, Potassium 3.8, Chloride 107, Carbon Dioxide 24, Anion Gap 11.8, BUN 16, Creatinine 1.00, Estimated Creat Clear 147, Estimated GFR 66, Est GFR ( Amer) 80, Glucose 93, Calcium 9.7, Phosphorus 3.5, Magnesium 1.7, Total Bilirubin 0.5 07/28/25 15:00: Total Bilirubin 0.3, Direct Bilirubin 0.0, Conjugated Bilirubin 0.0, Indirect Bilirubin 0.3, Unconjugated Bilirubin 0.3, AST 26, ALT 27, Alkaline Phosphatase 88, Troponin I < 0.01, NT-Pro-B Natriuret Pep 350 H, Total Protein 8.4 H, Albumin 4.9, Globulin 3.5 H, Albumin/Globulin Ratio 1.4, Lipase 38, TSH 1.64 Orders (Tests/Meds): ED MEDICATIONS Discontinued Medications Generic Name Dose Route Start Last Admin Trade Name Shauna PRN Reason Stop Dose Admin Aspirin 325 mg 07/28/25 14:49 07/28/25 15:07 Aspirin 325mg Tablet PO 07/28/25 14:50 325 mg ONCE ONE Administration Ketorolac Tromethamine 30 mg 07/28/25 16:55 07/28/25 17:04 Ketorolac 30mg/Ml Vial IV 07/28/25 16:56 30 mg ONCE ONE Administration Morphine Sulfate 4 mg 07/28/25 14:42 07/28/25 15:07 Morphine 4mg/Ml Syringe IV 07/28/25 14:43 4 mg ONCE ONE Administration Ondansetron HCl 4 mg 07/28/25 14:42 07/28/25 15:07 Ondansetron 4mg/2ml Vial IV 07/28/25 14:43 4 mg ONCE ONE Administration ORDERS Category Date Time Status CXR --portable [XR chest portable] Stat Exams 07/28/25 14:42 Completed US gallbladder Stat Exams 07/28/25 15:24 Completed BNP [NT Pro Brain Natriuretic Pep.] Stat Lab 07/28/25 15:00 Completed Bilirubin Group (Ind,Dir,Tot) Stat Lab 07/28/25 15:00 Completed CBC w/Auto Diff [Complete Blood Count Auto Diff] Stat Lab 07/28/25 15:00 Completed CMP [Comprehensive Metabolic Panel] Stat Lab 07/28/25 15:00 Completed D-Dimer Stat Lab 07/28/25 15:00 Completed Lipase Stat Lab 07/28/25 15:00 Completed Magnesium Stat Lab 07/28/25 15:00 Completed Phosphorous Stat Lab 07/28/25 15:00 Completed TSH [Thyroid Stimulating Hormone] Stat Lab 07/28/25 15:00 Completed Troponin I Stat Lab 07/28/25 15:00 Completed UA [Urinalysis and Microscopic] Stat Lab 07/28/25 14:15 Completed Urine , HCG Qual. Stat Lab 07/28/25 14:15 Completed ECG Data Tracing #1: Independently interpreted by me rate is 85, rhythm is regular, axis is normal, no ST elevation in anatomical contiguous leads, QTc 380 Medical Decision Narrative: Yoandy Yee MD: I was consulted by the TAWANA, and we discussed the complexity of the problems being addressed. I approved the treatment and management plan for this patient's care in the emergency department, thus performing a substantive portion of the medical decision making. I agree with initial workup which was pending at time of transition of care to the oncoming physician, Dr. Sarabia. <Mar Sarabia, DO - Last Filed: 07/29/25 00:53> Vital Signs: 07/28/25 14:17 07/28/25 17:23 07/28/25 17:52 Temperature 98 F 98 F Temperature Source Oral Oral Pulse Rate 75 70 Pulse Rate [Right Brachial] 93 H Respiratory Rate 16 15 Blood Pressure 106/70 L 117/84 Blood Pressure [Right Arm] 127/82 Blood Pressure Mean [Right Arm] 97 Blood Pressure Source Automatic Cuff Blood Pressure Source [Right Arm] Automatic Cuff Blood Pressure Position Sitting Blood Pressure Position [Right Arm] Sitting 02 Sat by Pulse Oximetry 100 97 Oxygen Delivery Method Room Air Room Air Lab Data Lab Results 07/28/25 14:15: Urine Color Yellow, Urine Appearance Clear, Urine pH 7.5, Ur Specific [place] 1.020, Urine Protein Negative, Urine Glucose (UA) Negative, Urine Ketones Negative, Urine Blood 2+ A, Urine Nitrate Negative, Urine Bilirubin Negative, Urine Urobilinogen 0.2, Ur Leukocyte Esterase Negative, Urine RBC None, Urine WBC 3-5, Ur Squamous Epith Cells 10-20, Urine Bacteria 1+, Urine HCG, Qual Negative 07/28/25 15:00: WBC 11.7 H, RBC 4.26, Hgb 11.7 L, Hct 36.5 L, MCV 85.7, MCH 27.5, MCHC 32.1, RDW 14.1, Plt Count 531 H, MPV 10.2, Neut % (Auto) 79.1, Lymph % (Auto) 15.3, [place] % (Auto) 3.9, Eos % (Auto) 0.9, Baso % (Auto) 0.5, Neut # (Auto) 9.3 H, Lymph # (Auto) 1.8, [place] # (Auto) 0.5, Eos # (Auto) 0.1, Baso # (Auto) 0.1, D-Dimer 0.51 H, Sodium 139, Potassium 3.8, Chloride 107, Carbon Dioxide 24, Anion Gap 11.8, BUN 16, Creatinine 1.00, Estimated Creat Clear 147, Estimated GFR 66, Est GFR ( Amer) 80, Glucose 93, Calcium 9.7, Phosphorus 3.5, Magnesium 1.7, Total Bilirubin 0.5 07/28/25 15:00: Total Bilirubin 0.3, Direct Bilirubin 0.0, Conjugated Bilirubin 0.0, Indirect Bilirubin 0.3, Unconjugated Bilirubin 0.3, AST 26, ALT 27, Alkaline Phosphatase 88, Troponin I < 0.01, NT-Pro-B Natriuret Pep 350 H, Total Protein 8.4 H, Albumin 4.9, Globulin 3.5 H, Albumin/Globulin Ratio 1.4, Lipase 38, TSH 1.64 Orders (Tests/Meds): ED MEDICATIONS Discontinued Medications Generic Name Dose Route Start Last Admin Trade Name Freq PRN Reason Stop Dose Admin Aspirin 325 mg 07/28/25 14:49 07/28/25 15:07 Aspirin 325mg Tablet PO 07/28/25 14:50 325 mg ONCE ONE Administration Ketorolac Tromethamine 30 mg 07/28/25 16:55 07/28/25 17:04 Ketorolac 30mg/Ml Vial IV 07/28/25 16:56 30 mg ONCE ONE Administration Morphine Sulfate 4 mg 07/28/25 14:42 07/28/25 15:07 Morphine 4mg/Ml Syringe IV 07/28/25 14:43 4 mg ONCE ONE Administration Ondansetron HCl 4 mg 07/28/25 14:42 07/28/25 15:07 Ondansetron 4mg/2ml Vial IV 07/28/25 14:43 4 mg ONCE ONE Administration ORDERS Category Date Time Status CXR --portable [XR chest portable] Stat Exams 07/28/25 14:42 Completed US gallbladder Stat Exams 07/28/25 15:24 Completed BNP [NT Pro Brain Natriuretic Pep.] Stat Lab 07/28/25 15:00 Completed Bilirubin Group (Ind,Dir,Tot) Stat Lab 07/28/25 15:00 Completed CBC w/Auto Diff [Complete Blood Count Auto Diff] Stat Lab 07/28/25 15:00 Completed CMP [Comprehensive Metabolic Panel] Stat Lab 07/28/25 15:00 Completed D-Dimer Stat Lab 07/28/25 15:00 Completed Lipase Stat Lab 07/28/25 15:00 Completed Magnesium Stat Lab 07/28/25 15:00 Completed Phosphorous Stat Lab 07/28/25 15:00 Completed TSH [Thyroid Stimulating Hormone] Stat Lab 07/28/25 15:00 Completed Troponin I Stat Lab 07/28/25 15:00 Completed UA [Urinalysis and Microscopic] Stat Lab 07/28/25 14:15 Completed Urine , HCG Qual. Stat Lab 07/28/25 14:15 Completed Medical Decision Narrative: In summary patient is a 29-year-old female who presents to the emergency department for evaluation of right upper abdominal and right chest pain. Patient is hemodynamically stable upon arrival, afebrile throughout ED course. Physical exam is remarkable for positive Malik's, with tenderness in right anterolateral intercostal area; otherwise physical exam is unremarkable. Differential diagnosis includes PE, ACS, cholecystitis. Initial workup will be conducted with EKG, x-ray, ultrasound, and lab. Initial interventions include pain and nausea control. Initial workup reviewed by me were without signs of ACS or pulmonary embolism. Upon repeat evaluation patient states that her pain was mostly controlled so additional pain management was performed with IV Toradol. Patient's chest x-ray was reviewed and interpreted by myself and showed no acute for consolidation, pneumothorax, pleural effusion or other acute cardiopulmonary process. Patient's ultrasound showed cholelithiasis without evidence of cholecystitis. After review with ED attending, plan of care is for patient to be discharged home to follow-up with primary care and GI. GI provider information given in discharge instructions. Patient verbalized understanding of and is amenable to this plan of care. Medication for pain control and nausea sent to patient's pharmacy of choice. Repeat exam shows patient is alert and oriented, nontoxic and afebrile, GCS 15; given this, she is stable and appropriate for discharge to home. YEARS Algorithm for PE completed. PE excluded. YEARS rules out PE (0.43% with symptomatic VTE during 3 month follow-up) I informally interpreted the patient's EKG as being sinus rhythm, the patient's chest x-ray is being unremarkable with no concerning findings, and the patient's right upper quadrant ultrasound as cholelithiasis. Yoandy Yee MD: I was consulted by the TAWANA, and we discussed the complexity of the problems being addressed. I approved the treatment and management plan for this patient's care in the emergency department, thus performing a substantive portion of the medical decision making. I agree with initial workup which was pending at time of transition of care to the oncoming physician, Dr. Sarabia. Mar Sarabia, DO I assumed care of the patient at 1500. I agree with the above. Patient's workup was largely unremarkable. Patient's ultrasound showed cholelithiasis without evidence of cholecystitis. Patient had a normal lipase normal left LFTs. This is patient's first episode of pain. Therefore at this time I recommended that patient follow-up with general surgery. Patient was sent with a referral. Patient was advised to keep a journal of when her symptoms occurred and to avoid fatty foods. Patient was otherwise discharged home in stable condition. Critical Care <RAINE Viramontes - Last Filed: 07/28/25 17:31> Critical Care Time Critical Care Time: No
--- NOTE | 2025-07-28 14:34 | ECG_ITS ---
APPROVED REPORT Exam: Resting ECG HR:85 bpm ECG Measurements Heart Rate 85 AXES TX 147 P 25 QRSd 85 QRS 26 QT 346 T 15 QTc [address] DEVIATION AND MODERATE T-WAVE ABNORMALITY, CONSIDER ANTERIOR ISCHEMIA [-0.1+ mV T-WAVE IN V3/V4] ABNORMAL ECG Electronically signed by : SHANIKA GONZALEZ, 07/31/2025 07:13:14
--- NOTE | 2025-07-28 14:42 | XR_ITS ---
PROCEDURE INFORMATION: Exam: XR Chest Exam date and time: 07/28/2025 4:10 PM Age: 29 years old Clinical indication: Shortness of breath and other: Congestion; Additional info: Chest congestion TECHNIQUE: Imaging protocol: Radiologic exam of the chest. Views: 1 view. COMPARISON: CT SOFT TISSUE NECK W IV CONTRAST 04/24/2025 7:59 AM FINDINGS: Lungs: Low lung volumes with bronchovascular crowding. No focal consolidation. Pleural spaces: No pneumothorax or pleural effusion. Heart/Mediastinum: Calcified right mid paratracheal station and right hilar lymph nodes noted. Apparent cardiomegaly, accentuated by low volumes. Bones/joints: No acute osseous or soft tissue abnormality. IMPRESSION: 1. Low lung volumes with bronchovascular crowding. 2. Apparent cardiomegaly.
--- OUTSIDE RECORDS SUMMARY | 2025-07-28 14:43 | XMS_ITS | Encounter Summary ---
Author Organization Healthcare Address [address] [place] [address] Care Team Providers Care Tile Burner Name Role Phone April Piper APRN Primary Care Provider [phone] Reason for Visit * Reason Comments Med Refill Encounter Details Date Type Department Care Team (Late st Contact Info) Description 06/27/2025 Refill [place] [facility] [address] [place] [address] April Piper APRN [address] [place] [address] Arthralgia of right temporomandibular joint; [...] time in the past 12 m [facility], were you homeless or living in a nursing home (including now)? No 06/26/2025 [facility] Utilities Answer Date Recorded In [...] Visit [place] [facility] [address], [address] [place] [address] Keli Harvey PA [address] [place] [address] 10/01/2025 1:00 PM EST Office Visit [facility] [address] [place] [phone] Janice Kramer MD [address] [place] [address] 11/28/2025 7:20 AM EDT Office Visit [facility] [address] [place] [address] April Piper APRN [address] [place] [address] documented as of this encounter Goals Goal Patient Goal Type Associated Problems Recent Progress Patient-Stated? Author HEP Occupational Therapy On track(2020 3:42 PM EDT) No Tanya Ghosh Note: Patient will complete HEP with appropriate form 100% of the time. Mixing Machine Operator Goal: to be met by 06/08/21 Goal on going as exercises continue to be added. Good form with exercises thus far. Leisure Occupational Therapy On track(2020 3:42 PM EDT) No Tanya Ghosh Note: Patient will complete leisure task such as baking or beading x20 minutes without pain 100% of the time. Mixing Machine Operator Goal: to be met by [...] documented as of this encounter Care Teams Tile Burner Relationship Specialty Start Date End Date April Piper APRN [address] [place] [phone] PCP - General Family Medicine 02/06/23 documented as of this encounter
--- OUTSIDE RECORDS SUMMARY | 2025-07-28 14:43 | XMS_ITS | Encounter Summary ---
Author Organization Healthcare Address [address] [place] [address] Care Team Providers Care Movie Shot Camera Operator Name Role Phone April Piper APRN Primary Care Provider [phone] Encounter Details Date Type Department Care Team [...] any time in the past 12 m [facility], were you homeless or living in a fci (including now)? No 04/22/2025 [facility] Utilities Answer Date Recorded In [...] 8:00 AM EST Office Visit [place] [facility] [address], 1[address] [place] [address] Keli Harvey PA [address] [place] [address] 10/01/2025 1:00 PM EST Office Visit [facility] [address] [place] [address] Janice Kramer MD [address] [place] [address] 11/28/2025 7:20 AM EDT Office Visit [facility] [address] [place] [address] April Piper APRN [address] [facility] [address] [place] [address] documented as of this encounter Goals Goal Patient Goal Type Associated Problems Recent Progress Patient-Stated? Author HEP Occupational Therapy On track(2020 3:42 PM EDT) No Tanya Ghosh Note: Patient will complete HEP with appropriate form 100% of the time. Halfway Goal: to be met by 06/08/21 Goal [...] Time PHQ-9 Depression Total Score: 0 04/22/20 11:22 AM EDT A fall risk assessment has been complete d for the patient 04/22/2025 11:23 AM EDT A Body Mass Index follow-up plan has been documented for the patient 04/22/2025 12:56 PM EDT documented as of this encounter Care Teams Movie Shot Camera Operator Relationship Specialty Start Date End Date April Piper APRN [address] [place] [address] [address] [place] [phone] PCP - General Family Medicine 02/06/23 documented as of this encounter
--- OUTSIDE RECORDS SUMMARY | 2025-07-28 14:43 | XMS_ITS | Encounter Summary ---
Author Organization Healthcare Address [address] [place] [address] Care Team Providers Care Trading Specialist Name Role Phone April Piper APRN Primary Care Provider [phone] Reason for Referral * Consultation (Routine) - Authorized Specialty Diagnoses / Procedures Referred By Contdeepika t Referred To Contact Pain Medicine Diagnoses Facial pain April Piper APRN [address] [place] [address] Phone: tel: fax: [facility] Room E214 [address] [place] [address] Phone: tel: fax: Referral ID Status Reason Start Date Expiration Date V isits Requested Visits Authorized [id number] Authorized 06/05/2025 12/05/2026 1 1 Encounter Details Date Type Department Care Team (Late st Contact Info) Description 06/05/[address] [facility] [address] [place] [address] FelizMarianaAprilJEANIE [address] [place] [address] Facial pain (Primary Dx) Social [...] living in a mcfp (including now)? No 04/22/2025 [facility] Utilities Answer Date Recorded In the past [...] Visit [place] [facility] [address], [address] [place] [address] Keli Harvey PA [address] [place] [address] 10/01/2025 1:00 PM EST Office Visit [facility] [address] [place] [address] Janice Kramer MD [address] [place] [address] 11/28/2025 7:20 AM EDT Office Visit [address] [facility] [address] [place] [address] April Piper APRN [address] [place] [phone] Scheduled Referrals Name Type Priority Associated Diagnoses [...] minutes without pain 100% of the time. Asphalt Mixer Goal: to be met by 07/10/21. documented [...] documented as of this encounter Care Teams Trading Specialist Relationship Specialty Start Date End Date April Piper APRN [address] [place] [phone] PCP - General Family Medicine 02/06/23 documented as of this encounter
--- OUTSIDE RECORDS SUMMARY | 2025-07-28 14:43 | XMS_ITS | Encounter Summary ---
Author Organization Healthcare Address [address] [place] [address] Care Team Providers Care Commercial Internship Name Role Phone April Piper APRN Primary Care Provider [phone] Encounter Details Date Type Department Care Team [...] were you homeless or living in a snf (including now)? No 06/26/2025 [facility] Utilities Answer Date Recorded In [...] 8:00 AM EST Office Visit [place] [facility] [address] [place] [address] Keli Harvey PA [address] [place] [address] 10/01/2025 1:00 PM EST Office Visit [facility] [address] [place] [address] Janice Kramer MD [address] [place] [address] 11/28/2025 7:20 AM EDT Office Visit [facility] [address] [place] [address] April Piper APRN [address] [place] [address] documented as of this encounter Goals Goal Patient Goal Type Associated Problems Recent Progress Patient-Stated? Author HEP Occupational Therapy On track(2020 3:42 PM EDT) No Tanya Ghosh Note: Patient will complete HEP with appropriate form 100% of the time. Health Lead Goal: to be met by 06/08/21 Goal on going as exercises continue to be added. Good form with exercises thus far. Leisure Occupational Therapy On track(2020 3:42 PM EDT) No Tanya Ghosh Note: Patient will complete leisure task such as baking or beading x20 minutes without pain 100% of the time. Health Lead Goal: to be met by 07/10/21. documented [...] documented as of this encounter Care Teams Commercial Internship Relationship Specialty Start Date End Date April Piper APRN [address] [place] [address] PCP - General Family Medicine 02/06/23 documented as of this encounter
--- OUTSIDE RECORDS SUMMARY | 2025-07-28 14:43 | XMS_ITS | Encounter Summary ---
Author Organization Healthcare Address [address] [place] [address] Care Team Providers Care Radio Time Sales Supervisor Name Role Phone April Piper APRN Primary Care Provider [phone] Reason for Visit * Reason Comments Med Refill Encounter Details Date Type Department Care Team (Late st Contact Info) Description 06/27/2025 Refill [place] [facility] [address], [address] [place] [address] Keli Harvey PA [address] [place] [address] Social History Tobacco Use Types [...] time in the past 12 m [facility], were you homeless or living in a half-way (including now)? No 06/26/2025 [facility] Utilities Answer Date Recorded In the past [...] Description 08/22/2025 8:00 AM EST Office Visit [place] [facility] [address], [address] [place] [address] Keli Harvey PA [address] [place] [address] 10/01/2025 1:00 PM EST Office Visit [facility] [address] [place] [address] Janice Kramer MD [address] [facility] [address] [place] [address] 11/28/2025 7:20 AM EDT Office Visit [facility] Urgent Care [address] [place] [address] April Piper APRN [address] [place] [address] documented as of this encounter Goals Goal Patient Goal Type Associated Problems Recent Progress Patient-Stated? Author HEP Occupational Therapy On track(2020 3:42 PM EDT) No Tanya Ghosh Note: Patient will complete HEP with appropriate form 100% of the time. Claim Service Representative Goal: to be met by 06/08/21 Goal on going as exercises continue to be added. Good form with exercises thus far. Leisure Occupational Therapy On track(2020 3:42 PM EDT) No Tanya Ghosh Note: Patient will complete leisure task such as baking or beading x20 minutes without pain 100% of the time. Correction Goal: to be met by 07/10/21. documented [...] documented as of this encounter Care Teams Radio Time Sales Supervisor Relationship Specialty Start Date End Date April Piper APRN [address] [place] [address] PCP - General Family Medicine 02/06/23 documented as of this encounter
--- OUTSIDE RECORDS SUMMARY | 2025-07-28 14:43 | XMS_ITS | Encounter Summary ---
Author Organization Healthcare Address [address] [place] [address] Care Team Providers Care Business Analysis Consultant Name Role Phone April Piper APRN Primary Care Provider [phone] Encounter Details Date Type Department Care Team (Late st Contact Info) Description 06/27/2025 Results Follow-Up [facility] Primary and Urgent Care [address] [place] [address] April Piper APRN 245 [facility] [address] [place] [address] Social History Tobacco Use Types [...] in a retirement (including now)? No 06/26/2025 [facility] Utilities Answer Date Recorded In the [...] Visit [place] [facility] [address], 1[address] [place] [address] Keli Harvey PA [address] [place] [address] 10/01/2025 1:00 PM EST Office Visit [facility] [address] [place] [address] Janice Kramer MD [address] [place] [address] 11/28/2025 7:20 AM EDT Office Visit [facility] [address] [place] [address] April Piper APRN [address] [place] [address] documented as of this encounter Goals Goal Patient Goal Type Associated Problems Recent Progress Patient-Stated? Author HEP Occupational Therapy On track(2020 3:42 PM EDT) No Tanya Ghosh Note: Patient will complete HEP with appropriate form 100% of the time. Patient Observation Assistant Goal: to be met by 06/08/21 Goal [...] documented as of this encounter Care Teams Business Analysis Consultant Relationship Specialty Start Date End Date April Piper APRN [address] [place] [address] PCP - General Family Medicine 02/06/23 documented as of this encounter
--- OUTSIDE RECORDS SUMMARY | 2025-07-28 14:43 | XMS_ITS | Encounter Summary ---
Author Organization Healthcare Address [address] [place] [address] Care Team Providers Care Instructor Trainer Canine Service Name Role Phone April Piper APRN Primary Care Provider [phone] Reason for Visit * Reason Comments Med Refill Encounter Details Date Type Department Care Team (Late st Contact Info) Description 06/04/2025 Refill [place] [facility] [address] 1[address] [place] [address] Keli Harvey PA [address] [place] [address] Social History Tobacco Use Types [...] in a correction (including now)? No 04/22/2025 [facility] Utilities Answer Date Recorded In the past 12 months has e [employer], gas, oil, or water company threatened to [...] Visit [place] [facility] [address] [place] [address] Keli Harvey PA [address] [place] [address] 10/01/2025 1:00 PM EST Office Visit [facility] [address] [facility] [place] [address] Janice Kramer MD [address] [place] [address] 11/28/2025 7:20 AM EDT Office Visit [facility] Primary and Urgent Care [address] [place] [address] April Piper APRN [address] [place] [address] documented as of this encounter Goals Goal [...] documented as of this encounter Care Teams Instructor Trainer Canine Service Relationship Specialty Start Date End Date April Piper APRN [address] [facility] [address] [place] [address] PCP - General Family Medicine 02/06/23 documented as of this encounter
--- OUTSIDE RECORDS SUMMARY | 2025-07-28 14:43 | XMS_ITS | Encounter Summary ---
Author Organization Healthcare Address [address] [place] [address] Care Team Providers Care Senior Net Developer Name Role Phone April Piper APRN Primary Care Provider [phone] Encounter Details Date Type Department Care Team [...] were you homeless or living in a assisted (including now)? No 06/26/2025 [facility] Utilities Answer Date Recorded [...] (Past 1 Month) No 025 11:53 AM [place] 2. Non-Specific Active Suici rad Thoughts (Past 1 Month) No 06/26/2025 11:53 AM [place] 6. Suicidal Behavior (Lifetime) No 11:53 AM EST [place] documented as of this encounter Plan of Treatment Upcoming Encounters Date Type Department Care Team (Late st Contact Info) Description 08/22/2025 8:00 AM EST Office Visit [place] [facility] [address] [place] [address] Keli Harvey PA [address] [place] [address] 10/01/2025 1:00 PM EST Office [facility] [address] [place] [address] Janice Kramer MD [address] [place] [address] 11/28/2025 7:20 AM EDT Office Visit [facility] Care [address] [place] [address] April Piper APRN 245 [facility] [address] [place] [address] documented as of this encounter Goals Goal Patient Goal Type Associated Problems Recent Progress Patient-Stated? Author HEP Occupational Therapy On track(2020 3:42 PM EDT) No Tanya Ghosh Note: Patient will complete HEP with appropriate form 100% of the time. Proposal Coordinator Goal: to be met by 06/08/21 Goal [...] as of this encounter Care Teams Senior Net Developer Relationship Specialty Start Date End Date April Piper APRN [address] [place] [phone] PCP - General Family Medicine 02/06/23 documented as of this encounter
--- OUTSIDE RECORDS SUMMARY | 2025-07-28 14:43 | XMS_ITS | Encounter Summary ---
Author Organization Healthcare Address [address] [place] [address] Care Team Providers Care Light Rail Signal Technician Name Role Phone April Piper APRN Primary Care Provider [phone] Encounter Details Date Type Department Care Team (Late st Contact Info) Description 06/02/2025 Results Follow-Up [facility] Care [address] [place] [address] April Piper APRN 245 [facility] [address] [place] [address] Social History Tobacco Use Types [...] in the past 12 m [facility], were you homeless or living in a prison (including now)? No 04/22/2025 [facility] Utilities Answer Date Recorded In the [...] Visit [place] [facility] [address], 1[address] [place] [address] Keli Harvey PA [address] [place] [address] 10/01/2025 1:00 PM EST Office Visit [facility] [address] [facility] [place] [address] Janice Kramer MD [address] [place] [address] 11/28/2025 7:20 AM EDT Office Visit [facility] [address] [place] [address] April Piper APRN [address] [place] [address] documented as of this encounter [...] minutes without pain 100% of the time. Furniture Repair Technician Goal: to be met by 07/10/21. [...] documented as of this encounter Care Teams Light Rail Signal Technician Relationship Specialty Start Date End Date April Piper APRN [address] [place] [phone] PCP - General Family Medicine 02/06/23 documented as of this encounter
--- OUTSIDE RECORDS SUMMARY | 2025-07-28 14:43 | XMS_ITS | Encounter Summary ---
Author Organization Healthcare Address [address] [place] [address] Care Team Providers Care Director Of Infection Prevention Name Role Phone April Piper APRN Primary Care Provider [phone] Reason for Visit * Reason Onset Date Comments HCN Clinical Concern/Question 05/19/2025 Encounter Details Date Type Department Care Team (Late st Contact Info) Description 05/19/2025 Telephone [facility] Primary and Urgent Care [address] [place] [address] April Piper APRN 245 [facility] [address] [place] [address] HCN Clinical Concern/Question Social History [...] time in the past 12 m [facility], were you homeless or living in a chcf (including now)? No 04/22/2025 [facility] Utilities Answer Date Recorded In the [...] so slowly that other people could have noticed. Or the opposite - being so fidgety or restless that you have been moving around a lot more than usual Not at all 06/10/2025 11:18 AM Beverly [...] 1 Month) No 06/17/2025 9:03 AM Brenda Grande 6. Suicidal Behavior (Lifetime) No 9:03 AM Beverly Grande documented as of this encounter Miscellaneous Notes * Telephone Encounter - Eulalio Pulliam - 05/19/2025 3:02 PM EDT Clinical Concern/Question Reason for Call: Pt returning missed call from clinic. Best contact number: [phone] (mobile) Optimal time of day to reach [...] Visit [place] [facility] [address], 1st [place] [address] Keli Harvey PA [address] [place] [address] 10/01/2025 1:00 PM EST Office Visit [facility] [address] [place] [address] Janice Kramer MD [address] [place] [address] 11/28/2025 7:20 AM EDT Office Visit [facility] Primary [facility] Ur[facility] Care [address] [place] [address] April Piper APRN [address] [place] [address] documented as of this encounter [...] documented as of this encounter Care Teams Director Of Infection Prevention Relationship Specialty Start Date End Date April Piper APRN [address] [place] [address] PCP - General Family Medicine 02/06/23 documented as of this encounter
--- OUTSIDE RECORDS SUMMARY | 2025-07-28 14:43 | XMS_ITS | Encounter Summary ---
Author Organization Healthcare Address [address] [place] [address] Care Team Providers Care Yarn Spooler Name Role Phone April Piper APRN Primary Care Provider [phone] Encounter Details Date Type Department Care Team [...] in the past 12 m [facility], were you homeless or living in a nursing home (including now)? No 04/22/2025 [facility] Utilities Answer Date Recorded In the past [...] 8:00 AM EST Office Visit [place] [facility] [address], 1st [place] [address] Keli Harvey PA [address] [place] [address] 10/01/2025 1:00 PM EST Office Visit [facility] [address] [place] [address] Janice Kramer MD [address] [place] [address] 11/28/2025 7:20 AM EDT Office Visit [facility] Primary [facility] Urgent Care [address] [place] [address] April Piper APRN [address] [place] [address] documented as of this encounter [...] documented as of this encounter Care Teams Yarn Spooler Relationship Specialty Start Date End Date April Piper APRN [address] [place] [address] PCP - General Family Medicine 02/06/23 documented as of this encounter
--- OUTSIDE RECORDS SUMMARY | 2025-07-28 14:43 | XMS_ITS | Encounter Summary ---
Author Organization Healthcare Address [address] [place] [address] Care Team Providers Care Forensic Document Examiner Name Role Phone April Piper APRN Primary Care Provider [phone] Reason for Visit * Reason Onset Date Comments HCN Clinical Concern/Question 05/07/2025 Ul trasound order and PA Encounter Details Date Type Department Care Team (Late st Contact Info) Description 05/07/2025 Telephone [facility] Primary and Urgent Care [address] [place] [address] April Piper APRN 245 [facility] [address] [place] [address] HCN Clinical Concern/Question (Ultrasound order [...] in a care home (including now)? No 04/22/2025 [facility] Utilities Answer Date Recorded In [...] order for us guided needle biopsy to [facility] where she can be seen sooner than what is scheduled w/ . I advised her to * Telephone Encounter - Rolan Figueroa - 05/07/2025 3:03 PM EDT Patient Phone Message Reason for Call:request order for ultrasound fine needle biopsy be faxed to [facility] at [phone] and include prior authorization. Please call when sent She's able to have done locally Best contact number and optimal time of day to reach caller:[phone] Note: Please do not reply to this message. Follow-up communication and further actions as a result of this message need to be communicated with the patient directly, if the patient is not active onMyChart. If the patient is active on MyChart, they will receive notification of the communication/outcome via [employer]. documented in this encounter Plan of Treatment Upcoming Encounters Date Type Department Care Team (Late st Contact Info) Description 08/22/2025 8:00 AM EST Office Visit [place] [facility] [address], 1st [place] [address] Keli Harvey PA [address] [place] [address] 10/01/2025 1:00 PM EST Office Visit [facility] [address] [place] [place] [address] Janice Kramer MD [address] [place] [address] 11/28/2025 7:20 AM EDT Office Visit [facility] Primary and Urgent Care [address] [place] [address] April Piper APRN [address] [place] [address] documented as of this encounter Goals Goal Patient Goal Type Associated Problems Recent Progress Patient-Stated? Author HEP Occupational Therapy On track(2020 3:42 PM EDT) No Tanya Ghosh Note: Patient will complete HEP with appropriate form 100% of the time. Dough Molder Hand Goal: to be met by 06/08/21 Goal on going as exercises continue to be added. Good form with exercises thus far. Leisure Occupational Therapy On track(2020 3:42 PM EDT) No Tanya Ghosh Note: Patient will complete leisure task such as baking or beading x20 minutes without pain 100% of the time. Dough Molder Hand Goal: to be met by 07/10/21. [...] documented as of this encounter Care Teams Forensic Document Examiner Relationship Specialty Start Date End Date April Piper APRN [address] [place] [address] PCP - General Family Medicine 02/06/23 documented as of this encounter
--- OUTSIDE RECORDS SUMMARY | 2025-07-28 14:43 | XMS_ITS | Encounter Summary ---
Author Organization Healthcare Address [address] [place] [address] Care Team Providers Care Educational Resource Center Teacher Name Role Phone April Piper APRN Primary Care Provider [phone] Encounter Details Date Type Department Care Team (Late st Contact Info) Description 06/04/[address] Primary and Urgent Care [address] [place] [address] April Piper APRN [address] [place] [address] Arthralgia of right temporomandibular joint [...] any time in the past 12 m [facility], were you homeless or living in a usp (including now)? No 04/22/2025 [facility] Utilities Answer Date Recorded In the past 12 months has e [employer], gas, oil, or water company threatened to [...] Visit [place] [facility] [address], 1st [place] [address] Keli Harvey PA [address] [place] [address] 10/01/2025 1:00 PM EST Office Visit [facility] [address] [place] [address] Janice Kramer MD [address] [place] [address] 11/28/2025 7:20 AM EDT Office Visit [facility] Primary and Urgent Care [address] [place] [address] April Piper APRN [address] [place] [phone] documented as of this encounter Goals Goal [...] minutes without pain 100% of the time. Care Home Goal: to be met by 07/10/21. [...] documented as of this encounter Care Teams Educational Resource Center Teacher Relationship Specialty Start Date End Date April Piper APRN [address] [place] [address] PCP - General Family Medicine 02/06/23 documented as of this encounter
--- OUTSIDE RECORDS SUMMARY | 2025-07-28 14:43 | XMS_ITS | Clinical Summary ---
[facility] [address] [place] [address] Care Team Providers Care District Ranger Name Role Phone Provider, No Known Primary Care Provider [phone] Allergies Active Allergy Reactions Criticality Noted Date [...] CHLAMYDIA SCREENING Discontinued 07/03/2023 Insurance [employer] [id number] [facility] Care Teams District Ranger Relationship Specialty Start Date End Date Provider, No Known [facility] [place] [address] PCP - General 04/05/19
--- OUTSIDE RECORDS SUMMARY | 2025-07-28 14:43 | XMS_ITS | Encounter Summary ---
Author Organization Healthcare Address [address] [place] [address] Care Team Providers Care Visual Education Director Name Role Phone April Piper APRN Primary Care Provider [phone] Encounter Details Date Type Department Care Team [...] in the past 12 m [facility], were you homeless or living in a jail (including now)? No 06/26/2025 [facility] Utilities Answer Date Recorded In the past [...] Visit [place] [facility] [address], 1st [place] [address] Keli Harvey PA [address] [place] [address] 10/01/2025 1:00 PM EST Office Visit [facility] [address] [place] [address] Janice Kramer MD [address] [place] [address] 11/28/2025 7:20 AM EDT Office Visit [facility] Primary and Urgent Care [address] [place] [address] April Piper APRN 245 [facility] [address] [place] [address] documented as of this encounter Goals Goal Patient Goal Type Associated Problems Recent Progress Patient-Stated? Author HEP Occupational Therapy On track(2020 3:42 PM EDT) No Tanya Ghosh Note: Patient will complete HEP with appropriate form 100% of the time. Longterm Goal: to be met by 06/08/21 Goal [...] documented as of this encounter Care Teams Visual Education Director Relationship Specialty Start Date End Date April Piper APRN [address] [place] [phone] PCP - General Family Medicine 02/06/23 documented as of this encounter
--- OUTSIDE RECORDS SUMMARY | 2025-07-28 14:43 | XMS_ITS | Encounter Summary ---
Author Organization Healthcare Address [address] [place] [address] Care Team Providers Care Notary Public Name Role Phone April Piper APRN Primary Care Provider [phone] Reason for Visit * Reason Onset Date Comments HCN Paperwork/Documentation Request 05/08/2025 Encounter Details Date Type Department Care Team (Late st Contact Info) Description 05/08/2025 Telephone [facility] Primary and Urgent Care [address] [place] [address] April Piper APRN 245 [facility] [address] [place] [address] HCN Paperwork/Documentatio n Request Social [...] any time in the past 12 m [facility], were you homeless or living in a group home (including now)? No 04/22/2025 [facility] Utilities Answer Date Recorded In the [...] discuss. Thank you Best contact number: Other: [phone] Optimal time of day to reach caller: ANYTIME Additional comments/information from caller: None Note: Please do not reply to this message. Follow-up communication and further actions as a result of this message need to be communicated with the patient directly, if the patient is not active onMyChart. If the patient is active on MyChart, they will receive notification of the communication/outcome via [employer]. * Telephone Encounter - Latricia Irvin - 05/08/2025 8:14 AM EDT Clinical Concern/Question Reason for Call: Cass with [employer] calling to see if PCP has authorization for fine needaspiration order they received yesterday. Need that information before they can schedule patient. Please call and ask for Cass. Best contact number: Other: Cass - [employer] - [phone] Optimal time of day to reach caller: [...] Visit [place] [facility] [address], 1st [place] [address] Keli Harvey PA [address] [place] [address] 10/01/2025 1:00 PM EST Office Visit [facility] Care [address] [place] [address] Janice Kramer MD [address] [facility] [address] [place] [address] 11/28/2025 7:20 AM EDT Office Visit [facility] Primary and Urgent Care [address] [place] [address] April Piper APRN 245 [facility] [address] [place] [address] documented as of this encounter Goals Goal [...] minutes without pain 100% of the time. Personalized Living Manager Nurse Goal: to be met by 07/10/21. documented [...] documented as of this encounter Care Teams Notary Public Relationship Specialty Start Date End Date April Piper APRN [address] [place] [phone] PCP - General Family Medicine 02/06/23 documented as of this encounter
--- OUTSIDE RECORDS SUMMARY | 2025-07-28 14:43 | XMS_ITS | Encounter Summary ---
Author Organization Healthcare Address [address] [place] [address] Care Team Providers Care Senior Art Director Name Role Phone April Piper APRN Primary Care Provider [phone] Encounter Details Date Type Department Care Team (Late Contact Info) Description 06/11/2025 Telephone [place] [facility] Room E214 [address] [place] [address] Keily Fofana [address] Social History Tobacco Use Types Packs/Day Years [...] any time in the past 12 m [facility], were you homeless or living in a mcc (including now)? No 04/22/2025 [facility] Utilities Answer Date Recorded In the past 12 months has th e vis[employer], gas, oil, or water [employer] threatened to shut off services in your [...] Visit [place] [facility] [address], 1st [place] [address] Keli Harvey PA [address] [place] [address] 10/01/2025 1:00 PM EST Office Visit [facility] [address] [place] [address] Janice Kramer MD [address] [place] [address] 11/28/2025 7:20 AM EDT Office Visit [facility] Primary and Urgent Care [address] [place] [address] April Piper APRN 245 [facility] [address] [place] [phone] documented as of this encounter Goals Goal Patient Goal Type Associated Problems Recent Progress Patient-Stated? Author HEP Occupational Therapy On track(2020 3:42 PM EDT) No Tanya Ghosh Note: Patient will complete HEP with appropriate form 100% of the time. Process Improvement Manager Goal: to be met by 06/08/21 Goal on going as exercises continue to be added. Good form with exercises thus far. Leisure Occupational Therapy On track(2020 3:42 PM EDT) No Tanya Ghosh Note: Patient will complete leisure task such as baking or beading x20 minutes without pain 100% of the time. Process Improvement Manager Goal: to be met by 07/10/21. [...] as of this encounter Care Teams Senior Art Director Relationship Specialty Start Date End Date April Piper APRN [address] [place] [phone] PCP - General Family Medicine 02/06/23 documented as of this encounter
--- OUTSIDE RECORDS SUMMARY | 2025-07-28 14:43 | XMS_ITS | Encounter Summary ---
Author Organization Healthcare Address [address] [place] [address] Care Team Providers Care Electric Motor Analyst Name Role Phone April Piper APRN Primary Care Provider [phone] Encounter Details Date Type Department Care Team [...] a senior living (including now)? No 04/22/2025 [facility] Utilities Answer Date Recorded In the [...] 8:00 AM EST Office Visit [place] [facility] Clinic [address], 1st [place] [address] Keli Harvey PA [address] [place] [address] 10/01/2025 1:00 PM EST Office Visit [facility] [address] [place] [address] Janice Kramer MD [address] [place] [address] 11/28/2025 7:20 AM EDT Office Visit [facility] Primary and Urgent Care [address] [place] [address] April Piper APRN 245 [facility] [address] [place] [address] documented as of this encounter [...] documented as of this encounter Care Teams Electric Motor Analyst Relationship Specialty Start Date End Date April Piper APRN [address] [place] [address] [address] [place] [phone] PCP - General Family Medicine 02/06/23 documented as of this encounter
--- OUTSIDE RECORDS SUMMARY | 2025-07-28 14:43 | XMS_ITS | Encounter Summary ---
Author Organization Healthcare Address [address] [place] [address] Care Team Providers Care Wardrobe Consultant Name Role Phone April Piper APRN Primary Care Provider [phone] Reason for Visit * Reason Comments Med Refill Encounter Details Date Type Department Care Team (Late st Contact Info) Description 09/21/2024 Refill [place] [facility] [address], 1[address] [place] [address] Keli Harvey PA [address] [place] [address] Social History Tobacco Use Types [...] place to sleep or slept in a chcf (including now)? No 02/08/2024 PHQ-9 Answer Date [...] living in a chcf (including now)? No 02/08/2024 Utilities Answer Date [...] Description 08/22/2025 8:00 AM EST Office Visit [place] [facility] [address], [address]st [place] [address] Keli Harvey PA [id number] [place] [address] 10/01/2025 1:00 PM EST Office Visit [facility] [address] [place] [address] Janice Kramer MD [address] [facility] [address] [place] [address] 11/28/2025 7:20 AM EDT Office Visit [facility] Primary and Urgent Care [address] [place] [address] April Piper APRN [address] [place] [phone] documented as of this encounter Goals Goal Patient Goal Type Associated Problems Recent Progress Patient-Stated? Author HEP Occupational Therapy On track(2020 3:42 PM EDT) No Tanya Ghosh Note: Patient will complete HEP with appropriate form 100% of the time. Bus Inspector Goal: to be met by 06/08/21 Goal on going as exercises continue to be added. Good form with exercises thus far. Leisure Occupational Therapy On track(2020 3:42 PM EDT) No Tanya Ghosh Note: Patient will complete leisure task such as baking or beading x20 minutes without pain 100% of the time. Bus Inspector Goal: to be met by 07/10/21. [...] documented as of this encounter Care Teams Wardrobe Consultant Relationship Specialty Start Date End Date April Piper APRN [address] [place] [address] PCP - General Family Medicine 02/06/23 documented as of this encounter
--- OUTSIDE RECORDS SUMMARY | 2025-07-28 14:43 | XMS_ITS | Encounter Summary ---
Author Organization Healthcare Address [address] [place] [address] Care Team Providers Care Retina Subspecialist Name Role Phone April Piper APRN Primary Care Provider [phone] Encounter Details Date Type Department Care Team (Late st Contact Info) Description 06/27/[address] Primary and Urgent Care [address] [place] [address] April Piper APRN 245 [facility] [address] [place] [address] Thrombocytosis (Primary Dx) Social History [...] any time in the past 12 m [facility], were you homeless or living in a custodial (including now)? No 06/26/2025 [facility] Utilities Answer Date Recorded In the [...] Visit [place] [facility] [address], 1[address] [place] [address] Keli Harvey PA [address] [place] [address] 10/01/2025 1:00 PM EST Office Visit [facility] [address] [facility] [place] [address] Janice Kramer MD [address] [place] [address] 11/28/2025 7:20 AM EDT Office Visit [facility] Primary and Urgent Care [address] [place] [address] April Piper APRN [address] [place] [address] Scheduled Orders Name Type Priority [...] with appropriate form 100% of the time. Casino Host Goal: to be met by 06/08/21 Goal on going as exercises continue to be added. Good form with exercises thus far. Leisure Occupational Therapy On track(2020 3:42 PM EDT) No Tanya Ghosh Note: Patient will complete leisure task such as baking or beading x20 minutes without pain 100% of the time. Casino Host Goal: to be met by 07/10/21. documented [...] documented as of this encounter Care Teams Retina Subspecialist Relationship Specialty Start Date End Date April Piper APRN [address] [place] [phone] PCP - General Family Medicine 02/06/23 documented as of this encounter
--- OUTSIDE RECORDS SUMMARY | 2025-07-28 14:43 | XMS_ITS | Encounter Summary ---
Author Organization Healthcare Address [address] [place] [address] Care Team Providers Care Stitcher Around Name Role Phone April Piper APRN Primary Care Provider [phone] Encounter Details Date Type Department Care Team (Late st Contact Info) Description 06/04/2025 Orders Only [place] [facility] [address], 1[address] [place] [address] Keli Harvey PA [address] [place] [address] Social History Tobacco Use Types [...] any time in the past 12 m [facility], were you homeless or living in a care home (including now)? No 04/22/2025 [facility] Utilities Answer Date Recorded In [...] Visit [place] [facility] [address] 1[address] [place] [address] Keli Harvey PA [address] [place] [address] 10/01/2025 1:00 PM EST Office Visit [facility] [address] [place] [address] Janice Kramer MD [address] [place] [address] 11/28/2025 7:20 AM EDT Office Visit [address] Primary [facility] Care [address] [place] [address] April Piper APRN [address] [place] [address] documented as of this encounter Goals Goal Patient Goal Type Associated Problems Recent Progress Patient-Stated? Author HEP Occupational Therapy On track(2020 3:42 PM EDT) No Tanya Ghosh Note: Patient will complete HEP with appropriate form 100% of the time. Fpc Goal: to be met by 06/08/21 Goal on going as exercises continue to be added. Good form with exercises thus far. Leisure Occupational Therapy On track(2020 3:42 PM EDT) No Tanya Ghosh Note: Patient will complete leisure task such as baking or beading x20 minutes without pain 100% of the time. Fpc Goal: to be met by 07/10/21. documented [...] documented as of this encounter Care Teams Stitcher Around Relationship Specialty Start Date End Date April Piper APRN [address] [place] [address] PCP - General Family Medicine 02/06/23 documented as of this encounter
--- OUTSIDE RECORDS SUMMARY | 2025-07-28 14:43 | XMS_ITS | Encounter Summary ---
Author Organization Healthcare Address [address] [place] [address] Care Team Providers Care Supervisor Warping Department Name Role Phone April Piper APRN Primary Care Provider [phone] Reason for Visit * Reason Onset Date Comments Med Refill 03/07/2025 Encounter Details Date Type Department Care Team (Late st Contact Info) Description 03/07/2025 Refill [facility] [address] [place] [address] April Piper APRN [address] [facility] [address] [place] [address] Social History Tobacco Use Types [...] living in a assisted (including now)? No 02/10/2025 Utilities Answer Date Recorded In the past 12 months has e [employer], gas, oil, or water company threatened to [...] Description 08/22/2025 8:00 AM EST Office Visit [place] [facility] [address], [address] [place] [address] Keli Harvey PA [address] [place] [phone] 10/01/2025 1:00 PM EST Office Visit [facility] [address] [place] [phone] Janice Kramer MD [address] [place] [phone] 11/28/2025 7:20 AM EDT Office Visit [facility] Care [address] [place] [phone] April Piper APRN [address] [facility] [address] [place] [phone] documented as of this encounter Goals Goal Patient Goal Type Associated Problems Recent Progress Patient-Stated? Author HEP Occupational Therapy On track(2020 3:42 PM EDT) No Tanya Ghosh Note: Patient will complete HEP with appropriate form 100% of the time. Ruby On Rails Consultant Goal: to be met by 06/08/21 Goal on going as exercises continue to be added. Good form with exercises thus far. Leisure Occupational Therapy On track(2020 3:42 PM EDT) No Tanya Ghosh Note: Patient will complete leisure task such as baking or beading x20 minutes without pain 100% of the time. Ruby On Rails Consultant Goal: to be met by 07/10/21. [...] as of this encounter Care Teams Supervisor Warping Department Relationship Specialty Start Date End Date April Piper APRN [address] [place] [phone] PCP - General Family Medicine 02/06/23 documented as of this encounter
--- OUTSIDE RECORDS SUMMARY | 2025-07-28 14:43 | XMS_ITS | Encounter Summary ---
Author Organization Healthcare Address [address] [place] [address] Care Team Providers Care Rhic Systems Safety Engineer Name Role Phone April Piper APRN Primary Care Provider [phone] Encounter Details Date Type Department Care Team (Late Contact Info) Description 06/23/2025 Telephone [facility] Room [address] [place] [address] Keily Fofana [address] Social History Tobacco Use Types Packs/Day Years [...] living in a residential (including now)? No 04/22/2025 [facility] Utilities Answer Date Recorded In the past 12 months has th e [employer], gas, oil, or water opvizor threatened to shut off services in your [...] Visit [place] [facility] [address] [place] [address] Keli Harvey PA [address] [place] [address] 10/01/2025 1:00 PM EST Office Visit [facility] [address] [place] [address] Janice Kramer MD [address] [place] [address] 11/28/2025 7:20 AM EDT Office Visit [facility] [address] [place] [phone] April Pipre APRN [address] [facility] [address] [place] [phone] documented as of this encounter Goals Goal Patient Goal Type Associated Problems Recent Progress Patient-Stated? Author HEP Occupational Therapy On track(2020 3:42 PM EDT) No Tanya Ghosh Note: Patient will complete HEP with appropriate form 100% of the time. Mcc Goal: to be met by 06/08/21 Goal on going as exercises continue to be added. Good form with exercises thus far. Leisure Occupational Therapy On track(2020 3:42 PM EDT) No Tanya Ghosh Note: Patient will complete leisure task such as baking or beading x20 minutes without pain 100% of the time. Docking Pilot Goal: to be met by 07/10/21. documented [...] documented as of this encounter Care Teams Rhic Systems Safety Engineer Relationship Specialty Start Date End Date April Piper APRN [address] [place] [phone] PCP - General Family Medicine 02/06/23 documented as of this encounter
--- OUTSIDE RECORDS SUMMARY | 2025-07-28 14:44 | XMS_ITS | Encounter Summary ---
Author Organization Healthcare Address [address] [place] [address] Care Team Providers Care School Child Care Attendant Name Role Phone April Piper APRN Primary Care Provider [phone] Reason for Visit * Reason Onset Date Comments Med Refill 03/14/2024 Encounter Details Date Type Department Care Team (Late st Contact Info) Description 03/14/2024 Refill [facility] [address] [place] [address] Allan Tipton PA [address] [place] [address] Fever, unspecified; COVID; Tachycardia Social [...] place to sleep or slept in a intermediate (including now)? No 02/08/2024 PHQ-9 Answer Date [...] were you homeless or living in a intermediate (including now)? No 02/08/2024 Utilities Answer Date [...] Visit [place] [facility] [address] [place] [address] Keli Harvey, RAINE [address] [place] [address] 10/01/2025 1:00 PM EST Office Visit [facility] [address] [place] [address] Janice Kramer MD [address] [place] [address] 11/28/2025 7:20 AM EDT Office Visit [facility] Primary and Urgent Care [address] [place] [address] Nasim PiperiaJEANIE [address] [place] [address] documented as of this encounter Goals Goal Patient Goal Type Associated Problems Recent Progress Patient-Stated? Author HEP Occupational Therapy On track(2020 3:42 PM EDT) No Tanya Ghosh Note: Patient will complete HEP with appropriate form 100% of the time. Railroad Track Inspector Goal: to be met by 06/08/21 Goal on going as exercises continue to be added. Good form with exercises thus far. Leisure Occupational Therapy On track(2020 3:42 PM EDT) No Tanya Ghosh Note: Patient will complete leisure task such as baking or beading x20 minutes without pain 100% of the time. Railroad Track Inspector Goal: to be met by 07/10/21. [...] documented as of this encounter Care Teams School Child Care Attendant Relationship Specialty Start Date End Date April Piper APRN [address] [place] [phone] PCP - General Family Medicine 02/06/23 documented as of this encounter
--- OUTSIDE RECORDS SUMMARY | 2025-07-28 14:44 | XMS_ITS | Encounter Summary ---
Author Organization Healthcare Address [address] [place] [address] Care Team Providers Care Cable Machine Operator Name Role Phone April Piper APRN Primary Care Provider [phone] Encounter Details Date Type Department Care Team (Latest Contact Info) Description 07/14/2025 Travel Social History Tobacco Use Types Packs/Day [...] in a jail (including now)? No 06/26/2025 [facility] Utilities Answer Date Recorded In [...] EST Office Visit [place] [facility] [address] [place] [address] Keli Harvey PA [address] [place] [address] 10/01/2025 1:00 PM EST Office Visit [facility] [address] [place] [address] Janice Kramer MD [address] [place] [address] 11/28/2025 7:20 AM EDT Office Visit [facility] Primary and Urgent Care [address] [place] [address] April Piper APRN [address] [place] [address] documented as of this encounter Goals Goal Patient Goal Type Associated Problems Recent Progress Patient-Stated? Author HEP Occupational Therapy On track(2020 3:42 PM EDT) No Tanya Ghosh Note: Patient will complete HEP with appropriate form 100% of the time. Controls Project Engineer Goal: to be met by 06/08/21 Goal on going as exercises continue to be added. Good form with exercises thus far. Leisure Occupational Therapy On track(2020 3:42 PM EDT) No Tanya Ghosh Note: Patient will complete leisure task such as baking or beading x20 minutes without pain 100% of the time. Controls Project Engineer Goal: to be met by 07/10/21. documented [...] documented as of this encounter Care Teams Cable Machine Operator Relationship Specialty Start Date End Date April Piper APRN [address] [place] [phone] PCP - General Family Medicine 02/06/23 documented as of this encounter
--- OUTSIDE RECORDS SUMMARY | 2025-07-28 14:44 | XMS_ITS | Clinical Summary ---
Author Organization Healthcare Address [address] [place] [address] Care Team Providers Care Room Service Waiter Name Role Phone April Piper APRN Primary Care Provider [phone] Allergies Active Allergy Reactions Criticality Noted Date [...] tip and replace cap., Reported on 06/26/2025 [id number] (/Iron) tabletIndications:I main deficiency Take 1 tablet [...] 025 Active ergocalciferol (Vitamin D-2) 1.25 MG (97209 UT) capsule Take 1 capsule by mouth [...] muscle spasms. 30 tablet 025 2024 Discontinued Active Problems Problem Noted [...] (05/12/2023): Added automatically from request for surgery [id number] Severe manic bipolar 1 disorder with psychotic b ehavior 07/23/2021 Kienbock's dislocation, right, subsequent encoun ter 04/08/2021 Osteochondrosis of lunate of right wrist 021 Overview (03/18/2021): Added automatically from request for surgery [id number] Attention deficit hyperactivity disorder 021 Hypertensive disorder [...] (05/12/2023): Added automatically from request for surgery [id number] Right wrist pain 05/01/2018 05/12/2023 Overview (05/12/2023): Added automatically from request for surgery [id number] Added automatically from request for surgery [id number] TFC (triangular fibrocartilage complex) injury 0 11/14/2017 05/12/2023 Overview (05/12/2023): Added automatically from request for surgery [id number] Resolved Problems Problem Noted Date Diagnosed Date [...] organization. Date Type Department Care Team Description 07/21/2025 Travel 07/14/2025 Travel 07/10/2025 Travel 06/28/2025 Travel 06/27/2025 Orders Only [facility] [address] [place] [address] April Piper APRN Thrombocytosis (Primary Dx) 06/27/2025 Results Follow-Up [facility] [address] [place] [address] April Piper APRN 06/27/2025 Refill [facility] [address] [place] [address] April Piper APRN Arthralgia of right temporomandibular joint; Moderate persistent asthma without complication 06/27/2025 Refill [facility] [address] [place] [address] Keli Harvey PA 06/26/2025 7:20 AM EST Office Visit [facility] [address] [place] [phone] April Piper APRN Pharyngitis, unspecified etiology (Primary Dx); Jaw pain; Mild intermittent reactive airway disease without complication; Iron deficiency; Healthcare maintenance; Health care maintenance; Flu vaccine need 06/26/2025 Travel 06/23/2025 Telephone [facility] [address] [place] [address] Brigido, Keily 06/13/2025 Travel 06/11/2025 Telephone [facility] [address] [place] [address] Brigido, Keily 06/09/2025 Travel 06/05/2025 Orders Only [facility] [address] [place] [address] April Piper APRN Facial pain (Primary Dx) 06/04/2025 Orders Only [facility] [address] [place] [address] April Piper APRN Arthralgia of right temporomandibular joint (Primary Dx) 06/04/2025 Orders Only [facility] [address] [place] [address] Keli Harvey, PA 06/04/2025 Refill [facility] [address], [address] [place] [address] Keli Harvey PA 06/02/2025 Results Follow-Up [facility] [address] [place] [address] April Piper APRN 05/29/2025 6:53 AM EDT - 05/29/2025 11:59 PM EDT Hospital Encounter [facility] [address] [place] [address] Oral mucosal lesion Discharge Disposition: Home or Self Care 05/29/2025 Travel 05/24/2025 Travel 05/23/2025 Refill [facility] [address] [place] [phone] April Piper APRN Acute intractable headache, unspecified headache type; Nausea 05/19/2025 Telephone [facility] [address] [place] [address] April Piper APRN HCVon Clinical Concern/Question 05/16/2025 Orders Only [facility] [address] [place] [address] April Piper APRN Lesion of tonsil (Primary Dx); Right ear pain 05/08/2025 Telephone [facility] [address] [place] [phone] April Piper APRN HCVon Paperwork/Documentation Request 05/07/2025 Telephone [facility] [address] [place] [address] April Piper APRN HCN Clinical Concern/Question (Ultrasound order and PA) 05/02/2025 Results Follow-Up [facility] [address] [place] [address] April Piper APRN 05/01/2025 Orders Only [facility] [address] [place] [address] April Piper, LEAD FABRICATOR Oral mucosal lesion (Primary Dx); Throat mass from Last 3 Months Immunizations Immunization Administration [...] any time in the past 12 m [facility], were you homeless or living in a residential (including now)? No 06/26/2025 [facility] [...] Description 08/22/2025 8:00 AM EST Office Visit [facility] [address] [place] [phone] Keli Harvey, PA [address] [place] [phone] 10/01/2025 1:00 PM EST Office Visit [facility] [address] [place] [phone] Janice Kramer MD [address] [place] [address] 11/28/2025 7:20 AM EDT Office Visit [facility] [address] [place] [phone] April Piper APRN [address] [facility] [address] [place] [phone] Health Maintenance Due Date Last Done Comments [facility]-/Child/Adol SDOH Screenings 1996 [facility]-Pneumococcal Vaccine: Pediatrics (0 to 5 Years) and At-Risk Patients (6 to 49 Years) (1 of 2 - PCV) 10/16/2015 [facility]-Pap Smear 12/30/2024 12/30/2021 [id number] Vaccine ( season) 2025 09/03/2021, 08/13/2020, 07/23/2020 [...] Completed 025, 08/09/2024, 11/21/1997, Additional history exists [facility]-Influenza Vaccine Completed 06/26/2025 , 07/08/2024, 05/15/2023, Additional history exists [facility]-Obesity Intervention Completed 025, 07/15/2025, 07/10/2025, Additional history exists [facility]-Rotavirus Vaccines Aged Out [...] Half-Way Goal: to be met by 07/10/21. Medical Devices Implanted Type Area Destination Specialist Device Identifier Shelf Expiration Date Model / Serial / Lot Chip Bone 10 - [id number] - [id number] Implanted:Qty: 1 on 03/24/2021 by Joyce King MD at [facility] Right: Wrist [id number] 05/06/2025 PCAN10 / [id number] / [id number] Procedures Procedure Name Priority Date/Time Associated [...] 05/29/2025 8:27 AM EDT Oral mucosal lesion HEPATITIS C [...] <20 <20 ng/mL 06/29 9:33 PM EST [facility] Alpha OH Midazolam <20 <20 ng/mL 2024 9:33 PM EST [facility] Alpha [place] Triazolam <20 <20 ng/mL 2024 9:33 PM EST [facility] Alprazolam <10 <10 ng/mL 06/29/2025 9:33 PM EST [facility] Aminoclonazepam <20 <20 ng/mL 9:33 PM EST [facility] Amphetamine >1,000(H) <50 ng/mL 06/29/2025 9:33 PM EST [facility] Benzoylecgonine <50 <50 ng/mL 9:33 PM EST [facility] Buprenorphine <10 <10 ng/mL 06/29/2025 9:33 PM EST [facility] Buprenorphine Glucuronide <50 <50 ng/mL 06/29/2025 9:33 PM EST [facility] Butalbital <50 <50 ng/mL 06/29/2025 9:33 PM EST [facility] 9 Carboxy THC <10 <10 ng/mL 06/29/2025 9:33 PM EST [facility] 9 Carboxy THC Glucuronide <25 <25 ng/mL 06/29/2025 9:33 PM EST [facility] Clonazepam <10 <10 ng/mL 06/29/2025 9:33 PM EST [facility] Codeine <50 <50 ng/mL 06/29/2025 9:33 PM EST [facility] Codeine Glucuronide <50 <50 ng/mL 06/29 9:33 PM EST [facility] Cyclobenzaprine <50 <50 ng/mL 9:33 PM EST [facility] Desmethyl Tramadol <50 <50 ng/mL 2024 9:33 PM EST [facility] Diazepam <10 <10 ng/mL 06/29/2025 9:33 PM EST [facility] EDDP - Methadone Metabolite <50 <50 ng/mL 06/29/2025 9:33 PM EST [facility] Fentanyl <1 <1 ng/mL 06/29/2025 9:33 PM EST [facility] Hydrocodone <50 <50 ng/mL 06/29/2025 9:33 PM EST [facility] Hydromorphone <50 <50 ng/mL 06/29/2025 9:33 PM EST [facility] Hydromorphone Glucuronide <50 <50 ng/mL 06/29/2025 9:33 PM EST [facility] Lorazepam <20 <20 ng/mL 06/29/2025 9:33 PM EST [facility] Lorazepam Glucuronide <50 <50 ng/mL 06/29/2025 9:33 PM EST [facility] MDA <50 <50 ng/mL 06/29/2025 9:33 PM EST [facility] MDMA <50 <50 ng/mL 06/29/2025 9:33 PM EST [facility] Meperidine <50 <50 ng/mL 06/29/2025 9:33 PM EST [facility] Methadone <50 <50 ng/mL 06/29/2025 9:33 PM EST [facility] Methamphetamine <50 <50 ng/mL 9:33 PM EST [facility] Methylphenidate <50 <50 ng/mL 9:33 PM EST [facility] 6 Monoacetyl morphine <10 <10 ng/mL 06/29/2025 9:33 PM EST [facility] Morphine <50 <50 ng/mL 06/29/2025 9:33 PM EST [facility] Morphine Glucuronide <50 <50 ng/mL 06/08 9:33 PM EST [facility] Naloxone <50 <50 ng/mL 06/29/2025 9:33 PM EST [facility] Naloxone Glucuronide <50 <50 ng/mL 06/08 9:33 PM EST [facility] Norbuprenorphine <10 <10 ng/mL 06/29/20 9:33 PM EST [facility] Norbuprenorphine Glucuronide <50 <50 ng/mL 06/29/2025 9:33 PM EST [facility] Nordiazepam <20 <20 ng/mL 06/29/2025 9:33 PM EST [facility] Norfentanyl <2 <2 ng/mL 06/29/2025 9:33 PM EST [facility] Normeperidine <50 <50 ng/mL 06/29/2025 9:33 PM EST [facility] PCP Quant, Ur <50 <50 ng/mL 06/29/2025 9:33 PM EST [facility] Phenobarbital <50 <50 ng/mL 06/29/2025 9:33 PM EST [facility] Oxazepam <20 <20 ng/mL 06/29/2025 9:33 PM EST [facility] Oxazepam Glucuronide <50 <50 ng/mL 06/08 9:33 PM EST [facility] Oxycodone <50 <50 ng/mL 06/29/2025 9:33 PM EST [facility] Oxymorphone <50 <50 ng/mL 06/29/2025 9:33 PM EST [facility] Oxymorphone Glucuronide <50 <50 ng/mL 06/29/2025 9:33 PM [facility] Secobarbital <50 <50 ng/mL 06/29/2025 9:33 PM EST [facility] Tramadol <50 <50 ng/mL 06/29/2025 9:33 PM EST [facility] Temazepam <20 <20 ng/mL 06/29/2025 9:33 PM [facility] Temazepam Glucuronide <50 <50 ng/mL 06/29/2025 9:33 PM EST [facility] Urine Urine specimen obtained by clean catch procedure / Unknown Non-blood Collection / Unknown 06/26/2025 11:10 AM EST 06/26/2025 9:15 PM EST Narrative [facility] - 06/29/2025 9:33 PM [...] laboratory. Test performed by LC-MS/MS at the [facility]. This test was developed and its performance characteristics determined by [facility]. It has not been cleared or approved by the FDA. The laboratory is regulated under CLIA as qualified to perform high-complexity testing. This test is used for clinical purposes. Sunday Lin APRN LAB URINE ORDERABLES Final R esult Performing Organization Address [facility] Co de Phone Number [facility] [address] [place] [address] * Morphology (06/26/2025 8:24 AM EST) RBC Morphology Slide Reviewed LAB HEMATOLOGY METHOD 06/26/2025 6:19 PM EST [facility] Clumped Platelets Present LAB HEMATOLOGY METHOD 06/26/2025 6:19 PM EST [facility] Blood Venous blood specimen / Unknown Venipuncture / Unknown 06/26/2025 8:24 AM EST 06/26/2025 2:10 PM EST April Piper LEAD FABRICATOR LAB BLOOD ORDERABLES Final Re sult Performing Organization Address City/[facility]/ZIP Co de Phone Number [facility] [address] [place] [address] * Iron & Total Iron Binding Capacity, Plasma (Includes Transferrin) (06/26/2025 8:24 AM EST) Iron, Plasma 67 30 - 160 ug/dL 06/26/2025 2:40 PM EST [facility] Transferrin, Plasma 304 200 - 360 mg/dL 06/26/2025 2:40 PM EST [facility] Total Iron Binding Capacity, Plasma 380 240 - 450 ug/mL 06/26/2025 2:40 PM EST [facility] Transferrin Saturation 18 14 - 50 % 06/26/2025 2:40 PM EST [facility] Blood Venous blood specimen / Unknown Venipuncture / Unknown 06/26/2025 8:24 AM EST 06/26/2025 2:10 PM EST us April Piper LEAD FABRICATOR LAB BLOOD ORDERABLES Final Re sult [facility] [address] [place] [address] * (ABNORMAL) CBC and Differential (06/26/2025 8:24 AM EST) WBC Count 8.50 3.70 - 10.30 10*3/uL LAB HEMATOLOGY METHOD 06/26/2025 6:19 PM EST [facility] RBC Count 4.40 3.90 - 5.20 10*6/uL LAB HEMATOLOGY METHOD 06/26/2025 6:19 PM EST [facility] HGB 12.2 11.2 - 15.7 g/dL LAB HEMATOLOGY METHOD 06/26/2025 6:19 PM EST [facility] HCT 38.4 34.0 - 45.0 % LAB HEMATOLOGY METHOD 06/26/2025 6:19 PM EST [facility] Platelet Count 530(H) 155 - 369 10*3/uL LAB HEMATOLOGY METHOD 06/26/2025 6:19 PM EST [facility] MCV 87 79 - 98 fL LAB HEMATOLOGY METHOD 06/26/2025 6:19 PM EST [facility] MCH 27.7 26.0 - 32.0 pg LAB HEMATOLOGY METHOD 06/26/2025 6:19 PM EST [facility] MCHC 31.8 30.7 - 35.5 g/dL LAB HEMATOLOGY METHOD 06/26/2025 6:19 PM EST [facility] RDW 14.2 11.5 - 14.5 % LAB HEMATOLOGY METHOD 06/26/2025 6:19 PM EST [facility] MPV LAB HEMATOLOGY METHOD 06/26/2025 6:19 PM EST [facility] Comment:Not Measured nRBC 0.0 <=0.0 per 100 WBCs LAB HEMATOLOGY METHOD 06/26/2025 6:19 PM EST [facility] Differential Type Automated LAB HEMATOLOGY METHOD 06/26/2025 6:19 PM EST [facility] Neutrophils % 71 % LAB HEMATOLOGY METHOD 06/26/2025 6:19 PM EST [facility] Lymphocytes % 19 % LAB HEMATOLOGY METHOD 06/26/2025 6:19 PM EST [facility] Monocytes % 8 % LAB HEMATOLOGY METHOD 06/26/2025 6:19 PM EST [facility] Eosinophils % 1 % LAB HEMATOLOGY METHOD 06/26/2025 6:19 PM EST [facility] Basophils % 1 % LAB HEMATOLOGY METHOD 06/26/2025 6:19 PM EST [facility] Immature Granulocytes % 0 % LAB HEMATOLOGY METHOD 06/26/2025 6:19 PM EST [facility] Neutrophils Absolute 6.05 1.60 - 6.10 10*3/uL LAB HEMATOLOGY METHOD 06/26/2025 6:19 PM EST [facility] Lymphocytes Absolute 1.60 1.20 - 3.90 10*3/uL LAB HEMATOLOGY METHOD 06/26/2025 6:19 PM EST [facility] Monocytes Absolute 0.68 0.30 - 0.90 10*3/uL LAB HEMATOLOGY METHOD 06/26/2025 6:19 PM [facility] Eosinophils Absolute 0.11 0.00 - 0.50 10*3/uL LAB HEMATOLOGY METHOD 06/26/2025 6:19 PM EST [facility] Basophils Absolute 0.04 0.00 - 0.10 10*3/uL LAB HEMATOLOGY METHOD 06/26/2025 6:19 PM [facility] Immature Granulocytes Absolute 0.02 0.00 - 0.06 10*3/uL LAB HEMATOLOGY METHOD 06/26/2025 6:19 PM [facility] Blood Venous blood specimen / Unknown Venipuncture / Unknown 06/26/2025 8:24 AM EST 06/26/2025 2:10 PM EST [facility] - 06/26/2025 6:19 PM EST Therapeutic decision making should be based on absolute values, rather than percentages. us April Piper LEAD FABRICATOR LAB BLOOD ORDERABLES Final Re sult [facility] [address] [place] [address] * US Head Neck Soft Tissue (05/29/2025 [...] APRN IMG US PROCEDURES Final Resul t * HIV 1 & 2 Antibody/Antigen Screen (02/08/2023 8:37 AM EDT) HIV 1 & 2 Antibody/Antigen Screen Non Reactive Non Reactive 02/08/2023 7:03 PM EDT [facility] Comment:Screening for HIV 1 & 2 antibodies, and P24 antigen is NONREACTIVE. No confirmatory testing is required. Blood Venous blood specimen / Unknown Venipuncture / Unknown 02/08/2023 8:37 AM EDT 02/08/2023 6:32 PM EDT [facility] LAB BLOOD ORDERABLES Final Re sult Performing Organization Address [facility] de Phone Number [facility] [address] [place] [address] * Hepatitis C Antibody (02/08/2023 8:37 AM EDT) [facility] Hepatitis C Antibody Negative Negative 02/08/2023 7:03 PM EDT [facility] Blood Venous blood specimen / Unknown Venipuncture / Unknown 02/08/2023 8:37 AM EDT 02/08/2023 6:32 PM EDT [facility] Final Re sult Performing Organization Address [facility] de Phone Number [facility] [address] [place] [address] * Pap Smear (12/30/2021 1:49 PM EDT) Pathologist [facility] Case Report Cytology Case: [id number] Authorizing Provider: Fallon Buchanan APRN Collected: 12/30/2021 1349 Ordering Location: Medical Office Building Received: 12/30/2021 1608 Obstetrics and Gynecology First Screen: Kristine [place], [place] Specimen: ThinPrep Pap Test, Liquid-Based Cervical/Vaginal, CERVICAL/VAGINAL 01/07/2022 3:05 PM EDT [facility] Interpretation NEGATIVE FOR INTRAEPITHELIAL LESION OR MALIGNANCY 01/07/2022 3:05 PM EDT [facility] at 1505 EDT Specimen Adequacy Satisfactory for evaluation; endocervical/rod sformation zone component absent/insufficie nt. Slide scanned and imaged by ThinPrep Imaging System with manual review of all selected goodwin. 01/07/2022 3:05 PM EDT [facility] Cervical cytology is a screening test [...] results is suggested (please call Microbiology at [phone] for results). 01/07/2022 3:05 PM EDT [facility] Menstrual Status Not Applicable 10/2021 3:05 PM EDT [facility] History of Hysterectomy Not Applicable 01/07/2022 3:05 PM EDT [facility] Contraceptive History Not Applicable 01/07/2022 3:05 PM EDT [facility] Screening Type Routine Screen 2021 3:05 PM EDT [facility] High Risk? No 01/07/2022 3:05 PM EDT [facility] HPV Testing Requested? Request HPV Testing if ASCUS (Women 25 Years or Older) 01/07/2022 3:05 PM EDT [facility] Previous Cancer History No 01/07/2022 3:05 PM EDT [facility] Clinical Information Z01.419 - Well woman exam [ICD-10-CM] 01/07/2022 3:05 PM EDT [facility] Last Menstrual Period 12/08/2021 01/07/2022 3:05 PM EDT [facility] Swab Vaginal and cervical cytologic material / Unknown Non-blood Collection / Unknown 12/30/2021 1:49 PM EDT 12/30/2021 4:08 PM EDT us Fallon Buchanan LEAD FABRICATOR LAB CYTOLOGY ORDERABLES Fi nal Result [facility] [address] [place] [address] from Last 3 Months or Most Recently Relevant to Health Maintenance Insurance [facility] MEDICAID Care Teams Room Service Waiter Relationship Specialty Start Date End Date April Piper APRN [address] [place] [address] [address] [place] [address] PCP - General Family Medicine 02/06/23
--- OUTSIDE RECORDS SUMMARY | 2025-07-28 14:44 | XMS_ITS | Encounter Summary ---
Author Organization Healthcare Address [address] [place] [address] Care Team Providers Care Cardiac Cath Lab Radiology Technologist Name Role Phone April Piper APRN Primary Care Provider [phone] Reason for Visit * Reason Onset Date Comments Med Refill 05/09/2024 Encounter Details Date Type Department Care Team (Late st Contact Info) Description 05/09/2024 Refill [facility] [address] [place] [address] Allan Tipton PA [address] [place] [address] Fever, unspecified; COVID; Tachycardia Social [...] place to sleep or slept in a alf (including now)? No 02/08/2024 PHQ-9 Answer Date [...] living in a alf (including now)? No 02/08/2024 Utilities Answer Date [...] Description 08/22/2025 8:00 AM EST Office Visit [facility] [address], [address] [place] [phone] Keli Harvey PA [address] [place] [phone] 10/01/2025 1:00 PM EST Office Visit [facility] [address] [place] [phone] Janice Kramer MD [address] [facility] [address] [place] [phone] 11/28/2025 7:20 AM EDT Office Visit [facility] [address] [place] [address] April Piper APRN [address] [place] [address] documented as of this encounter [...] documented as of this encounter Care Teams Cardiac Cath Lab Radiology Technologist Relationship Specialty Start Date End Date April Piper APRN [address] [place] [address] [address] [place] [address] PCP - General Family Medicine 02/06/23 documented as of this encounter
--- OUTSIDE RECORDS SUMMARY | 2025-07-28 14:44 | XMS_ITS | Encounter Summary ---
Author Organization Healthcare Address [address] [place] [address] Care Team Providers Care Specialty Sales Consultant Name Role Phone April Piper APRN Primary Care Provider [phone] Encounter Details Date Type Department Care Team (Latest Contact Info) Description 07/21/2025 Travel Social History Tobacco Use Types Packs/Day [...] in a snf (including now)? No 06/26/2025 [facility] Utilities Answer Date Recorded In [...] [place] [facility] [address] [place] [address] Keli Harvey PA [address] [place] [address] 10/01/2025 1:00 PM EST Office Visit [facility] [address] [place] [address] Janice Kramer MD [address] [place] [address] 11/28/2025 7:20 AM EDT Office Visit [facility] [address] [place] [address] April Piper APRN [address] [place] [address] documented as of this encounter Goals Goal Patient Goal Type Associated Problems Recent Progress Patient-Stated? Author HEP Occupational Therapy On track(2020 3:42 PM EDT) No Tanya Ghosh Note: Patient will complete HEP with appropriate form 100% of the time. Agile Developer Goal: to be met by 06/08/21 Goal on going as exercises continue to be added. Good form with exercises thus far. Leisure Occupational Therapy On track(2020 3:42 PM EDT) No Tanya Ghosh Note: Patient will complete leisure task such as baking or beading x20 minutes without pain 100% of the time. Agile Developer Goal: to be met by 07/10/21. documented as of this encounter Visit Diagnoses Not on filedocumented in this encounter Additional Health Concerns Assessment Noted Time PHQ-9 Depression Total Score: 6 06/10/20 25 11:18 AM EST A fall risk assessment has been complete d for the patient 04/22/2025 11:23 AM EDT A Body Mass Index follow-up plan has been documented for the patient 07/15/2025 9:02 AM EST documented as of this encounter Care Teams Specialty Sales Consultant Relationship Specialty Start Date End Date April Piper APRN [address] [place] [phone] PCP - General Family Medicine 02/06/23 documented as of this encounter
--- OUTSIDE RECORDS SUMMARY | 2025-07-28 14:44 | XMS_ITS | Encounter Summary ---
Author Organization Healthcare Address [address] [place] [address] Care Team Providers Care Farm Supervisor Name Role Phone April Piper APRN Primary Care Provider [phone] Reason for Visit * Reason Onset Date Comments Med Refill 02/20/2023 Encounter Details Date Type Department Care Team (Late st Contact Info) Description 02/20/2023 Refill [facility] [address] [place] [address] April Piper APRN [address] [facility] [address] [place] [address] Social History Tobacco Use Types [...] Visit [place] [facility] [address], [address] [place] [address] Keli Harvey, PA [address] [place] [address] 10/01/2025 1:00 PM EST Office Visit [facility] [address] [place] [address] Janice Kramer MD [address] [place] [address] 11/28/2025 7:20 AM EDT Office Visit [facility] [address] [place] [address] April Piper APRN [address] [facility] [address] [place] [address] documented as of this encounter Goals Goal Patient Goal Type Associated Problems Recent Progress Patient-Stated? Author HEP Occupational Therapy On track(2020 3:42 PM EDT) No Tanya Ghosh Note: Patient will complete HEP with appropriate form 100% of the time. Nursing Home Goal: to be met by 06/08/21 Goal on going as exercises continue to be added. Good form with exercises thus far. Leisure Occupational Therapy On track(2020 3:42 PM EDT) No Tanya Ghosh Note: Patient will complete leisure task such as baking or beading x20 minutes without pain 100% of the time. Nursing Home Goal: to be met by 07/10/21. documented as of this encounter Visit Diagnoses Not on filedocumented in this encounter Additional Health Concerns Infection Onset Date Last Indicated Resolved Time COVID-19 Rule-Out 05/30/2023 05/30/2023 05/30/2023 8:04 PM EDT COVID 19 (Confirmed) 07/03/2023 07/03/202307/24/ 023 5:23 AM EST Meningitis Rule-Out 09/06/2024 [...] documented as of this encounter Care Teams Farm Supervisor Relationship Specialty Start Date End Date April Piper APRN [address] [place] [phone] PCP - General Family Medicine 02/06/23 documented as of this encounter
[2025-07-28 14:48] LABS: Microscopic, Urine URINE MICROSCOPIC (MICROSCOPIC)
[2025-07-28 15:05] LABS: Bilirubin,Urine Negative (Negative); Color,Urine YELLOW (Yellow); Glucose,Urine (UA) Negative (Negative); Ketones,Urine Negative (Negative); Leukocyte Esterase,Urine Negative (Negative); PH,Urine 7.5 (5.0-8.5); Protein,Urine Negative (Negative); Specific Gravity, Urine 1.020 (1.005-1.030); Urobilinogen,Urine 0.2 EU/dl (0.2)
[2025-07-28] MEDS: ASPIRIN 325MG TABLET 325 MG PO (15:07)
[2025-07-28] MEDS: ONDANSETRON 4MG/2ML VIAL 4 MG IV (15:07)
[2025-07-28] MEDS: MORPHINE 4MG/ML SYRINGE 4 MG IV (15:07)
[2025-07-28 15:14] LABS: Hematocrit 36.5 % (37.0-47.0); Hemoglobin 11.7 g/dL (12.2-16.2); Immature Granulocytes % 0.3 %; Mean Corpuscular HGB Conc 32.1 g/dL (31.8-35.4); Mean Corpuscular Hemoglobin 27.5 pg (27.0-31.2); Mean Corpuscular Volume 85.7 fl (81-99); Nucleated Red Blood Cells % 0 %; Platelet Count 531 K/mm3 (142-424); Red Blood Count 4.26 M/mm3 (4.20-5.40); Red Cell Distribution Width-SD 43.4 fL; White Blood Count 11.7 K/mm3 (4.8-10.8)
[2025-07-28 15:16] LABS: Bacteria,Urine 1+ /lpf
--- NOTE | 2025-07-28 15:24 | US_ITS ---
PROCEDURE INFORMATION: Exam: US Abdomen, Limited; Right Upper Quadrant Exam date and time: 07/28/2025 4:07 PM Age: 29 years old Clinical indication: Abdominal pain; Epigastric; Additional info: Ruq pain TECHNIQUE: Imaging protocol: Real time ultrasound of the abdomen with image documentation. Limited exam focused on the right upper quadrant. COMPARISON: No relevant prior studies available. FINDINGS: Liver: Normal size of the liver. Normal contour. Moderate heterogeneous echotexture. No focal hepatic lesion. Moderate hepatic steatosis. Gallbladder: Multiple gallbladder calculi are present, larger on the neck, tiny ones in the fundus region. Gallbladder wall thickness is at the upper limits of normal (3 mm). No distinct pericholecystic fluid. Biliary ducts: Normal. No stones. No dilation. Pancreas: Visualized pancreas is unremarkable. Right kidney: Normal. No mass. No hydronephrosis. IMPRESSION: 1. Cholelithiasis. No distinct evidence of acute cholecystitis. According to clinical discretion, consider nuclear medicine HIDA scan for complete evaluation. 2. Hepatic steatosis.
[2025-07-28 15:28] LABS: Alanine Aminotransferase 27 U/L (12-78); Albumin Level 4.9 g/dl (3.5-5.0); Albumin/Globulin Ratio 1.4 (1.1-1.8); Alkaline Phosphatase 88 U/L (38-126); Anion Gap 11.8 mEq/L (5-15); Aspartate Amino Transferase 26 U/L (14-36); Bilirubin,Total 0.5 mg/dl (0.2-1.3); Blood Urea Nitrogen 16 mg/dl (7-17); Calcium 9.7 mg/dl (8.4-10.2); Carbon Dioxide 24 mmol/L (22.0-30.0); Chloride 107 mmol/L (98-107); Creatinine Clearance Estimated 147 mL/min (50-200); Creatinine,Serum 1.00 mg/dl (0.52-1.04); Estimated Glomerular Filt Rate 66 ml/min (>60); GFR (African American) 80 ML/MIN (>60); Globulin 3.5 g/dL (1.3-3.2); Glucose 93 mg/dl (74-100); Magnesium 1.7 mg/dl (1.6-2.3); Phosphorous 3.5 mg/dl (2.5-4.5); Potassium 3.8 mmoL/L (3.5-5.1); Sodium 139 mmol/L (136-145); Total Protein,Serum 8.4 g/dl (6.3-8.2)
[2025-07-28 15:32] LABS: D-Dimer 0.51 ug/mL (0.0-0.5)
[2025-07-28 15:32] LABS: Urine Pregnancy, HCG Qual. Negative (Negative)
[2025-07-28 15:41] LABS: NT Pro Brain Natriuretic Pep. 350 pg/mL (0-125)
[2025-07-28 15:49] LABS: Troponin I < 0.01 ng/ml (0.00-0.034)
[2025-07-28 15:54] LABS: Bilirubin,Direct 0.0 mg/dl (0.0-0.4); Bilirubin,Indirect 0.3 mg/dL (0.0-0.9); Bilirubin,Total 0.3 mg/dl (0.2-1.3); Bilirubin,Unconjugated 0.3 mg/dL (0.0-1.1); Lipase 38 U/L (23-300)
[2025-07-28 15:59] LABS: Thyroid Stimulating Hormone 1.64 uIU/mL (0.465-4.68)
[2025-07-28] MEDS: KETOROLAC 30MG/ML VIAL 30 MG IV (17:04)
[2025-07-28 17:23] VITALS: BP 106/70; PULSE 75; O2SAT 97
[2025-07-28 17:52] VITALS: BP 117/84; PULSE 70; RESP 15; TEMP 36.6; O2SAT 97
== END 2025-07-28 17:53 | disposition home or self-care (01) ==
PROVIDERS: Physician Assistant; Emergency Provider Emergency Medicine; PCP Nurse Practitioner Family
DX: R10.11 Right upper quadrant pain (principal); K80.20 Calculus of gallbladder without cholecystitis without obstruction; R07.9 Chest pain, unspecified
CPT/HCPCS: 71045; 76705; 80053; 81001; 81025; 82247; 82248; 83690; 83735; 83880; 84100; 84443; 84484; 85025; 85378; 93005; 96374; 96375; 99285; J1885; J2270; J2405

== ENCOUNTER 2025-07-31 15:15 | Emergency (ER) | payer OTHER, SELFPAY ==
--- OUTSIDE RECORDS SUMMARY | 2025-06-26 07:20 | XMS_ITS | Encounter Summary ---
Author Organization Healthcare Address [address] [place] [address] Care Team Providers Care Freight Rate Specialist Name Role Phone April Piper APRN Primary Care Provider [phone] Reason for Visit * Reason Comments Anemia Follow-up Encounter Details Date Type Department Care Team (Late st Contact Info) Description 06/26/2025 7:20 AM EST Office Visit [facility] [address] [place] [address] April Piper APRN [address] [place] [address] Pharyngitis, unspecified etiology (Primary Dx); [...] any time in the past 12 m [facility], were you homeless or living in a group home (including now)? No 06/26/2025 [facility] Utilities Answer Date Recorded In [...] documented in this encounter Functional Status * BP Answer Date of Assessment Author 106/75 06/26/2025 7:27 AM EST Marcella, K emari * Temp Answer Date of Assessment Author 98 06/26/2025 7:27 AM EST Marcella, K emari * Pulse Answer Date of Assessment Author 77 06/26/2025 7:27 AM EST Marcella, K emari * SpO2 Answer Date of Assessment Author 97 06/26/2025 7:27 AM EST Marcella, K emari * Height Answer Date of Assessment Author 67.992 06/26/2025 7:27 AM EST Marcella, K emari * Weight Answer Date of Assessment Author 3950.64 06/26/2025 7:27 AM EST Marcella, K emari * BMI (Calculated) Answer Date of Assessment Author 37.6 06/26/2025 7:27 AM EST Marcella, K emari * Percent Excess Weight Loss Answer Date of Assessment Author 0 06/26/2025 7:27 AM EST Marcella, K emari * Total Weight Change Percent Answer Date of Assessment Author 222106/26/2025 7:27 AM EST Marcella, K emari * Weight Change Since Preop Answer Date of Assessment Author 111.97 06/26/2025 7:27 AM EST Marcella, K emari * Initial Excess Weight Answer Date of Assessment Author -63.48 06/26/2025 7:27 AM EST Marcella, K emari * IBW in lbs (Bariatric) Answer Date of Assessment Author 139.96 06/26/2025 7:27 AM EST Marcella, K emari * Weight Change Since Last Visit Answer Date of Assessment Author 111.97 06/26/2025 7:27 AM EST Marcella, K emari * IBW in kg (Bariatric) Answer Date of Assessment Author 63.48 06/26/2025 7:27 AM EST Marcella, K emari * Percent of IBW Answer Date of Assessment Author 6,223.44 06/26/2025 7:27 AM EST Marcella, K emari * EBW (kg) Answer Date of Assessment Author 3,948.84 06/26/2025 7:27 AM EST Marcella, K emari * EBW (lbs) Answer Date of Assessment Author 3,941.89 06/26/2025 7:27 AM EST Marcella, K emari * Weight Change 24 hrs Answer Date of Assessment Author -2.7 06/26/2025 7:27 AM EST Marcella, K emari * BSA (Calculated - sq m) Answer Date of Assessment Author 2.32 06/26/2025 7:27 AM EST Marcella, K emari * BMI (Calculated) Answer Date of Assessment Author 37.55 06/26/2025 7:27 AM EST Marcella, K emari * IBW/kg (Calculated) Male Answer Date of Assessment Author 68.38 06/26/2025 7:27 AM EST Marcella, K emari * IBW/kg (Calculated) Female Answer Date of Assessment Author 63.88 06/26/2025 7:27 AM EST Marcella, K emari * IBW/kg (Calculated) Answer Date of Assessment Author 63.88 06/26/2025 7:27 AM EST Marcella, K emari * Calculated C-SSRS Risk Score (Lifetime/Recent) Answer Date of Assessment Author No Risk Indicated 06/26/2025 7:30 AM EST Marcella, Kemari * Weight in (lb) to have BMI = 25 Answer Date of Assessment Author 164 06/26/2025 7:27 AM EST Marcella, K emari * BMI (Calculated) Answer Date of Assessment Author 37.6 06/26/2025 7:27 AM EST Marcella, K emari * Percent Excess Weight Loss Answer Date of Assessment Author 0 06/26/2025 7:27 AM EST Marcella, K emari * Weight Change Since Preop Answer Date of Assessment Author 112 06/26/2025 7:27 AM EST Marcella, K emari * Initial Excess Weight Answer Date of Assessment Author -63.48 06/26/2025 7:27 AM EST Marcella, K emari * IBW in kg (Bariatric) Answer Date of Assessment Author 63.48 06/26/2025 7:27 AM EST Marcella, K emari * IBW in lb (Bariatric) Answer Date of Assessment Author 139.96 06/26/2025 7:27 AM EST Marcella, K emari * Weight Change Since Last Visit Answer Date of Assessment Author 112 06/26/2025 7:27 AM EST Marcella, K emari * Percent of IBW Answer Date of Assessment Author 176.42 06/26/2025 7:27 AM EST Marcella, K emari * EBW (kg) Answer Date of Assessment Author 48.49 06/26/2025 7:27 AM EST Marcella, K emari * EBW (lb) Answer Date of Assessment Author 106.96 06/26/2025 7:27 AM EST Marcella, K emari * Difference in Weight Since Last Visit Answer Date of Assessment Author -2.7 06/26/2025 7:27 AM EST Marcella, K emari * Temp (in Celsius) for CABAZON IV Answer Date of Assessment Author 36.7 06/26/2025 7:27 AM EST Marcella, K emari * IBW/kg (Calculated) Answer Date of Assessment Author 63.88 06/26/2025 7:27 AM EST Marcella, K emari * Adult Low Range Vt 6mL/kg Answer Date of Assessment Author 383.28 06/26/2025 7:27 AM EST Marcella, K emari * Adult Moderate Range Vt 8mL/kg Answer Date of Assessment Author 511.04 06/26/2025 7:27 AM EST Marcella, K emari * Adult High Range Vt 10mL/kg Answer Date of Assessment Author 638.8 06/26/2025 7:27 AM EST Marcella, K emari * Pain Score Answer Date of Assessment Author 0 06/26/2025 7:28 AM EST Marcella, K emari * Pain Screening/Additional Assessments Question Answer Date of Assessment Author Pain Screening/Assessments Pain Screening 06/26/2025 7 :28 AM EST Kristin Naranjo * Pain Screening Answer Date of Assessment Author 0-10 06/26/2025 7:28 AM EST Marcella, K emari * C-SSRS (Screener) Question Answer Date of Assessment Author Is patient awake, alert, and able/willing to answer questions appropriately? Yes 06/26/2025 7:30 AM Kristin Ramirez 1. Wish to be (Past 1 Month) No 025 7:30 AM EST Kristin Naranjo 2. Non-Specific Active Suici rad Thoughts (Past 1 Month) No 06/26/2025 7:30 AM EST Kristin Naranjo 6. Suicidal Behavior (Lifetime) No 7:30 AM EST Kristin Naranjo * BP Answer Date of Assessment Author 106/75 06/26/2025 7:27 AM EST Marcella, K emari * Temp Answer Date of Assessment Author 98 06/26/2025 7:27 AM EST Marcella, K emari * Pulse Answer Date of Assessment Author 77 06/26/2025 7:27 AM EST Marcella, K emari * SpO2 Answer Date of Assessment Author 97 06/26/2025 7:27 AM EST Marcella, K emari * Height Answer Date of Assessment Author 67.992 06/26/2025 7:27 AM EST Marcella, K emari * Weight Answer Date of Assessment Author 3950.64 06/26/2025 7:27 AM EST Marcella, K emari * BSA (Calculated - sq m) Answer Date of Assessment Author 2.32 06/26/2025 7:27 AM EST Marcella, K emari * BMI (Calculated) Answer Date of Assessment Author 37.55 06/26/2025 7:27 AM EST Marcella, K emari * Calculated C-SSRS Risk Score (Lifetime/Recent) Answer Date of Assessment Author No Risk Indicated 06/26/2025 7:30 AM EST Kristin Naranjo * Weight in (lb) to have BMI = 25 Answer Date of Assessment Author 164 06/26/2025 7:27 AM EST Jonah Naranjo emari * Pain Score Answer Date of Assessment Author 0 06/26/2025 7:28 AM EST Marcella, K emari * C-SSRS (Screener) Question Answer Date of Assessment Author Is patient awake, alert, and able/willing to answer questions appropriately? Yes 06/26/2025 7:30 AM Kristin Ramirez 1. Wish to be (Past 1 Month) No 025 7:30 AM Kristin Ramirez 2. Non-Specific Active Suici rad Thoughts (Past 1 Month) No 06/26/2025 7:30 AM Kristin Ramirez 6. Suicidal Behavior (Lifetime) No 7:30 AM Kristin Ramirez documented as of this encounter Mental Status * BP Answer Entry Date Author 106/75 06/26/2025 7:27 AM EST Jonah Naranjo emari * Temp Answer Entry Date Author 98 06/26/2025 7:27 AM EST Jonah Naranjo emari * Pulse Answer Entry Date Author 77 06/26/2025 7:27 AM EST Jonah Naranjo emari * SpO2 Answer Entry Date Author 97 06/26/2025 7:27 AM EST Marcella K emari * Height Answer Entry Date Author 67.992 06/26/2025 7:27 AM EST Marcella K emari * Weight Answer Entry Date Author 3950.64 06/26/2025 7:27 AM EST Marcella, K emari * BMI (Calculated) Answer Entry Date Author 37.6 06/26/2025 7:27 AM EST Marcella K emari * Percent Excess Weight Loss Answer Entry Date Author 0 06/26/2025 7:27 AM EST Jonah Naranjo emari * Total Weight Change Percent Answer Entry Date Author 222106/26/2025 7:27 AM EST Marcella, K emari * Weight Change Since Preop Answer Entry Date Author 111.97 06/26/2025 7:27 AM EST Marcella, K emari * Initial Excess Weight Answer Entry Date Author -63.48 06/26/2025 7:27 AM EST Marcella, K emari * IBW in lbs (Bariatric) Answer Entry Date Author 139.96 06/26/2025 7:27 AM EST Marcella, K emari * Weight Change Since Last Visit Answer Entry Date Author 111.97 06/26/2025 7:27 AM EST Marcella, K emari * IBW in kg (Bariatric) Answer Entry Date Author 63.48 06/26/2025 7:27 AM EST Marcella, K emari * Percent of IBW Answer Entry Date Author 6,223.44 06/26/2025 7:27 AM EST Marcella, K emari * EBW (kg) Answer Entry Date Author 3,948.84 06/26/2025 7:27 AM EST Marcella, K emari * EBW (lbs) Answer Entry Date Author 3,941.89 06/26/2025 7:27 AM EST Marcella, K emari * Weight Change 24 hrs Answer Entry Date Author -2.7 06/26/2025 7:27 AM EST Marcella, K emari * BSA (Calculated - sq m) Answer Entry Date Author 2.32 06/26/2025 7:27 AM EST Marcella, K emari * BMI (Calculated) Answer Entry Date Author 37.55 06/26/2025 7:27 AM EST Marcella, K emari * IBW/kg (Calculated) Male Answer Entry Date Author 68.38 06/26/2025 7:27 AM EST Marcella, K emari * IBW/kg (Calculated) Female Answer Entry Date Author 63.88 06/26/2025 7:27 AM EST Marcella, K emari * IBW/kg (Calculated) Answer Entry Date Author 63.88 06/26/2025 7:27 AM EST Marcella, K emari * Food Insecurity Concern Calculation Answer Entry Date Author 1 06/26/2025 7:12 AM EST Mychart, Generic * Transportation Needs Concern Calculation Answer Entry Date Author 1 06/26/2025 7:12 AM EST Mychart, Generic * Housing Stability Concern Calculation Answer Entry Date Author 0 06/26/2025 7:12 AM EST Mychart, Generic * Utilities Concern Calculation Answer Entry Date Author 1 06/26/2025 7:12 AM EST Mychart, Generic * Calculated C-SSRS Risk Score (Lifetime/Recent) Answer Entry Date Author No Risk Indicated 06/26/2025 7:30 AM EST MarcellaKristin rm * Restart Pain Assessment Timer Answer Entry Date Author Yes 06/26/2025 7:28 AM EST Marcella, K emari * Weight in (lb) to have BMI = 25 Answer Entry Date Author 164 06/26/2025 7:27 AM EST Marcella, K emari * BMI (Calculated) Answer Entry Date Author 37.6 06/26/2025 7:27 AM EST Marcella, K emari * Percent Excess Weight Loss Answer Entry Date Author 0 06/26/2025 7:27 AM EST Marcella, K emari * Weight Change Since Preop Answer Entry Date Author 112 06/26/2025 7:27 AM EST Marcella, K emari * Initial Excess Weight Answer Entry Date Author -63.48 06/26/2025 7:27 AM EST Marcella, K emari * IBW in kg (Bariatric) Answer Entry Date Author 63.48 06/26/2025 7:27 AM EST Marcella, K emari * IBW in lb (Bariatric) Answer Entry Date Author 139.96 06/26/2025 7:27 AM EST Marcella, K emari * Weight Change Since Last Visit Answer Entry Date Author 112 06/26/2025 7:27 AM EST Marcella, K emari * Percent of IBW Answer Entry Date Author 176.42 06/26/2025 7:27 AM EST Marcella, K emari * EBW (kg) Answer Entry Date Author 48.49 06/26/2025 7:27 AM EST Marcella, K emari * EBW (lb) Answer Entry Date Author 106.96 06/26/2025 7:27 AM EST Marcella, K emari * Difference in Weight Since Last Visit Answer Entry Date Author -2.7 06/26/2025 7:27 AM EST Marcella, K emari * Temp (in Celsius) for CABAZON IV Answer Entry Date Author 36.7 06/26/2025 7:27 AM EST Marcella, K emari * IBW/kg (Calculated) Answer Entry Date Author 63.88 06/26/2025 7:27 AM EST Marcella, K emari * Adult Low Range Vt 6mL/kg Answer Entry Date Author 383.28 06/26/2025 7:27 AM EST Marcella, K emari * Adult Moderate Range Vt 8mL/kg Answer Entry Date Author 511.04 06/26/2025 7:27 AM EST Marcella, K emari * Adult High Range Vt 10mL/kg Answer Entry Date Author 638.8 06/26/2025 7:27 AM EST Marcella, K emari * Pain Score Answer Entry Date Author 0 06/26/2025 7:28 AM EST Marcella, K emari * Pain Screening Answer Entry Date Author 0-10 06/26/2025 7:28 AM EST Marcella, K emari * C-SSRS (Screener) Question Answer Entry Date Author Is patient awake, alert, and able/willing to answer questions appropriately? Yes 06/26/2025 7:30 AM EST Kristin Naranjo 1. Wish to be (Past 1 Month) No 025 7:30 AM EST Kristin Naranjo 2. Non-Specific Active Suici rad Thoughts (Past 1 Month) No 06/26/2025 7:30 AM EST Kristin Naranjo 6. Suicidal Behavior (Lifetime) No 7:30 AM EST Kristin Naranjo documented in this encounter Miscellaneous Notes * Progress Notes - April Piper APRN - 06/26/2025 7:20 AM EST Images from the original note were not included. Subjective Negrita S Kalina 29 y.o. female Preferred pronouns she/her [...] Description 08/22/2025 8:00 AM EST Office Visit [facility] [address], [address] [place] [address] Keli Harvey PA [address] [place] [address] 10/01/2025 1:00 PM EST Office Visit [facility] [address] [place] [address] Janice Kramer MD [address] [place] [address] 11/28/2025 7:20 AM EDT Office Visit [facility] [address] [place] [address] April Piper APRN [address] [place] [address] documented as of this encounter Goals Goal Patient Goal Type Associated Problems Recent Progress Patient-Stated? Author HEP Occupational Therapy On track(2020 3:42 PM EDT) No Tanya Ghosh Note: Patient will complete HEP with appropriate form 100% of the time. Geology Scientist Goal: to be met by 06/08/21 Goal [...] LAB HEMATOLOGY METHOD 06/26/2025 6:19 PM EST [facility] Clumped Platelets Present LAB HEMATOLOGY METHOD 06/26/2025 6:19 PM EST [facility] Blood Venous blood specimen / Unknown Venipuncture / Unknown 06/26/2025 8:24 AM EST 06/26/2025 2:10 PM EST April Piper X RAY EQUIPMENT TESTER LAB BLOOD ORDERABLES Final Re sult Performing Organization Address City/[facility]/ZIP Co de Phone Number [facility] [address] [place] [address] * Iron & Total Iron Binding Capacity, Plasma (Includes Transferrin) (06/26/2025 8:24 AM EST) Iron, Plasma 67 30 - 160 ug/dL 06/26/2025 2:40 PM EST [facility] Transferrin, Plasma 304 200 - 360 mg/dL 06/26/2025 2:40 PM EST [facility] Total Iron Binding Capacity, Plasma 380 240 - 450 ug/mL 06/26/2025 2:40 PM EST [facility] Transferrin Saturation 18 14 - 50 % 06/26/2025 2:40 PM EST [facility] Blood Venous blood specimen / Unknown Venipuncture / Unknown 06/26/2025 8:24 AM EST 06/26/2025 2:10 PM EST April Piper X RAY EQUIPMENT TESTER LAB BLOOD ORDERABLES Final Re sult Performing Organization Address City/[facility] Co de Phone Number [facility] [address] [place] [address] * (ABNORMAL) CBC and Differential (06/26/2025 8:24 AM EST) WBC Count 8.50 3.70 - 10.30 10*3/uL LAB HEMATOLOGY METHOD 06/26/2025 6:19 PM EST [facility] RBC Count 4.40 3.90 - 5.20 10*6/uL LAB HEMATOLOGY METHOD 06/26/2025 6:19 PM EST [facility] HGB 12.2 11.2 - 15.7 g/dL LAB HEMATOLOGY METHOD 06/26/2025 6:19 PM EST [facility] HCT 38.4 34.0 - 45.0 % LAB HEMATOLOGY METHOD 06/26/2025 6:19 PM EST [facility] Platelet Count 530(H) 155 - 369 10*3/uL LAB HEMATOLOGY METHOD 06/26/2025 6:19 PM [facility] MCV 87 79 - 98 fL LAB HEMATOLOGY METHOD 06/26/2025 6:19 PM [facility] MCH 27.7 26.0 - 32.0 pg LAB HEMATOLOGY METHOD 06/26/2025 6:19 PM [facility] MCHC 31.8 30.7 - 35.5 g/dL LAB HEMATOLOGY METHOD 06/26/2025 6:19 PM [facility] RDW 14.2 11.5 - 14.5 % LAB HEMATOLOGY METHOD 06/26/2025 6:19 PM EST [facility] MPV LAB HEMATOLOGY METHOD 06/26/2025 6:19 PM [facility] Comment:Not Measured nRBC 0.0 <=0.0 per 100 WBCs LAB HEMATOLOGY METHOD 06/26/2025 6:19 PM [facility] Differential Type Automated LAB HEMATOLOGY METHOD 06/26/2025 6:19 PM [facility] Neutrophils % 71 % LAB HEMATOLOGY METHOD 06/26/2025 6:19 PM [facility] Lymphocytes % 19 % LAB HEMATOLOGY METHOD 06/26/2025 6:19 PM [facility] Monocytes % 8 % LAB HEMATOLOGY METHOD 06/26/2025 6:19 PM [facility] Eosinophils % 1 % LAB HEMATOLOGY METHOD 06/26/2025 6:19 PM [facility] Basophils % 1 % LAB HEMATOLOGY METHOD 06/26/2025 6:19 PM [facility] Immature Granulocytes % 0 % LAB HEMATOLOGY METHOD 06/26/2025 6:19 PM EST [facility] Neutrophils Absolute 6.05 1.60 - 6.10 10*3/uL LAB HEMATOLOGY METHOD 06/26/2025 6:19 PM [facility] Lymphocytes Absolute 1.60 1.20 - 3.90 10*3/uL LAB HEMATOLOGY METHOD 06/26/2025 6:19 PM [facility] Monocytes Absolute 0.68 0.30 - 0.90 10*3/uL LAB HEMATOLOGY METHOD 06/26/2025 6:19 PM [facility] Eosinophils Absolute 0.11 0.00 - 0.50 10*3/uL LAB HEMATOLOGY METHOD 06/26/2025 6:19 PM EST [facility] Basophils Absolute 0.04 0.00 - 0.10 10*3/uL LAB HEMATOLOGY METHOD 06/26/2025 6:19 PM EST [facility] Immature Granulocytes Absolute 0.02 0.00 - 0.06 10*3/uL LAB HEMATOLOGY METHOD 06/26/2025 6:19 PM EST [facility] Blood Venous blood specimen / Unknown Venipuncture / Unknown 06/26/2025 8:24 AM EST 06/26/2025 2:10 PM EST Narrative [facility] - 06/26/2025 6:19 PM EST Therapeutic decision making should be based on absolute values, rather than percentages. April Piper APRN LAB BLOOD ORDERABLES Final Re sult [facility] [address] [place] [address] documented in this encounter Visit Diagnoses Diagnosis [...] documented as of this encounter Care Teams Freight Rate Specialist Relationship Specialty Start Date End Date April Piper APRN [address] [place] [address] [address] [place] [address] PCP - General Family Medicine 02/06/23 documented as of this encounter
[2025-07-31 15:26] VITALS: BP 140/95; PULSE 99; RESP 15; TEMP 36.7; O2SAT 99; BMI 37.5
[2025-07-31 15:30] VITALS: PULSE 97; O2SAT 99
--- OUTSIDE RECORDS SUMMARY | 2025-07-31 15:34 | XMS_ITS | Encounter Summary ---
Author Organization Healthcare Address [address] [place] [address] Care Team Providers Care Chicken Hanger Name Role Phone April Piper APRN Primary Care Provider [phone] Encounter Details Date Type Department Care Team [...] living in a usp (including now)? No 06/26/2025 [facility] Utilities Answer Date Recorded In [...] as of this encounter Functional Status * Communicable Disease Screening Question Answer Date of Assessment Author Have you been in contact wit h someone who was sick? No / Unsure 06/26/2025 7:09 AM Jeremi Mo Do you have any of the follo wing new or worsening symptoms? None of these 06/26/2025 7:09 AM EST Milton Phelps * Travel Screening Question Answer Date of Assessment Author Have you traveled internatio anson or domestically in the last month? No 06/26/2025 7:09 AM EST Mycha rt, Generic documented as of this encounter Mental Status * Communicable Disease Screening Question Answer Entry Date Author Have you been in contact wit h someone who was sick? No / Unsure 06/26/2025 7:09 AM EST Jeremi Phelps Do you have any of the follo wing new or worsening symptoms? None of these 06/26/2025 7:09 AM EST Milton Phelps * Travel Screening Question Answer Entry Date Author Have you traveled internatio anson or domestically in the last month? No 06/26/2025 7:09 AM EST Mycha rt, Generic documented in this encounter Plan of Treatment Upcoming Encounters Date Type Department Care Team (Late st Contact Info) Description 08/22/2025 8:00 AM EST Office Visit [place] [facility] [address], [address]st [place] [address] Keli Harvey PA [address] [facility] [address] [place] [address] 10/01/2025 1:00 PM EST Office Visit [facility] [address] [place] [address] Janice Kramer MD [address] [place] [address] 11/28/2025 7:20 AM EDT Office Visit [facility] [address] [place] [phone] April Piper APRN [address] [place] [phone] documented as of this encounter Goals Goal [...] documented as of this encounter Care Teams Chicken Hanger Relationship Specialty Start Date End Date April Piper APRN [address] [place] [phone] PCP - General Family Medicine 02/06/23 documented as of this encounter
--- OUTSIDE RECORDS SUMMARY | 2025-07-31 15:34 | XMS_ITS | Encounter Summary ---
Author Organization Healthcare Address [address] [place] [address] Care Team Providers Care Regulatory Services Consultant Name Role Phone April Piper APRN Primary Care Provider [phone] Encounter Details Date Type Department Care Team (Late Contact Info) Description 06/23[facility] Room E214 [address] [place] [address] Keily Fofana [address] Social History Tobacco Use Types Packs/Day Years [...] living in a assisted (including now)? No 04/22/2025 [facility] Utilities Answer Date Recorded In the past 12 months has th e [employer], gas, oil, or water [employer] threatened to shut off services in your [...] Visit [place] [facility] [address], 1st [place] [address] Keli Harvey PA [address] [place] [address] 10/01/2025 1:00 PM EST Office Visit [facility] [address] [place] [address] Janice Kramer MD [address] [place] [address] 11/28/2025 7:20 AM EDT Office Visit [facility] [address] [place] [phone] April Piper APRN 245 [facility] [address] [place] [phone] documented as of this encounter Goals Goal [...] minutes without pain 100% of the time. Adjunct Professor Of Law Goal: to be met by 07/10/21. documented [...] documented as of this encounter Care Teams Regulatory Services Consultant Relationship Specialty Start Date End Date April Piper APRN [address] [place] [phone] PCP - General Family Medicine 02/06/23 documented as of this encounter
--- OUTSIDE RECORDS SUMMARY | 2025-07-31 15:34 | XMS_ITS | Encounter Summary ---
Author Organization Healthcare Address [address] [place] [address] Care Team Providers Care Paper Inspector Name Role Phone April Piper APRN Primary Care Provider [phone] Reason for Visit * Reason Comments Med Refill Encounter Details Date Type Department Care Team (Late st Contact Info) Description 06/27/2025 Refill [facility] [address] [place] [address] April Piper APRN [address] [place] [address] Arthralgia of right temporomandibular joint; [...] living in a penitentiary (including now)? No 06/26/2025 [facility] Utilities Answer Date Recorded In [...] Visit [place] [facility] [address], [address] [place] [address] Keli Harvey PA [address] [place] [address] 10/01/2025 1:00 PM EST Office Visit [facility] [address] [place] [phone] Janice Kramer MD [address] [place] [address] 11/28/2025 7:20 AM EDT Office Visit [facility] [address] [place] [address] April Piper APRN [address] [place] [address] documented as of this encounter Goals Goal Patient Goal Type Associated Problems Recent Progress Patient-Stated? Author HEP Occupational Therapy On track(2020 3:42 PM EDT) No Tanya Ghosh Note: Patient will complete HEP with appropriate form 100% of the time. Mailing Manager Goal: to be met by 06/08/21 Goal on going as exercises continue to be added. Good form with exercises thus far. Leisure Occupational Therapy On track(2020 3:42 PM EDT) No Tanya Ghosh Note: Patient will complete leisure task such as baking or beading x20 minutes without pain 100% of the time. Mailing Manager Goal: to be met by 07/10/21. [...] documented as of this encounter Care Teams Paper Inspector Relationship Specialty Start Date End Date April Piper APRN [address] [place] [phone] PCP - General Family Medicine 02/06/23 documented as of this encounter
--- OUTSIDE RECORDS SUMMARY | 2025-07-31 15:34 | XMS_ITS | Encounter Summary ---
Author Organization Healthcare Address [address] [place] [address] Care Team Providers Care Corporate Event Planner Name Role Phone April Piper APRN Primary Care Provider [phone] Encounter Details Date Type Department Care Team (Late st Contact Info) Description 06/27/2025 Results Follow-Up [facility] [address] [place] [address] April Piper APRN 245 [facility] [address] [place] [address] Social History Tobacco Use Types [...] time in the past 12 m [facility], were you homeless or living in a long-term (including now)? No 06/26/2025 [facility] Utilities Answer Date Recorded In the past [...] Visit [place] [facility] [address], 1st [place] [address] Keli Harvey PA [address] [place] [address] 10/01/2025 1:00 PM EST Office Visit [facility] [address] [place] [address] Janice Kramer MD [address] [place] [address] 11/28/2025 7:20 AM EDT Office Visit [facility] [address] [place] [address] April Piper APRN [address] [place] [address] documented as of this encounter Goals Goal Patient Goal Type Associated Problems Recent Progress Patient-Stated? Author HEP Occupational Therapy On track(2020 3:42 PM EDT) No Tanya Ghosh Note: Patient will complete HEP with appropriate form 100% of the time. Instrumentation Instructor Goal: to be met by 06/08/21 Goal [...] documented as of this encounter Care Teams Corporate Event Planner Relationship Specialty Start Date End Date April Piper APRN [address] [place] [phone] PCP - General Family Medicine 02/06/23 documented as of this encounter
--- OUTSIDE RECORDS SUMMARY | 2025-07-31 15:34 | XMS_ITS | Encounter Summary ---
Author Organization Healthcare Address [address] [place] [address] Care Team Providers Care Road Contractor Name Role Phone April Piper APRN Primary Care Provider [phone] Encounter Details Date Type Department Care Team (Late st Contact Info) Description 06/27/[address] [facility] [address] [place] [address] April Piper APRN 245 [facility] [address] [place] [address] Thrombocytosis (Primary Dx) Social History [...] living in a mcc (including now)? No 06/26/2025 [facility] Utilities Answer Date Recorded In the [...] Visit [place] [facility] [address], 1st [place] [phone] Keli Harvey PA [address] [place] [address] 10/01/2025 1:00 PM EST Office Visit [facility] [address] [facility] [place] [address] Janice Kramer MD [address] [place] [address] 11/28/2025 7:20 AM EDT Office Visit [facility] [address] [place] [address] April Piper APRN [address] [place] [address] Scheduled Orders Name Type Priority [...] with appropriate form 100% of the time. Wardrobe Technician Goal: to be met by 06/08/21 Goal on going as exercises continue to be added. Good form with exercises thus far. Leisure Occupational Therapy On track(2020 3:42 PM EDT) No Tanya Ghosh Note: Patient will complete leisure task such as baking or beading x20 minutes without pain 100% of the time. Wardrobe Technician Goal: to be met by 07/10/21. [...] documented as of this encounter Care Teams Road Contractor Relationship Specialty Start Date End Date April Ppier APRN [address] [place] [phone] PCP - General Family Medicine 02/06/23 documented as of this encounter
--- OUTSIDE RECORDS SUMMARY | 2025-07-31 15:34 | XMS_ITS | Encounter Summary ---
Author Organization Healthcare Address [address] [place] [address] Care Team Providers Care Conveyor Loader Name Role Phone April Piper APRN Primary Care Provider Reason for Visit * Reason Comments Med Refill Encounter Details Date Type Department Care Team (Late st Contact Info) Description 06/04/2025 Refill [place] [facility] [address], 1st [place] [address] Keli Harvey PA [address] [place] [address] Social History Tobacco Use Types [...] a nursing home (including now)? No 04/22/2025 [facility] Utilities Answer Date Recorded In the past 12 months has e [employer], gas, oil, or water company threatened to [...] Visit [place] [facility] [address], 1st [place] [address] Keli Harvey PA [address] [place] [address] 10/01/2025 1:00 PM EST Office Visit [facility] [address] [facility] [place] [phone] Janice Kramer MD [address] [place] [address] 11/28/2025 7:20 AM EDT Office Visit [facility] [address] [place] [phone] April Piper APRN [address] [place] [phone] documented as of this encounter Goals Goal [...] documented as of this encounter Care Teams Conveyor Loader Relationship Specialty Start Date End Date April Piper APRN 245 [facility] [address] [place] [address] PCP - General Family Medicine 02/06/23 documented as of this encounter
--- OUTSIDE RECORDS SUMMARY | 2025-07-31 15:34 | XMS_ITS | Encounter Summary ---
Author Organization Healthcare Address [address] [place] [address] Care Team Providers Care Drug Clerk Name Role Phone April Piper APRN Primary Care Provider [phone] Encounter Details Date Type Department Care Team [...] time in the past 12 m [facility], were you homeless or living in a fci (including now)? No 06/26/2025 [facility] Utilities Answer Date Recorded In [...] as of this encounter Functional Status * Travel Screening Question Answer Date of Assessment Author Have you traveled internatio anson or domestically in the last month? No 06/28/2025 3:43 PM EST Mycha rt, Generic documented as of this encounter Mental Status * Travel Screening Question Answer Entry Date Author Have you traveled internatio anson or domestically in the last month? No 06/28/2025 3:43 PM EST Mycha rt, Generic documented in this encounter Plan of Treatment Upcoming Encounters Date Type Department Care Team (Late st Contact Info) Description 08/22/2025 8:00 AM EST Office [facility] [place] [facility] [address], 1st [place] [address] Keli Harvey, RAINE [address] [place] [address] 10/01/2025 1:00 PM EST Office Visit [facility] [address] [place] [address] Janice Kramer MD [address] [place] [address] 11/28/2025 7:20 AM EDT Office Visit [facility] [address] [place] [address] April Piper APRN [address] [place] [address] documented as of this encounter Goals Goal Patient Goal Type Associated Problems Recent Progress Patient-Stated? Author HEP Occupational Therapy On track(2020 3:42 PM EDT) No Tanya Ghosh Note: Patient will complete HEP with appropriate form 100% of the time. Education Specialist Goal: to be met by 06/08/21 [...] documented as of this encounter Care Teams Drug Clerk Relationship Specialty Start Date End Date April Piper APRN [address] [place] [phone] PCP - General Family Medicine 02/06/23 documented as of this encounter
--- OUTSIDE RECORDS SUMMARY | 2025-07-31 15:34 | XMS_ITS | Encounter Summary ---
Author Organization Healthcare Address [address] [place] [address] Care Team Providers Care Information Assistant Name Role Phone April Piper APRN Primary Care Provider [phone] Encounter Details Date Type Department Care Team [...] in a senior care (including now)? No 04/22/2025 [facility] Utilities Answer Date Recorded [...] or domestically in the last month? No 06/13/2025 9:47 PM EST Mycha rt, Generic documented as of this encounter Mental Status * Travel Screening Question Answer Entry Date Author Have you traveled internatio anson or domestically in the last month? No 06/13/2025 9:47 PM EST Mycha rt, Generic documented in this encounter Plan of Treatment Upcoming Encounters Date Type Department Care Team (Late st Contact Info) Description 08/22/2025 8:00 AM EST Office [facility] [place] [facility] [address], [address] [place] [address] Keli Harvey, RAINE [address] [place] [address] 10/01/2025 1:00 PM EST Office Visit [facility] [address] [place] [address] Janice Kramer MD [address] [place] [address] 11/28/2025 7:20 AM EDT Office Visit [facility] [address] [place] [address] April Piper APRN [address] [place] [address] documented as of this encounter Goals Goal Patient Goal Type Associated Problems Recent Progress Patient-Stated? Author HEP Occupational Therapy On track(2020 3:42 PM EDT) No Tanya Ghosh Note: Patient will complete HEP with appropriate form 100% of the time. Alteration Inspector Goal: to be met by 06/08/21 Goal on going as exercises continue to be added. Good form with exercises thus far. Leisure Occupational Therapy On track(2020 3:42 PM EDT) No Tanya Ghosh Note: Patient will complete leisure task such as baking or beading x20 minutes without pain 100% of the time. Alteration Inspector Goal: to be met by 07/10/21. [...] documented as of this encounter Care Teams Information Assistant Relationship Specialty Start Date End Date April Piper APRN [address] [place] [phone] PCP - General Family Medicine 02/06/23 documented as of this encounter
--- OUTSIDE RECORDS SUMMARY | 2025-07-31 15:34 | XMS_ITS | Encounter Summary ---
Author Organization Healthcare Address [address] [place] [address] Care Team Providers Care Water Mangle Tender Name Role Phone April Piper APRN Primary Care Provider [phone] Encounter Details Date Type Department Care Team (Late st Contact Info) Description 06/04/2025 Orders Only [place] [facility] [address], [address] [place] [address] Keli Harvey PA [address] [place] [address] Social History Tobacco Use Types [...] living in a jail (including now)? No 04/22/2025 [facility] Utilities Answer Date Recorded In the past [...] Visit [place] [facility] [address], [address] [place] [address] Keli Harvey PA [address] [place] [address] 10/01/2025 1:00 PM EST Office Visit [facility] [address] [facility] [place] [address] Janice Kramer MD [address] [place] [address] 11/28/2025 7:20 AM EDT Office Visit [facility] [address] [place] [address] April Piper APRN [address] [place] [address] documented as of this encounter Goals Goal Patient Goal Type Associated Problems Recent Progress Patient-Stated? Author HEP Occupational Therapy On track(2020 3:42 PM EDT) No Tanya Ghosh Note: Patient will complete HEP with appropriate form 100% of the time. Correction Goal: to be met by 06/08/21 Goal [...] documented as of this encounter Care Teams Water Mangle Tender Relationship Specialty Start Date End Date April Piper APRN [address] [place] [address] PCP - General Family Medicine 02/06/23 documented as of this encounter
--- OUTSIDE RECORDS SUMMARY | 2025-07-31 15:34 | XMS_ITS | Encounter Summary ---
Author Organization Healthcare Address [address] [place] [address] Care Team Providers Care Staff Scientist Name Role Phone April Piper APRN Primary Care Provider [phone] Reason for Visit * Reason Comments Med Refill Encounter Details Date Type Department Care Team (Late st Contact Info) Description 06/27/2025 Refill [place] [facility] [address], 1[address] [place] [address] Keli Harvey PA [address] [place] [address] Social History Tobacco Use Types [...] time in the past 12 m [facility], were you homeless or living in a long-term (including now)? No 06/26/2025 [facility] [...] Description 08/22/2025 8:00 AM EST Office Visit [place] [facility] [address], 1[address] [place] [address] Keli Harvey PA [address] [place] [address] 10/01/2025 1:00 PM EST Office Visit [facility] [address] [place] [address] Janice Kramer MD [address] [facility] [address] [place] [address] 11/28/2025 7:20 AM EDT Office Visit [facility] [address] [place] [address] April Piper APRN [address] [place] [address] documented as of this encounter Goals Goal Patient Goal Type Associated Problems Recent Progress Patient-Stated? Author HEP Occupational Therapy On track(2020 3:42 PM EDT) No Tanya Ghosh Note: Patient will complete HEP with appropriate form 100% of the time. Director Of Radiology Goal: to be met by 06/08/21 Goal on going as exercises continue to be added. Good form with exercises thus far. Leisure Occupational Therapy On track(2020 3:42 PM EDT) No Tanya Ghosh Note: Patient will complete leisure task such as baking or beading x20 minutes without pain 100% of the time. Detention Goal: to be met by 07/10/21. documented [...] documented as of this encounter Care Teams Staff Scientist Relationship Specialty Start Date End Date April Piper APRN [address] [place] [address] PCP - General Family Medicine 02/06/23 documented as of this encounter
--- OUTSIDE RECORDS SUMMARY | 2025-07-31 15:34 | XMS_ITS | Encounter Summary ---
Author Organization Healthcare Address [address] [place] [address] Care Team Providers Care Bank Representative Name Role Phone April Piper APRN Primary Care Provider [phone] Encounter Details Date Type Department Care Team [...] in the past 12 m [facility], were you homeless or living in a penitentiary (including now)? No 06/26/2025 [facility] Utilities Answer Date Recorded In the [...] or domestically in the last month? No 07/10/2025 5:55 AM EST Mycha rt, Generic documented as of this encounter Mental Status * Travel Screening Question Answer Entry Date Author Have you traveled internatio anson or domestically in the last month? No 07/10/2025 5:55 AM EST Mycha rt, Generic documented in this encounter Plan of Treatment Upcoming Encounters Date Type Department Care Team (Late st Contact Info) Description 08/22/2025 8:00 AM EST Office [facility] [place] [facility] [address], 1st [place] [address] Keli Harvey, RAINE [address] [place] [address] 10/01/2025 1:00 PM EST Office Visit [facility] [address] [facility] [place] [address] Janice Kramer MD [address] [place] [address] 11/28/2025 7:20 AM EDT Office Visit [facility] [address] [place] [address] April Piper APRN [address] [place] [address] documented as of this encounter Goals Goal Patient Goal Type Associated Problems Recent Progress Patient-Stated? Author HEP Occupational Therapy On track(2020 3:42 PM EDT) No Tanya Ghosh Note: Patient will complete HEP with appropriate form 100% of the time. Auto Painter Helper Goal: to be met by 06/08/21 [...] documented as of this encounter Care Teams Bank Representative Relationship Specialty Start Date End Date April Piper APRN [address] [place] [address] PCP - General Family Medicine 02/06/23 documented as of this encounter
--- OUTSIDE RECORDS SUMMARY | 2025-07-31 15:35 | XMS_ITS | Encounter Summary ---
Author Organization Healthcare Address [address] [place] [address] Care Team Providers Care Steno Typist Name Role Phone April Piper APRN Primary Care Provider [phone] Reason for Referral * Consultation (Routine) - Authorized Specialty Diagnoses / Procedures Referred By Contdeepika t Referred To Contact Pain Medicine Diagnoses Facial pain April Piper APRN [address] [place] [address] Phone: tel: fax: [place] [facility] Room E214 [address] [place] [address] Phone: tel: fax: Referral ID Status Reason Start Date Expiration Date V isits Requested Visits Authorized [id number] Authorized 06/05/2025 12/05/2026 1 1 Encounter Details Date Type Department Care Team (Late st Contact Info) Description 06/05/[address] [facility] [address] [place] [address] FelizMarianaAprilJEANIE [address] [place] [address] Facial pain (Primary Dx) Social [...] in a half-way (including now)? No 04/22/2025 [facility] Utilities Answer Date Recorded In the [...] Visit [place] [facility] [address], 1st [place] [address] Keli Harvey PA [address] [place] [address] 10/01/2025 1:00 PM EST Office Visit [facility] [address] [place] [address] Janice Kramer MD [address] [place] [address] 11/28/2025 7:20 AM EDT Office Visit [address] [facility] [address] [place] [address] April Piper APRN [address] [place] [phone] Scheduled Referrals Name Type Priority Associated Diagnoses [...] without pain 100% of the time. Health Psychologist Goal: to be met by 07/10/21. documented [...] documented as of this encounter Care Teams Steno Typist Relationship Specialty Start Date End Date April Piper APRN [address] [place] [phone] PCP - General Family Medicine 02/06/23 documented as of this encounter
--- OUTSIDE RECORDS SUMMARY | 2025-07-31 15:35 | XMS_ITS | Encounter Summary ---
Author Organization Healthcare Address [address] [place] [address] Care Team Providers Care Bag Inspector Name Role Phone April Piper APRN Primary Care Provider [phone] Encounter Details Date Type Department Care Team [...] in the past 12 m [facility], were you homeless or living in a snf (including now)? No 06/26/2025 [facility] Utilities Answer Date [...] or domestically in the last month? No 07/14/2025 9:54 PM EST Mycha rt, Generic documented as of this encounter Mental Status * Travel Screening Question Answer Entry Date Author Have you traveled internatio anson or domestically in the last month? No 07/14/2025 9:54 PM EST Mycha rt, Generic documented in this encounter Plan of Treatment Upcoming Encounters Date Type Department Care Team (Late st Contact Info) Description 08/22/2025 8:00 AM EST Office Visit [place] [facility] [address], 1st [place] [address] Keli Harvey, RAINE [address] [place] [address] 10/01/2025 1:00 PM EST Office Visit [facility] [address] [place] [address] Janice Kramer MD [address] [place] [address] 11/28/2025 7:20 AM EDT Office Visit [facility] [address] [place] [address] April Piper APRN [address] [place] [address] documented as of this encounter Goals Goal Patient Goal Type Associated Problems Recent Progress Patient-Stated? Author HEP Occupational Therapy On track(2020 3:42 PM EDT) No Tanya Ghosh Note: Patient will complete HEP with appropriate form 100% of the time. Film Processing Shift Supervisor Goal: to be met by 06/08/21 Goal [...] documented as of this encounter Care Teams Bag Inspector Relationship Specialty Start Date End Date April Piper APRN [address] [place] [address] PCP - General Family Medicine 02/06/23 documented as of this encounter
--- OUTSIDE RECORDS SUMMARY | 2025-07-31 15:35 | XMS_ITS | Encounter Summary ---
Author Organization Healthcare Address [address] [place] [address] Care Team Providers Care Investment Banker Name Role Phone April Piper APRN Primary Care Provider [phone] Encounter Details Date Type Department Care Team (Late st Contact Info) Description 06/02/2025 Results Follow-Up [facility] Care [address] [place] [address] April Piper APRN [address] [facility] [address] [place] [address] Social History Tobacco Use Types [...] time in the past 12 m [facility], were you homeless or living in a intermediate (including now)? No 04/22/2025 [facility] Utilities Answer Date Recorded In the past [...] Visit [place] [facility] [address], 1st [place] [address] Keli Harvey PA [address] [place] [address] 10/01/2025 1:00 PM EST Office Visit [facility] [address] [facility] [place] [address] Janice Kramer MD [address] [place] [address] 11/28/2025 7:20 AM EDT Office Visit [facility] [address] [place] [address] April Piper APRN [address] [place] [address] documented as of this encounter [...] minutes without pain 100% of the time. Polisher Eyeglass Frames Goal: to be met by 07/10/21. documented [...] documented as of this encounter Care Teams Investment Banker Relationship Specialty Start Date End Date April Piper APRN [address] [place] [address] PCP - General Family Medicine 02/06/23 documented as of this encounter
--- OUTSIDE RECORDS SUMMARY | 2025-07-31 15:35 | XMS_ITS | Encounter Summary ---
Author Organization Healthcare Address [address] [place] [address] Care Team Providers Care Recreational Therapy Aide Name Role Phone April Piper APRN Primary Care Provider [phone] Encounter Details Date Type Department Care Team [...] any time in the past 12 m [facility], were you homeless or living in a prison (including now)? No 04/22/2025 [facility] Utilities Answer Date Recorded In [...] or domestically in the last month? No 06/09/2025 8:28 PM EST Mycha rt, Generic documented as of this encounter Mental Status * Travel Screening Question Answer Entry Date Author Have you traveled internatio anson or domestically in the last month? No 06/09/2025 8:28 PM EST Mycha rt, Generic documented in this encounter Plan of Treatment Upcoming Encounters Date Type Department Care Team (Late st Contact Info) Description 08/22/2025 8:00 AM EST Office [facility] [place] [facility] [address], 1st [place] [address] Keli Harvey, RAINE [address] [place] [address] 10/01/2025 1:00 PM EST Office Visit [facility] [address] [place] [address] Janice Kramer MD [address] [place] [address] 11/28/2025 7:20 AM EDT Office Visit [facility] [address] [place] [address] April Piper APRN [address] [place] [address] documented as of this encounter Goals Goal Patient Goal Type Associated Problems Recent Progress Patient-Stated? Author HEP Occupational Therapy On track(2020 3:42 PM EDT) No Tanya Ghosh Note: Patient will complete HEP with appropriate form 100% of the time. Field Sales Specialist Goal: to be met by 06/08/21 Goal on going as exercises continue to be added. Good form with exercises thus far. Leisure Occupational Therapy On track(2020 3:42 PM EDT) No Tanya Ghosh Note: Patient will complete leisure task such as baking or beading x20 minutes without pain 100% of the time. Field Sales Specialist Goal: to be met by 07/10/21. documented [...] documented as of this encounter Care Teams Recreational Therapy Aide Relationship Specialty Start Date End Date April Piper APRN [address] [place] [address] PCP - General Family Medicine 02/06/23 documented as of this encounter
--- OUTSIDE RECORDS SUMMARY | 2025-07-31 15:35 | XMS_ITS | Encounter Summary ---
Author Organization Healthcare Address [address] [place] [address] Care Team Providers Care Ginger Farmer Name Role Phone April Piper APRN Primary Care Provider [phone] Encounter Details Date Type Department Care Team (Late Contact Info) Description 06/11/2025 Telephone [place] [facility] Room E214 [address] [place] [address] Keily Fofana [address] Social History Tobacco Use Types Packs/Day Years [...] in the past 12 m [facility], were you homeless or living in a mcfp (including now)? No 04/22/2025 [facility] Utilities Answer Date Recorded In the past 12 months has th e [employer], gas, oil, or water [employer] threatened to shut off services in your [...] Visit [place] [facility] [address], 1st [place] [address] Keli Harvey PA [address] [place] [address] 10/01/2025 1:00 PM EST Office Visit [facility] [address] [place] [address] Janice Kramer MD [address] [place] [address] 11/28/2025 7:20 AM EDT Office Visit [facility] [address] [place] [address] April Piper APRN [address] [facility] [address] [place] [address] documented as of this encounter Goals Goal Patient Goal Type Associated Problems Recent Progress Patient-Stated? Author HEP Occupational Therapy On track(2020 3:42 PM EDT) No Tanya Ghosh Note: Patient will complete HEP with appropriate form 100% of the time. Game Programmer Goal: to be met by 06/08/21 Goal on going as exercises continue to be added. Good form with exercises thus far. Leisure Occupational Therapy On track(2020 3:42 PM EDT) No Tanya Ghosh Note: Patient will complete leisure task such as baking or beading x20 minutes without pain 100% of the time. Game Programmer Goal: to be met by 07/10/21. documented [...] documented as of this encounter Care Teams Ginger Farmer Relationship Specialty Start Date End Date April Piper APRN [address] [place] [address] PCP - General Family Medicine 02/06/23 documented as of this encounter
--- OUTSIDE RECORDS SUMMARY | 2025-07-31 15:35 | XMS_ITS | Clinical Summary ---
[facility] [address] [place] [address] Care Team Providers Care Salon Assistant Name Role Phone Provider, No Known Primary Care Provider [phone] Allergies Active Allergy Reactions Criticality Noted Date [...] CHLAMYDIA SCREENING Discontinued 07/03/2023 Insurance [employer] [id number] [facility] Care Teams Salon Assistant Relationship Specialty Start Date End Date Provider, No Known [facility] [place] [address] PCP - General 04/05/19
--- OUTSIDE RECORDS SUMMARY | 2025-07-31 15:35 | XMS_ITS | Encounter Summary ---
Author Organization Healthcare Address [address] [place] [address] Care Team Providers Care Sole Assessor Name Role Phone April Piper APRN Primary Care Provider [phone] Reason for Visit * Reason Onset Date Comments HCN Paperwork/Documentation Request 05/08/2025 Encounter Details Date Type Department Care Team (Late st Contact Info) Description 05/08/2025 Telephone [facility] and Ur[facility] Care [address] [place] [address] April Piper APRN [address] [facility] [address] [place] [address] HCN Paperwork/Documentatio n Request Social [...] living in a fpc (including now)? No 04/22/2025 [facility] [...] encounter Miscellaneous Notes * Telephone Encounter - Odette Aguilarra Bob - 05/12/2025 9:09 AM EDT Clinical Concern/Question Reason for Call: Cass is needing the imaging test that were done in the thyroid. If we can power share that is the best option. Please call Cass to discuss. Thank you Best contact number: Other: [phone] Optimal time of day to reach caller: ANYTIME Additional comments/information from caller: None Note: Please do not reply to this message. Follow-up communication and further actions as a result of this message need to be communicated with the patient directly, if the patient is not active onMyChart. If the patient is active on MyChart, they will receive notification of the communication/outcome via MyChart. * Telephone Encounter - Latricia Irvin - 05/08/2025 8:14 AM EDT Clinical Concern/Question Reason for Call: Cass with [facility] [employer] calling to see if PCP has authorization for fine needaspiration order they received yesterday. Need that information before they can schedule patient. Please call and ask for Cass. Best contact number: Other: Cass - [facility] - [phone] Optimal time of day to reach caller: [...] Visit [place] [facility] [address], 1st [place] [address] Keli Harvey PA [address] [place] [address] 10/01/2025 1:00 PM EST Office Visit [facility] [address] [place] [address] Janice Kramer MD [address] [place] [address] 11/28/2025 7:20 AM EDT Office Visit [facility] Care [address] [place] [address] April Piper APRN [address] [place] [address] documented as of this encounter [...] minutes without pain 100% of the time. Laboratory Asst Goal: to be met by 07/10/21. documented [...] documented as of this encounter Care Teams Sole Assessor Relationship Specialty Start Date End Date April Piper APRN [address] [place] [address] PCP - General Family Medicine 02/06/23 documented as of this encounter
--- OUTSIDE RECORDS SUMMARY | 2025-07-31 15:35 | XMS_ITS | Encounter Summary ---
Author Organization Healthcare Address [address] [place] [address] Care Team Providers Care Call Center Associate Name Role Phone April Piper APRN Primary Care Provider [phone] Reason for Visit * Reason Onset Date Comments HCN Clinical Concern/Question 05/19/2025 Encounter Details Date Type Department Care Team (Late st Contact Info) Description 05/19/2025 Telephone [facility] and Ur[facility] Care [address] [place] [address] April Piper APRN [address] [facility] [address] [place] [address] HCN Clinical Concern/Question Social History [...] time in the past 12 m [facility], were you homeless or living in a senior living (including now)? No 04/22/2025 [facility] Utilities Answer Date Recorded In the [...] missed call from clinic. Best contact number: [phone] (mobile) Optimal time of day to reach [...] Visit [place] [facility] [address], 1st [place] [address] Keli Harvey PA [address] [facility] [place] [address] 10/01/2025 1:00 PM EST Office Visit [facility] [address] [place] [address] Janice Kramer MD [address] [facility] [address] [place] [address] 11/28/2025 7:20 AM EDT Office Visit [facility] and [facility] Care [address] [place] [address] April Piper APRN [address] [place] [address] documented as of this encounter Goals Goal Patient Goal Type Associated Problems Recent Progress Patient-Stated? Author HEP Occupational Therapy On track(2020 3:42 PM EDT) No Tanya Ghosh Note: Patient will complete HEP with appropriate form 100% of the time. Learning And Development Analyst Goal: to be met by 06/08/21 Goal [...] documented as of this encounter Care Teams Call Center Associate Relationship Specialty Start Date End Date April Piper APRN [address] [place] [phone] PCP - General Family Medicine 02/06/23 documented as of this encounter
--- OUTSIDE RECORDS SUMMARY | 2025-07-31 15:35 | XMS_ITS | Encounter Summary ---
Author Organization Healthcare Address [address] [place] [address] Care Team Providers Care Closet Organizer Name Role Phone April Piper APRN Primary Care Provider [phone] Reason for Visit * Reason Onset Date Comments Med Refill 02/20/2023 Encounter Details Date Type Department Care Team (Late st Contact Info) Description 02/20/2023 Refill [facility] [address] [place] [address] April Piper APRN [address] [facility] [address] [place] [address] Social History Tobacco Use Types [...] Visit [place] [facility] [address] [place] [address] Keli Harvey, PA [address] [place] [address] 10/01/2025 1:00 PM EST Office Visit [facility] [address] [place] [phone] Janice Kramer MD [address] [place] [address] 11/28/2025 7:20 AM EDT Office Visit [facility] [address] [place] [phone] April Piper APRN [address] [facility] [address] [place] [phone] documented as of this encounter Goals Goal [...] documented as of this encounter Care Teams Closet Organizer Relationship Specialty Start Date End Date April Piper APRN [address] [place] [phone] PCP - General Family Medicine 02/06/23 documented as of this encounter
--- OUTSIDE RECORDS SUMMARY | 2025-07-31 15:35 | XMS_ITS | Encounter Summary ---
Author Organization Healthcare Address [address] [place] [address] Care Team Providers Care Online Advertising Analyst Name Role Phone April Piper APRN Primary Care Provider [phone] Reason for Visit * Reason Onset Date Comments HCN Clinical Concern/Question 05/07/2025 Ul trasound order and PA Encounter Details Date Type Department Care Team (Late st Contact Info) Description 05/07/[address] [facility] [address] [place] [address] April Piper APRN [address] [facility] [address] [place] [address] HCN Clinical Concern/Question (Ultrasound order [...] the past 12 m [facility], were you homeless or living in a fci (including now)? No 04/22/2025 [facility] [...] order for us guided needle biopsy [facility] she [facility] be seen sooner than what is scheduled / . I advised her to * Telephone Encounter - Rolan Figueroa - 05/07/2025 3:03 PM EDT Patient Phone Message Reason for Call:request order for ultrasound fine needle biopsy be faxed to [facility] at [phone] and include prior authorization. Please call when sent She's able to have done locally Best contact number and optimal time of day to reach caller:[phone] Note: Please do not reply to this message. Follow-up communication and further actions as a result of this message need to be communicated with the patient directly, if the patient is not active onMyChart. If the patient is active on MyChart, they will receive notification of the communication/outcome via [facility]. documented in this encounter Plan of Treatment Upcoming Encounters Date Type Department Care Team (Late st Contact Info) Description 08/22/2025 8:00 AM EST Office Visit [place] [facility] [address] [place] [address] Keli Harvey PA [address] [place] [address] 10/01/2025 1:00 PM EST Office Visit [facility] [address] [place] [address] Janice Kramer MD [address] [place] [address] 11/28/2025 7:20 AM EDT Office Visit [facility] [address] [place] [address] April Piper APRN [address] [place] [address] documented as of this encounter Goals Goal Patient Goal Type Associated Problems Recent Progress Patient-Stated? Author HEP Occupational Therapy On track(2020 3:42 PM EDT) No Tanya Ghosh Note: Patient will complete HEP with appropriate form 100% of the time. Accelerator Technician Goal: to be met by 06/08/21 Goal on going as exercises continue to be added. Good form with exercises thus far. Leisure Occupational Therapy On track(2020 3:42 PM EDT) No Tanya Ghosh Note: Patient will complete leisure task such as baking or beading x20 minutes without pain 100% of the time. Accelerator Technician Goal: to be met by 07/10/21. [...] documented as of this encounter Care Teams Online Advertising Analyst Relationship Specialty Start Date End Date April Piper APRN [address] [place] [address] PCP - General Family Medicine 02/06/23 documented as of this encounter
--- OUTSIDE RECORDS SUMMARY | 2025-07-31 15:35 | XMS_ITS | Encounter Summary ---
Author Organization Healthcare Address [address] [place] [address] Care Team Providers Care Millwright Helper Name Role Phone April Piper APRN Primary Care Provider [phone] Reason for Visit * Reason Onset Date Comments Med Refill 03/14/2024 Encounter Details Date Type Department Care Team (Late st Contact Info) Description 03/14/2024 [facility] [address] [place] [address] Allan Tipton PA [address] [place] [address] Fever, unspecified; COVID; Tachycardia Social [...] place to sleep or slept in a penitentiary (including now)? No 02/08/2024 PHQ-9 Answer Date [...] living in a penitentiary (including now)? No 02/08/2024 Utilities Answer Date [...] Visit [place] [facility] [address] [place] [address] Keli Harvey, RAINE [address] [place] [address] 10/01/2025 1:00 PM EST Office [facility] [address] [place] [address] Janice Kramer MD [address] [place] [address] 11/28/2025 7:20 AM EDT Office Visit [facility] [address] [place] [address] Nasim PiperiaJEANIE [address] [place] [address] documented as of this encounter Goals Goal Patient Goal Type Associated Problems Recent Progress Patient-Stated? Author HEP Occupational Therapy On track(2020 3:42 PM EDT) No Tanya Ghosh Note: Patient will complete HEP with appropriate form 100% of the time. Power Transformer Inspector Goal: to be met by 06/08/21 Goal on going as exercises continue to be added. Good form with exercises thus far. Leisure Occupational Therapy On track(2020 3:42 PM EDT) No Tanya Ghosh Note: Patient will complete leisure task such as baking or beading x20 minutes without pain 100% of the time. Power Transformer Inspector Goal: to be met by 07/10/21. [...] documented as of this encounter Care Teams Millwright Helper Relationship Specialty Start Date End Date April Piper APRN [address] [place] [address] PCP - General Family Medicine 02/06/23 documented as of this encounter
--- OUTSIDE RECORDS SUMMARY | 2025-07-31 15:35 | XMS_ITS | Clinical Summary ---
Author Organization Healthcare Address [address] [place] [address] Care Team Providers Care Commercial Print Salesman Name Role Phone April Piper APRN Primary Care Provider [phone] Allergies Active Allergy Reactions Criticality Noted Date [...] organization. [facility] [facility] ([facility] Adult) miscIndications:Mild intermittent asthma without complication Substitute pharmacy supply 1 each 07/27/20 22 Active albuterol (2.5 MG/3ML) 0.083% nebulizer solutionIndications: Moderate persistent asthma with (acute) exacerbation Take 3 mL (2.5 mg) by nebulization 4 (four) times a day if needed for wheezing or shortness of breath. 360 mL 08/03/20 Active montelukast (Singulair) 10 MG tabletIndications:Mi ld persistent asthma without complication Take 1 tablet (10 mg) by mouth every night. 90 tablet 3 08/09/19 25 Active famotidine (Pepcid) 40 MG tabletIndications:GE RD without esophagitis Take 1 tablet (40 mg) by mouth 2 (two) times a day. 180 tablet 3 08/09/19 25 Active galcanezumab-gnlm (Emgality) 120 MG/ML injection Inject 1 Syringe (120 mg) under the skin every 30 (thirty) days. 1 each 10/15/19 25 2025 Active naproxen (Naprosyn) 500 MG tablet Take 1 tablet by mouth in the morning and 1 tablet in the evening. Take with meals. 180 tablet 3 11/20/19 25 Active lisinopril 10 MG tabletIndications:Pr imary hypertension Take 1 tablet by mouth daily. 90 tablet 3 11/26/19 25 Active loratadine (Claritin) 10 MG tabletIndications:Mi ld intermittent reactive airway disease without complication,Mild persistent reactive airway disease without complication Take 1 tablet by mouth daily. 90 tablet 3 12/27/19 25 Active fluticasone (Flonase) 50 MCG/ACT nasal sprayIndications:Mil d intermittent reactive airway disease without complication,Mild persistent reactive airway disease without complication Administer 1 spray into each nostril daily. Shake gently. Before first use, prime pump. After use, clean tip and replace cap. 16 g 12/27/19 Active Additional Information Patient taking differently:1 spray Each NostrilAs needed, Shake gently. Before first use, prime pump. After use, clean tip and replace cap., Reported on 06/26/2025 Tcoxkllc-Ihp-Kw-FA (/Iron) tabletIndications:Ir on deficiency Take 1 tablet by mouth daily. 90 tablet 1 12/27/19 25 Active albuterol 108 (90 Base) MCG/ACT inhalerIndications:M oderate persistent asthma without complication Inhale 2 puffs every 4 hours as needed for wheezing or shortness of breath. 18 g 3 12/27/19 25 Active propranolol (Inderal) 20 MG tablet Take 1 tablet by mouth 3 times a day. For headache prevention 270 tablet 3 01/09/20 25 Active magnesium, as gluconate, (Magonate) 500 (27 Mg) MG tabletIndications:Ac remy intractable headache, unspecified headache type Take 1 tablet by mouth nightly. 90 tablet 3 03/28/20 25 Active ergocalciferol (Vitamin D-2) 1.25 MG (73146 UT) capsule Take 1 capsule by mouth 1 time per week. 13 capsule 3 03/11/20 25 Active cyanocobalamin (cyancobalamin) 500 MCG tabletIndications:RL S (restless legs syndrome) Take 2 tablets by mouth daily. 60 tablet 11 03/28/20 25 Active L-Methylfolate 7.5 MG tabletIndications:MT HFR mutation Take 1 tablet by mouth daily. 90 tablet 3 04/01/20 25 Active lidocaine (Xylocaine) 2 % solutionIndications: Oral mucosal lesion,Pharyngitis, unspecified etiology Take 5 mL by mouth every 2 hours as needed for mild pain. 120 mL 1 04/22/20 25 Active ondansetron ODT (Zofran-ODT) 8 MG disintegrating tabletIndications:Ac remy intractable headache, unspecified headache type,Nausea DISSOLVE 1 TABLET IN MOUTH EVERY 8 HOURS NEEDED FOR NAUSEA AND VOMITING 20 tablet 3 05/27/20 25 Active desvenlafaxine (Pristiq) 50 MG 24 hr tabletIndications:Mi xed obsessional thoughts and acts,Generalized anxiety disorder,Irritabilit y Take 1 tablet by mouth daily. Do not crush, chew, or split. 90 tablet 05/30/20 25 2025 Active lamoTRIgine (LaMICtal) 200 MG tabletIndications:Se jamar manic bipolar 1 disorder with psychotic behavior (CMS/HCC) Take 1 tablet by mouth daily AND 0.5 tablets nightly. 135 tablet 05/30/20 25 2025 Active QUEtiapine (SEROquel) 25 MG tabletIndications:Se jamar manic bipolar 1 disorder with psychotic behavior (CMS/HCC),Insomnia due to other mental disorder Take 1 tablet by mouth at night as needed (insomnia). 90 tablet 05/30/20 25 2025 Active Rexulti 2 MG tablet tabletIndications:Se jamar manic bipolar 1 disorder with psychotic behavior (CMS/HCC),Mixed obsessional thoughts and acts,Generalized anxiety disorder Take 1 tablet by mouth nightly. 90 tablet 05/30/20 25 2025 Active topiramate (Topamax) 100 MG tablet Take 1 tablet by mouth 2 times a day. For headache prevention 60 tablet 3 06/04/20 Active magnesium gluconate (Magonate) 500 MG tablet 05/28/20 Active Ubrelvy 100 MG tablet 05/28/20 Active SudoGest 30 MG tablet TAKE 2 TABLETS BY MOUTH EVERY 6 HOURS NEEDED FOR NASAL CONGESTION, BE CAUTIOUS THAT THIS MEDICATION CAN INCREASE YOUR BLOOD PRESSURE, AVOID WITH CONCURRENT USE OF YOUR ADDERALL 04/06/20 Active 28-0.8 MG tablet 04/02/20 Active Afrin Original 0.05 % nasal spray USE 2 SPRAY(S) IN EACH NOSTRIL TWICE DAILY FOR 3 DAYS 04/06/20 Active mupirocin (Bactroban) 2 % ointment 06/04/20 Active methocarbamol (Robaxin) 750 MG tablet TAKE 1 TABLET BY MOUTH EVERY NIGHT NEEDED FOR MUSCLE SPASMS (HEADACHES) 30 tablet 1 06/27/20 25 Active baclofen (Lioresal) 10 MG tabletIndications:Ar thralgia of right temporomandibular joint Take 1 tablet by mouth at night as needed for muscle spasms. 30 tablet 07/01/20 Active Symbicort 160-4.5 MCG/ACT inhalerIndications:M oderate persistent asthma without complication INHALE 2 PUFFS 2 TIMES A DAY. RINSE MOUTH WITH WATER AFTER USE TO REDUCE AFTERTASTE AND INCIDENCE OF CANDIDIASIS DO NOT SWALLOW 10.2 g 07/01/20 Active amphetamine-dextroam phetamine (Adderall) 20 MG tabletIndications:At tention deficit hyperactivity disorder (ADHD), unspecified ADHD type Take 1 tablet by mouth 3 times a day as needed (ADHD symptoms.). 90 tablet 07/09/20 25 2025 Active amphetamine-dextroam phetamine (Adderall) 20 MG tabletIndications:At tention deficit hyperactivity disorder (ADHD), unspecified ADHD type Take 1 tablet by mouth 3 times a day as needed (ADHD symptoms.). 90 tablet 06/02/20 25 2024 Disconti nued(Reo rder) Active Problems Problem Noted Date Diagnosed Date [...] (05/12/2023): Added automatically from request for surgery [id number] Severe manic bipolar 1 disorder with psychotic b ehavior 07/23/2021 Kienbock's dislocation, right, subsequent encoun ter 04/08/2021 Osteochondrosis of lunate of right wrist 021 Overview (03/18/2021): Added automatically from request for surgery [id number] Attention deficit hyperactivity disorder 021 Hypertensive disorder [...] (05/12/2023): Added automatically from request for surgery [id number] Right wrist pain 05/01/2018 05/12/2023 Overview (05/12/2023): Added automatically from request for surgery [id number] Added automatically from request for surgery [id number] TFC (triangular fibrocartilage complex) injury 0 11/14/2017 05/12/2023 Overview (05/12/2023): Added automatically from request for surgery [id number] Resolved Problems Problem Noted Date Diagnosed Date [...] 07/10/2025 Travel 06/28/2025 Travel 06/27/20[address] Orders [address] [facility] [address] [place] [phone] April Piper APRN Thrombocytosis (Primary Dx) 06/27/2025 Results Follow-Up [facility] [address] [place] [phone] April Piper APRN 06/27/[address] [facility] [address] [place] [phone] Piper, April, MARKETING DEVELOPER Arthralgia of right temporomandibular joint; Moderate persistent asthma without complication 06/27/2025 Refill [facility] [address] [place] [address] Keli Harvey PA 06/26/2025 7:20 AM EST Office Visit [facility] [address] [place] [address] Mariana Piperricia, MARKETING DEVELOPER Pharyngitis, unspecified etiology (Primary Dx); Jaw pain; Mild intermittent reactive airway disease without complication; Iron deficiency; Healthcare maintenance; Health care maintenance; Flu vaccine need 06/26/2025 Travel 06/23/2025 Telephone [facility] Room [address] [place] [address] Keily Fofana 06/13/2025 Travel 06/11/2025 Telephone [facility] Room [address] [place] [address] Keily Fofana 06/09/2025 Travel 06/05/[address] [facility] [address] [place] [address] April Piper, MARKETING DEVELOPER Facial pain (Primary Dx) 06/04/[address] [facility] [address] [place] [address] Nasim Piperia, MARKETING DEVELOPER Arthralgia of right temporomandibular joint (Primary Dx) 06/04/2025 Orders Only [facility] [address] [place] [address] Keli Harvey PA 06/04/2025 Refill [facility] [address] [place] [address] Keli Harvey PA 06/02/2025 Results Follow-Up [facility] [address] [place] [phone] April Piper APRN 05/29/2025 6:53 AM EDT - 05/29/2025 11:59 PM EDT Hospital Encounter [facility] [address] [place] [address] Oral mucosal lesion Discharge Disposition: Home or Self Care 05/29/2025 Travel 05/24/2025 Travel 05/23/[address] [facility] [address] [place] [phone] April Piper APRN Acute intractable headache, unspecified headache type; Nausea 05/19/[address] [facility] [address] [place] [phone] April Piper APRN HCVon Clinical Concern/Question 05/16/[address] [facility] [address] [place] [phone] April Piper APRN Lesion of tonsil (Primary Dx); Right ear pain 05/08/[address] [facility] [address] [place] [phone] April Piper APRN HCVon Paperwork/Documentation Request 05/07/[address] [facility] [address] [place] [phone] April Piper APRN HCVon Clinical Concern/Question (Ultrasound order and PA) 05/02/2025 Results Follow-Up [facility] [address] [place] [phone] April Piper APRN 05/01/[address] [facility] [address] [place] [phone] April Piper APRN Oral mucosal lesion (Primary [...] any time in the past 12 m [facility], were you homeless or living in a alf (including now)? No 06/26/2025 [facility] Answer Date Recorded In [...] Visit [place] [facility] [address] [place] [address] Keli Harvey PA [address] [place] [address] 10/01/2025 1:00 PM EST Office Visit [facility] [address] [place] [address] Janice Kramer MD [address] [place] [address] 11/28/2025 7:20 AM EDT Office Visit [facility] [address] [place] [address] April Piper APRN [address] [place] [address] Health Maintenance Due Date Last Done Comments [facility]-Infant/Child/Adol SDOH Screenings 1996 [facility]-Pneumococcal Vaccine: Pediatrics (0 to 5 Years) and At-Risk Patients (6 to 49 Years) (1 of 2 - PCV) 10/16/2015 [facility]-Pap Smear 12/30/2024 12/30/2021 [id number] Vaccine (2024- season) 2025 09/03/2021, 08/13/2020, 07/23/2020 [facility]- SDOH Screenings 05/21/2025 [facility]-Adult SDOH Screenings 05/21/2025 11/19/2024 [facility]-Depression Screening 06/10/2026 06/10/2025, 11/11/2024 [facility]-DTaP,Tdap,and Td Vaccines (8 - Td or [...] with appropriate form 100% of the time. Decorating Kiln Operator Goal: to be met by 06/08/21 Goal on going as exercises continue to be added. Good form with exercises thus far. Leisure Occupational Therapy On track(2020 3:42 PM EDT) No Tanya Ghosh Note: Patient will complete leisure task such as baking or beading x20 minutes without pain 100% of the time. Long-Term Goal: to be met by 07/10/21. Medical Devices Implanted Type Area Dock Hand Device Identifier Shelf Expiration Date Model / Serial / Lot Chip Bone 10cc - [id number] - [id number] Implanted:Qty: 1 on 03/24/2021 by Joyce King MD at [facility] Right: Wrist [facility]-[id number] 05/06/2025 PCAN10 / [id number] / [id number] Procedures Procedure Name Priority Date/Time Associated [...] <20 <20 ng/mL 06/29 9:33 PM EST [facility] Alpha OH Midazolam <20 <20 ng/mL 2024 9:33 PM EST [facility] Alpha OH Triazolam <20 <20 ng/mL 2024 9:33 PM EST [facility] Alprazolam <10 <10 ng/mL 06/29/2025 9:33 PM EST [facility] Aminoclonazepam <20 <20 ng/mL 9:33 PM EST [facility] Amphetamine >1,000(H) <50 ng/mL 06/29/2025 9:33 PM EST [facility] Benzoylecgonine <50 <50 ng/mL 9:33 PM EST [facility] Buprenorphine <10 <10 ng/mL 06/29/2025 9:33 PM EST [facility] Buprenorphine Glucuronide <50 <50 ng/mL 06/29/2025 9:33 PM EST [facility] Butalbital <50 <50 ng/mL 06/29/2025 9:33 PM EST [facility] 9 Carboxy THC <10 <10 ng/mL 06/29/2025 9:33 PM EST [facility] 9 Carboxy THC Glucuronide <25 <25 ng/mL 06/29/2025 9:33 PM EST [facility] Clonazepam <10 <10 ng/mL 06/29/2025 9:33 PM EST [facility] Codeine <50 <50 ng/mL 06/29/2025 9:33 PM EST [facility] Codeine Glucuronide <50 <50 ng/mL 06/29 9:33 PM EST [facility] Cyclobenzaprine <50 <50 ng/mL 9:33 PM EST [facility] Desmethyl Tramadol <50 <50 ng/mL 2024 9:33 PM EST [facility] Diazepam <10 <10 ng/mL 06/29/2025 9:33 PM EST [facility] EDDP - Methadone Metabolite <50 <50 ng/mL 06/29/2025 9:33 PM EST [facility] Fentanyl <1 <1 ng/mL 06/29/2025 9:33 PM EST [facility] Hydrocodone <50 <50 ng/mL 06/29/2025 9:33 PM EST [facility] Hydromorphone <50 <50 ng/mL 06/29/2025 9:33 PM EST [facility] Hydromorphone Glucuronide <50 <50 ng/mL 06/29/2025 9:33 PM EST [facility] Lorazepam <20 <20 ng/mL 06/29/2025 9:33 PM EST [facility] Lorazepam Glucuronide <50 <50 ng/mL 06/29/2025 9:33 PM EST [facility] MDA <50 <50 ng/mL 06/29/2025 9:33 PM EST [facility] MDMA <50 <50 ng/mL 06/29/2025 9:33 PM EST [facility] Meperidine <50 <50 ng/mL 06/29/2025 9:33 PM EST [facility] Methadone <50 <50 ng/mL 06/29/2025 9:33 PM EST [facility] Methamphetamine <50 <50 ng/mL 9:33 PM EST [facility] Methylphenidate <50 <50 ng/mL 9:33 PM EST [facility] 6 Monoacetyl morphine <10 <10 ng/mL 06/29/2025 9:33 PM EST [facility] Morphine <50 <50 ng/mL 06/29/2025 9:33 PM EST [facility] Morphine Glucuronide <50 <50 ng/mL 06/08 9:33 PM EST [facility] Naloxone <50 <50 ng/mL 06/29/2025 9:33 PM EST [facility] Naloxone Glucuronide <50 <50 ng/mL 06/08 9:33 PM EST [facility] Norbuprenorphine <10 <10 ng/mL 06/29/20 9:33 PM EST [facility] Norbuprenorphine Glucuronide <50 <50 ng/mL 06/29/2025 9:33 PM EST [facility] Nordiazepam <20 <20 ng/mL 06/29/2025 9:33 PM EST [facility] Norfentanyl <2 <2 ng/mL 06/29/2025 9:33 PM EST [facility] Normeperidine <50 <50 ng/mL 06/29/2025 9:33 PM EST [facility] PCP Quant, Ur <50 <50 ng/mL 06/29/2025 9:33 PM EST [facility] Phenobarbital <50 <50 ng/mL 06/29/2025 9:33 PM EST [facility] Oxazepam <20 <20 ng/mL 06/29/2025 9:33 PM EST [facility] Oxazepam Glucuronide <50 <50 ng/mL 06/08 9:33 PM EST [facility] Oxycodone <50 <50 ng/mL 06/29/2025 9:33 PM [facility] Oxymorphone <50 <50 ng/mL 06/29/2025 9:33 PM [facility] Oxymorphone Glucuronide <50 <50 ng/mL 06/29/2025 9:33 PM [facility] Secobarbital <50 <50 ng/mL 06/29/2025 9:33 PM EST [facility] Tramadol <50 <50 ng/mL 06/29/2025 9:33 PM EST [facility] Temazepam <20 <20 ng/mL 06/29/2025 9:33 PM [facility] Temazepam Glucuronide <50 <50 ng/mL 06/29/2025 9:33 PM [facility] Urine Urine specimen obtained by clean catch procedure / Unknown Non-blood Collection / Unknown 06/26/2025 11:10 AM EST 06/26/2025 9:15 PM EST [facility] - 06/29/2025 9:33 PM EST This [...] laboratory. Test performed by LC-MS/MS at the [facility]. This test was developed and its performance characteristics determined by [facility]. It has not been cleared or approved by the FDA. The laboratory is regulated under CLIA as qualified to perform high-complexity testing. This test is used for clinical purposes. Sunday Lin APRN LAB URINE ORDERABLES Final R esult Performing Organization Address City/[facility]/ZIP Co de Phone Number [facility] [address] [place] [address] * Morphology (06/26/2025 8:24 AM EST) RBC Morphology Slide Reviewed LAB HEMATOLOGY METHOD 06/26/2025 6:19 PM EST [facility] Clumped Platelets Present LAB HEMATOLOGY METHOD 06/26/2025 6:19 PM EST [facility] Blood Venous blood specimen / Unknown Venipuncture / Unknown 06/26/2025 8:24 AM EST 06/26/2025 2:10 PM EST April Piper MARKETING DEVELOPER LAB BLOOD ORDERABLES Final Re sult Performing Organization Address [facility] Co de Phone Number [facility] [address] [place] [address] * Iron & Total Iron Binding Capacity, Plasma (Includes Transferrin) (06/26/2025 8:24 AM EST) Iron, Plasma 67 30 - 160 ug/dL 06/26/2025 2:40 PM EST [facility] Transferrin, Plasma 304 200 - 360 mg/dL 06/26/2025 2:40 PM EST [facility] Total Iron Binding Capacity, Plasma 380 240 - 450 ug/mL 06/26/2025 2:40 PM EST [facility] Transferrin Saturation 18 14 - 50 % 06/26/2025 2:40 PM EST [facility] Blood Venous blood specimen / Unknown Venipuncture / Unknown 06/26/2025 8:24 AM EST 06/26/2025 2:10 PM EST April Piper MARKETING DEVELOPER LAB BLOOD ORDERABLES Final Re sult Performing Organization Address City/[facility]/ZIP Co de Phone Number [facility] [address] [place] [address] * (ABNORMAL) CBC and Differential (06/26/2025 8:24 AM EST) WBC Count 8.50 3.70 - 10.30 10*3/uL LAB HEMATOLOGY METHOD 06/26/2025 6:19 PM EST [facility] RBC Count 4.40 3.90 - 5.20 10*6/uL LAB HEMATOLOGY METHOD 06/26/2025 6:19 PM EST [facility] HGB 12.2 11.2 - 15.7 g/dL LAB HEMATOLOGY METHOD 06/26/2025 6:19 PM EST [facility] HCT 38.4 34.0 - 45.0 % LAB HEMATOLOGY METHOD 06/26/2025 6:19 PM EST [facility] Platelet Count 530(H) 155 - 369 10*3/uL LAB HEMATOLOGY METHOD 06/26/2025 6:19 PM EST [facility] MCV 87 79 - 98 fL LAB HEMATOLOGY METHOD 06/26/2025 6:19 PM EST [facility] MCH 27.7 26.0 - 32.0 pg LAB HEMATOLOGY METHOD 06/26/2025 6:19 PM EST [facility] MCHC 31.8 30.7 - 35.5 g/dL LAB HEMATOLOGY METHOD 06/26/2025 6:19 PM EST [facility] RDW 14.2 11.5 - 14.5 % LAB HEMATOLOGY METHOD 06/26/2025 6:19 PM EST [facility] MPV LAB HEMATOLOGY METHOD 06/26/2025 6:19 PM EST [facility] Comment:Not Measured nRBC 0.0 <=0.0 per 100 WBCs LAB HEMATOLOGY METHOD 06/26/2025 6:19 PM EST [facility] Differential Type Automated LAB HEMATOLOGY METHOD 06/26/2025 6:19 PM EST [facility] Neutrophils % 71 % LAB HEMATOLOGY METHOD 06/26/2025 6:19 PM EST [facility] Lymphocytes % 19 % LAB HEMATOLOGY METHOD 06/26/2025 6:19 PM EST [facility] Monocytes % 8 % LAB HEMATOLOGY METHOD 06/26/2025 6:19 PM EST [facility] Eosinophils % 1 % LAB HEMATOLOGY METHOD 06/26/2025 6:19 PM EST [facility] Basophils % 1 % LAB HEMATOLOGY METHOD 06/26/2025 6:19 PM EST [facility] Immature Granulocytes % 0 % LAB HEMATOLOGY METHOD 06/26/2025 6:19 PM EST [facility] Neutrophils Absolute 6.05 1.60 - 6.10 10*3/uL LAB HEMATOLOGY METHOD 06/26/2025 6:19 PM EST [facility] Lymphocytes Absolute 1.60 1.20 - 3.90 10*3/uL LAB HEMATOLOGY METHOD 06/26/2025 6:19 PM EST [facility] Monocytes Absolute 0.68 0.30 - 0.90 10*3/uL LAB HEMATOLOGY METHOD 06/26/2025 6:19 PM EST [facility] Eosinophils Absolute 0.11 0.00 - 0.50 10*3/uL LAB HEMATOLOGY METHOD 06/26/2025 6:19 PM EST [facility] Basophils Absolute 0.04 0.00 - 0.10 10*3/uL LAB HEMATOLOGY METHOD 06/26/2025 6:19 PM EST [facility] Immature Granulocytes Absolute 0.02 0.00 - 0.06 10*3/uL LAB HEMATOLOGY METHOD 06/26/2025 6:19 PM EST [facility] Blood Venous blood specimen / Unknown Venipuncture / Unknown 06/26/2025 8:24 AM EST 06/26/2025 2:10 PM EST Narrative [facility] - 06/26/2025 6:19 PM EST Therapeutic decision making should be based on absolute values, rather than percentages. us April Piper MARKETING DEVELOPER LAB BLOOD ORDERABLES Final Re sult [facility] [address] [place] [address] * US Head Neck Soft Tissue (05/29/2025 [...] MD on 05/30/2025 6:01 PM April Piper MARKETING DEVELOPER IMG US PROCEDURES Final Resul t * HIV 1 & 2 Antibody/Antigen Screen (02/08/2023 8:37 AM EDT) HIV 1 & 2 Antibody/Antigen Screen Non Reactive Non Reactive 02/08/2023 7:03 PM EDT [facility] Comment:Screening for HIV 1 & 2 antibodies, and P24 antigen is NONREACTIVE. No confirmatory testing is required. Blood Venous blood specimen / Unknown Venipuncture / Unknown 02/08/2023 8:37 AM EDT 02/08/2023 6:32 PM EDT us April Piper MARKETING DEVELOPER LAB BLOOD ORDERABLES Final Re sult Performing Organization Address City/[facility]/ZIP Co de Phone Number [facility] [address] [place] [address] * Hepatitis C Antibody (02/08/2023 8:37 AM EDT) Hepatitis C Antibody Negative Negative 02/08/2023 7:03 PM EDT [facility] Blood Venous blood specimen / Unknown Venipuncture / Unknown 02/08/2023 8:37 AM EDT 02/08/2023 6:32 PM EDT [facility] MARKETING DEVELOPER LAB BLOOD ORDERABLES Final Re sult Performing Organization Address City/[facility]/ZIP Co de Phone Number [facility] [address] [place] [address] * Pap Smear (12/30/2021 1:49 PM EDT) Case Report Cytology Case: [id number] Authorizing Provider: Fallon Buchanan APRN Collected: 12/30/2021 1349 Ordering Location: Medical Office Building Received: 12/30/2021 1608 Obstetrics and Gynecology First Screen: SHAKIRA Zarate Specimen: ThinPrep Pap Test, Liquid-Based Cervical/Vaginal, CERVICAL/VAGINAL 01/07/2022 3:05 PM EDT [facility] Interpretation NEGATIVE FOR INTRAEPITHELIAL LESION OR MALIGNANCY 01/07/2022 3:05 PM EDT [facility] at 1505 EDT Specimen Adequacy Satisfactory for evaluation; endocervical/rod sformation zone component absent/insufficie nt. Slide scanned and imaged by ThinPrep Imaging System with manual review of all selected goodwin. 01/07/2022 3:05 PM EDT [facility] Cervical cytology is a screening test [...] results is suggested (please call Microbiology at [phone] for results). 01/07/2022 3:05 PM EDT [facility] Menstrual Status Not Applicable 10/2021 3:05 PM EDT [facility] History of Hysterectomy Not Applicable 01/07/2022 3:05 PM EDT [facility] Contraceptive History Not Applicable 01/07/2022 3:05 PM EDT [facility] Screening Type Routine Screen 2021 3:05 PM EDT [facility] High Risk? No 01/07/2022 3:05 PM EDT [facility] HPV Testing Requested? Request HPV Testing if ASCUS (Women 25 Years or Older) 01/07/2022 3:05 PM EDT [facility] Previous Cancer History No 01/07/2022 3:05 PM EDT [facility] Clinical Information Z01.419 - Well woman exam [ICD-10-CM] 01/07/2022 3:05 PM EDT [facility] Last Menstrual Period 12/08/2021 01/07/2022 3:05 PM EDT [facility] Swab Vaginal and cervical cytologic material / Unknown Non-blood Collection / Unknown 12/30/2021 1:49 PM EDT 12/30/2021 4:08 PM EDT Fallon Buchanan APRN LAB CYTOLOGY ORDERABLES Fi nal Result [facility] [address] [place] [address] from Last 3 Months or Most Recently Relevant to Health Maintenance Insurance [facility] MEDICAID Care Teams Commercial Print Salesman Relationship Specialty Start Date End Date April [place]per APRN [address] [place] [phone] PCP - General Family Medicine 02/06/23
--- OUTSIDE RECORDS SUMMARY | 2025-07-31 15:35 | XMS_ITS | Encounter Summary ---
Author Organization Healthcare Address [address] [place] [address] Care Team Providers Care Gifts Officer Name Role Phone April [place]per APRN Primary Care Provider [phone] Encounter Details Date Type Department Care Team [...] living in a detention (including now)? No 06/26/2025 [facility] Utilities Answer Date Recorded [...] or domestically in the last month? No 07/21/2025 8:22 PM EST Mycha rt, Generic documented as of this encounter Mental Status * Travel Screening Question Answer Entry Date Author Have you traveled internatio anson or domestically in the last month? No 07/21/2025 8:22 PM EST Mycha rt, Generic documented in this encounter Plan of Treatment Upcoming Encounters Date Type Department Care Team (Late st Contact Info) Description 08/22/2025 8:00 AM EST Office Visit [place] [facility] [address], [address] [place] [address] Keli Harvey, RAINE [address] [place] [address] 10/01/2025 1:00 PM EST Office Visit [facility] [address] [place] [address] Janice Kramer MD [address] [place] [address] 11/28/2025 7:20 AM EDT Office Visit [facility] [address] [place] [address] April Piper APRN [address] [place] [address] documented as of this encounter Goals Goal Patient Goal Type Associated Problems Recent Progress Patient-Stated? Author HEP Occupational Therapy On track(2020 3:42 PM EDT) No Tanya Ghosh Note: Patient will complete HEP with appropriate form 100% of the time. General Studies Program Chair Goal: to be met by 06/08/21 Goal [...] documented as of this encounter Care Teams Gifts Officer Relationship Specialty Start Date End Date April [place]per APRN [address] [place] [phone] PCP - General Family Medicine 02/06/23 documented as of this encounter
--- OUTSIDE RECORDS SUMMARY | 2025-07-31 15:35 | XMS_ITS | Encounter Summary ---
Author Organization Healthcare Address [address] [place] [address] Care Team Providers Care Container Coordinator Name Role Phone April [place] APRN Primary Care Provider [phone] Reason for Visit * Reason Onset Date Comments Med Refill 05/09/2024 Encounter Details Date Type Department Care Team (Late st Contact Info) Description 05/09/2024 Refill [facility] Primary [facility] Acute Care [address] [place] [address] Allan Tipton PA [address] [place] [address] Fever, unspecified; COVID; Tachycardia Social [...] Description 08/22/2025 8:00 AM EST Office Visit [place] [facility] [address] [place] [phone] Keli Harvey PA [address] [place] [address] 10/01/2025 1:00 PM EST Office Visit [facility] [address] [place] [phone] Janice Kramer MD [address] [facility] [address] [place] [phone] 11/28/2025 7:20 AM EDT Office Visit [facility] [address] [place] [address] April [place]per APRN [address] [place] [address] documented as of this encounter [...] documented as of this encounter Care Teams Container Coordinator Relationship Specialty Start Date End Date April [place]per APRN [address] [place] [address] [address] [place] [address] PCP - General Family Medicine 02/06/23 documented as of this encounter
--- OUTSIDE RECORDS SUMMARY | 2025-07-31 15:35 | XMS_ITS | Encounter Summary ---
Author Organization Healthcare Address [address] [place] [address] Care Team Providers Care Hand Router Operator Name Role Phone April [place] APRN Primary Care Provider [phone] Reason for Visit * Reason Onset Date Comments Med Refill 03/07/2025 Encounter Details Date Type Department Care Team (Late st Contact Info) Description 03/07/2025 [facility]ill [facility] [address] [place] [address] April Piper APRN [address] [facility] [address] [place] [address] Social History Tobacco Use Types [...] any time in the past 12 m [facility], were you homeless or living in a detention (including now)? No 02/10/2025 Utilities Answer Date Recorded In the past 12 months has e [employer], gas, oil, or water company threatened to [...] Description 08/22/2025 8:00 AM EST Office Visit [place] [facility] [address], [address] [place] [address] Keli Harvey PA [address] [place] [phone] 10/01/2025 1:00 PM EST Office Visit [facility] [address] [place] [phone] Janice Kramer MD [address] [place] [address] 11/28/2025 7:20 AM EDT Office Visit [facility] Primary and Urgent Care [address] [place] [address] April [place]per APRN [address] [facility] [address] [place] [address] documented as of this encounter Goals Goal Patient Goal Type Associated Problems Recent Progress Patient-Stated? Author HEP Occupational Therapy On track(2020 3:42 PM EDT) No Tanya Ghosh Note: Patient will complete HEP with appropriate form 100% of the time. Pediatric Geneticist Goal: to be met by 06/08/21 Goal on going as exercises continue to be added. Good form with exercises thus far. Leisure Occupational Therapy On track(2020 3:42 PM EDT) No Tanya Ghosh Note: Patient will complete leisure task such as baking or beading x20 minutes without pain 100% of the time. Pediatric Geneticist Goal: to be met by 07/10/21. documented [...] documented as of this encounter Care Teams Hand Router Operator Relationship Specialty Start Date End Date April [place]per APRN [address] [place] [phone] PCP - General Family Medicine 02/06/23 documented as of this encounter
--- OUTSIDE RECORDS SUMMARY | 2025-07-31 15:35 | XMS_ITS | Encounter Summary ---
Author Organization Healthcare Address [address] [place] [address] Care Team Providers Care Assistant Technician Name Role Phone April [place] APRN Primary Care Provider [phone] Reason for Visit * Reason Comments Med Refill Encounter Details Date Type Department Care Team (Late st Contact Info) Description 09/21/2024 Refill [place] [facility] [address] [place] [address] Keli Harvey PA [address] [place] [address] Social History Tobacco Use Types [...] place to sleep or slept in a fci (including now)? No 02/08/2024 PHQ-9 Answer Date [...] in the past 12 m [facility], were you homeless or living in a fci (including now)? No 02/08/2024 Utilities Answer Date [...] Description 08/22/2025 8:00 AM EST Office Visit [place] [facility] [address] [place] [address] Keli Harvey PA [id number] [place] [address] 10/01/2025 1:00 PM EST Office Visit [facility] [address] [place] [address] Janice Kramer MD [address] [facility] [address] [place] [address] 11/28/2025 7:20 AM EDT Office Visit [facility] Primary [facility] Urgent Care [address] [place] [phone] April [place]per APRN [address] [place] [phone] documented as of this encounter Goals Goal Patient Goal Type Associated Problems Recent Progress Patient-Stated? Author HEP Occupational Therapy On track(2020 3:42 PM EDT) No Tanya Ghosh Note: Patient will complete HEP with appropriate form 100% of the time. Commercial Technician Goal: to be met by 06/08/21 Goal on going as exercises continue to be added. Good form with exercises thus far. Leisure Occupational Therapy On track(2020 3:42 PM EDT) No Tanya Ghosh Note: Patient will complete leisure task such as baking or beading x20 minutes without pain 100% of the time. Commercial Technician Goal: to be met by 07/10/21. [...] documented as of this encounter Care Teams Assistant Technician Relationship Specialty Start Date End Date April [place]per APRN [address] [place] [address] PCP - General Family Medicine 02/06/23 documented as of this encounter
--- OUTSIDE RECORDS SUMMARY | 2025-07-31 15:35 | XMS_ITS | Encounter Summary ---
Author Organization Healthcare Address [address] [place] [address] Care Team Providers Care Carbide Powder Processor Name Role Phone April Piper APRN Primary Care Provider [phone] Encounter Details Date Type Department Care Team (Late st Contact Info) Description 06/04/[address] [facility] [address] [place] [address] April Piper APRN [address] [place] [address] Arthralgia of right temporomandibular joint [...] any time in the past 12 m [facility], were you homeless or living in a longterm (including now)? No 04/22/2025 [facility] Utilities Answer Date Recorded In the past 12 months has e [employer], gas, oil, or water company threatened to [...] Visit [place] [facility] [address] [place] [address] Keli Harvey PA [address] [place] [address] 10/01/2025 1:00 PM EST Office Visit [facility] [address] [place] [address] Janice Kramer MD [address] [place] [address] 11/28/2025 7:20 AM EDT Office Visit [facility] [address] [place] [address] April Piper APRN [address] [place] [phone] documented as of this encounter Goals Goal [...] documented as of this encounter Care Teams Carbide Powder Processor Relationship Specialty Start Date End Date April Piper APRN [address] [place] [phone] PCP - General Family Medicine 02/06/23 documented as of this encounter
--- NOTE | 2025-07-31 15:43 | HMH.EDGENADL ---
Discharge Plan Disposition Patient Disposition: Home, Self-Care Condition: Good Prescriptions Prescriptions: New prochlorperazine maleate [Compazine] 10 mg tablet 10 mg PO Q8H MDD 30 Qty: 20 0RF No Action methocarbamol 750 mg tablet 750 mg PO DAILY cyanocobalamin (vitamin B-12) 500 mcg tablet 500 mcg PO DAILY magnesium gluconate 27 mg magnesium (500 mg) tablet 27 mg PO DAILY Ubrelvy 50 mg tablet 50 mg PO DAILY famotidine 40 mg tablet 40 mg PO DAILY propranolol 20 mg tablet 20 mg PO DAILY PNV no.95-ferrous fumarate-FA [] 28 mg iron- 800 mcg tablet 1 tab PO DAILY clindamycin HCl [Cleocin HCl] 300 mg capsule 300 mg PO BID 7 Days Qty: 14 0RF lamotrigine 200 mg tablet 200 mg PO DAILY loratadine 10 mg tablet 10 mg PO DAILY budesonide-formoterol [Symbicort] 160-4.5 mcg/actuation HFA aerosol inhaler 160 inh inhalation DAILY Emgality Pen 120 mg/mL pen injector 120 mg SQ DAILY quetiapine 25 mg tablet 25 mg PO DAILY dextroamphetamine-amphetamine 10 mg tablet 10 mg PO DAILY Patient Comments: TAKE 1 TABLET BY MOUTH TWICE DAILY ondansetron 8 mg tablet,disintegrating 8 mg PO DAILY lisinopril 10 mg tablet 10 mg PO DAILY montelukast 10 mg tablet 10 mg PO DAILY ergocalciferol (vitamin D2) [Vitamin D2] 1,250 mcg (50,000 unit) capsule 1,250 mcg PO DAILY albuterol sulfate [Ventolin HFA] 90 mcg/actuation HFA aerosol inhaler 90 mcg inhalation DAILY naproxen 500 mg tablet 500 mg PO DAILY topiramate [Topamax] 50 mg tablet 50 mg PO BID baclofen 10 mg tablet 10 mg PO DAILY hydrocodone-acetaminophen 5-325 mg Tablet 1 - 2 tab PO Q6H PRN (Reason: Pain) Qty: 21 0RF artificial tears(hypromellose) 0.3 % drops 1 drp ophthalmic (eye) BID PRN (Reason: dry eyes) Qty: 15 0RF Allergy Relief (loratadine) 10 mg capsule 10 mg PO DAILY Qty: 30 0RF ondansetron 4 mg tablet,disintegrating 4 mg PO Q8H PRN (Reason: nausea and vomiting) Qty: 30 0RF ketorolac 10 mg tablet 10 mg PO Q6H PRN (Reason: pain) Qty: 15 0RF Referrals Follow up/Referrals: Koffi Andrade MD [Staff Physician, General Surgery] - See instructions April Piper APRN [Primary Care Provider, Medical] - See instructions Activity Restrictions/Add. Instructions Additional Instructions/Restrictions: You may use Compazine for headaches and nausea. Please do not take Compazine in addition to Zofran, just take one or the other. In regards to Ubrelvy, you can take a total of 200 mg per day. I would make sure that doses are by atleast 2 hours. I am going to attach the contact information for the general surgery clinic as they may be more helpful for gallbladder pain than the GI doctor will be. If you develop neck stifness, fevers measured with a thermometer, worsening headache, altered mental status, or any other new or worsening symptoms please return to the ER for further evaluation. Clinical Impressions Clinical Impression: Acute nonintractable headache Qualifiers: Headache type: unspecified Qualified Code(s): R51.9 - Headache, unspecified Print Language Print Language: Czech Discharge ED Provider: Madhav Tristan Adult HPI General Chief complaint: Headache Stated complaint: Migraine,pain right side neck,pain,right side wais Time Seen by Provider: 07/31/25 15:23 Mode of Arrival: Ambulatory Source of Information: Patient Description of Symptoms (Recalled from ER Triage Doc. by RN): patient states she has had a migraine for 2 days. was here on monday for RUQ pain and still having RUQ pain with nausea. History of Present Illness HPI narrative: This is a 29-year-old female patient, with past medical history of hypertension and migraine headaches, who is presenting to the emergency department today for evaluation of a headache. The patient tells me that she was seen at the [facility] a year ago and was diagnosed with migraines and was started on Ubrelvy. She tells me that she was seen in the emergency department on 07/28/2025 for abdominal and chest pain and was diagnosed with cholelithiasis. She was given follow-up to gastroenterology but has not yet been seen in the clinic. She states that over the last 2 to 3 days she has had nausea and vomiting with difficulty tolerating oral intake. She states that yesterday she had subjective fevers and development of a headache. She specifically states that the severity of her headache did not provoke vomiting, but the vomiting over the last 2 days has led to a gradual onset of her headache. She does not describe a thunderclap headache. In addition to this, she notes that she has developed right sided anterior neck pain with a nodule in the subcutaneous tissues that is painful to touch. She has not had any posterior neck pain and does not have any difficulty with range of motion of her neck. She denies cough and production of phlegm as well as sore throat. She is not having chest pain. She does tell me that her abdominal pain in the right upper quadrant has continued. Related Data Home Medications ?Medication ?Instructions ?Recorded ?Confirmed budesonide-formoterol HFA 160 160 inh inhalation DAILY 02/06/25 07/17/25 mcg-4.5 mcg/actuation aerosol inhaler (Symbicort) galcanezumab-gnlm 120 mg/mL 120 mg SQ DAILY 02/06/25 07/17/25 subcutaneous pen injector (Emgality Pen) lamotrigine 200 mg tablet 200 mg PO DAILY 02/06/25 07/17/25 loratadine 10 mg tablet 10 mg PO DAILY 02/06/25 07/17/25 cyanocobalamin (vitamin B-12) 500 500 mcg PO DAILY 02/27/25 07/17/25 mcg tablet magnesium gluconate 27 mg 27 mg PO DAILY 02/27/25 07/17/25 magnesium (500 mg) tablet methocarbamol 750 mg tablet 750 mg PO DAILY 02/27/25 07/17/25 ubrogepant 50 mg tablet (Ubrelvy) 50 mg PO DAILY 02/27/25 07/17/25 famotidine 40 mg tablet 40 mg PO DAILY 04/03/25 07/17/25 vit no.95-ferrous 1 tab PO DAILY 04/03/25 07/17/25 fumarate 28 mg-folic acid 800 mcg tablet () propranolol 20 mg tablet 20 mg PO DAILY 04/03/25 07/17/25 albuterol sulfate 90 mcg/actuation 90 mcg inhalation DAILY 04/06/25 07/17/25 aerosol inhaler (Ventolin HFA) dextroamphetamine-amphetamine 10 10 mg PO DAILY 04/06/25 07/17/25 mg tablet ergocalciferol (vitamin D2) 1,250 1,250 mcg PO DAILY 04/06/25 07/17/25 mcg (50,000 unit) capsule (Vitamin D2) lisinopril 10 mg tablet 10 mg PO DAILY 04/06/25 07/17/25 montelukast 10 mg tablet 10 mg PO DAILY 04/06/25 07/17/25 naproxen 500 mg tablet 500 mg PO DAILY 04/06/25 07/17/25 ondansetron 8 mg disintegrating 8 mg PO DAILY 04/06/25 07/17/25 tablet quetiapine 25 mg tablet 25 mg PO DAILY 04/06/25 07/17/25 topiramate 50 mg tablet (Topamax) 50 mg PO BID 04/06/25 07/17/25 baclofen 10 mg tablet 10 mg PO DAILY 07/11/25 07/17/25 Previous Rx's ?Medication ?Instructions ?Recorded artificial tears(hypromellose) 0.3 1 drp ophthalmic (eye) BID PRN dry 04/06/25 % eye drops eyes #15 mL loratadine 10 mg capsule (Allergy 10 mg PO DAILY #30 caps 04/06/25 Relief (loratadine)) clindamycin HCl 300 mg capsule 300 mg PO BID 7 days #14 caps 07/10/25 (Cleocin HCl) hydrocodone 5 mg-acetaminophen 325 1 - 2 tab PO Q6H PRN Pain #21 tabs 07/11/25 mg tablet ketorolac 10 mg tablet 10 mg PO Q6H PRN pain #15 tabs 07/28/25 ondansetron 4 mg disintegrating 4 mg PO Q8H PRN nausea and 07/28/25 tablet vomiting #30 tabs prochlorperazine maleate 10 mg 10 mg PO Q8H Vomiting/Headache #20 07/31/25 tablet (Compazine) tabs Allergies Allergy/AdvReac Type Severity Reaction Status Date / Time Sulfa (Sulfonamide Allergy Unknown Unknown Verified 07/17/25 09:36 Antibiotics) (SULFA allergy (SULFONAMIDE ANTIBIOTICS)) reaction aripiprazole (From Jerryk[facility]) AdvReac Fatigued Verified 07/17/25 09:36 Iodinated Contrast Media AdvReac Dizziness Verified 07/17/25 09:36 (Contrast) naltrexone AdvReac Other Verified 07/17/25 09:36 [facility] Disclaimer: The information contained in this section may have been updated after the patient was seen, as this information can be updated by other users. Medical History (Updated 07/31/25 @ 17:47 by Madhav Tristan DO) Asthma HTN (hypertension) TMJ (dislocation of temporomandibular joint) Stiff neck Surgical History (Updated 07/17/25 @ 09:37 by KUNAL Reyna) History of excision of pilonidal cyst History of gastric surgery History of surgery on wrist History of appendectomy History of tonsillectomy and adenoidectomy Family History Other Family history of hypertension Social History Smoking Status: Current every day smoker alcohol intake: never substance use type: denies use current occupational status: unemployed Travel in the last 8 weeks?: None household members: family housing: house caffeine: Yes Have you lived/traveled outside [place] in past 30 days?: No Contact w/someone who lives/traveled outside US past 30 days?: No Exposure to someone with infectious disease in past 14 days?: No Do you have a fever (greater than 100.4 F or 38 C)?: No Have you tested positive for COVID-19?: No Exposed to someone with COVID-19 in past 14 days?: No Do you have a sore throat?: No Do you have a cough?: No Do you have any weakness?: No Do you have any diarrhea?: No Are you experiencing any unusual bleeding?: No Do you have any muscle aches/pain?: No Do you have any abdominal pain?: No Are you experiencing loss of taste or smell?: No Other Medical History Have you received the Flu Vaccine for this season: Yes Have you received the Pneumonia Vaccine: No ROS Obtained: Yes Systems reviewed as appropriate & no additional complaints except as documented Physical Exam General General appearance: other (See MDM) Respiratory Respiratory exam: Present other (See MDM) Cardiovascular Cardiovascular exam: Present other (See MDM) Neurological Exam Neurological exam: Present other (See MDM) Medical Decision Making Medical Records Medical records reviewed: Yes I reviewed the patient's medical records. Screening: Per USPSTF and CDC recommendations, given the prevalence of disease in our region, it is our hospital?s policy to screen for HIV and viral Hepatitis for all patients aged 18 and over and those with ongoing risk factors. Chucky Inquiry Pt receiving controlled substance: No Chucky was queried for this patient: No Vital Signs: 07/31/25 15:26 07/31/25 15:30 07/31/25 16:01 Temperature 98.1 F Temperature Source Oral Pulse Rate 97 H 79 Pulse Rate [Right Radial] 99 H Respiratory Rate 15 Blood Pressure 100/60 L Blood Pressure [Right Arm] 140/95 H Blood Pressure Mean [Right Arm] 110 Blood Pressure Source Blood Pressure Source [Right Arm] Automatic Cuff Blood Pressure Position Blood Pressure Position [Right Arm] Supine 02 Sat by Pulse Oximetry 99 99 97 Oxygen Delivery Method Room Air 07/31/25 17:00 07/31/25 17:49 Temperature 98.1 F Temperature Source Oral Pulse Rate 76 71 Pulse Rate [Right Radial] Respiratory Rate 16 Blood Pressure 112/82 112/82 Blood Pressure [Right Arm] Blood Pressure Mean [Right Arm] Blood Pressure Source Automatic Cuff Blood Pressure Source [Right Arm] Blood Pressure Position Sitting Blood Pressure Position [Right Arm] 02 Sat by Pulse Oximetry 97 Oxygen Delivery Method Room Air Room Air Lab Data Lab Results 07/31/25 15:33: WBC 10.3, RBC 4.24, Hgb 11.9 L, Hct 36.3 L, MCV 85.6, MCH 28.1, MCHC 32.8, RDW 13.9, Plt Count 548 H, MPV 10.3, Neut % (Auto) 76.4, Lymph % (Auto) 15.2, [place] % (Auto) 5.9, Eos % (Auto) 1.6, Baso % (Auto) 0.5, Neut # (Auto) 7.9 H, Lymph # (Auto) 1.6, [place] # (Auto) 0.6, Eos # (Auto) 0.2, Baso # (Auto) 0.1, Sodium 139, Potassium 3.9, Chloride 104, Carbon Dioxide 22, Anion Gap 16.9 H, BUN 24 H, Creatinine 1.10 H, Estimated Creat Clear 135, Estimated GFR 59, Est GFR ( Amer) 72, Glucose 91, Calcium 9.8, Total Bilirubin 0.7, AST 27, ALT 28, Alkaline Phosphatase 101, Total Creatine Kinase 52, Total Protein 9.0 H, Albumin 5.2 H, Globulin 3.8 H, Albumin/Globulin Ratio 1.4, Lipase 43 07/31/25 15:45: SARS-CoV-2 (PCR) Not detected, Influenza A Untype (PCR) Not detected, Influenza Type B (PCR) Not detected 07/31/25 15:33 07/31/25 15:33 Orders (Tests/Meds): ED MEDICATIONS Discontinued Medications Generic Name Dose Route Start Last Admin Trade Name Freq PRN Reason Stop Dose Admin Diphenhydramine HCl 25 mg 07/31/25 15:37 07/31/25 15:53 Diphenhydramine 50mg/Ml Vial IV 07/31/25 15:38 25 mg ONCE ONE Administration Lactated Ringer's 1,000 mls @ 999 mls/hr 07/31/25 15:37 07/31/25 17:07 Lactated Ringer's 1000 Ml Bag IV 07/31/25 16:37 Infused .Q1H1M ONE Infusion Ketorolac Tromethamine 30 mg 07/31/25 15:37 07/31/25 15:51 Ketorolac 30mg/Ml Vial IV 07/31/25 15:38 30 mg ONCE ONE Administration Prochlorperazine Edisylate 10 mg 07/31/25 15:37 07/31/25 15:50 Prochlorperazine 10mg/2ml Vial IV 07/31/25 15:38 10 mg ONCE ONE Administration ORDERS Category Date Time Status POCUS Point of Care (ER Only) Stat Exams 07/31/25 16:32 Completed CBC w/Auto Diff [Complete Blood Count Auto Diff] Stat Lab 07/31/25 15:33 Completed CK [Creatine Kinase] Stat Lab 07/31/25 15:33 Completed CMP [Comprehensive Metabolic Panel] Stat Lab 07/31/25 15:33 Completed Lipase Stat Lab 07/31/25 15:33 Completed Rapid PCR Covid and Flu A/B Stat Lab 07/31/25 15:45 Completed Medical Decision Narrative: In summary, this is a 29-year-old female patient who is presenting to the emergency department today for evaluation of several days of nausea and vomiting in the setting of recently diagnosed cholelithiasis with gradual onset of headache as well as a subjective fever at home yesterday. Her comorbidities include a past medical history of hypertension as well as migraine headaches on Ubrelvy as confirmed by [facility] On initial evaluation of the patient she does appear uncomfortable and she is having photophobia. She states that with prior headaches she has had pain that is equally as severe but this is the first time that she has experienced photophobia. She does not appear toxic and she is afebrile. Mucous membranes do appear dry and she has delayed capillary refill, likely attributable to the vomiting she has had over the last few days. Her heart rate is 99 and her blood pressure is stable. On physical examination her extraocular movements are intact without cranial nerve palsies. She has 5 out of 5 strength in her bilateral upper and lower EXTR extremities with intact sensation. No abnormal cerebellar signs. She has full range of motion of her neck with lateral rotation and is able to touch her chin to her chest without pain in the posterior portion of her neck. Differential diagnosis includes COVID, flu, among other viral syndromes. This could also be a migraine headache. Her headache is not positional in nature and she has not had any recent sinus infections so I do not feel that this is a presentation consistent with cavernous sinus thrombosis. Additionally, she is afebrile and does not have any nuchal rigidity which makes meningitis less likely. Additionally, her headache has been gradual over 2 days and is not described as a thunderclap headache so I feel that this is unlikely to be a subarachnoid hemorrhage. Regarding her abdominal pain, she could have developed choledocholithiasis or cholecystitis. Her abdomen is mildly tender in the right upper quadrant and she does not have a positive Malik sign at this point time. We will screen with liver labs. Workup was initiated with hematologic labs. Initial interventions included 1 L of lactated Ringer's, 10 mg of Compazine, 25 mg of Benadryl, and 30 mg of Toradol. Labs resulted and demonstrated no evidence of leukocytosis, stable anemia from prior. No evidence of significant electrolyte derangement or acute kidney injury, however her creatinine on 07/10/2025 was 0.9 antedate is 1.1 which is consistent with reported history of vomiting and my suspicion for relative dehydration. COVID and flu swabs were negative. On repeat assessment the patient she states that her headache has significantly improved but has not resolved. At this point we further discussed her medical history and I was concerned that with her body habitus and her frontal headache that this could be idiopathic intracranial hypertension. She told me that she has been worked up for this in the past and had a lumbar puncture which showed a CSF pressures that were equivocal. Her and her neurologist decided to proceed with Topamax therapy as opposed to Diamox. I did proceed with an ultrasound of her eyes and found that her optic nerve sheath was less than 5 mm in diameter. I do not feel that her presentation is consistent with idiopathic intracranial hypertension based on these findings. We did have a long conversation about her course of action moving forward. We discussed the possibility of central venous thrombus, subarachnoid hemorrhage, and meningitis and I did inform the patient that my concern for these conditions are low, but I also offered to proceed with CT scans of the head as well as lumbar puncture. The patient tells me that she does not feel that her symptoms are significantly different from her baseline headaches and given my low suspicion she elected to forego these procedures and follow-up with her neurologist in the outpatient setting. Additionally, I did attempt to POCUS the patient's gallbladder given that she was reporting persistent right upper quadrant pain in the setting of a recent diagnosis of cholelithiasis. I was unable to identify the gallbladder successfully but I was able to identify that she had no secondary signs of perihepatic fluid, and a normal caliber bile duct. The patient has no leukocytosis, no transaminitis, no elevated bilirubin so I do not feel that she necessitates formal imaging at this time. I have given her the number for the general surgery clinic for follow-up of her gallstones and persistent pain. At this time all questions were answered and all parties were agreeable with the decision to discharge Procedures Miscellaneous Procedure Procedure Performed: Limited ocular ultrasound Indication: Headache Identified structures: Both eyes Findings: Right eye: Retina: Normal Lens: Normal Vitreous body: Anechoic Optic nerve sheath diameter (millimeters): Less than 5 mm, normal Foreign body: Absent Left eye: Retina: Normal Lens: Normal Vitreous body: Anechoic Optic nerve sheath diameter (millimeters): Less than 5 mm, normal Foreign body: Absent Impression: Right eye: No evidence of papilledema Left eye: No evidence of papilledema Images were saved to permanent archive This study was technically adequate CPT 42507-36 This study was performed by me, and I personally interpreted all images/videos. Based on my clinical judgment, these images were adequate and did not necessitate further imaging. Limited right upper quadrant ultrasound Indication: Abdominal pain Identified structures: Bile duct, liver Findings: Sonographic Malik sign: Absent Gallstones: Unable to identify Sludge: Unable to identify Pericholecystic fluid: No perihepatic fluid, unable to identify Maximal gallbladder wall thickness (mm): Unable to identify Common bile duct with (mm): Less than 6 mm, normal Impression: Unable to identify the gallbladder confidently, common bile duct diameter is normal Images were saved to permanent archive This study was technically adequate CPT: 22041-64 This study was performed by me and I personally interpreted all images/videos. Based on my clinical judgment these images were adequate and did not necessitate further imaging. Critical Care Critical Care Time Critical Care Time: No
[2025-07-31 15:49] LABS: Coronavirus 19, PCR Not Detected (NotDetected); Influenza A, PCR Not Detected (NotDetected); Influenza B, PCR Not Detected (NotDetected)
[2025-07-31] MEDS: PROCHLORPERAZINE 10MG/2ML VIAL 10 MG IV (15:50)
[2025-07-31 15:51] LABS: Hematocrit 36.3 % (37.0-47.0); Hemoglobin 11.9 g/dL (12.2-16.2); Immature Granulocytes % 0.4 %; Mean Corpuscular HGB Conc 32.8 g/dL (31.8-35.4); Mean Corpuscular Hemoglobin 28.1 pg (27.0-31.2); Mean Corpuscular Volume 85.6 fl (81-99); Nucleated Red Blood Cells % 0 %; Platelet Count 548 K/mm3 (142-424); Red Blood Count 4.24 M/mm3 (4.20-5.40); Red Cell Distribution Width-SD 43.0 fL; White Blood Count 10.3 K/mm3 (4.8-10.8)
[2025-07-31] MEDS: KETOROLAC 30MG/ML VIAL 30 MG IV (15:51)
[2025-07-31] MEDS: LACTATED RINGERS 1000ML 1,000 ML 999 ML IV (15:53)
[2025-07-31 15:58] LABS: Alanine Aminotransferase 28 U/L (12-78); Albumin Level 5.2 g/dl (3.5-5.0); Albumin/Globulin Ratio 1.4 (1.1-1.8); Alkaline Phosphatase 101 U/L (38-126); Anion Gap 16.9 mEq/L (5-15); Aspartate Amino Transferase 27 U/L (14-36); Bilirubin,Total 0.7 mg/dl (0.2-1.3); Blood Urea Nitrogen 24 mg/dl (7-17); Calcium 9.8 mg/dl (8.4-10.2); Carbon Dioxide 22 mmol/L (22.0-30.0); Chloride 104 mmol/L (98-107); Creatine Kinase 52 U/L (30-135); Creatinine Clearance Estimated 135 mL/min (50-200); Creatinine,Serum 1.10 mg/dl (0.52-1.04); Estimated Glomerular Filt Rate 59 ml/min (>60); GFR (African American) 72 ML/MIN (>60); Globulin 3.8 g/dL (1.3-3.2); Glucose 91 mg/dl (74-100); Lipase 43 U/L (23-300); Potassium 3.9 mmoL/L (3.5-5.1); Sodium 139 mmol/L (136-145); Total Protein,Serum 9.0 g/dl (6.3-8.2)
[2025-07-31 16:01] VITALS: BP 100/60; PULSE 79; O2SAT 97
[2025-07-31 17:00] VITALS: BP 112/82; PULSE 76; O2SAT 97
[2025-07-31 17:49] VITALS: BP 112/82; PULSE 71; RESP 16; TEMP 36.7; O2SAT 98
== END 2025-07-31 17:52 | disposition home or self-care (01) ==
PROVIDERS: Emergency Provider Student in an Organized Health Care Education/Training Program; PCP Nurse Practitioner Family
DX: G43.909 Migraine, unspecified, not intractable, without status migrainosus (principal); H53.71 Glare sensitivity; R11.2 Nausea with vomiting, unspecified; R10.811 Right upper quadrant abdominal tenderness; M54.2 Cervicalgia; F17.210 Nicotine dependence, cigarettes, uncomplicated; I10 Essential (primary) hypertension
CPT/HCPCS: 80053; 82550; 83690; 85025; 87636; 96361; 96374; 96375; 99284; 99285; J0780; J1200; J1885; J7120